=== PATIENT | female | born 1945 | race Caucasian/White ===

== ENCOUNTER → 2017-09-15 09:41 | Outpatient (CLI) | payer OTHER, MEDICARE, SELFPAY ==
[2017-09-15 11:08] LABS: Add Manual Diff / Slide Review NO; Basophils Percent Auto 0.9 % (0-2); Eosinophils Percent Auto 3.3 % (2-4); Hematocrit 41.2 % (36-46); Hemoglobin 14.3 g/dL (12.0-16.0); Lymphocytes Percent Auto 27.6 % (25-40); Mean Corpuscular HGB Conc 34.6 % (30-36); Mean Corpuscular Hemoglobin 30.8 PG (26-34); Monocytes Percent Auto 8.9 % (3-14); Neutrophils Absolute Auto 2800 /uL (3000-5900); Neutrophils Percent Auto 59.3 % (50-75); Platelet Count 177 X10^3/uL (150-400); Red Blood Cell Count 4.64 X10^6/uL (4.0-5.2); Red Cell Distribution Width 13.9 % (11.6-14.8); White Blood Cell Count 4.7 X10^3/uL (4.5-11.0)
[2017-09-15 11:17] LABS: Alanine Aminotransferase 31 IU/L (9-52); Albumin 4.3 g/dL (3.5-5.0); Albumin Globulin Ratio 1.2 (1.0-2.8); Alkaline Phosphatase 112 U/L (38-126); Aspartate Aminotransferase 28 IU/L (14-36); BUN Creatinine Ratio 24.3 (6-22); Bilirubin Total 0.8 mg/dL (0.2-1.3); Blood Urea Nitrogen 17 mg/dL (7-17); Calcium 9.7 mg/dL (8.4-10.2); Carbon Dioxide 30 mmol/L (22-32); Chloride 102 mmol/L (98-107); Estimated Glomerular Filt Rate > 60.0 mL/min (>60); Globulin 3.7 g/dL (1.7-4.1); Glucose 100 mg/dL (80-110); HEMOLYSIS < 15 (0-50); Potassium 4.9 mmol/L (3.4-5.1); Sodium 144 mmol/L (137-145)
== END ==
PROVIDERS: Family Provider Family Medicine; PCP Family Medicine; Visit Provider Nurse Practitioner Pediatrics
DX: I48.91 Unspecified atrial fibrillation (principal); Z86.79 Personal history of other diseases of the circulatory system; I05.9 Rheumatic mitral valve disease, unspecified
CPT/HCPCS: 36415; 80053; 85025

== ENCOUNTER → 2017-11-20 12:56 | Outpatient (CLI) | payer OTHER, MEDICARE, SELFPAY ==
--- NOTE | 2017-11-20 12:59 | DI.RAD.S_ITS ---
PROCEDURE: XR LUMBAR SPINE 2-3V INDICATIONS: Low back pain TECHNIQUE: 3 views of the lumbar spine were acquired. COMPARISON: None. FINDINGS: Bones: 5 iso-[id number] vertebrae are present. There is mild S-shaped scoliosis. L1 vertebral body compression fracture is indeterminate for chronicity. No suspicious bony lesions. Advanced disc degeneration L4-5. Facet arthropathy L5-S1 with mild anterolisthesis. Soft tissues: Overlying bowel gas pattern is normal. No suspicious soft tissue calcifications. IMPRESSION: 1. Compression fracture deformity L1, age indeterminate. Correlate clinically. 2. Advanced disc degeneration L4-5. 3. Facet arthropathy L5-S1 with slight anterolisthesis deformity. Dictated by: Joey Holt M.D. on 11/20/2017 at 13:17 Approved by: Joey Holt M.D. on 11/20/2017 at 13:20
== END ==
PROVIDERS: Family Provider Family Medicine; PCP Family Medicine; Visit Provider Physician Assistant
DX: M51.36 Other intervertebral disc degeneration, lumbar region (principal); M48.56XA Collapsed vertebra, not elsewhere classified, lumbar region, initial encounter for fracture; M47.817 Spondylosis without myelopathy or radiculopathy, lumbosacral region; M54.5 Low back pain
CPT/HCPCS: 72100

== ENCOUNTER → 2018-01-04 12:21 | Outpatient (CLI) | payer OTHER, MEDICARE, SELFPAY | PROVIDERS: Family Provider Family Medicine; PCP Family Medicine | DX: Z23 Encounter for immunization (principal) | CPT/HCPCS: 90471; 90662 ==

== ENCOUNTER → 2018-04-12 09:48 | Outpatient (CLI) | payer OTHER, MEDICARE, SELFPAY ==
--- NOTE | 2018-04-12 09:52 | DI.RAD.S_ITS ---
PROCEDURE: XR RIBS RT MIN 3V W CXR 1V INDICATIONS: Fall right posterior rib pain TECHNIQUE: 2 views of the right ribs were acquired, along with a single view chest. COMPARISON: None. FINDINGS: Surgical changes and devices: Sternotomy wires. Bones and chest wall: No fractures or dislocations. No suspicious bony lesions. Overlying soft tissues appear unremarkable. Lungs and pleura: No pleural effusions or pneumothorax. Lungs appear clear. Mediastinum: Mediastinal contours appear normal. Heart size is normal. IMPRESSION: Sternotomy wires, no trauma found. Dictated by: Dakota Branch M.D. on 04/12/2018 at 10:36 Approved by: Dakota Branch M.D. on 04/12/2018 at 10:37
--- NOTE | 2018-04-12 09:52 | DI.RAD.S_ITS ---
PROCEDURE: XR THORACIC SPINE 3V INDICATIONS: Fall back pain TECHNIQUE: 3 views of the thoracic spine were acquired. COMPARISON: [facility], CR, XR LUMBAR SPINE 2-3V, 11/20/2017, 12:35. FINDINGS: Bones: No dislocations. Within the thoracic spine there are 2 adjacent compression fractures, mild in severity at T8 and moderate in severity at T9. The height reduction at T8 involves the upper and lower endplates and is a 20% reduction from reference to the T7 level immediately above. At the T9 level when compared to T7 there is a 35% height reduction, and chronicity is uncertain given the absence of reference images through this area from the past. Note is made also of an L1 moderate wedge compression fracture, with vertebral height reduction of up to 42% in reference to the level immediately below. A compression fracture in this area was previously present in the obvious to this year, perhaps very slightly worsened No suspicious bony lesions. 12 pairs of ribs are noted, and appear intact where visualized. Soft tissues: No paravertebral stripe thickening. IMPRESSION: T8 and T9 compression fractures are present, chronicity uncertain, with a 20% height reduction at T8 and a 35% height reduction at T9. There is a 42% height reduction in the previously present L1 moderate wedge compression fracture. This lowest compression fracture was previously present in November of this year, and likely has only slightly worsened from the prior study. Dictated by: Dakota Branch M.D. on 04/12/2018 at 10:37 Approved by: Dakota Branch M.D. on 04/12/2018 at 10:42
== END ==
PROVIDERS: PCP Student in an Organized Health Care Education/Training Program; Visit Provider Student in an Organized Health Care Education/Training Program
DX: T14.8XXA Other injury of unspecified body region, initial encounter (principal); W19.XXXA Unspecified fall, initial encounter
CPT/HCPCS: 71101; 72072

== ENCOUNTER → 2018-05-02 10:08 | Outpatient (CLI) | payer OTHER, MEDICARE, SELFPAY | PROVIDERS: Family Provider Student in an Organized Health Care Education/Training Program; PCP Student in an Organized Health Care Education/Training Program; Visit Provider Orthopaedic Surgery Foot and Ankle Surgery | DX: M85.88 Other specified disorders of bone density and structure, other site (principal); Z78.0 Asymptomatic menopausal state; M48.50XA Collapsed vertebra, not elsewhere classified, site unspecified, initial encounter for fracture | CPT/HCPCS: 77080 ==

== ENCOUNTER → 2018-08-31 12:58 | Outpatient (CLI) | payer OTHER, MEDICARE, SELFPAY ==
--- NOTE | 2018-08-31 | DI.MG.S_ITS ---
BILATERAL DIGITAL SCREENING MAMMOGRAM 3D/2D WITH CAD: 08/31/2018 CLINICAL: Routine screening. Comparison is made to exams dated: 08/04/2017 mammogram, 07/15/2016 mammogram, and 06/05/2015 mammogram - [facility]. There are scattered fibroglandular elements in both breasts. Current study was also evaluated with a Computer Aided Detection (CAD) system. There are benign vascular calcifications in both breasts. No significant masses, calcifications, or other findings are seen in either breast. There has been no significant interval change. IMPRESSION: There is no mammographic evidence of malignancy. A 1 year screening mammogram is recommended. This exam was interpreted at Station ID: [id number]. NOTE: For mammograms, a report in lay terms will be sent to the patient. Approximately 15% of breast malignancies will not be visualized mammographically. In the management of a palpable breast mass, a negative mammogram must not discourage biopsy of a clinically suspicious lesion. Electronically Signed By: Melvina jose/charlie:08/31/2018 14:19:16 letter sent: Normal Exam ACR BI-RADS Category 2: Benign Finding(s) 3342F
== END ==
PROVIDERS: Family Provider Student in an Organized Health Care Education/Training Program; PCP Student in an Organized Health Care Education/Training Program; Visit Provider Student in an Organized Health Care Education/Training Program
DX: Z12.31 Encounter for screening mammogram for malignant neoplasm of breast (principal)
CPT/HCPCS: 77063; 77067

== ENCOUNTER → 2018-09-07 08:33 | Outpatient (CLI) | payer OTHER, MEDICARE, SELFPAY ==
[2018-09-07 09:25] LABS: Add Manual Diff / Slide Review NO; Basophils Absolute Auto 0 /uL (0-100); Basophils Percent Auto 0.9 % (0-2); Eosinophils Absolute Auto 100 /uL (0-450); Eosinophils Percent Auto 2.7 % (2-4); Hematocrit 41.8 % (36-46); Lymphocytes Absolute Auto 1600 /uL (1100-4500); Lymphocytes Percent Auto 32.9 % (25-40); Mean Corpuscular HGB Conc 33.4 % (30-36); Mean Corpuscular Hemoglobin 29.9 PG (26-34); Mean Corpuscular Volume 89.5 fL (80-100); Monocytes Absolute Auto 400 /uL (0-900); Monocytes Percent Auto 8.8 % (3-14); Neutrophils Absolute Auto 2600 /uL (1500-7000); Neutrophils Percent Auto 54.7 % (50-75); Platelet Count 192 X10^3/uL (150-400); Red Blood Cell Count 4.67 X10^6/uL (4.0-5.2); Red Cell Distribution Width 13.9 % (11.6-14.8); White Blood Cell Count 4.8 X10^3/uL (4.5-11.0)
[2018-09-07 09:54] LABS: Alanine Aminotransferase 22 IU/L (9-52); Albumin 4.3 g/dL (3.5-5.0); Albumin Globulin Ratio 1.4 (1.0-2.8); Alkaline Phosphatase 108 U/L (38-126); Aspartate Aminotransferase 26 IU/L (14-36); BUN Creatinine Ratio 23.8 (6-22); Blood Urea Nitrogen 19 mg/dL (7-17); Calcium 9.7 mg/dL (8.4-10.2); Carbon Dioxide 29 mmol/L (22-32); Chloride 102 mmol/L (98-107); Estimated Glomerular Filt Rate > 60.0 mL/min (>60); Globulin 3.1 g/dL (1.7-4.1); Glucose 100 mg/dL (80-110); HEMOLYSIS < 15 (0-50); Magnesium 1.9 mg/dL (1.6-2.3); Potassium 4.7 mmol/L (3.4-5.1); Sodium 138 mmol/L (137-145); Total Protein 7.4 g/dL (6.3-8.2)
[2018-09-07 11:59] LABS: Cholesterol 161 mg/dL (140-199); HDL Cholesterol 55 mg/dL (40-60); LDL Cholesterol Calculated 86 mg/dL (<100); Triglycerides 98 mg/dL (35-150)
== END ==
PROVIDERS: Family Provider Student in an Organized Health Care Education/Training Program; PCP Student in an Organized Health Care Education/Training Program; Visit Provider Internal Medicine Cardiovascular Disease
DX: Z79.899 Other long term (current) drug therapy (principal); I48.91 Unspecified atrial fibrillation; I05.9 Rheumatic mitral valve disease, unspecified; Z86.79 Personal history of other diseases of the circulatory system
CPT/HCPCS: 36415; 80053; 80061; 83735; 85025

== ENCOUNTER 2018-12-14 06:38 | Day surgery (SDC) | payer OTHER, MEDICARE, SELFPAY ==
[2018-12-14 07:10] VITALS: BMI 33.8
[2018-12-14 07:18] VITALS: BP 127/82; PULSE 73; RESP 16; TEMP 36.4; O2SAT 95
[2018-12-14] MEDS: SODIUM CHLORIDE 0.9% 1,000 ML 200 ML IV (07:29)
[2018-12-14] MEDS: GLUCAGON,HUMAN RECOMBINANT 1 MG/ML VIAL IV (07:55)
[2018-12-14] MEDS: MIDAZOLAM 5 MG/5 ML VIAL IV (08:00)
[2018-12-14] MEDS: fentaNYL 250 MCG/5 ML INJ IV (08:00)
--- NOTE | 2018-12-14 08:25 | PM.HP.1 ---
History of Present Illness History of Present Illness Date Patient Seen: 12/14/18 Time Patient Seen: 07:35 Chief complaint: [id number] Narrative: pt seen and examened unchanged since recent clinic not off warfarin x 5 days Patient History Surgical History (Updated 12/06/17 @ 07:07 by Dallas Marley MD) History of heart valve replacement (Resolved 07/2012) Hx of cataract surgery (Resolved ~01/2016) Hx of foot surgery (Resolved) Family History (Updated 10/23/18 @ 11:56 by Guerline Calderon, RN) Mother Heart disease Stroke Gallstones Father Heart disease Brother Heart disease Social History (Updated 10/23/18 @ 11:57 by Guerline Calderon, OPAL) occupational status: employed Smoking Status: Never smoker alcohol intake: never substance use type: does not use Family & Social History Tobacco & Substance use: Smoking Status Never smoker alcohol intake never Meds Home Medications and Allergies Home Medications Medication Instructions Recorded Confirmed Type FOLIC ACID/VIT A/VIT B1/VIT 1 tab PO Q DAY #0 09/15/10 12/14/18 History (#MULTIVITAMIN) warfarin [Coumadin] 4 mg PO DAILY #0 01/07/13 12/14/18 History simvastatin 20 mg tablet 20 mg PO HS #90 tab 09/03/18 12/14/18 Rx aspirin 81 mg tablet,delayed 81 mg PO DAILY 10/02/18 12/14/18 History release sotalol 80 mg tablet 80 mg PO DAILY 10/23/18 12/14/18 History alendronate 10 mg tablet 10 mg PO DAILY #30 tab 10/30/18 12/14/18 Rx Allergies Allergy/AdvReac Type Severity Reaction Status Date / Time No Known Drug Allergies Allergy Verified 10/23/18 11:44 Exam Vital Signs (past 8 hours): - 12/14/18 07:18 Temperature 97.6 F Pulse Rate 73 Respiratory Rate 16 Blood Pressure 127/82 Pulse Oximetry 95 Oxygen Delivery Method Room Air
--- NOTE | 2018-12-14 08:26 | PM.OP.ENDO ---
Operative Date/Time/Diagnoses Date of procedure: 12/14/18 Time of procedure: 08:26 Pre-op diagnosis: Colorectal cancer screening Post-op diagnosis: same Procedure & Clinicians Study performed: Screening colonoscopy-complete Same procedure as scheduled: Yes Indications: 73-year-old woman without a family history of colon cancer or polyps, no true polyp on prior colonoscopy -last colonoscopy 11 years ago Of note has bioprosthetic mitral valve -on warfarin, warfarin stopped X5 days ahead of procedure Surgeon: Dharmesh De La Cruz Procedure Notes SCOAP/Timeout: Completed Procedure in detail: Patient was taken to the endoscopy suite, a time-out was completed. She was sedated over the entire course of the procedure with 4 mg of midazolam and 75 micro g of fentanyl. In addition due to his spastic colon she received 1 mg of glucagon. A digital rectal exam was performed without lesions. 160 cm colonoscope was introduced through the anus and passed to hold the rectum and colon without difficulty until the cecum was encountered. The cecum was identified via prominent ileocecal valve and a crows foot. The blind pouch of the cecum was inspected thoroughly -I was unable to identify the appendiceal orifice. Be doubly sure we were in the cecum -I went forward and intubated the ileocecal valve revealing healthy villous mucosa -pictures taken of this.. The scope was then withdrawn out of the small bowel back into the cecum. The scope was then slowly withdrawn through the remainder of the colon. There was very rare scattered right and transverse colon diverticulosis and a moderate amount of sigmoid diverticulosis. Within the distal rectum the scope was retroflexed -there is the small anal skin taken identified within the anal canal. No further lesion Prep was adequate Scope withdrawal time: 11 Sedation minutes: 33 Specimen(s): none sent Complications: none Impression: Rare right/transverse colon diverticulosis Moderate amount of sigmoid colon diverticulosis Post-procedure Recommendations: Colonscopy in 10 years Plan for aftercare: PACU then home Follow up: as needed Disposition: PACU
[2018-12-14 08:31] VITALS: BP 100/56; PULSE 65; RESP 15; TEMP 36.3; O2SAT 95
[2018-12-14 08:34] VITALS: BP 97/54; PULSE 78; RESP 13; O2SAT 95
[2018-12-14 09:15] VITALS: BP 109/72; PULSE 65; RESP 16; TEMP 36.3; O2SAT 96
--- NOTE | 2018-12-14 09:36 | SUR.PHASEII ---
Discharge note: Patient AA/O x 3. VSS, O2 sat wnl on room air. No complaints of pain. Tolerating po without any nausea. Discharge instructions reviewed with good understanding.
== END 2018-12-14 09:30 | disposition home or self-care (01) ==
PROVIDERS: Family Provider Student in an Organized Health Care Education/Training Program; PCP Student in an Organized Health Care Education/Training Program; Visit Provider Surgery
PROC: 0DJD8ZZ Inspection of Lower Intestinal Tract, Via Natural or Artificial Opening Endoscopic (ICD-10-PCS; CPT 45378; principal; 2018-12-14 07:45)
DX: Z12.11 Encounter for screening for malignant neoplasm of colon (principal); K57.30 Diverticulosis of large intestine without perforation or abscess without bleeding
CPT/HCPCS: 45378; 99152; 99153; J1610; J2250; J3010

== ENCOUNTER → 2019-01-17 15:55 | Outpatient (CLI) | payer OTHER, SELFPAY | DX: Z23 Encounter for immunization (principal) | CPT/HCPCS: 90471; 90662 ==

== ENCOUNTER → 2019-02-27 09:49 | Outpatient (CLI) | payer OTHER, MEDICARE, SELFPAY ==
[2019-02-27 11:17] LABS: Alanine Aminotransferase 22 IU/L (<35); Albumin 4.4 g/dL (3.5-5.0); Albumin Globulin Ratio 1.5 (1.0-2.8); Alkaline Phosphatase 86 U/L (38-126); Aspartate Aminotransferase 32 IU/L (14-36); BUN Creatinine Ratio 25.7 (6-22); Bilirubin Total 0.8 mg/dL (0.2-1.3); Blood Urea Nitrogen 18 mg/dL (7-17); Calcium 9.8 mg/dL (8.4-10.2); Carbon Dioxide 29 mmol/L (22-32); Chloride 102 mmol/L (98-107); Estimated Glomerular Filt Rate > 60.0 mL/min (>60); Glucose 93 mg/dL (80-110); HEMOLYSIS < 15 (0-50); Potassium 4.8 mmol/L (3.4-5.1); Sodium 138 mmol/L (137-145); Total Protein 7.4 g/dL (6.3-8.2)
== END ==
PROVIDERS: Family Provider Student in an Organized Health Care Education/Training Program; PCP Student in an Organized Health Care Education/Training Program; Visit Provider Internal Medicine Cardiovascular Disease
DX: Z51.81 Encounter for therapeutic drug level monitoring (principal)
CPT/HCPCS: 36415; 80053

== ENCOUNTER → 2019-04-26 15:05 | Outpatient (CLI) | payer OTHER, MEDICARE, SELFPAY | PROVIDERS: PCP Student in an Organized Health Care Education/Training Program; Visit Provider Student in an Organized Health Care Education/Training Program | DX: M85.88 Other specified disorders of bone density and structure, other site (principal); Z78.0 Asymptomatic menopausal state | CPT/HCPCS: 77080 ==

== ENCOUNTER → 2019-11-12 09:45 | Outpatient (CLI) | payer MEDICARE, OTHER, SELFPAY ==
[2019-11-12 10:45] LABS: BUN Creatinine Ratio 29.9 (6-22); Blood Urea Nitrogen 20 mg/dL (7-17); Calcium 9.7 mg/dL (8.4-10.2); Carbon Dioxide 25 mmol/L (22-32); Chloride 105 mmol/L (98-107); Estimated Glomerular Filt Rate > 60.0 mL/min (>60); Glucose 100 mg/dL (80-110); HEMOLYSIS < 15 (0-50); Potassium 4.2 mmol/L (3.4-5.1); Sodium 137 mmol/L (137-145)
== END ==
PROVIDERS: PCP Student in an Organized Health Care Education/Training Program; Referring Provider Internal Medicine Cardiovascular Disease; Visit Provider Internal Medicine Cardiovascular Disease
DX: I48.0 Paroxysmal atrial fibrillation (principal); Z51.81 Encounter for therapeutic drug level monitoring; Z79.01 Long term (current) use of anticoagulants
CPT/HCPCS: 36415; 80048

== ENCOUNTER → 2019-11-14 16:58 | Outpatient (CLI) | payer MEDICARE, OTHER, SELFPAY ==
--- NOTE | 2019-11-14 17:00 | DI.MG.S_ITS ---
BILATERAL DIGITAL SCREENING MAMMOGRAM 3D/2D WITH CAD: 11/14/2019 CLINICAL: Routine screening. Comparison is made to exams dated: 08/31/2018 mammogram, 08/04/2017 mammogram, and 07/15/2016 mammogram - [facility]. There are scattered fibroglandular elements in both breasts. Current study was also evaluated with a Computer Aided Detection (CAD) system. There are benign vascular calcifications in both breasts. No significant masses, calcifications, or other findings are seen in either breast. There has been no significant interval change. IMPRESSION: There is no mammographic evidence of malignancy. A 1 year screening mammogram is recommended. This exam was interpreted at Station ID: [id number]. NOTE: For mammograms, a report in lay terms will be sent to the patient. Approximately 15% of breast malignancies will not be visualized mammographically. In the management of a palpable breast mass, a negative mammogram must not discourage biopsy of a clinically suspicious lesion. Electronically Signed By: Toby valdovinos/charlie:11/15/2019 08:16:44 letter sent: Normal Exam ACR BI-RADS Category 2: Benign Finding(s) 3342F
== END ==
PROVIDERS: PCP Student in an Organized Health Care Education/Training Program; Referring Provider Student in an Organized Health Care Education/Training Program; Visit Provider Student in an Organized Health Care Education/Training Program
DX: Z12.31 Encounter for screening mammogram for malignant neoplasm of breast (principal)
CPT/HCPCS: 77063; 77067

== ENCOUNTER → 2020-01-07 10:48 | Outpatient (CLI) | payer MEDICARE, OTHER, SELFPAY ==
[2020-01-07 11:59] LABS: INR 2.6 (0.9-1.3); Prothrombin Time 30.1 SECONDS (10.1-12.7)
== END ==
PROVIDERS: PCP Student in an Organized Health Care Education/Training Program; Referring Provider Internal Medicine Cardiovascular Disease; Visit Provider Internal Medicine Cardiovascular Disease
DX: I48.0 Paroxysmal atrial fibrillation (principal); Z51.81 Encounter for therapeutic drug level monitoring
CPT/HCPCS: 36415; 85610

== ENCOUNTER → 2020-04-28 10:10 | Outpatient (CLI) | payer MEDICARE, OTHER, SELFPAY | PROVIDERS: PCP Student in an Organized Health Care Education/Training Program; Referring Provider Student in an Organized Health Care Education/Training Program; Visit Provider Student in an Organized Health Care Education/Training Program | DX: M85.88 Other specified disorders of bone density and structure, other site (principal); Z78.0 Asymptomatic menopausal state | CPT/HCPCS: 77080 ==

== ENCOUNTER → 2020-06-29 07:30 | Outpatient (CLI) | payer MEDICARE, OTHER, SELFPAY ==
[2020-06-29] MEDS: COVID-19 VACC, Ad26(JANSSEN)/PF 0.5 ML IM (07:42)
== END ==
PROVIDERS: PCP Student in an Organized Health Care Education/Training Program; Visit Provider Internal Medicine
DX: Z23 Encounter for immunization (principal)
CPT/HCPCS: 0031A; 91303

== ENCOUNTER → 2020-07-10 09:04 | Outpatient (CLI) | payer MEDICARE, OTHER, SELFPAY ==
[2020-07-10 10:38] LABS: BUN Creatinine Ratio 29.9 (6-22); Blood Urea Nitrogen 23 mg/dL (7-17); Calcium 9.3 mg/dL (8.4-10.2); Carbon Dioxide 29 mmol/L (22-32); Chloride 104 mmol/L (98-107); Estimated Glomerular Filt Rate > 60.0 mL/min (>60); Glucose 101 mg/dL (80-110); HEMOLYSIS < 15 (0-50); Potassium 4.3 mmol/L (3.4-5.1); Sodium 140 mmol/L (137-145)
== END ==
PROVIDERS: PCP Student in an Organized Health Care Education/Training Program; Referring Provider Internal Medicine Cardiovascular Disease; Visit Provider Internal Medicine Cardiovascular Disease
DX: I48.0 Paroxysmal atrial fibrillation (principal); I48.3 Typical atrial flutter
CPT/HCPCS: 36415; 80048

== ENCOUNTER → 2020-08-19 10:14 | Outpatient (CLI) | payer MEDICARE, OTHER, SELFPAY ==
--- NOTE | 2020-08-19 10:17 | DI.RAD.S_ITS ---
PROCEDURE: XR KNEE RT 3V INDICATIONS: Right knee pain TECHNIQUE: 3 views of the knee were acquired. COMPARISON: None. FINDINGS: Bones: No fractures or dislocations. No suspicious bony lesions. Diffuse mild tricompartmental joint space narrowing. Scattered degenerative subchondral sclerosis and spurring. Soft tissues: No joint effusion. No suspicious soft tissue calcifications. IMPRESSION: Mild diffuse osteoarthritis as above. If the patient's pain or other symptoms persist, consider further evaluation with MRI Dictated by: Brian Reyes M.D. on 08/19/2020 at 10:51 Approved by: Brian Reyes M.D. on 08/19/2020 at 10:52
== END ==
PROVIDERS: PCP Student in an Organized Health Care Education/Training Program; Referring Provider Student in an Organized Health Care Education/Training Program; Visit Provider Student in an Organized Health Care Education/Training Program
DX: M25.561 Pain in right knee (principal); M17.11 Unilateral primary osteoarthritis, right knee
CPT/HCPCS: 73562

== ENCOUNTER → 2020-11-16 10:42 | Outpatient (CLI) | payer MEDICARE, OTHER, SELFPAY ==
--- NOTE | 2020-11-16 | DI.MG.S_ITS ---
BILATERAL DIGITAL SCREENING MAMMOGRAM 3D/2D WITH CAD: 11/16/2020 CLINICAL: Routine screening. Comparison is made to exams dated: 11/14/2019 mammogram, 08/31/2018 mammogram, and 08/04/2017 mammogram - [facility]. There are scattered fibroglandular elements in both breasts. Current study was also evaluated with a Computer Aided Detection (CAD) system. There are benign vascular calcifications in both breasts. No significant masses, calcifications, or other findings are seen in either breast. There has been no significant interval change. IMPRESSION: BENIGN There is no mammographic evidence of malignancy. A 1 year screening mammogram is recommended. This exam was interpreted at Station ID: [id number]. NOTE: For mammograms, a report in lay terms will be sent to the patient. Approximately 15% of breast malignancies will not be visualized mammographically. In the management of a palpable breast mass, a negative mammogram must not discourage biopsy of a clinically suspicious lesion. Electronically Signed By: Dinesh stahl/charlie:11/16/2020 11:19:39 letter sent: Normal Exam ACR BI-RADS Category 2: Benign Finding(s) [id number]
== END ==
PROVIDERS: PCP Student in an Organized Health Care Education/Training Program; Referring Provider Student in an Organized Health Care Education/Training Program; Visit Provider Student in an Organized Health Care Education/Training Program
DX: Z12.31 Encounter for screening mammogram for malignant neoplasm of breast (principal)
CPT/HCPCS: 77063; 77067

== ENCOUNTER → 2020-11-25 09:35 | Outpatient (CLI) | payer MEDICARE, OTHER, SELFPAY ==
[2020-11-25 12:07] LABS: BUN Creatinine Ratio 26.5 (6-22); Blood Urea Nitrogen 18 mg/dL (7-17); Calcium 10.2 mg/dL (8.4-10.2); Carbon Dioxide 25 mmol/L (22-32); Chloride 105 mmol/L (98-107); Estimated Glomerular Filt Rate > 60.0 mL/min (>60); Glucose 97 mg/dL (80-110); HEMOLYSIS < 15 (0-50); Potassium 4.5 mmol/L (3.4-5.1); Sodium 138 mmol/L (137-145)
[2020-11-25 12:12] LABS: Vitamin D 25 Hydroxy (D3) 29.2 ng/mL (30.0-100.0)
== END ==
PROVIDERS: PCP Student in an Organized Health Care Education/Training Program; Referring Provider Student in an Organized Health Care Education/Training Program; Visit Provider Student in an Organized Health Care Education/Training Program
DX: M85.80 Other specified disorders of bone density and structure, unspecified site (principal); S32.000A Wedge compression fracture of unspecified lumbar vertebra, initial encounter for closed fracture
CPT/HCPCS: 36415; 80048; 82306

== ENCOUNTER 2020-12-23 09:45 | Outpatient (RCR) | payer MEDICARE, OTHER, SELFPAY ==
--- NOTE | 2020-09-30 17:05 | PT.OIE ---
Current Diagnoses Other chronic pain (09/30/20) Pain in right knee (09/30/20) Difficulty in walking, not elsewhere classified (09/30/20) Weakness (09/30/20) Past Medical History (Last Reviewed 04/23/20 @ 13:37 by Julio Clement MD) Cataracts, bilateral Essential hypertension (02/17/15) Hyperlipemia Hypertension Lumbar compression fracture Mitral valve disorder Mixed hyperlipidemia (02/17/15) Paroxysmal atrial fibrillation (02/17/15) Paroxysmal atrial fibrillation Past Surgical History (Last Reviewed 04/23/20 @ 13:37 by Julio Clement MD) History of mitral valve replacement (02/17/15) Hx of cataract surgery (~01/2016) Hx of foot surgery Visit Care Team Role Provider Type Leo Keane MD Attending Provider Physician Primary Care Provider Referring Provider Specialty: Internal Medicine Address: [address] [place] [address], [address], [facility] Email: [email or web address] Physical Therapy Initial Evaluation PT-OP-A Visit Information Start: 09/29/20 15:47 Freq: Status: Active Protocol: Document 09/30/20 13:55 [facility] (Rec: 09/30/20 14:28 [facility] [id number]) Out-Patient Physical Therapy Visit Information Visit Information Visit Type Initial Evaluation Visit Start Time 13:00 Visit Stop Time 13:55 Total Visit Minutes 55 Visit Number 1 Number of WHEEL ROLLER Visits 0 Evaluation Information Evaluation Date 09/30/20 Precautions Precautions cardiac (mitral valve replacement) osteopenia PT-OP-B Current Condition Start: 09/29/20 15:47 Freq: Status: Active Protocol: Document 09/30/20 13:55 [facility] (Rec: 09/30/20 14:28 [facility] [id number]) Current Condition History of Current Condition Onset Date 2 years Current Complaints progressively worsening right knee pain History of Current Condition Patient reports gradual worsening of right knee pain with no precipitating event, though does report after a foot surgery a few years ago, scooting around at work on rolling chair using her right LE. Since retiring has tried to increase her activity level and had increased her walking distance to 1 mile per day, but due to persistent and worsening right knee pain states can barely go half of that. Pain interrupts her sleep, makes it difficult to stand, walk, or do other usual activities such as bend down to excelsior picker her dog's poop. Prior Treatments and Tests mild arthritis right knee Future Testing and Treatments Planned potential MRI if symptoms persist Prior Functional Status Baseline Function- ADL's Independent Baseline Function- Mobility Independent Baseline Function- Gait no limitations Baseline Function- Work/School no limitations Baseline Function- Recreation/Hobbies walked 1 mile per day Baseline Function- Other able to bend down to excelsior picker dog poop without difficulty Current Functional Impairments (Reported) Functional Limitations- ADL's painful Functional Limitations- Mobility/Gait painful, limps Functional Limitations- Work/School retired, difficulty doing house and yardwork Functional Limitations- Recreation/ painful to go for walks Hobbies PT-OP-C Subjective Start: 09/29/20 15:47 Freq: Status: Active Protocol: Document 09/30/20 13:55 [facility] (Rec: 09/30/20 14:28 [facility] [id number]) Patient Questionnaires Lower Extremity Functional Scale LEFS Score 46 OP-PT Pain Assessment Location right knee Pain Location Details entire knee, worst medially and posteriorly Intensity 5 Scale Used Numeric (0 - 10) Description Aching,Burning,Chronic, Pressure,Throbbing Frequency Frequent Pain Aggravating Factors Standing,Walking,Stair Climbing Pain Alleviating Factors Cold,Inactivity Pain Behaviors Pain Behaviors Facial Grimacing,Guarding PT-OP-D Balance Start: 09/29/20 15:47 Freq: Status: Active Protocol: Document 09/30/20 13:55 [facility] (Rec: 09/30/20 14:28 [facility] [id number]) OP-PT Balance Assessment Standing Balance Standing Balance Comments unable to test due to pain Wright Fall Scale Copyright Permission PT-OP-F Manual Assessment Start: 09/29/20 15:47 Freq: Status: Active Protocol: Document 09/30/20 13:55 [facility] (Rec: 09/30/20 14:28 [facility] [id number]) Manual Assessments Soft Tissue Assessment Soft Tissue Mobility Assessment moderate swelling right knee with mild warmth, no redness Joint Mobility Assessment Joint Mobility Assessment decreased medial glide right patella PT-OP-G Mobility & Gait Start: 09/29/20 15:47 Freq: Status: Active Protocol: Document 09/30/20 13:55 [facility] (Rec: 09/30/20 14:28 [facility] [id number]) OP Mobility Evaluation Bed Mobility Supine to and from Sit indep Transfers Sit to Stand indep with decreased weight- bearing righ Floor Transfers unable OP Gait Assessment Gait Gait Assistance Required: Independent Distance (Feet) 100 Assistive Devices Assistive Device None Orthotic/Prosthetic Devices or Brace: Yes Gait Deviations General Gait Pattern Antalgic Comments Gait Comments wearing soft knee brace Stair Climbing Evaluation Evaluation Level of Assist On Stairs Independent Devices Stair Climbing Assistive Devices Left Railing,Right Railing Technique/Endurance Stair Climbing Direction Ascend and Descend Stair Climbing Technique Step to Step Comments Stair Climbing Comments antalgic if tries to alternate LE's PT-OP-H Neuro Start: 09/29/20 15:47 Freq: Status: Active Protocol: Document 09/30/20 13:55 [facility] (Rec: 09/30/20 14:28 [facility] [id number]) Sensation Evaluation Gross Sensation Gross Sensation WNL PT-OP-J Posture/Palpation/Skin Start: 09/29/20 15:47 Freq: Status: Active Protocol: Document 09/30/20 13:55 [facility] (Rec: 09/30/20 14:28 [facility] [id number]) Posture Evaluation Position Standing Hip Posture (L) Externally Rotated,(R) Externally Rotated Knee Posture (R) Genu Varus Patellar Posture (R) Laterally Tilted PT-OP-K Range of Motion Start: 09/29/20 15:47 Freq: Status: Active Protocol: Document 09/30/20 13:55 [facility] (Rec: 09/30/20 14:28 [facility] [id number]) Knee Goniometric Range of Motion Knee Right Flexion Active (degrees) 95 Extension Active (degrees) 7 Left Knee ROM WFL Yes Knee ROM Limitations Knee ROM Limitations Pain,Swelling PT-OP-M Strength Start: 09/29/20 15:47 Freq: Status: Active Protocol: Document 09/30/20 13:55 [facility] (Rec: 09/30/20 14:28 [facility] [id number]) Hip Strength Hip Manual Muscle Testing jose Flexion (L2) 3- Fair- Extension (S1) 2+ Poor+ External Rotation 3+ Fair+ Internal Rotation 4- Good- Knee Strength Knee Manual Muscle Testing Right Flexion (S2) 4- Good- Extension (L3) 4- Good- Left Flexion (S2) 4+ Good+ Extension (L3) 4+ Good+ PT-OP-Q Treatments Start: 09/29/20 15:47 Freq: Status: Active Protocol: Document 09/30/20 13:55 [facility] (Rec: 09/30/20 14:28 [facility] [id number]) Gait Training Gait Activity gait with cane Description level surface Device Used SPC Level of Assistance SBA, cues Surface firm Distance/Duration 100' Treatment Focus safe fit and use of cane in left hand to offload right LE Manual Therapy Treatment Taping right knee Treatment Focus facil med patellar glide, pain relief Type of Tape Kinesio Tape Skin Inspection intact Comments 1 Y strip patella base medially wrapping sup and inf patella 75% tension 2 I strips: med and lateral joint line space correction 50 -75% tension Self-Care/Home Management Treatment Education Patient Education Home Exercise Program Other Education use of ice remove kinesiotape if not tolerating, rash, or increased pain. wear no more than 5 days discontinue any exercise that causes pain PT-OP-R Modalities Start: 09/29/20 15:47 Freq: Status: Active Protocol: Document 09/30/20 13:55 [facility] (Rec: 09/30/20 14:28 [facility] [id number]) Electric Stimulation Electric Stimulation Interferential Current (IFC) Body Location right knee Duration (Minutes) 10 Intensity 14 Target/Sweep Sweep Patient Position Hooklying Combined With Heat/Cold Cold Pack PT-OP-T Assessment and Plan Start: 09/29/20 15:47 Freq: Status: Active Protocol: Document 09/30/20 13:55 [facility] (Rec: 09/30/20 14:28 [facility] [id number]) Physical Therapy Assessment Rehab Potential Rehabilitation Potential Good Evaluation Complexity Number of Personal Factors/Comorbidities 1-2 Number of Body Systems Impaired 3 Clinical Presentation at Evaluation Evolving Impairments Impairments Activity Tolerance,Gait,Pain, Strength Other Concerns Barriers to Rehabilitation cardiac issues weight gain: pt 5'7 225 lbs osteopenia Goals 4 Impairment weakness right LE Short Term Goal (STG) Patient to be independent with progressive HEP for the purposes of LE strengthening STG Duration 10/30/20 Fdc Goal (LTG) Patient right knee strength at least 4+/5 LTG Duration 12/01/20 3 Impairment decreased activity tolerance; lower extremity functional scale 46% Short Term Goal (STG) improve LEFS to at least 60% STG Duration 10/30/20 Fdc Goal (LTG) Improve LEFS to at least 75% as measure of improved activity tolerance LTG Duration 11/29/20 2 Impairment antalgic gait on level surfaces and step-to pattern on stairs Short Term Goal (STG) patient able to ambulate with cane with no limp on level surfaces using cane STG Duration 10/30/20 Portfolio Consultant Goal (LTG) Patient able to ambulate without assistive device with no limp and ascend and descend stairs with alternating pattern without limp LTG Duration 11/29/20 1 Impairment pain right knee as high as 5/ 10 on pain scale Fdc Goal (LTG) decrease pain to no greater than 5/10 with all usual activities LTG Duration 11/29/20 Assessment Summary Assessment Patient presents with function -limiting pain right knee with x-rays showing mild arthritis . Signs and symptoms include weakness, excess lateral positioning and glide of right patella, antalgic gait, swelling and mild warmth right knee. Patient was instructed in the use of a cane for offloading her right knee joint, kinesiotape was applied to facilitate medial patellar glide and decrease pain, IFES with ice pack applied to right knee for pain and edema reduction. Feel she would benefit from physical therapy to decrease her pain and swelling, improve her strength and gait, and help her return to more active lifestyle. Discussed plan of care with patient and she agreed. Physical Therapy Plan Frequency and Duration Frequency of Treatment 2x/Week Duration of Treatment 8 weeks Plan of Care Start Date 09/30/20 Plan of Care End Date 11/29/20 Therapeutic Interventions Therapeutic Interventions Gait Training,Home Exercise Program,Joint Mobilizations, Manual Therapy,Neuromuscular Re-education,Patient/Caregiver Education,Self-Care/Home Management,Soft Tissue Mobilization,Taping, Therapeutic Activities, Therapeutic Exercises Modalities Cold Pack/Ice Massage,Electric Stimulation,Hot Packs, Iontophoresis,Ultrasound Next Visit Focus/Plan Next Note Type Treatment Note Next Visit Plan review HEP, gentle ther ex for knee strengthening and ROM. Review use of cane, assess compliance. Assess response to kinesiotape and continue if helpful or consider alternative method if not. Gentle patellar mobilization, modalities as needed for pain.
--- NOTE | 2020-09-30 17:05 | PT.OPPOC ---
Physical, Occupational & Speech Therapy At [facility] Current Diagnoses Other chronic pain (09/30/20) Pain in right knee (09/30/20) Difficulty in walking, not elsewhere classified (09/30/20) Weakness (09/30/20) Visit Care Team Role Provider Type Leo Keane MD Attending Provider Physician Primary Care Provider Referring Provider Specialty: Internal Medicine Address: [address] [place] [address], [address], [address] Email: [email or web address] Plan Of Care PT-OP-T Assessment and Plan Start: 09/29/20 15:47 Freq: Status: Active Protocol: Document 09/30/20 13:55 SAK (Rec: 09/30/20 14:28 SAK [id number]) Physical Therapy Assessment Rehab Potential Rehabilitation Potential Good Evaluation Complexity Number of Personal Factors/Comorbidities 1-2 Number of Body Systems Impaired 3 Clinical Presentation at Evaluation Evolving Impairments Impairments Activity Tolerance,Gait,Pain, Strength Other Concerns Barriers to Rehabilitation cardiac issues weight gain: pt 5'7 225 lbs osteopenia Goals 4 Impairment weakness right LE Short Term Goal (STG) Patient to be independent with progressive HEP for the purposes of LE strengthening STG Duration 10/30/20 Retirement Goal (LTG) Patient right knee strength at least 4+/5 LTG Duration 12/01/20 3 Impairment decreased activity tolerance; lower extremity functional scale 46% Short Term Goal (STG) improve LEFS to at least 60% STG Duration 10/30/20 Retirement Goal (LTG) Improve LEFS to at least 75% as measure of improved activity tolerance LTG Duration 11/29/20 2 Impairment antalgic gait on level surfaces and step-to pattern on stairs Short Term Goal (STG) patient able to ambulate with cane with no limp on level surfaces using cane STG Duration 10/30/20 Retirement Goal (LTG) Patient able to ambulate without assistive device with no limp and ascend and descend stairs with alternating pattern without limp LTG Duration 11/29/20 1 Impairment pain right knee as high as 5/ 10 on pain scale Retirement Goal (LTG) decrease pain to no greater than 5/10 with all usual activities LTG Duration 8/15/21 Assessment Summary Assessment Patient presents with function -limiting pain right knee with x-rays showing mild arthritis . Signs and symptoms include weakness, excess lateral positioning and glide of right patella, antalgic gait, swelling and mild warmth right knee. Patient was instructed in the use of a cane for offloading her right knee joint, kinesiotape was applied to facilitate medial patellar glide and decrease pain, IFES with ice pack applied to right knee for pain and edema reduction. Feel she would benefit from physical therapy to decrease her pain and swelling, improve her strength and gait, and help her return to more active lifestyle. Discussed plan of care with patient and she agreed. Physical Therapy Plan Frequency and Duration Frequency of Treatment 2x/Week Duration of Treatment 8 weeks Plan of Care Start Date 09/30/20 Plan of Care End Date 11/29/20 Therapeutic Interventions Therapeutic Interventions Gait Training,Home Exercise Program,Joint Mobilizations, Manual Therapy,Neuromuscular Re-education,Patient/Caregiver Education,Self-Care/Home Management,Soft Tissue Mobilization,Taping, Therapeutic Activities, Therapeutic Exercises Modalities Cold Pack/Ice Massage,Electric Stimulation,Hot Packs, Iontophoresis,Ultrasound Next Visit Focus/Plan Next Note Type Treatment Note Next Visit Plan review HEP, gentle ther ex for knee strengthening and ROM. Review use of cane, assess compliance. Assess response to kinesiotape and continue if helpful or consider alternative method if not. Gentle patellar mobilization, modalities as needed for pain. Plan of Care Dates Plan of Care Start Date 09/30/20 Plan of Care End Date 11/29/20 Electronically Signed by: Rosalie Weiss, PT 09/30/20 [id number] Please Sign and Return: I have reviewed this Plan of Care and certify that the skilled therapy services above are required to meet the patient?s needs. Physician Signature Date Printed Name and Credentials Clinical Instructor Signature Printed Name and Credentials
--- NOTE | 2020-10-05 16:39 | PT.OTN ---
Current Diagnoses Other chronic pain (10/05/20) Pain in right knee (10/05/20) Difficulty in walking, not elsewhere classified (10/05/20) Weakness (10/05/20) Physical Therapy Treatment Note PT-OP-A Visit Information Start: 09/29/20 15:47 Freq: Status: Active Protocol: Document 10/05/20 13:46 SAK (Rec: 10/05/20 14:30 SAK [id number]) Out-Patient Physical Therapy Visit Information Visit Information Visit Type Treatment Note Visit Start Time 13:45 Visit Stop Time 14:40 Total Visit Minutes 55 Visit Number 2 Evaluation Information Evaluation Date 09/30/20 PT-OP-B Current Condition Start: 09/29/20 15:47 Freq: Status: Active Protocol: Document 09/30/20 13:55 SAK (Rec: 09/30/20 14:28 SAK [id number]) Current Condition History of Current Condition Onset Date 2 years Current Complaints progressively worsening right knee pain History of Current Condition Patient reports gradual worsening of right knee pain with no precipitating event, though does report after a foot surgery a few years ago, scooting around at work on rolling chair using her right LE. Since retiring has tried to increase her activity level and had increased her walking distance to 1 mile per day, but due to persistent and worsening right knee pain states can barely go half of that. 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 Using cane when not walking her little dog. Ices after walking. States kinesiotape seems helpful, knee feels more stable, less slipping in knee. [facility] and wants to be shown how to do it. PT-OP-D Balance Start: 09/29/20 15:47 Freq: Status: Active Protocol: Document 09/30/20 13:55 [facility] (Rec: 09/30/20 14:28 [facility] [id number]) OP-PT Balance Assessment Standing Balance Standing Balance Comments unable to test due to pain Wright Fall Scale Copyright Permission PT-OP-F Manual Assessment Start: 09/29/20 15:47 Freq: Status: Active Protocol: Document 09/30/20 13:55 [facility] (Rec: 09/30/20 14:28 [facility] [id number]) Manual Assessments Soft Tissue Assessment Soft Tissue Mobility Assessment moderate swelling right knee with mild warmth, no redness Joint Mobility Assessment Joint Mobility Assessment decreased medial glide right patella PT-OP-G Mobility & Gait Start: 09/29/20 15:47 Freq: Status: Active Protocol: Document 09/30/20 13:55 [facility] (Rec: 09/30/20 14:28 [facility] [id number]) OP Mobility Evaluation Bed Mobility Supine to and from Sit indep Transfers Sit to Stand indep with decreased weight- bearing righ Floor Transfers unable OP Gait Assessment Gait Gait Assistance Required: Independent Distance (Feet) 100 Assistive Devices Assistive Device None Orthotic/Prosthetic Devices or Brace: Yes Gait Deviations General Gait Pattern Antalgic Comments Gait Comments wearing soft knee brace Stair Climbing Evaluation Evaluation Level of Assist On Stairs Independent Devices Stair Climbing Assistive Devices Left Railing,Right Railing Technique/Endurance Stair Climbing Direction Ascend and Descend Stair Climbing Technique Step to Step Comments Stair Climbing Comments antalgic if tries to alternate LE's PT-OP-H Neuro Start: 09/29/20 15:47 Freq: Status: Active Protocol: Document 09/30/20 13:55 [facility] (Rec: 09/30/20 14:28 [facility] [id number]) Sensation Evaluation Gross Sensation Gross Sensation WNL PT-OP-J Posture/Palpation/Skin Start: 09/29/20 15:47 Freq: Status: Active Protocol: Document 09/30/20 13:55 [facility] (Rec: 09/30/20 14:28 [facility] [id number]) Posture Evaluation Position Standing Hip Posture (L) Externally Rotated,(R) Externally Rotated Knee Posture (R) Genu Varus Patellar Posture (R) Laterally Tilted PT-OP-K Range of Motion Start: 09/29/20 15:47 Freq: Status: Active Protocol: Document 09/30/20 13:55 [facility] (Rec: 09/30/20 14:28 [facility] [id number]) Knee Goniometric Range of Motion Knee Right Flexion Active (degrees) 95 Extension Active (degrees) 7 Left Knee ROM WFL Yes Knee ROM Limitations Knee ROM Limitations Pain,Swelling PT-OP-M Strength Start: 09/29/20 15:47 Freq: Status: Active Protocol: Document 09/30/20 13:55 [facility] (Rec: 09/30/20 14:28 [facility] [id number]) Hip Strength Hip Manual Muscle Testing jose Flexion (L2) 3- Fair- Extension (S1) 2+ Poor+ External Rotation 3+ Fair+ Internal Rotation 4- Good- Knee Strength Knee Manual Muscle Testing Right Flexion (S2) 4- Good- Extension (L3) 4- Good- Left Flexion (S2) 4+ Good+ Extension (L3) 4+ Good+ PT-OP-Q Treatments Start: 09/29/20 15:47 Freq: Status: Active Protocol: Document 10/05/20 13:46 [facility] (Rec: 10/05/20 14:30 [facility] [id number]) Cardio Equipment Recumbent Stepper (Sci-Fit) Duration (Minutes) 7 Resistance 1 Seat Position 12 Therapeutic Exercises Supine Exercises SLR Reps/Minutes 3x Comments patient too fatigued, right painful heel dig Reps/Minutes 10x SAQ Reps/Minutes 10x quad set Reps/Minutes 10x glut set Reps/Minutes 10x Sitting Exercises HC stretch Reps/Minutes 1x Comments strap Standing Exercises HC stretch Reps/Minutes 30 Gait Training Gait Activity gait with cane Description level surface Device Used SPC Level of Assistance SBA, cues Surface firm Distance/Duration 100' Manual Therapy Treatment Taping right knee Treatment Focus facil med patellar glide, pain relief Type of Tape Kinesio Tape Skin Inspection intact Comments 1 Y strip patella base medially wrapping sup and inf patella 75% tension 2 I strips: med and lateral joint line space correction 50 -75% tension [ End ] Self-Care/Home Management Treatment Education Patient Education Home Exercise Program PT-OP-R Modalities Start: 09/29/20 15:47 Freq: Status: Active Protocol: Document 10/05/20 13:46 SAK (Rec: 10/05/20 14:30 SAK [id number]) Electric Stimulation Electric Stimulation Interferential Current (IFC) Body Location right knee Duration (Minutes) 10 Intensity 14 Target/Sweep Sweep Patient Position Hooklying Combined With Heat/Cold Cold Pack PT-OP-T Assessment and Plan Start: 09/29/20 15:47 Freq: Status: Active Protocol: Document 10/05/20 13:46 SAK (Rec: 10/05/20 14:30 SAK [id number]) Physical Therapy Assessment Rehab Potential Rehabilitation Potential Good Goals 4 Impairment weakness right LE Short Term Goal (STG) Patient to be independent with progressive HEP for the purposes of LE strengthening STG Duration 10/30/20 Chainsaw Mechanic Goal (LTG) Patient right knee strength at least 4+/5 LTG Duration 12/01/20 3 Impairment decreased activity tolerance; lower extremity functional scale 46% Short Term Goal (STG) improve LEFS to at least 60% STG Duration 10/30/20 Chainsaw Mechanic Goal (LTG) Improve LEFS to at least 75% as measure of improved activity tolerance LTG Duration 11/29/20 2 Impairment antalgic gait on level surfaces and step-to pattern on stairs Short Term Goal (STG) patient able to ambulate with cane with no limp on level surfaces using cane STG Duration 10/30/20 Snf Goal (LTG) Patient able to ambulate without assistive device with no limp and ascend and descend stairs with alternating pattern without limp LTG Duration 11/29/20 1 Impairment pain right knee as high as 5/ 10 on pain scale Chainsaw Mechanic Goal (LTG) decrease pain to no greater than 5/10 with all usual activities LTG Duration 11/29/20 Assessment Summary Assessment Patient benefited from the use of kinesiotape, has obtained her own roll for home use. Was instructed today in technique , will need further instruction and review. Tolerated Sci-Fit well with use of UE's and LE's, not able to tolerate with LE's only. Physical Therapy Plan Frequency and Duration Frequency of Treatment 2x/wk Duration of Treatment 8 weeks Plan of Care Start Date 09/30/20 Plan of Care End Date 11/29/20 Next Visit Focus/Plan Next Note Type Treatment Note Next Visit Plan Assess response to last session, further kinesiotape instruction, gentle patellar mobilization, progress ther ex as tolerated. Continue modalites as indicated for pain.
--- NOTE | 2020-10-07 17:10 | PT.OTN ---
Current Diagnoses Other chronic pain (10/07/20) Pain in right knee (10/07/20) Difficulty in walking, not elsewhere classified (10/07/20) Weakness (10/07/20) Physical Therapy Treatment Note PT-OP-A Visit Information Start: 09/29/20 15:47 Freq: Status: Active Protocol: Document 10/07/20 11:18 SAK (Rec: 10/07/20 12:03 SAK [id number]) Out-Patient Physical Therapy Visit Information Visit Information Visit Type Treatment Note Visit Start Time 13:45 Visit Stop Time 14:40 Total Visit Minutes 55 Visit Number 3 Evaluation Information Evaluation Date 09/30/20 PT-OP-B Current Condition Start: 09/29/20 15:47 Freq: Status: Active Protocol: Document 09/30/20 13:55 SAK (Rec: 09/30/20 14:28 SAK [id number]) Current Condition History of Current Condition Onset Date 2 years Current Complaints progressively worsening right knee pain History of Current Condition Patient reports gradual worsening of right knee pain with no precipitating event, though does report after a foot surgery a few years ago, scooting around at work on rolling chair using her right LE. Since retiring has tried to increase her activity level and had increased her walking distance to 1 mile per day, but due to persistent and worsening right knee pain states can barely go half of that. 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 Tired. PT-OP-D Balance Start: 09/29/20 15:47 Freq: Status: Active Protocol: Document 09/30/20 13:55 [facility] (Rec: 09/30/20 14:28 [facility] [id number]) OP-PT Balance Assessment Standing Balance Standing Balance Comments unable to test due to pain Wright Fall Scale Copyright Permission PT-OP-F Manual Assessment Start: 09/29/20 15:47 Freq: Status: Active Protocol: Document 09/30/20 13:55 [facility] (Rec: 09/30/20 14:28 [facility] [id number]) Manual Assessments Soft Tissue Assessment Soft Tissue Mobility Assessment moderate swelling right knee with mild warmth, no redness Joint Mobility Assessment Joint Mobility Assessment decreased medial glide right patella PT-OP-G Mobility & Gait Start: 09/29/20 15:47 Freq: Status: Active Protocol: Document 09/30/20 13:55 [facility] (Rec: 09/30/20 14:28 [facility] [id number]) OP Mobility Evaluation Bed Mobility Supine to and from Sit indep Transfers Sit to Stand indep with decreased weight- bearing righ Floor Transfers unable OP Gait Assessment Gait Gait Assistance Required: Independent Distance (Feet) 100 Assistive Devices Assistive Device None Orthotic/Prosthetic Devices or Brace: Yes Gait Deviations General Gait Pattern Antalgic Comments Gait Comments wearing soft knee brace Stair Climbing Evaluation Evaluation Level of Assist On Stairs Independent Devices Stair Climbing Assistive Devices Left Railing,Right Railing Technique/Endurance Stair Climbing Direction Ascend and Descend Stair Climbing Technique Step to Step Comments Stair Climbing Comments antalgic if tries to alternate LE's PT-OP-H Neuro Start: 09/29/20 15:47 Freq: Status: Active Protocol: Document 09/30/20 13:55 [facility] (Rec: 09/30/20 14:28 [facility] [id number]) Sensation Evaluation Gross Sensation Gross Sensation WNL PT-OP-J Posture/Palpation/Skin Start: 09/29/20 15:47 Freq: Status: Active Protocol: Document 09/30/20 13:55 [facility] (Rec: 09/30/20 14:28 [facility] [id number]) Posture Evaluation Position Standing Hip Posture (L) Externally Rotated,(R) Externally Rotated Knee Posture (R) Genu Varus Patellar Posture (R) Laterally Tilted PT-OP-K Range of Motion Start: 09/29/20 15:47 Freq: Status: Active Protocol: Document 09/30/20 13:55 [facility] (Rec: 09/30/20 14:28 [facility] [id number]) Knee Goniometric Range of Motion Knee Right Flexion Active (degrees) 95 Extension Active (degrees) 7 Left Knee ROM WFL Yes Knee ROM Limitations Knee ROM Limitations Pain,Swelling PT-OP-M Strength Start: 09/29/20 15:47 Freq: Status: Active Protocol: Document 09/30/20 13:55 [facility] (Rec: 09/30/20 14:28 [facility] [id number]) Hip Strength Hip Manual Muscle Testing jose Flexion (L2) 3- Fair- Extension (S1) 2+ Poor+ External Rotation 3+ Fair+ Internal Rotation 4- Good- Knee Strength Knee Manual Muscle Testing Right Flexion (S2) 4- Good- Extension (L3) 4- Good- Left Flexion (S2) 4+ Good+ Extension (L3) 4+ Good+ PT-OP-Q Treatments Start: 09/29/20 15:47 Freq: Status: Active Protocol: Document 10/07/20 11:18 [facility] (Rec: 10/07/20 12:03 [facility] [id number]) Cardio Equipment Recumbent Elliptical (Biodex) Duration (Minutes) 3 Resistance 1 Seat Position 8 Other painful, switched to Sci-Fit Recumbent Stepper (Sci-Fit) Duration (Minutes) 7 Resistance 1 Seat Position 13 Other UE's and LE's Gym Equipment Shuttle Recovery Bilateral Squats Resistance 50 Shuttle Recovery Platform Stable Reps/Time 10x Therapeutic Exercises Supine Exercises SLR Comments not done due to fatigue and pain heel dig Reps/Minutes 10x Comments cues for correct muscle activation SAQ Reps/Minutes 10x quad set Reps/Minutes 10x glut set Reps/Minutes 10x Sitting Exercises hamstrsing curl Equipment Used L2 TB Reps/Minutes 10x HC stretch Reps/Minutes 1x Comments strap Manual Therapy Treatment Soft Tissue Mobilization quad Body Location right lateral quad Mobilization Type Myofascial Release Intensity/Depth Moderate Taping right knee Comments still intact, not retaped Self-Care/Home Management Treatment Education Patient Education Home Exercise Program Other Education updated written HEP PT-OP-R Modalities Start: 09/29/20 15:47 Freq: Status: Active Protocol: Document 10/07/20 11:18 [facility] (Rec: 10/07/20 12:03 SAK [id number]) Electric Stimulation Electric Stimulation Interferential Current (IFC) Body Location right knee Duration (Minutes) 10 Intensity 14 Target/Sweep Sweep Patient Position Hooklying Combined With Heat/Cold Cold Pack PT-OP-T Assessment and Plan Start: 09/29/20 15:47 Freq: Status: Active Protocol: Document 10/07/20 11:18 [facility] (Rec: 10/07/20 12:03 SAK [id number]) Physical Therapy Assessment Goals 4 Impairment weakness right LE Short Term Goal (STG) Patient to be independent with progressive HEP for the purposes of LE strengthening STG Duration 10/30/20 Sanitizer Goal (LTG) Patient right knee strength at least 4+/5 LTG Duration 12/01/20 3 Impairment decreased activity tolerance; lower extremity functional scale 46% Short Term Goal (STG) improve LEFS to at least 60% STG Duration 10/30/20 [facility]fp Goal (LTG) Improve LEFS to at least 75% as measure of improved activity tolerance LTG Duration 11/29/20 2 Impairment antalgic gait on level surfaces and step-to pattern on stairs Short Term Goal (STG) patient able to ambulate with cane with no limp on level surfaces using cane STG Duration 10/30/20 Sanitizer Goal (LTG) Patient able to ambulate without assistive device with no limp and ascend and descend stairs with alternating pattern without limp LTG Duration 11/29/20 1 Impairment pain right knee as high as 5/ 10 on pain scale Mcfp Goal (LTG) decrease pain to no greater than 5/10 with all usual activities LTG Duration 11/29/20 Assessment Summary Assessment More pain today due to difficult night with sick dog. Biodex painful, decreased pain with use of Sci-Fit, but then reported inc pain with shuttle leg press. Lateral quad with trigger points, some reducted with MFR. Compliant to HEP Physical Therapy Plan Frequency and Duration Frequency of Treatment 2x/wk Duration of Treatment 8 weeks Plan of Care Start Date 09/30/20 Plan of Care End Date 11/29/20 Next Visit Focus/Plan Next Note Type Treatment Note Next Visit Plan Continue to progress HEP as tolerated including addition of sidelying hip abduction, SLR, and bridging as tolerated .
--- NOTE | 2020-10-12 16:46 | PT.OTN ---
Current Diagnoses Other chronic pain (10/12/20) Pain in right knee (10/12/20) Difficulty in walking, not elsewhere classified (10/12/20) Weakness (10/12/20) Physical Therapy Treatment Note PT-OP-A Visit Information Start: 09/29/20 15:47 Freq: Status: Active Protocol: Document 10/12/20 12:52 SAK (Rec: 10/12/20 13:56 SAK [id number]) Out-Patient Physical Therapy Visit Information Visit Information Visit Type Treatment Note Visit Start Time 13:00 Visit Stop Time 13:55 Total Visit Minutes 55 Visit Number 4 Evaluation Information Evaluation Date 09/30/20 PT-OP-B Current Condition Start: 09/29/20 15:47 Freq: Status: Active Protocol: Document 09/30/20 13:55 SAK (Rec: 09/30/20 14:28 SAK [id number]) Current Condition History of Current Condition Onset Date 2 years Current Complaints progressively worsening right knee pain History of Current Condition Patient reports gradual worsening of right knee pain with no precipitating event, though does report after a foot surgery a few years ago, scooting around at work on rolling chair using her right LE. Since retiring has tried to increase her activity level and had increased her walking distance to 1 mile per day, but due to persistent and worsening right knee pain states can barely go half of that. 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 Prior Treatments and Tests mild arthritis right knee Future Testing and Treatments Planned potential MRI if symptoms persist Prior Functional Status Baseline Function- ADL's Independent Baseline Function- Mobility Independent Baseline Function- Gait no limitations Baseline Function- Work/School no limitations Baseline Function- Recreation/Hobbies walked 1 mile per day Baseline Function- Other able to bend down to lease picker dog poop without difficulty Current Functional Impairments (Reported) Functional Limitations- ADL's painful Functional Limitations- Mobility/Gait painful, limps Functional Limitations- Work/School retired, difficulty doing house and yardwork Functional Limitations- Recreation/ painful to go for walks Hobbies PT-OP-C Subjective Start: 09/29/20 15:47 Freq: Status: Active Protocol: Document 10/12/20 12:52 SAK (Rec: 10/12/20 13:56 SAK [id number]) OP-PT Subjective Patient Comments Patient Comments Not sure if taping correctly. Still hurting on inside of knee, difficult to do pillow squeeze due to pain. Pain better but persists. Not wearing brace in house, but does wear when walking outside . PT-OP-D Balance Start: 09/29/20 15:47 Freq: Status: Active Protocol: Document 09/30/20 13:55 SAK (Rec: 09/30/20 14:28 [facility] [id number]) OP-PT Balance Assessment Standing Balance Standing Balance Comments unable to test due to pain Wright Fall Scale Copyright Permission PT-OP-F Manual Assessment Start: 09/29/20 15:47 Freq: Status: Active Protocol: Document 09/30/20 13:55 [facility] (Rec: 09/30/20 14:28 [facility] [id number]) Manual Assessments Soft Tissue Assessment Soft Tissue Mobility Assessment moderate swelling right knee with mild warmth, no redness Joint Mobility Assessment Joint Mobility Assessment decreased medial glide right patella PT-OP-G Mobility & Gait Start: 09/29/20 15:47 Freq: Status: Active Protocol: Document 09/30/20 13:55 [facility] (Rec: 09/30/20 14:28 [facility] [id number]) OP Mobility Evaluation Bed Mobility Supine to and from Sit indep Transfers Sit to Stand indep with decreased weight- bearing righ Floor Transfers unable OP Gait Assessment Gait Gait Assistance Required: Independent Distance (Feet) 100 Assistive Devices Assistive Device None Orthotic/Prosthetic Devices or Brace: Yes Gait Deviations General Gait Pattern Antalgic Comments Gait Comments wearing soft knee brace Stair Climbing Evaluation Evaluation Level of Assist On Stairs Independent Devices Stair Climbing Assistive Devices Left Railing,Right Railing Technique/Endurance Stair Climbing Direction Ascend and Descend Stair Climbing Technique Step to Step Comments Stair Climbing Comments antalgic if tries to alternate LE's PT-OP-H Neuro Start: 09/29/20 15:47 Freq: Status: Active Protocol: Document 09/30/20 13:55 SAK (Rec: 09/30/20 14:28 [facility] [id number]) Sensation Evaluation Gross Sensation Gross Sensation WNL PT-OP-J Posture/Palpation/Skin Start: 09/29/20 15:47 Freq: Status: Active Protocol: Document 09/30/20 13:55 SAK (Rec: 09/30/20 14:28 [facility] [id number]) Posture Evaluation Position Standing Hip Posture (L) Externally Rotated,(R) Externally Rotated Knee Posture (R) Genu Varus Patellar Posture (R) Laterally Tilted PT-OP-K Range of Motion Start: 09/29/20 15:47 Freq: Status: Active Protocol: Document 09/30/20 13:55 [facility] (Rec: 09/30/20 14:28 [facility] [id number]) Knee Goniometric Range of Motion Knee Right Flexion Active (degrees) 95 Extension Active (degrees) 7 Left Knee ROM WFL Yes Knee ROM Limitations Knee ROM Limitations Pain,Swelling PT-OP-M Strength Start: 09/29/20 15:47 Freq: Status: Active Protocol: Document 09/30/20 13:55 [facility] (Rec: 09/30/20 14:28 [facility] [id number]) Hip Strength Hip Manual Muscle Testing jose Flexion (L2) 3- Fair- Extension (S1) 2+ Poor+ External Rotation 3+ Fair+ Internal Rotation 4- Good- Knee Strength Knee Manual Muscle Testing Right Flexion (S2) 4- Good- Extension (L3) 4- Good- Left Flexion (S2) 4+ Good+ Extension (L3) 4+ Good+ PT-OP-Q Treatments Start: 09/29/20 15:47 Freq: Status: Active Protocol: Document 10/12/20 12:52 [facility] (Rec: 10/12/20 13:56 [facility] [id number]) Cardio Equipment Recumbent Stepper (Sci-Fit) Duration (Minutes) 9 Resistance 1 Seat Position 12 Other UE's and LE's Gym Equipment Shuttle Recovery Bilateral Squats Resistance 50 Shuttle Recovery Platform Stable Reps/Time 10x Therapeutic Exercises Supine Exercises bridge Comments 4x, then painful right knee SLR Reps/Minutes 3x Comments painful quad set Reps/Minutes 10x Comments small pillow under knees to prevent hyperextension of knees or pain. Sitting Exercises hamstrsing curl Equipment Used L2 TB Reps/Minutes 10x2 Standing Exercises sidestepping Resistance L1 TB Reps/Minutes 2 laps parallel bars heel/toe raise Reps/Minutes 10x HC stretch Reps/Minutes 30 x 1 Comments SUMANTH Manual Therapy Treatment Soft Tissue Mobilization quad Body Location right lateral quad Mobilization Type Myofascial Release Intensity/Depth Moderate Taping right knee Treatment Focus facil med patellar glide, pain relief Type of Tape Kinesio Tape Skin Inspection intact Comments 1 Y strip patella base medially wrapping sup and inf patella 75% tension 2 I strips: med and lateral joint line space correction 50 -75% tension Self-Care/Home Management Treatment Education Patient Education Home Exercise Program Other Education updated written HEP PT-OP-R Modalities Start: 09/29/20 15:47 Freq: Status: Active Protocol: Document 10/12/20 12:52 [facility] (Rec: 10/12/20 13:56 [facility] [id number]) Electric Stimulation Electric Stimulation Interferential Current (IFC) Body Location right knee Duration (Minutes) 10 Intensity 14 Target/Sweep Sweep Patient Position Hooklying Combined With Heat/Cold Cold Pack Ultrasound Therapy Treatment right medial knee Patient Position Supine Coupling Medium Ultrasound Gel Frequency Setting (mHz) 1 Mode Setting Continuous Duty Cycle 100% Intensity Setting (w/cm2) 1.4 PT-OP-T Assessment and Plan Start: 09/29/20 15:47 Freq: Status: Active Protocol: Document 10/12/20 12:52 [facility] (Rec: 10/12/20 13:56 [facility] [id number]) Physical Therapy Assessment Goals 4 Impairment weakness right LE Short Term Goal (STG) Patient to be independent with progressive HEP for the purposes of LE strengthening STG Duration 10/30/20 Cake Puncher Goal (LTG) Patient right knee strength at least 4+/5 LTG Duration 12/01/20 3 Impairment decreased activity tolerance; lower extremity functional scale 46% Short Term Goal (STG) improve LEFS to at least 60% STG Duration 10/30/20 Cake Puncher Goal (LTG) Improve LEFS to at least 75% as measure of improved activity tolerance LTG Duration 11/29/20 2 Impairment antalgic gait on level surfaces and step-to pattern on stairs Short Term Goal (STG) patient able to ambulate with cane with no limp on level surfaces using cane STG Duration 10/30/20 Prison Goal (LTG) Patient able to ambulate without assistive device with no limp and ascend and descend stairs with alternating pattern without limp LTG Duration 11/29/20 1 Impairment pain right knee as high as 5/ 10 on pain scale Prison Goal (LTG) decrease pain to no greater than 5/10 with all usual activities LTG Duration 11/29/20 Assessment Summary Assessment Patient exercise tolerance improving some, though reported pain with SLR. Modfied quad set to add small pilllow under knees to prevent hyperextension and cued for pain-free intensity with all ex. Good tolerance for recumbant elliptical and shuttle leg press today. Able to add sidestepping with L1 TB. Physical Therapy Plan Frequency and Duration Frequency of Treatment 2x/wk Duration of Treatment 8 weeks Plan of Care Start Date 09/30/20 Plan of Care End Date 11/29/20 Next Visit Focus/Plan Next Note Type Treatment Note Next Visit Plan Continue progressive ther ex for right LE strengthening and knee stabilization. Assess response to ultrasound. Continue kinesiotape and IFES/ ice as indicated for pain and edema management..
--- NOTE | 2020-10-20 08:17 | PT.OTN ---
Current Diagnoses Other chronic pain (10/20/20) Pain in right knee (10/20/20) Difficulty in walking, not elsewhere classified (10/20/20) Weakness (10/20/20) Physical Therapy Treatment Note PT-OP-A Visit Information Start: 09/29/20 15:47 Freq: Status: Active Protocol: Document 10/20/20 07:33 SP (Rec: 10/20/20 11:49 SP [id number]) Out-Patient Physical Therapy Visit Information Visit Information Visit Type Treatment Note Visit Start Time 07:33 Visit Stop Time 08:17 Total Visit Minutes 44 Visit Number 5 Number of CARD FILER Visits 1 Evaluation Information Evaluation Date 09/30/20 Precautions Precautions cardiac (mitral valve replacement) osteopenia PT-OP-B Current Condition Start: 09/29/20 15:47 Freq: Status: Active Protocol: Document 09/30/20 13:55 SAK (Rec: 09/30/20 14:28 SAK [id number]) Current Condition History of Current Condition Onset Date 2 years Current Complaints progressively worsening right knee pain History of Current Condition Patient reports gradual worsening of right knee pain with no precipitating event, though does report after a foot surgery a few years ago, scooting around at work on rolling chair using her right LE. Since retiring has tried to increase her activity level and had increased her walking distance to 1 mile per day, but due to persistent and worsening right knee pain states can barely go half of that. 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 Prior Treatments and Tests mild arthritis right knee Future Testing and Treatments Planned potential MRI if symptoms persist Prior Functional Status Baseline Function- ADL's Independent Baseline Function- Mobility Independent Baseline Function- Gait no limitations Baseline Function- Work/School no limitations Baseline Function- Recreation/Hobbies walked 1 mile per day Baseline Function- Other able to bend down to picking tech dog poop without difficulty Current Functional Impairments (Reported) Functional Limitations- ADL's painful Functional Limitations- Mobility/Gait painful, limps Functional Limitations- Work/School retired, difficulty doing house and yardwork Functional Limitations- Recreation/ painful to go for walks Hobbies PT-OP-C Subjective Start: 09/29/20 15:47 Freq: Status: Active Protocol: Document 10/20/20 07:33 SP (Rec: 10/20/20 11:49 SP [id number]) OP-PT Subjective Patient Comments Patient Comments Pt reported My R knee feeling better over all but still the major spot (medial patella) still bothersome. The Taping helps but not sure my tape is holding as well as therapy. Pt had to do some walking on uneven grass to her brothers and didn't have her knee brace on and not using SPC for gait anymore, feels her knee is still recovering form Pt compliant daily with HEP. Patient Reported Progress Improving PT-OP-D Balance Start: 09/29/20 15:47 Freq: Status: Active Protocol: Document 09/30/20 13:55 SAK (Rec: 09/30/20 14:28 [facility] [id number]) OP-PT Balance Assessment Standing Balance Standing Balance Comments unable to test due to pain Wright Fall Scale Copyright Permission PT-OP-F Manual Assessment Start: 09/29/20 15:47 Freq: Status: Active Protocol: Document 09/30/20 13:55 SAK (Rec: 09/30/20 14:28 [facility] [id number]) Manual Assessments Soft Tissue Assessment Soft Tissue Mobility Assessment moderate swelling right knee with mild warmth, no redness Joint Mobility Assessment Joint Mobility Assessment decreased medial glide right patella PT-OP-G Mobility & Gait Start: 09/29/20 15:47 Freq: Status: Active Protocol: Document 09/30/20 13:55 SAK (Rec: 09/30/20 14:28 [facility] [id number]) OP Mobility Evaluation Bed Mobility Supine to and from Sit indep Transfers Sit to Stand indep with decreased weight- bearing righ Floor Transfers unable OP Gait Assessment Gait Gait Assistance Required: Independent Distance (Feet) 100 Assistive Devices Assistive Device None Orthotic/Prosthetic Devices or Brace: Yes Gait Deviations General Gait Pattern Antalgic Comments Gait Comments wearing soft knee brace Stair Climbing Evaluation Evaluation Level of Assist On Stairs Independent Devices Stair Climbing Assistive Devices Left Railing,Right Railing Technique/Endurance Stair Climbing Direction Ascend and Descend Stair Climbing Technique Step to Step Comments Stair Climbing Comments antalgic if tries to alternate LE's PT-OP-H Neuro Start: 09/29/20 15:47 Freq: Status: Active Protocol: Document 09/30/20 13:55 SAK (Rec: 09/30/20 14:28 [facility] [id number]) Sensation Evaluation Gross Sensation Gross Sensation WNL PT-OP-J Posture/Palpation/Skin Start: 09/29/20 15:47 Freq: Status: Active Protocol: Document 09/30/20 13:55 [facility] (Rec: 09/30/20 14:28 [facility] [id number]) Posture Evaluation Position Standing Hip Posture (L) Externally Rotated,(R) Externally Rotated Knee Posture (R) Genu Varus Patellar Posture (R) Laterally Tilted PT-OP-K Range of Motion Start: 09/29/20 15:47 Freq: Status: Active Protocol: Document 09/30/20 13:55 [facility] (Rec: 09/30/20 14:28 [facility] [id number]) Knee Goniometric Range of Motion Knee Right Flexion Active (degrees) 95 Extension Active (degrees) 7 Left Knee ROM WFL Yes Knee ROM Limitations Knee ROM Limitations Pain,Swelling PT-OP-M Strength Start: 09/29/20 15:47 Freq: Status: Active Protocol: Document 09/30/20 13:55 [facility] (Rec: 09/30/20 14:28 [facility] [id number]) Hip Strength Hip Manual Muscle Testing jsoe Flexion (L2) 3- Fair- Extension (S1) 2+ Poor+ External Rotation 3+ Fair+ Internal Rotation 4- Good- Knee Strength Knee Manual Muscle Testing Right Flexion (S2) 4- Good- Extension (L3) 4- Good- Left Flexion (S2) 4+ Good+ Extension (L3) 4+ Good+ PT-OP-Q Treatments Start: 09/29/20 15:47 Freq: Status: Active Protocol: Document 10/20/20 07:33 SP (Rec: 10/20/20 11:49 SP [id number]) Cardio Equipment Recumbent Stepper (Sci-Fit) Duration (Minutes) 9 Resistance 1.5 Seat Position 12 Other UE's and LE's- 51 SPM, 0.96 miles Therapeutic Exercises Supine Exercises bridge Comments x2 painful so DC SLR Reps/Minutes x1 painful Comments DC heel dig Reps/Minutes hold 5 repsx 10 reps Comments cues for correct muscle activation SAQ Reps/Minutes hold 5 reps x10 Comments good tolerance quad set Reps/Minutes 10x Comments small pillow under knees to prevent hyperextension of knees or pain. Standing Exercises sidestepping Standing Exercise Name added to HEP Resistance L1 TB Reps/Minutes at side table, contact PRN Comments 10 ft x2 laps heel/toe raise Reps/Minutes 10x Manual Therapy Treatment Taping right knee Treatment Focus facil med patellar glide, pain relief Type of Tape Kinesio Tape Skin Inspection intact Comments 1 Y strip patella base medially wrapping sup and inf patella 75% tension 2 I strips: med and lateral joint line space correction 50 -75% tension PT-OP-R Modalities Start: 09/29/20 15:47 Freq: Status: Active Protocol: Document 10/12/20 12:52 SAK (Rec: 10/12/20 13:56 SAK [id number]) Electric Stimulation Electric Stimulation Interferential Current (IFC) Body Location right knee Duration (Minutes) 10 Intensity 14 Target/Sweep Sweep Patient Position Hooklying Combined With Heat/Cold Cold Pack Ultrasound Therapy Treatment right medial knee Patient Position Supine Coupling Medium Ultrasound Gel Frequency Setting (mHz) 1 Mode Setting Continuous Duty Cycle 100% Intensity Setting (w/cm2) 1.4 PT-OP-T Assessment and Plan Start: 09/29/20 15:47 Freq: Status: Active Protocol: Document 10/20/20 07:33 SP (Rec: 10/20/20 11:49 SP [id number]) Physical Therapy Assessment Goals 4 Impairment weakness right LE Short Term Goal (STG) Patient to be independent with progressive HEP for the purposes of LE strengthening STG Duration 10/30/20 Identification Printing Machine Setter Goal (LTG) Patient right knee strength at least 4+/5 LTG Duration 12/01/20 3 Impairment decreased activity tolerance; lower extremity functional scale 46% Short Term Goal (STG) improve LEFS to at least 60% STG Duration 10/30/20 Halfway Goal (LTG) Improve LEFS to at least 75% as measure of improved activity tolerance LTG Duration 11/29/20 2 Impairment antalgic gait on level surfaces and step-to pattern on stairs Short Term Goal (STG) patient able to ambulate with cane with no limp on level surfaces using cane 10/20/20: progressing: not using a SPC anymore but still noticable slight limp on level surfaces. STG Duration 10/30/20 Progressing (10/20/20) Identification Printing Machine Setter Goal (LTG) Patient able to ambulate without assistive device with no limp and ascend and descend stairs with alternating pattern without limp LTG Duration 11/29/20 1 Impairment pain right knee as high as 5/ 10 on pain scale Identification Printing Machine Setter Goal (LTG) decrease pain to no greater than 5/10 with all usual activities 10/20/20: Goal MET: pain level more achy pain and 0-2/10 during activities. LTG Duration 11/29/20 (GOAL MET 10/20/20) Progress Towards Goals Progress Towards Goals Progressing Toward Goals Progress Comments Met goal #1: 0-2/10 during activities. Progressing : able to ambulate without SPC but still slight limp. Assessment Summary Assessment Pt tolerated HEP review (DC SLR and bridge due to R knee pain). Cues provided for RLE alignment and quad facilitation during SAQ and HS isometric cued for painfree ROM and tolerated increased able to hold x5 sec. Added band walk to HEP with no pain reported. Pt commented K taping, US and IFC were helpful last tx, didnt have enought time for IFC and US this tx. Reassess if needed next tx. Physical Therapy Plan Frequency and Duration Frequency of Treatment 2x/wk Duration of Treatment 8 weeks Plan of Care Start Date 09/30/20 Plan of Care End Date 11/29/20 Therapeutic Interventions Therapeutic Interventions Gait Training,Home Exercise Program,Joint Mobilizations, Manual Therapy,Neuromuscular Re-education,Patient/Caregiver Education,Self-Care/Home Management,Soft Tissue Mobilization,Taping, Therapeutic Activities, Therapeutic Exercises Modalities Cold Pack/Ice Massage,Electric Stimulation,Hot Packs, Iontophoresis,Ultrasound Next Visit Focus/Plan Next Note Type Treatment Note Next Visit Plan Next tx: limit time on bike and if US/ IFC/ Ktaping needed . POC: Continue progressive ther ex for right LE strengthening and knee stabilization. Kinesiotape and IFES/ice as indicated for pain and edema management..
--- NOTE | 2020-10-30 08:18 | PT.OTN ---
Current Diagnoses Other chronic pain (10/30/20) Pain in right knee (10/30/20) Difficulty in walking, not elsewhere classified (10/30/20) Weakness (10/30/20) Physical Therapy Treatment Note PT-OP-A Visit Information Start: 09/29/20 15:47 Freq: Status: Active Protocol: Document 10/30/20 07:32 SP (Rec: 10/30/20 09:02 SP [id number]) Out-Patient Physical Therapy Visit Information Visit Information Visit Type Treatment Note Visit Start Time 07:32 Visit Stop Time 08:18 Total Visit Minutes 46 Visit Number 6 Number of SCANNER OPERATOR Visits 2 Evaluation Information Evaluation Date 09/30/20 Precautions Precautions cardiac (mitral valve replacement) osteopenia PT-OP-B Current Condition Start: 09/29/20 15:47 Freq: Status: Active Protocol: Document 09/30/20 13:55 SAK (Rec: 09/30/20 14:28 SAK [id number]) Current Condition History of Current Condition Onset Date 2 years Current Complaints progressively worsening right knee pain History of Current Condition Patient reports gradual worsening of right knee pain with no precipitating event, though does report after a foot surgery a few years ago, scooting around at work on rolling chair using her right LE. Since retiring has tried to increase her activity level and had increased her walking distance to 1 mile per day, but due to persistent and worsening right knee pain states can barely go half of that. 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 Prior Treatments and Tests mild arthritis right knee Future Testing and Treatments Planned potential MRI if symptoms persist Prior Functional Status Baseline Function- ADL's Independent Baseline Function- Mobility Independent Baseline Function- Gait no limitations Baseline Function- Work/School no limitations Baseline Function- Recreation/Hobbies walked 1 mile per day Baseline Function- Other able to bend down to picking machine operator helper dog poop without difficulty Current Functional Impairments (Reported) Functional Limitations- ADL's painful Functional Limitations- Mobility/Gait painful, limps Functional Limitations- Work/School retired, difficulty doing house and yardwork Functional Limitations- Recreation/ painful to go for walks Hobbies PT-OP-C Subjective Start: 09/29/20 15:47 Freq: Status: Active Protocol: Document 10/30/20 07:32 SP (Rec: 10/30/20 09:02 SP [id number]) OP-PT Subjective Patient Comments Patient Comments Pt demonstrate antalgic stated still having medial R knee 3/ 10 pain / stiffness and taping herself but alot time doesn't hurt but early in morning takes some time loosening up the stiffness. Pt able to 6, 000 steps yesterday outside walking w/a friend. Patient Reported Progress Improving PT-OP-D Balance Start: 09/29/20 15:47 Freq: Status: Active Protocol: Document 09/30/20 13:55 SAK (Rec: 09/30/20 14:28 SAK [id number]) OP-PT Balance Assessment Standing Balance Standing Balance Comments unable to test due to pain Wright Fall Scale Copyright Permission PT-OP-F Manual Assessment Start: 09/29/20 15:47 Freq: Status: Active Protocol: Document 09/30/20 13:55 SAK (Rec: 09/30/20 14:28 SAK [id number]) Manual Assessments Soft Tissue Assessment Soft Tissue Mobility Assessment moderate swelling right knee with mild warmth, no redness Joint Mobility Assessment Joint Mobility Assessment decreased medial glide right patella PT-OP-G Mobility & Gait Start: 09/29/20 15:47 Freq: Status: Active Protocol: Document 09/30/20 13:55 SAK (Rec: 09/30/20 14:28 SAK [id number]) OP Mobility Evaluation Bed Mobility Supine to and from Sit indep Transfers Sit to Stand indep with decreased weight- bearing righ Floor Transfers unable OP Gait Assessment Gait Gait Assistance Required: Independent Distance (Feet) 100 Assistive Devices Assistive Device None Orthotic/Prosthetic Devices or Brace: Yes Gait Deviations General Gait Pattern Antalgic Comments Gait Comments wearing soft knee brace Stair Climbing Evaluation Evaluation Level of Assist On Stairs Independent Devices Stair Climbing Assistive Devices Left Railing,Right Railing Technique/Endurance Stair Climbing Direction Ascend and Descend Stair Climbing Technique Step to Step Comments Stair Climbing Comments antalgic if tries to alternate LE's PT-OP-H Neuro Start: 09/29/20 15:47 Freq: Status: Active Protocol: Document 09/30/20 13:55 SAK (Rec: 09/30/20 14:28 SAK [id number]) Sensation Evaluation Gross Sensation Gross Sensation WNL PT-OP-J Posture/Palpation/Skin Start: 09/29/20 15:47 Freq: Status: Active Protocol: Document 09/30/20 13:55 SAK (Rec: 09/30/20 14:28 SAK [id number]) Posture Evaluation Position Standing Hip Posture (L) Externally Rotated,(R) Externally Rotated Knee Posture (R) Genu Varus Patellar Posture (R) Laterally Tilted PT-OP-K Range of Motion Start: 09/29/20 15:47 Freq: Status: Active Protocol: Document 09/30/20 13:55 SAK (Rec: 09/30/20 14:28 SAK [id number]) Knee Goniometric Range of Motion Knee Right Flexion Active (degrees) 95 Extension Active (degrees) 7 Left Knee ROM WFL Yes Knee ROM Limitations Knee ROM Limitations Pain,Swelling PT-OP-M Strength Start: 09/29/20 15:47 Freq: Status: Active Protocol: Document 09/30/20 13:55 [facility] (Rec: 09/30/20 14:28 [facility] [id number]) Hip Strength Hip Manual Muscle Testing jose Flexion (L2) 3- Fair- Extension (S1) 2+ Poor+ External Rotation 3+ Fair+ Internal Rotation 4- Good- Knee Strength Knee Manual Muscle Testing Right Flexion (S2) 4- Good- Extension (L3) 4- Good- Left Flexion (S2) 4+ Good+ Extension (L3) 4+ Good+ PT-OP-Q Treatments Start: 09/29/20 15:47 Freq: Status: Active Protocol: Document 10/30/20 07:32 SP (Rec: 10/30/20 09:02 SP [id number]) Cardio Equipment Recumbent Stepper (Sci-Fit) Duration (Minutes) 9 Resistance 2.0 Seat Position 13 Other UE & LEs- 50-53 SPM, miles 1. 11 Therapeutic Exercises Sitting Exercises rolling stick Sitting Exercise Name self STMs to Quad Side right Reps/Minutes 1 min Comments good tolerance- loosens up muscle sit <> stands Sitting Exercise Name UE on knees at this time- added toHEP Equipment Used 18 chair Reps/Minutes x5 Comments extra time mechanics hip hinge , knees apart Standing Exercises TKE Standing Exercise Name added to HEP Side right Resistance TB #1 Reps/Minutes x10 Comments good form pain free, cued have chair for support Manual Therapy Treatment Soft Tissue Mobilization quad Body Location right superior and medial quad Mobilization Type Cross-Friction,Instrument Assisted,Myofascial Release, Rolling Intensity/Depth Moderate Body Position Sitting Comments manual and instruction on self STMs manual and rolling stick . Taping right knee Treatment Focus facil med patellar glide, pain relief Type of Tape Kinesio Tape Skin Inspection intact Comments 1 Y strip patella base medially wrapping sup and inf patella 75% tension 2 I strips: med and lateral joint line space correction 50 -75% tension PT-OP-R Modalities Start: 09/29/20 15:47 Freq: Status: Active Protocol: Document 10/12/20 12:52 SAK (Rec: 10/12/20 13:56 SAK [id number]) Electric Stimulation Electric Stimulation Interferential Current (IFC) Body Location right knee Duration (Minutes) 10 Intensity 14 Target/Sweep Sweep Patient Position Hooklying Combined With Heat/Cold Cold Pack Ultrasound Therapy Treatment right medial knee Patient Position Supine Coupling Medium Ultrasound Gel Frequency Setting (mHz) 1 Mode Setting Continuous Duty Cycle 100% Intensity Setting (w/cm2) 1.4 PT-OP-T Assessment and Plan Start: 09/29/20 15:47 Freq: Status: Active Protocol: Document 10/30/20 07:32 SP (Rec: 10/30/20 09:02 SP [id number]) Physical Therapy Assessment Goals 4 Impairment weakness right LE Short Term Goal (STG) Patient to be independent with progressive HEP for the purposes of LE strengthening STG Duration 10/30/20 [facility] Goal (LTG) Patient right knee strength at least 4+/5 LTG Duration 12/01/20 3 Impairment decreased activity tolerance; lower extremity functional scale 46% Short Term Goal (STG) improve LEFS to at least 60% STG Duration 10/30/20 Assembly Leader Goal (LTG) Improve LEFS to at least 75% as measure of improved activity tolerance LTG Duration 11/29/20 2 Impairment antalgic gait on level surfaces and step-to pattern on stairs Short Term Goal (STG) patient able to ambulate with cane with no limp on level surfaces using cane 10/30/20: progressing: not using a SPC anymore but still noticable slight limp on level surfaces this am tx, says doesn;t think does when out walking later in day. STG Duration 10/30/20 Progressing (10/20/20) [facility] Goal (LTG) Patient able to ambulate without assistive device with no limp and ascend and descend stairs with alternating pattern without limp LTG Duration 11/29/20 1 Impairment pain right knee as high as 5/ 10 on pain scale Assembly Leader Goal (LTG) decrease pain to no greater than 5/10 with all usual activities 10/20/20: Goal MET: pain level more achy pain and 0-2/10 during activities. LTG Duration 11/29/20 (GOAL MET 10/20/20) Assessment Summary Assessment Pt responded well to initiated progresssed TKE and sit<> stands today to improve getting out of chair and stabilization during gait. Pt states knee pain getting better overall. Physical Therapy Plan Frequency and Duration Frequency of Treatment 2x/wk Duration of Treatment 8 weeks Plan of Care Start Date 09/30/20 Plan of Care End Date 11/29/20 Therapeutic Interventions Therapeutic Interventions Gait Training,Home Exercise Program,Joint Mobilizations, Manual Therapy,Neuromuscular Re-education,Patient/Caregiver Education,Self-Care/Home Management,Soft Tissue Mobilization,Taping, Therapeutic Activities, Therapeutic Exercises Modalities Cold Pack/Ice Massage,Electric Stimulation,Hot Packs, Iontophoresis,Ultrasound Next Visit Focus/Plan Next Note Type Treatment Note Next Visit Plan Next tx: assess added TKE and sit<>stands. IFC/ US if needed for knee pain. POC: Continue progressive ther ex for right LE strengthening and knee stabilization. Kinesiotape and IFES/ice as indicated for pain and edema management.
--- NOTE | 2020-11-02 17:34 | PT.OTN ---
Current Diagnoses Other chronic pain (11/02/20) Pain in right knee (11/02/20) Difficulty in walking, not elsewhere classified (11/02/20) Weakness (11/02/20) Physical Therapy Treatment Note PT-OP-A Visit Information Start: 09/29/20 15:47 Freq: Status: Active Protocol: Document 11/02/20 16:52 MA (Rec: 11/02/20 17:34 MA [id number]) Out-Patient Physical Therapy Visit Information Visit Information Visit Type Treatment Note Visit Start Time 16:45 Visit Stop Time 17:28 Total Visit Minutes 43 Visit Number 7 Number of RELATIONSHIP EXECUTIVE Visits 3 Precautions Precautions cardiac (mitral valve replacement) osteopenia PT-OP-B Current Condition Start: 09/29/20 15:47 Freq: Status: Active Protocol: Document 09/30/20 13:55 SAK (Rec: 09/30/20 14:28 SAK [id number]) Current Condition History of Current Condition Onset Date 2 years Current Complaints progressively worsening right knee pain History of Current Condition Patient reports gradual worsening of right knee pain with no precipitating event, though does report after a foot surgery a few years ago, scooting around at work on rolling chair using her right LE. Since retiring has tried to increase her activity level and had increased her walking distance to 1 mile per day, but due to persistent and worsening right knee pain states can barely go half of that. 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 Prior Treatments and Tests mild arthritis right knee Future Testing and Treatments Planned potential MRI if symptoms persist Prior Functional Status Baseline Function- ADL's Independent Baseline Function- Mobility Independent Baseline Function- Gait no limitations Baseline Function- Work/School no limitations Baseline Function- Recreation/Hobbies walked 1 mile per day Baseline Function- Other able to bend down to cotton picking machine operator dog poop without difficulty Current Functional Impairments (Reported) Functional Limitations- ADL's painful Functional Limitations- Mobility/Gait painful, limps Functional Limitations- Work/School retired, difficulty doing house and yardwork Functional Limitations- Recreation/ painful to go for walks Hobbies PT-OP-C Subjective Start: 09/29/20 15:47 Freq: Status: Active Protocol: Document 11/02/20 16:52 MA (Rec: 11/02/20 17:34 CHASITY [id number]) OP-PT Subjective Patient Comments Patient Comments Pt forgot knee brace when at her son's house this weekend and has increased knee pain today. PT-OP-D Balance Start: 09/29/20 15:47 Freq: Status: Active Protocol: Document 09/30/20 13:55 SAK (Rec: 09/30/20 14:28 SAK [id number]) OP-PT Balance Assessment Standing Balance Standing Balance Comments unable to test due to pain Wright Fall Scale Copyright Permission PT-OP-F Manual Assessment Start: 09/29/20 15:47 Freq: Status: Active Protocol: Document 09/30/20 13:55 SAK (Rec: 09/30/20 14:28 SAK [id number]) Manual Assessments Soft Tissue Assessment Soft Tissue Mobility Assessment moderate swelling right knee with mild warmth, no redness Joint Mobility Assessment Joint Mobility Assessment decreased medial glide right patella PT-OP-G Mobility & Gait Start: 09/29/20 15:47 Freq: Status: Active Protocol: Document 09/30/20 13:55 SAK (Rec: 09/30/20 14:28 [facility] [id number]) OP Mobility Evaluation Bed Mobility Supine to and from Sit indep Transfers Sit to Stand indep with decreased weight- bearing righ Floor Transfers unable OP Gait Assessment Gait Gait Assistance Required: Independent Distance (Feet) 100 Assistive Devices Assistive Device None Orthotic/Prosthetic Devices or Brace: Yes Gait Deviations General Gait Pattern Antalgic Comments Gait Comments wearing soft knee brace Stair Climbing Evaluation Evaluation Level of Assist On Stairs Independent Devices Stair Climbing Assistive Devices Left Railing,Right Railing Technique/Endurance Stair Climbing Direction Ascend and Descend Stair Climbing Technique Step to Step Comments Stair Climbing Comments antalgic if tries to alternate LE's PT-OP-H Neuro Start: 09/29/20 15:47 Freq: Status: Active Protocol: Document 09/30/20 13:55 SAK (Rec: 09/30/20 14:28 SAK [id number]) Sensation Evaluation Gross Sensation Gross Sensation WNL PT-OP-J Posture/Palpation/Skin Start: 09/29/20 15:47 Freq: Status: Active Protocol: Document 09/30/20 13:55 SAK (Rec: 09/30/20 14:28 SAK [id number]) Posture Evaluation Position Standing Hip Posture (L) Externally Rotated,(R) Externally Rotated Knee Posture (R) Genu Varus Patellar Posture (R) Laterally Tilted PT-OP-K Range of Motion Start: 09/29/20 15:47 Freq: Status: Active Protocol: Document 09/30/20 13:55 SAK (Rec: 09/30/20 14:28 [facility] [id number]) Knee Goniometric Range of Motion Knee Right Flexion Active (degrees) 95 Extension Active (degrees) 7 Left Knee ROM WFL Yes Knee ROM Limitations Knee ROM Limitations Pain,Swelling PT-OP-M Strength Start: 09/29/20 15:47 Freq: Status: Active Protocol: Document 09/30/20 13:55 [facility] (Rec: 09/30/20 14:28 [facility] [id number]) Hip Strength Hip Manual Muscle Testing jose Flexion (L2) 3- Fair- Extension (S1) 2+ Poor+ External Rotation 3+ Fair+ Internal Rotation 4- Good- Knee Strength Knee Manual Muscle Testing Right Flexion (S2) 4- Good- Extension (L3) 4- Good- Left Flexion (S2) 4+ Good+ Extension (L3) 4+ Good+ PT-OP-Q Treatments Start: 09/29/20 15:47 Freq: Status: Active Protocol: Document 11/02/20 16:52 MA (Rec: 11/02/20 17:34 MA [id number]) Therapeutic Exercises Sitting Exercises rolling stick Sitting Exercise Name self STMs to Quad Side right Reps/Minutes 1 min Comments good tolerance- loosens up muscle sit <> stands Sitting Exercise Name UE on knees at this time- added toHEP Equipment Used 18 chair Reps/Minutes 2x5 Comments extra time mechanics hip hinge , knees apart Standing Exercises TKE Standing Exercise Name added to HEP Side right Resistance TB #1 Reps/Minutes x10 Comments good form pain free, cued have chair for support Manual Therapy Treatment Taping right knee Treatment Focus facil med patellar glide, pain relief Type of Tape Kinesio Tape Skin Inspection intact Comments 1 Y strip patella base medially wrapping sup and inf patella 75% tension 2 I strips: med and lateral joint line space correction 50 -75% tension PT-OP-R Modalities Start: 09/29/20 15:47 Freq: Status: Active Protocol: Document 10/12/20 12:52 SAK (Rec: 10/12/20 13:56 SAK [id number]) Electric Stimulation Electric Stimulation Interferential Current (IFC) Body Location right knee Duration (Minutes) 10 Intensity 14 Target/Sweep Sweep Patient Position Hooklying Combined With Heat/Cold Cold Pack Ultrasound Therapy Treatment right medial knee Patient Position Supine Coupling Medium Ultrasound Gel Frequency Setting (mHz) 1 Mode Setting Continuous Duty Cycle 100% Intensity Setting (w/cm2) 1.4 PT-OP-T Assessment and Plan Start: 09/29/20 15:47 Freq: Status: Active Protocol: Document 11/02/20 16:52 MA (Rec: 11/02/20 17:34 MA [id number]) Physical Therapy Assessment Goals 4 Impairment weakness right LE Short Term Goal (STG) Patient to be independent with progressive HEP for the purposes of LE strengthening STG Duration 10/30/20 Compressed Air Pile Driver Operator Goal (LTG) Patient right knee strength at least 4+/5 LTG Duration 12/01/20 3 Impairment decreased activity tolerance; lower extremity functional scale 46% Short Term Goal (STG) improve LEFS to at least 60% STG Duration 10/30/20 Compressed Air Pile Driver Operator Goal (LTG) Improve LEFS to at least 75% as measure of improved activity tolerance LTG Duration 11/29/20 2 Impairment antalgic gait on level surfaces and step-to pattern on stairs Short Term Goal (STG) patient able to ambulate with cane with no limp on level surfaces using cane 10/30/20: progressing: not using a SPC anymore but still noticable slight limp on level surfaces this am tx, says doesn;t think does when out walking later in day. STG Duration 10/30/20 Progressing (10/20/20) Fpc Goal (LTG) Patient able to ambulate without assistive device with no limp and ascend and descend stairs with alternating pattern without limp LTG Duration 11/29/20 1 Impairment pain right knee as high as 5/ 10 on pain scale Compressed Air Pile Driver Operator Goal (LTG) decrease pain to no greater than 5/10 with all usual activities 10/20/20: Goal MET: pain level more achy pain and 0-2/10 during activities. LTG Duration 11/29/20 (GOAL MET 10/20/20) Assessment Summary Assessment Pt was able to demonstrate proper form during TKE HEP exercise added last session. She has some difficulty with sit<>stands and states I feel like it's my confidence. Discussed pulling chair infront of sink at home to get pt's confidence back up and progressing to not holding sink as pt increases strength in therapy. Pt requested therapist tape R knee again due to pt feeling like she did not tape it well yesterday herself. Physical Therapy Plan Frequency and Duration Frequency of Treatment 2x/wk Duration of Treatment 8 weeks Plan of Care Start Date 09/30/20 Plan of Care End Date 11/29/20 Therapeutic Interventions Therapeutic Interventions Gait Training,Home Exercise Program,Joint Mobilizations, Manual Therapy,Neuromuscular Re-education,Patient/Caregiver Education,Self-Care/Home Management,Soft Tissue Mobilization,Taping, Therapeutic Activities, Therapeutic Exercises Modalities Cold Pack/Ice Massage,Electric Stimulation,Hot Packs, Iontophoresis,Ultrasound Next Visit Focus/Plan Next Note Type Treatment Note Next Visit Plan Continue working on sit<> stands moving from using counter/ballet bar to no use of UEs as pt progresses. POC: Continue progressive ther ex for right LE strengthening and knee stabilization. Kinesiotape and IFES/ice as indicated for pain and edema management.
--- NOTE | 2020-11-04 11:02 | PT.OTN ---
Current Diagnoses Other chronic pain (11/04/20) Pain in right knee (11/04/20) Difficulty in walking, not elsewhere classified (11/04/20) Weakness (11/04/20) Physical Therapy Treatment Note PT-OP-A Visit Information Start: 09/29/20 15:47 Freq: Status: Active Protocol: Document 11/04/20 10:04 MA (Rec: 11/04/20 10:54 MA [id number]) Out-Patient Physical Therapy Visit Information Visit Information Visit Type Treatment Note Visit Start Time 10:05 Visit Stop Time 10:58 Total Visit Minutes 53 Visit Number 8 Number of FABRICATION DEPARTMENT SUPERVISOR Visits 4 Precautions Precautions cardiac (mitral valve replacement) osteopenia PT-OP-B Current Condition Start: 09/29/20 15:47 Freq: Status: Active Protocol: Document 09/30/20 13:55 SAK (Rec: 09/30/20 14:28 SAK [id number]) Current Condition History of Current Condition Onset Date 2 years Current Complaints progressively worsening right knee pain History of Current Condition Patient reports gradual worsening of right knee pain with no precipitating event, though does report after a foot surgery a few years ago, scooting around at work on rolling chair using her right LE. Since retiring has tried to increase her activity level and had increased her walking distance to 1 mile per day, but due to persistent and worsening right knee pain states can barely go half of that. Pain interrupts her sleep, makes it difficult to stand, walk, or do other usual activities such as bend down to scrap picker her dog's poop. Prior Treatments and Tests mild arthritis right knee Future Testing and Treatments Planned potential MRI if symptoms persist Prior Functional Status Baseline Function- ADL's Independent Baseline Function- Mobility Independent Baseline Function- Gait no limitations Baseline Function- Work/School no limitations Baseline Function- Recreation/Hobbies walked 1 mile per day Baseline Function- Other able to bend down to scrap picker dog poop without difficulty Current Functional Impairments (Reported) Functional Limitations- ADL's painful Functional Limitations- Mobility/Gait painful, limps Functional Limitations- Work/School retired, difficulty doing house and yardwork Functional Limitations- Recreation/ painful to go for walks Hobbies PT-OP-C Subjective Start: 09/29/20 15:47 Freq: Status: Active Protocol: Document 11/04/20 10:04 MA (Rec: 11/04/20 10:54 CHASITY [id number]) OP-PT Subjective Patient Comments Patient Comments Pt's knee is more sore today. She helped her neighbor a lot with things around the house yesterday PT-OP-D Balance Start: 09/29/20 15:47 Freq: Status: Active Protocol: Document 09/30/20 13:55 SAK (Rec: 09/30/20 14:28 SAK [id number]) OP-PT Balance Assessment Standing Balance Standing Balance Comments unable to test due to pain Wright Fall Scale Copyright Permission PT-OP-F Manual Assessment Start: 09/29/20 15:47 Freq: Status: Active Protocol: Document 09/30/20 13:55 SAK (Rec: 09/30/20 14:28 SAK [id number]) Manual Assessments Soft Tissue Assessment Soft Tissue Mobility Assessment moderate swelling right knee with mild warmth, no redness Joint Mobility Assessment Joint Mobility Assessment decreased medial glide right patella PT-OP-G Mobility & Gait Start: 09/29/20 15:47 Freq: Status: Active Protocol: Document 09/30/20 13:55 SAK (Rec: 09/30/20 14:28 [facility] [id number]) OP Mobility Evaluation Bed Mobility Supine to and from Sit indep Transfers Sit to Stand indep with decreased weight- bearing righ Floor Transfers unable OP Gait Assessment Gait Gait Assistance Required: Independent Distance (Feet) 100 Assistive Devices Assistive Device None Orthotic/Prosthetic Devices or Brace: Yes Gait Deviations General Gait Pattern Antalgic Comments Gait Comments wearing soft knee brace Stair Climbing Evaluation Evaluation Level of Assist On Stairs Independent Devices Stair Climbing Assistive Devices Left Railing,Right Railing Technique/Endurance Stair Climbing Direction Ascend and Descend Stair Climbing Technique Step to Step Comments Stair Climbing Comments antalgic if tries to alternate LE's PT-OP-H Neuro Start: 09/29/20 15:47 Freq: Status: Active Protocol: Document 09/30/20 13:55 SAK (Rec: 09/30/20 14:28 [facility] [id number]) Sensation Evaluation Gross Sensation Gross Sensation WNL PT-OP-J Posture/Palpation/Skin Start: 09/29/20 15:47 Freq: Status: Active Protocol: Document 09/30/20 13:55 SAK (Rec: 09/30/20 14:28 [facility] [id number]) Posture Evaluation Position Standing Hip Posture (L) Externally Rotated,(R) Externally Rotated Knee Posture (R) Genu Varus Patellar Posture (R) Laterally Tilted PT-OP-K Range of Motion Start: 09/29/20 15:47 Freq: Status: Active Protocol: Document 09/30/20 13:55 [facility] (Rec: 09/30/20 14:28 [facility] [id number]) Knee Goniometric Range of Motion Knee Right Flexion Active (degrees) 95 Extension Active (degrees) 7 Left Knee ROM WFL Yes Knee ROM Limitations Knee ROM Limitations Pain,Swelling PT-OP-M Strength Start: 09/29/20 15:47 Freq: Status: Active Protocol: Document 09/30/20 13:55 [facility] (Rec: 09/30/20 14:28 [facility] [id number]) Hip Strength Hip Manual Muscle Testing jose Flexion (L2) 3- Fair- Extension (S1) 2+ Poor+ External Rotation 3+ Fair+ Internal Rotation 4- Good- Knee Strength Knee Manual Muscle Testing Right Flexion (S2) 4- Good- Extension (L3) 4- Good- Left Flexion (S2) 4+ Good+ Extension (L3) 4+ Good+ PT-OP-Q Treatments Start: 09/29/20 15:47 Freq: Status: Active Protocol: Document 11/04/20 10:04 MA (Rec: 11/04/20 10:54 MA [id number]) Cardio Equipment Recumbent Stepper (Sci-Fit) Duration (Minutes) 9 Resistance 2.0 Seat Position 13 Other UE & LEs- 50-53 SPM, miles 1. 11 Therapeutic Exercises Sitting Exercises sit <> stands Sitting Exercise Name pulling up on ballet bar first set, pushing off UEs on knees second set Equipment Used 18 chair Reps/Minutes 2x5 Comments extra time mechanics hip hinge , knees apart Standing Exercises TKE Standing Exercise Name added to HEP Side right Resistance TB #1 Reps/Minutes x10 Comments good form pain free, cued have chair for support heel/toe raise Reps/Minutes 10x HC stretch Reps/Minutes 30 x 1 Comments SUMANTH Manual Therapy Treatment Taping right knee Treatment Focus facil med patellar glide, pain relief Type of Tape Kinesio Tape Skin Inspection intact Comments 1 Y strip patella base medially wrapping sup and inf patella 75% tension 2 I strips: med and lateral joint line space correction 50 -75% tension PT-OP-R Modalities Start: 09/29/20 15:47 Freq: Status: Active Protocol: Document 11/04/20 10:04 MA (Rec: 11/04/20 10:54 MA [id number]) Electric Stimulation Electric Stimulation Interferential Current (IFC) Body Location right knee Duration (Minutes) 10 Intensity 14 Target/Sweep Sweep Patient Position Hooklying Combined With Heat/Cold Cold Pack PT-OP-T Assessment and Plan Start: 09/29/20 15:47 Freq: Status: Active Protocol: Document 11/04/20 10:04 MA (Rec: 11/04/20 10:54 MA [id number]) Physical Therapy Assessment Goals 4 Impairment weakness right LE Short Term Goal (STG) Patient to be independent with progressive HEP for the purposes of LE strengthening STG Duration 10/30/20 Computer Software Engineer Goal (LTG) Patient right knee strength at least 4+/5 LTG Duration 12/01/20 3 Impairment decreased activity tolerance; lower extremity functional scale 46% Short Term Goal (STG) improve LEFS to at least 60% STG Duration 10/30/20 Computer Software Engineer Goal (LTG) Improve LEFS to at least 75% as measure of improved activity tolerance LTG Duration 11/29/20 2 Impairment antalgic gait on level surfaces and step-to pattern on stairs Short Term Goal (STG) patient able to ambulate with cane with no limp on level surfaces using cane 10/30/20: progressing: not using a SPC anymore but still noticable slight limp on level surfaces this am tx, says doesn;t think does when out walking later in day. STG Duration 10/30/20 Progressing (10/20/20) Senior Care Goal (LTG) Patient able to ambulate without assistive device with no limp and ascend and descend stairs with alternating pattern without limp LTG Duration 11/29/20 1 Impairment pain right knee as high as 5/ 10 on pain scale Computer Software Engineer Goal (LTG) decrease pain to no greater than 5/10 with all usual activities 10/20/20: Goal MET: pain level more achy pain and 0-2/10 during activities. LTG Duration 11/29/20 (GOAL MET 10/20/20) Assessment Summary Assessment Pt has increased knee pain today, likely due to pt helping neighbor yesterday around house and taking over 6000 steps vs her usual 4000 steps daily. Used IFC and ice for pain management and retaped pt only with Y strip today due to mild redness along medial knee. Gave pt instructions to take tape off to let skin breathe over the weekend and go back to using her brace for a few days as needed before next appt. Pt is able to complete better sit<> stands if she is facing ballet bar due to feeling more secure if she has something around she could grab onto if needed. Will continue performing sit<>stands infront of counter/bar as pt builds jose LE strength and confidence with pt pushing up off LEs with her UEs vs allowing pt to pull on bar. Physical Therapy Plan Frequency and Duration Frequency of Treatment 2x/wk Duration of Treatment 8 weeks Plan of Care Start Date 09/30/20 Plan of Care End Date 11/29/20 Therapeutic Interventions Therapeutic Interventions Gait Training,Home Exercise Program,Joint Mobilizations, Manual Therapy,Neuromuscular Re-education,Patient/Caregiver Education,Self-Care/Home Management,Soft Tissue Mobilization,Taping, Therapeutic Activities, Therapeutic Exercises Modalities Cold Pack/Ice Massage,Electric Stimulation,Hot Packs, Iontophoresis,Ultrasound Next Visit Focus/Plan Next Note Type Treatment Note Next Visit Plan Continue working on sit<> stands in front of bar/counter for confidence. Check redness along medial knee. Begin manual on HS as well as quads if pt has posterior leg pain. POC: Continue progressive ther ex for right LE strengthening and knee stabilization. Kinesiotape and IFES/ice as indicated for pain and edema management.
--- NOTE | 2020-11-10 13:44 | PT.OTN ---
Current Diagnoses Other chronic pain (11/10/20) Pain in right knee (11/10/20) Difficulty in walking, not elsewhere classified (11/10/20) Weakness (11/10/20) Physical Therapy Treatment Note PT-OP-A Visit Information Start: 09/29/20 15:47 Freq: Status: Active Protocol: Document 11/10/20 13:03 SAK (Rec: 11/10/20 13:44 [facility] [id number]) Out-Patient Physical Therapy Visit Information Visit Information Visit Type Treatment Note Visit Start Time 13:00 Visit Stop Time 13:55 Total Visit Minutes 55 Visit Number 9 Number of TOWER HELPER Visits 0 Precautions Precautions cardiac (mitral valve replacement) osteopenia PT-OP-B Current Condition Start: 09/29/20 15:47 Freq: Status: Active Protocol: Document 09/30/20 13:55 SAK (Rec: 09/30/20 14:28 [facility] [id number]) Current Condition History of Current Condition Onset Date 2 years Current Complaints progressively worsening right knee pain History of Current Condition Patient reports gradual worsening of right knee pain with no precipitating event, though does report after a foot surgery a few years ago, scooting around at work on rolling chair using her right LE. Since retiring has tried to increase her activity level and had increased her walking distance to 1 mile per day, but due to persistent and worsening right knee pain states can barely go half of that. Pain interrupts her sleep, makes it difficult to stand, walk, or do other usual activities such as bend down to burr picker her dog's poop. Prior Treatments and Tests mild arthritis right knee Future Testing and Treatments Planned potential MRI if symptoms persist Prior Functional Status Baseline Function- ADL's Independent Baseline Function- Mobility Independent Baseline Function- Gait no limitations Baseline Function- Work/School no limitations Baseline Function- Recreation/Hobbies walked 1 mile per day Baseline Function- Other able to bend down to burr picker dog poop without difficulty Current Functional Impairments (Reported) Functional Limitations- ADL's painful Functional Limitations- Mobility/Gait painful, limps Functional Limitations- Work/School retired, difficulty doing house and yardwork Functional Limitations- Recreation/ painful to go for walks Hobbies PT-OP-C Subjective Start: 09/29/20 15:47 Freq: Status: Active Protocol: Document 11/10/20 13:03 AMANDEEP (Rec: 11/10/20 13:44 [facility] [id number]) OP-PT Subjective Patient Comments Patient Comments Reports without kinesiotape feeling more popping in knee. Compliant to HEP and feeling stronger. PT-OP-D Balance Start: 09/29/20 15:47 Freq: Status: Active Protocol: Document 09/30/20 13:55 SAK (Rec: 09/30/20 14:28 [facility] [id number]) OP-PT Balance Assessment Standing Balance Standing Balance Comments unable to test due to pain Wright Fall Scale Copyright Permission PT-OP-F Manual Assessment Start: 09/29/20 15:47 Freq: Status: Active Protocol: Document 09/30/20 13:55 [facility] (Rec: 09/30/20 14:28 [facility] [id number]) Manual Assessments Soft Tissue Assessment Soft Tissue Mobility Assessment moderate swelling right knee with mild warmth, no redness Joint Mobility Assessment Joint Mobility Assessment decreased medial glide right patella PT-OP-G Mobility & Gait Start: 09/29/20 15:47 Freq: Status: Active Protocol: Document 09/30/20 13:55 [facility] (Rec: 09/30/20 14:28 [facility] [id number]) OP Mobility Evaluation Bed Mobility Supine to and from Sit indep Transfers Sit to Stand indep with decreased weight- bearing righ Floor Transfers unable OP Gait Assessment Gait Gait Assistance Required: Independent Distance (Feet) 100 Assistive Devices Assistive Device None Orthotic/Prosthetic Devices or Brace: Yes Gait Deviations General Gait Pattern Antalgic Comments Gait Comments wearing soft knee brace Stair Climbing Evaluation Evaluation Level of Assist On Stairs Independent Devices Stair Climbing Assistive Devices Left Railing,Right Railing Technique/Endurance Stair Climbing Direction Ascend and Descend Stair Climbing Technique Step to Step Comments Stair Climbing Comments antalgic if tries to alternate LE's PT-OP-H Neuro Start: 09/29/20 15:47 Freq: Status: Active Protocol: Document 09/30/20 13:55 [facility] (Rec: 09/30/20 14:28 [facility] [id number]) Sensation Evaluation Gross Sensation Gross Sensation WNL PT-OP-J Posture/Palpation/Skin Start: 09/29/20 15:47 Freq: Status: Active Protocol: Document 09/30/20 13:55 [facility] (Rec: 09/30/20 14:28 [facility] [id number]) Posture Evaluation Position Standing Hip Posture (L) Externally Rotated,(R) Externally Rotated Knee Posture (R) Genu Varus Patellar Posture (R) Laterally Tilted PT-OP-K Range of Motion Start: 09/29/20 15:47 Freq: Status: Active Protocol: Document 09/30/20 13:55 [facility] (Rec: 09/30/20 14:28 [facility] [id number]) Knee Goniometric Range of Motion Knee Right Flexion Active (degrees) 95 Extension Active (degrees) 7 Left Knee ROM WFL Yes Knee ROM Limitations Knee ROM Limitations Pain,Swelling PT-OP-M Strength Start: 09/29/20 15:47 Freq: Status: Active Protocol: Document 09/30/20 13:55 [facility] (Rec: 09/30/20 14:28 [facility] [id number]) Hip Strength Hip Manual Muscle Testing jose Flexion (L2) 3- Fair- Extension (S1) 2+ Poor+ External Rotation 3+ Fair+ Internal Rotation 4- Good- Knee Strength Knee Manual Muscle Testing Right Flexion (S2) 4- Good- Extension (L3) 4- Good- Left Flexion (S2) 4+ Good+ Extension (L3) 4+ Good+ PT-OP-Q Treatments Start: 09/29/20 15:47 Freq: Status: Active Protocol: Document 11/10/20 13:03 [facility] (Rec: 11/10/20 13:44 [facility] [id number]) Cardio Equipment Recumbent Stepper (Sci-Fit) Duration (Minutes) 9 Resistance 2.0 Seat Position 13 Other UE & LEs- 50-53 SPM, miles 1. 11 Therapeutic Exercises Sitting Exercises sit <> stands Sitting Exercise Name pulling up on ballet bar first set, pushing off UEs on knees second set Equipment Used 18 chair Reps/Minutes 2x5 Comments extra time mechanics hip hinge , knees apart Standing Exercises TKE Standing Exercise Name added to HEP Side right Resistance TB #1 Reps/Minutes x10 Comments good form pain free, cued have chair for support sidestepping Resistance L1 TB Comments 10 ft x2 laps heel/toe raise Reps/Minutes 10x HC stretch Reps/Minutes 30 x 1 Comments SUMANTH Manual Therapy Treatment Taping right knee Treatment Focus facil med patellar glide, pain relief Type of Tape Kinesio Tape Skin Inspection intact Comments 1 Y strip patella base medially wrapping sup and inf patella 75% tension 2 I strips: med and lateral joint line space correction 50 -75% tension PT-OP-R Modalities Start: 09/29/20 15:47 Freq: Status: Active Protocol: Document 11/10/20 13:03 [facility] (Rec: 11/10/20 13:44 [facility] [id number]) Electric Stimulation Electric Stimulation Interferential Current (IFC) Body Location right knee Duration (Minutes) 10 Intensity 14 Target/Sweep Sweep Patient Position Hooklying Combined With Heat/Cold Cold Pack PT-OP-T Assessment and Plan Start: 09/29/20 15:47 Freq: Status: Active Protocol: Document 11/10/20 13:03 [facility] (Rec: 11/10/20 13:44 [facility] [id number]) Physical Therapy Assessment Goals 4 Impairment weakness right LE Short Term Goal (STG) Patient to be independent with progressive HEP for the purposes of LE strengthening STG Duration 10/30/20 Admissions Counselor Goal (LTG) Patient right knee strength at least 4+/5 LTG Duration 12/01/20 3 Impairment decreased activity tolerance; lower extremity functional scale 46% Short Term Goal (STG) improve LEFS to at least 60% STG Duration 10/30/20 Fpc Goal (LTG) Improve LEFS to at least 75% as measure of improved activity tolerance LTG Duration 11/29/20 2 Impairment antalgic gait on level surfaces and step-to pattern on stairs Short Term Goal (STG) patient able to ambulate with cane with no limp on level surfaces using cane 10/30/20: progressing: not using a SPC anymore but still noticable slight limp on level surfaces this am tx, says doesn;t think does when out walking later in day. STG Duration 10/30/20 Progressing (10/20/20) Admissions Counselor Goal (LTG) Patient able to ambulate without assistive device with no limp and ascend and descend stairs with alternating pattern without limp LTG Duration 11/29/20 1 Impairment pain right knee as high as 5/ 10 on pain scale Fpc Goal (LTG) decrease pain to no greater than 5/10 with all usual activities 10/20/20: Goal MET: pain level more achy pain and 0-2/10 during activities. LTG Duration 11/29/20 (GOAL MET 10/20/20) Physical Therapy Plan Frequency and Duration Frequency of Treatment 2x/wk Duration of Treatment 8 weeks Plan of Care Start Date 09/30/20 Plan of Care End Date 11/29/20 Therapeutic Interventions Therapeutic Interventions Gait Training,Home Exercise Program,Joint Mobilizations, Manual Therapy,Neuromuscular Re-education,Patient/Caregiver Education,Self-Care/Home Management,Soft Tissue Mobilization,Taping, Therapeutic Activities, Therapeutic Exercises Modalities Cold Pack/Ice Massage,Electric Stimulation,Hot Packs, Iontophoresis,Ultrasound Next Visit Focus/Plan Next Note Type Treatment Note Next Visit Plan Continue PT with ther ex, manual techniques including to HS next session.
--- NOTE | 2020-11-12 16:36 | PT.OTN ---
Current Diagnoses Other chronic pain (11/12/20) Pain in right knee (11/12/20) Difficulty in walking, not elsewhere classified (11/12/20) Weakness (11/12/20) Physical Therapy Treatment Note PT-OP-A Visit Information Start: 09/29/20 15:47 Freq: Status: Active Protocol: Document 11/12/20 14:38 SAK (Rec: 11/12/20 15:23 SAK [id number]) Out-Patient Physical Therapy Visit Information Visit Information Visit Type Treatment Note Visit Start Time 14:40 Visit Stop Time 13:24 Total Visit Minutes 54 Visit Number 10 Number of INTERMODAL DISPATCHER Visits 0 Precautions Precautions cardiac (mitral valve replacement) osteopenia PT-OP-B Current Condition Start: 09/29/20 15:47 Freq: Status: Active Protocol: Document 09/30/20 13:55 SAK (Rec: 09/30/20 14:28 [facility] [id number]) Current Condition History of Current Condition Onset Date 2 years Current Complaints progressively worsening right knee pain History of Current Condition Patient reports gradual worsening of right knee pain with no precipitating event, though does report after a foot surgery a few years ago, scooting around at work on rolling chair using her right LE. Since retiring has tried to increase her activity level and had increased her walking distance to 1 mile per day, but due to persistent and worsening right knee pain states can barely go half of that. Pain interrupts her sleep, makes it difficult to stand, walk, or do other usual activities such as bend down to potato picker her dog's poop. Prior Treatments and Tests mild arthritis right knee Future Testing and Treatments Planned potential MRI if symptoms persist Prior Functional Status Baseline Function- ADL's Independent Baseline Function- Mobility Independent Baseline Function- Gait no limitations Baseline Function- Work/School no limitations Baseline Function- Recreation/Hobbies walked 1 mile per day Baseline Function- Other able to bend down to potato picker dog poop without difficulty Current Functional Impairments (Reported) Functional Limitations- ADL's painful Functional Limitations- Mobility/Gait painful, limps Functional Limitations- Work/School retired, difficulty doing house and yardwork Functional Limitations- Recreation/ painful to go for walks Hobbies PT-OP-C Subjective Start: 09/29/20 15:47 Freq: Status: Active Protocol: Document 11/12/20 14:38 SAK (Rec: 11/12/20 15:23 [facility] [id number]) OP-PT Subjective Patient Comments Patient Comments More achey than painful, right knee more flexible and stronger. Less use of ice due to not as sore. PT-OP-D Balance Start: 09/29/20 15:47 Freq: Status: Active Protocol: Document 09/30/20 13:55 SAK (Rec: 09/30/20 14:28 [facility] [id number]) OP-PT Balance Assessment Standing Balance Standing Balance Comments unable to test due to pain Wright Fall Scale Copyright Permission PT-OP-F Manual Assessment Start: 09/29/20 15:47 Freq: Status: Active Protocol: Document 09/30/20 13:55 SAK (Rec: 09/30/20 14:28 [facility] [id number]) Manual Assessments Soft Tissue Assessment Soft Tissue Mobility Assessment moderate swelling right knee with mild warmth, no redness Joint Mobility Assessment Joint Mobility Assessment decreased medial glide right patella PT-OP-G Mobility & Gait Start: 09/29/20 15:47 Freq: Status: Active Protocol: Document 09/30/20 13:55 [facility] (Rec: 09/30/20 14:28 [facility] [id number]) OP Mobility Evaluation Bed Mobility Supine to and from Sit indep Transfers Sit to Stand indep with decreased weight- bearing righ Floor Transfers unable OP Gait Assessment Gait Gait Assistance Required: Independent Distance (Feet) 100 Assistive Devices Assistive Device None Orthotic/Prosthetic Devices or Brace: Yes Gait Deviations General Gait Pattern Antalgic Comments Gait Comments wearing soft knee brace Stair Climbing Evaluation Evaluation Level of Assist On Stairs Independent Devices Stair Climbing Assistive Devices Left Railing,Right Railing Technique/Endurance Stair Climbing Direction Ascend and Descend Stair Climbing Technique Step to Step Comments Stair Climbing Comments antalgic if tries to alternate LE's PT-OP-H Neuro Start: 09/29/20 15:47 Freq: Status: Active Protocol: Document 09/30/20 13:55 [facility] (Rec: 09/30/20 14:28 [facility] [id number]) Sensation Evaluation Gross Sensation Gross Sensation WNL PT-OP-J Posture/Palpation/Skin Start: 09/29/20 15:47 Freq: Status: Active Protocol: Document 09/30/20 13:55 [facility] (Rec: 09/30/20 14:28 [facility] [id number]) Posture Evaluation Position Standing Hip Posture (L) Externally Rotated,(R) Externally Rotated Knee Posture (R) Genu Varus Patellar Posture (R) Laterally Tilted PT-OP-K Range of Motion Start: 09/29/20 15:47 Freq: Status: Active Protocol: Document 09/30/20 13:55 SAK (Rec: 09/30/20 14:28 [facility] [id number]) Knee Goniometric Range of Motion Knee Right Flexion Active (degrees) 95 Extension Active (degrees) 7 Left Knee ROM WFL Yes Knee ROM Limitations Knee ROM Limitations Pain,Swelling PT-OP-M Strength Start: 09/29/20 15:47 Freq: Status: Active Protocol: Document 09/30/20 13:55 [facility] (Rec: 09/30/20 14:28 [facility] [id number]) Hip Strength Hip Manual Muscle Testing jose Flexion (L2) 3- Fair- Extension (S1) 2+ Poor+ External Rotation 3+ Fair+ Internal Rotation 4- Good- Knee Strength Knee Manual Muscle Testing Right Flexion (S2) 4- Good- Extension (L3) 4- Good- Left Flexion (S2) 4+ Good+ Extension (L3) 4+ Good+ PT-OP-Q Treatments Start: 09/29/20 15:47 Freq: Status: Active Protocol: Document 11/12/20 14:38 [facility] (Rec: 11/12/20 15:23 [facility] [id number]) Cardio Equipment Recumbent Stepper (Sci-Fit) Duration (Minutes) 10 Resistance 2.0 Seat Position 12 Other UE & LEs- 50-53 SPM, miles 1. 11 Gym Equipment Shuttle Recovery Unilateral Squats Resistance 25 Shuttle Recovery Platform Stable Reps/Time 10x2 Bilateral Squats Resistance 50 Shuttle Recovery Platform Stable Reps/Time 10x2 Therapeutic Exercises Sitting Exercises rolling stick Side right Reps/Minutes 5 min Comments good tolerance- loosens up muscle sit <> stands Sitting Exercise Name pulling up on ballet bar first set, pushing off UEs on knees second set Equipment Used 18 chair Reps/Minutes 2x5 Comments extra time mechanics hip hinge , knees apart Standing Exercises resisted walking Reps/Minutes 2 lengths of parallel bars each Comments forward and back sidestepping Resistance L1 TB Comments 10 ft x2 laps Manual Therapy Treatment Taping right knee Treatment Focus facil med patellar glide, pain relief Type of Tape Kinesio Tape Skin Inspection intact Comments 1 Y strip patella base medially wrapping sup and inf patella 75% tension 2 I strips: med and lateral joint line space correction 50 -75% tension Neuro Re-Education Treatment Balance Activities tiltboard Reps/Duration 2 min Comments bal and wt shift fwd/bck PT-OP-R Modalities Start: 09/29/20 15:47 Freq: Status: Active Protocol: Document 11/12/20 14:38 SAK (Rec: 11/12/20 15:23 SAK [id number]) Electric Stimulation Electric Stimulation Interferential Current (IFC) Body Location right knee Duration (Minutes) 10 Intensity 14 Target/Sweep Sweep Patient Position Hooklying Combined With Heat/Cold Cold Pack PT-OP-T Assessment and Plan Start: 09/29/20 15:47 Freq: Status: Active Protocol: Document 11/12/20 14:38 SAK (Rec: 11/12/20 15:23 [facility] [id number]) Physical Therapy Assessment Goals 4 Impairment weakness right LE Short Term Goal (STG) Patient to be independent with progressive HEP for the purposes of LE strengthening 11/10/20: indep currently, ongoing progression STG Duration 10/30/20 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 Molding 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 Operator Goal (LTG) Patient right knee strength at least 4+/5 11/10/20: goal progress LTG Duration 12/01/20 3 Impairment decreased activity tolerance; lower extremity functional scale 46% Short Term Goal (STG) improve LEFS to at least 60% 11/10/20: goal progress STG Duration 10/30/20 Residential Goal (LTG) Improve LEFS to at least 75% as measure of improved activity tolerance LTG Duration 11/29/20 2 Impairment antalgic gait on level surfaces and step-to pattern on stairs Short Term Goal (STG) patient able to ambulate with cane with no limp on level surfaces using cane 10/30/20: progressing: not using a SPC anymore but still noticable slight limp on level surfaces this am tx, says doesn;t think does when out walking later in day. STG Duration 10/30/20 Progressing (10/20/20) Residential Goal (LTG) Patient able to ambulate without assistive device with no limp and ascend and descend stairs with alternating pattern without limp LTG Duration 11/29/20 1 Impairment pain right knee as high as 5/ 10 on pain scale Residential Goal (LTG) decrease pain to no greater than 5/10 with all usual activities 10/20/20: Goal MET: pain level more achy pain and 0-2/10 during activities. LTG Duration 11/29/20 (GOAL MET 10/20/20) Progress Towards Goals Progress Towards Goals Progressing Toward Goals Assessment Summary Assessment Patient no longer feels need for cane with gait due to decrease in pain. Continues to benefit from kinesiotape right knee. Added second set of shuttle leg press jose and added single leg on shuttle leg press with good tolerance. Physical Therapy Plan Frequency and Duration Frequency of Treatment 2x/wk Duration of Treatment 8 weeks Plan of Care Start Date 09/30/20 Plan of Care End Date 11/29/20 Therapeutic Interventions Therapeutic Interventions Gait Training,Home Exercise Program,Joint Mobilizations, Manual Therapy,Neuromuscular Re-education,Patient/Caregiver Education,Self-Care/Home Management,Soft Tissue Mobilization,Taping, Therapeutic Activities, Therapeutic Exercises Modalities Cold Pack/Ice Massage,Electric Stimulation,Hot Packs, Iontophoresis,Ultrasound Next Visit Focus/Plan Next Note Type Treatment Note Next Visit Plan DTM to hamstrings, progress closed chain strengthening, gait training and strengthening on stairs as tolerated starting with 4. Shuttle balance.
--- NOTE | 2020-11-16 13:50 | PT.OTN ---
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 Visit Start Time 13:08 Visit Stop Time 13:50 Total Visit Minutes 42 Visit Number 11 Number of REAMING MACHINE OPERATOR FOR PLASTIC Visits 1 Evaluation Information Evaluation Date 09/30/20 Precautions Precautions cardiac (mitral valve replacement) osteopenia PT-OP-B Current Condition Start: 09/29/20 15:47 Freq: Status: Active Protocol: Document 09/30/20 13:55 SAK (Rec: 09/30/20 14:28 SAK [id number]) Current Condition History of Current Condition Onset Date 2 years Current Complaints progressively worsening right knee pain History of Current Condition Patient reports gradual worsening of right knee pain with no precipitating event, though does report after a foot surgery a few years ago, scooting around at work on rolling chair using her right LE. Since retiring has tried to increase her activity level and had increased her walking distance to 1 mile per day, but due to persistent and worsening right knee pain states can barely go half of that. 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 without difficulty Current Functional Impairments (Reported) Functional Limitations- ADL's painful Functional Limitations- Mobility/Gait painful, limps Functional Limitations- Work/School retired, difficulty doing house and yardwork Functional Limitations- Recreation/ painful to go for walks Hobbies PT-OP-C Subjective Start: 09/29/20 15:47 Freq: Status: Active Protocol: Document 11/16/20 13:08 SP (Rec: 11/16/20 13:50 SP [id number]) OP-PT Subjective Patient Comments Patient Comments Pt stated took the tape off R knee on Sat or Sun from being applied on Wed and it caused an abrason over medial R k nee . Is able to walk about 1.5 miles but takes longer due to dog getting older and R knee discomfort even with knee brace on and heat lately. Has to take stop rest for dog breath recovery. Doing well with her HEP 2x/dd, even with business days. PT-OP-D Balance Start: 09/29/20 15:47 Freq: Status: Active Protocol: Document 09/30/20 13:55 SAK (Rec: 09/30/20 14:28 SAK [id number]) OP-PT Balance Assessment Standing Balance Standing Balance Comments unable to test due to pain Wright Fall Scale Copyright Permission PT-OP-F Manual Assessment Start: 09/29/20 15:47 Freq: Status: Active Protocol: Document 09/30/20 13:55 SAK (Rec: 09/30/20 14:28 SAK [id number]) Manual Assessments Soft Tissue Assessment Soft Tissue Mobility Assessment moderate swelling right knee with mild warmth, no redness Joint Mobility Assessment Joint Mobility Assessment decreased medial glide right patella PT-OP-G Mobility & Gait Start: 09/29/20 15:47 Freq: Status: Active Protocol: Document 09/30/20 13:55 SAK (Rec: 09/30/20 14:28 SAK [id number]) OP Mobility Evaluation Bed Mobility Supine to and from Sit indep Transfers Sit to Stand indep with decreased weight- bearing righ Floor Transfers unable OP Gait Assessment Gait Gait Assistance Required: Independent Distance (Feet) 100 Assistive Devices Assistive Device None Orthotic/Prosthetic Devices or Brace: Yes Gait Deviations General Gait Pattern Antalgic Comments Gait Comments wearing soft knee brace Stair Climbing Evaluation Evaluation Level of Assist On Stairs Independent Devices Stair Climbing Assistive Devices Left Railing,Right Railing Technique/Endurance Stair Climbing Direction Ascend and Descend Stair Climbing Technique Step to Step Comments Stair Climbing Comments antalgic if tries to alternate LE's PT-OP-H Neuro Start: 09/29/20 15:47 Freq: Status: Active Protocol: Document 09/30/20 13:55 SAK (Rec: 09/30/20 14:28 [facility] [id number]) Sensation Evaluation Gross Sensation Gross Sensation WNL PT-OP-J Posture/Palpation/Skin Start: 09/29/20 15:47 Freq: Status: Active Protocol: Document 09/30/20 13:55 [facility] (Rec: 09/30/20 14:28 [facility] [id number]) Posture Evaluation Position Standing Hip Posture (L) Externally Rotated,(R) Externally Rotated Knee Posture (R) Genu Varus Patellar Posture (R) Laterally Tilted PT-OP-K Range of Motion Start: 09/29/20 15:47 Freq: Status: Active Protocol: Document 09/30/20 13:55 [facility] (Rec: 09/30/20 14:28 [facility] [id number]) Knee Goniometric Range of Motion Knee Right Flexion Active (degrees) 95 Extension Active (degrees) 7 Left Knee ROM WFL Yes Knee ROM Limitations Knee ROM Limitations Pain,Swelling PT-OP-M Strength Start: 09/29/20 15:47 Freq: Status: Active Protocol: Document 09/30/20 13:55 [facility] (Rec: 09/30/20 14:28 [facility] [id number]) Hip Strength Hip Manual Muscle Testing jose Flexion (L2) 3- Fair- Extension (S1) 2+ Poor+ External Rotation 3+ Fair+ Internal Rotation 4- Good- Knee Strength Knee Manual Muscle Testing Right Flexion (S2) 4- Good- Extension (L3) 4- Good- Left Flexion (S2) 4+ Good+ Extension (L3) 4+ Good+ PT-OP-Q Treatments Start: 09/29/20 15:47 Freq: Status: Active Protocol: Document 11/16/20 13:08 SP (Rec: 11/16/20 13:50 SP [id number]) Cardio Equipment Recumbent Bicycle Duration (Minutes) 8 Resistance 5 Seat Position 6 Other LEs only Therapeutic Exercises Sitting Exercises sit <> stands Sitting Exercise Name hands on knees I can do without use bar - hands on knees Resistance audible knees but no pain, little irritation last 2 reps Equipment Used 18 chair Reps/Minutes x10 Comments occasional cues, scoot forward , hip hinge, knees apart, eccentric control Standing Exercises TKE Standing Exercise Name reviewed HEP Side right Resistance TB #1 Reps/Minutes x10 Comments good form pain free, cued have chair for support sidestepping Standing Exercise Name reviewed HEP Resistance R TB loop (#2 at home, stated smaller tied) Reps/Minutes 10 ft x2 laps heel/toe raise Standing Exercise Name heel raise off 4 step (has 2 threshold and doorway to hold onto) Resistance HEP review Equipment Used contact rail Reps/Minutes 2x 10 Comments good feedback response HC stretch Reps/Minutes 30 x 1 Comments SUMANTH PT-OP-R Modalities Start: 09/29/20 15:47 Freq: Status: Active Protocol: Document 11/12/20 14:38 SAK (Rec: 11/12/20 15:23 SAK [id number]) Electric Stimulation Electric Stimulation Interferential Current (IFC) Body Location right knee Duration (Minutes) 10 Intensity 14 Target/Sweep Sweep Patient Position Hooklying Combined With Heat/Cold Cold Pack PT-OP-T Assessment and Plan Start: 09/29/20 15:47 Freq: Status: Active Protocol: Document 11/16/20 13:08 SP (Rec: 11/16/20 13:50 SP [id number]) Physical Therapy Assessment Goals 4 Impairment weakness right LE Short Term Goal (STG) Patient to be independent with progressive HEP for the purposes of LE strengthening 11/10/20: indep currently, ongoing progression STG Duration 10/30/20 Contracts Law Professor Goal (LTG) Patient right knee strength at least 4+/5 11/10/20: goal progress LTG Duration 12/01/20 3 Impairment decreased activity tolerance; lower extremity functional scale 46% Short Term Goal (STG) improve LEFS to at least 60% 11/10/20: goal progress STG Duration 10/30/20 Contracts Law Professor Goal (LTG) Improve LEFS to at least 75% as measure of improved activity tolerance LTG Duration 11/29/20 2 Impairment antalgic gait on level surfaces and step-to pattern on stairs Short Term Goal (STG) patient able to ambulate with cane with no limp on level surfaces using cane 10/30/20: progressing: not using a SPC anymore but still noticable slight limp on level surfaces this am tx, says doesn;t think does when out walking later in day. STG Duration 10/30/20 Progressing (10/20/20) Contracts Law Professor Goal (LTG) Patient able to ambulate without assistive device with no limp and ascend and descend stairs with alternating pattern without limp LTG Duration 11/29/20 1 Impairment pain right knee as high as 5/ 10 on pain scale Fdc Goal (LTG) decrease pain to no greater than 5/10 with all usual activities 10/20/20: Goal MET: pain level more achy pain and 0-2/10 during activities. LTG Duration 11/29/20 (GOAL MET 10/20/20) Assessment Summary Assessment Pt tolerated increase resistance during HEP review. Able to perform heel raises off step today and felt performed increased muscle work. Physical Therapy Plan Frequency and Duration Frequency of Treatment 2x/wk Duration of Treatment 8 weeks Plan of Care Start Date 09/30/20 Plan of Care End Date 11/29/20 Therapeutic Interventions Therapeutic Interventions Gait Training,Home Exercise Program,Joint Mobilizations, Manual Therapy,Neuromuscular Re-education,Patient/Caregiver Education,Self-Care/Home Management,Soft Tissue Mobilization,Taping, Therapeutic Activities, Therapeutic Exercises Modalities Cold Pack/Ice Massage,Electric Stimulation,Hot Packs, Iontophoresis,Ultrasound Next Visit Focus/Plan Next Note Type Treatment Note Next Visit Plan PN due on 11/26 appt. Assess response to increase resistance POC: DTM to hamstrings, progress closed chain strengthening, gait training and strengthening on stairs as tolerated starting with 4. Shuttle balance.
--- NOTE | 2020-11-19 13:01 | PT.OTN ---
Addendum entered and electronically signed by Shawnee Freire, MEGHNA 11/19/20 15:52: Instructed patella mobs due to reported sometimes feels clicking in R knee to improve tracking if needed. Good response. Original Note: Current Diagnoses Other chronic pain (11/19/20) Pain in right knee (11/19/20) Difficulty in walking, not elsewhere classified (11/19/20) Weakness (11/19/20) Physical Therapy Treatment Note PT-OP-A Visit Information Start: 09/29/20 15:47 Freq: Status: Active Protocol: Document 11/19/20 12:17 SP (Rec: 11/19/20 15:51 SP [id number]) Out-Patient Physical Therapy Visit Information Visit Information Visit Type Treatment Note Visit Start Time 12:18 Visit Stop Time 13:01 Total Visit Minutes 43 Visit Number 12 Number of HEALTHCARE CONSULTING MANAGER Visits 2 Evaluation Information Evaluation Date 09/30/20 Precautions Precautions cardiac (mitral valve replacement) osteopenia PT-OP-B Current Condition Start: 09/29/20 15:47 Freq: Status: Active Protocol: Document 09/30/20 13:55 SAK (Rec: 09/30/20 14:28 SAK [id number]) Current Condition History of Current Condition Onset Date 2 years Current Complaints progressively worsening right knee pain History of Current Condition Patient reports gradual worsening of right knee pain with no precipitating event, though does report after a foot surgery a few years ago, scooting around at work on rolling chair using her right LE. Since retiring has tried to increase her activity level and had increased her walking distance to 1 mile per day, but due to persistent and worsening right knee pain states can barely go half of that. Pain interrupts her sleep, makes it difficult to stand, walk, or do other usual activities such as bend down to diamond picker her dog's poop. Prior Treatments and Tests mild arthritis right knee Future Testing and Treatments Planned potential MRI if symptoms persist Prior Functional Status Baseline Function- ADL's Independent Baseline Function- Mobility Independent Baseline Function- Gait no limitations Baseline Function- Work/School no limitations Baseline Function- Recreation/Hobbies walked 1 mile per day Baseline Function- Other able to bend down to diamond picker dog poop without difficulty Current Functional Impairments (Reported) Functional Limitations- ADL's painful Functional Limitations- Mobility/Gait painful, limps Functional Limitations- Work/School retired, difficulty doing house and yardwork Functional Limitations- Recreation/ painful to go for walks Hobbies PT-OP-C Subjective Start: 09/29/20 15:47 Freq: Status: Active Protocol: Document 11/19/20 12:17 SP (Rec: 11/19/20 15:51 SP [id number]) OP-PT Subjective Patient Comments Patient Comments Pt stated was little sore from the working in the yard trimming branches and had to stop due to heat and tiring picking up branches on ground in squat motions. Pt demonstrated antalgic gait with decreased stance time over RLE. Abrasion over medial knee from last week Ktaping on to long improving and states uses knee brace on R knee for walks with dog and out yard mobility for support, feels does same as Ktaping. PT-OP-D Balance Start: 09/29/20 15:47 Freq: Status: Active Protocol: Document 09/30/20 13:55 SAK (Rec: 09/30/20 14:28 [facility] [id number]) OP-PT Balance Assessment Standing Balance Standing Balance Comments unable to test due to pain Wright Fall Scale Copyright Permission PT-OP-F Manual Assessment Start: 09/29/20 15:47 Freq: Status: Active Protocol: Document 09/30/20 13:55 SAK (Rec: 09/30/20 14:28 [facility] [id number]) Manual Assessments Soft Tissue Assessment Soft Tissue Mobility Assessment moderate swelling right knee with mild warmth, no redness Joint Mobility Assessment Joint Mobility Assessment decreased medial glide right patella PT-OP-G Mobility & Gait Start: 09/29/20 15:47 Freq: Status: Active Protocol: Document 09/30/20 13:55 SAK (Rec: 09/30/20 14:28 [facility] [id number]) OP Mobility Evaluation Bed Mobility Supine to and from Sit indep Transfers Sit to Stand indep with decreased weight- bearing righ Floor Transfers unable OP Gait Assessment Gait Gait Assistance Required: Independent Distance (Feet) 100 Assistive Devices Assistive Device None Orthotic/Prosthetic Devices or Brace: Yes Gait Deviations General Gait Pattern Antalgic Comments Gait Comments wearing soft knee brace Stair Climbing Evaluation Evaluation Level of Assist On Stairs Independent Devices Stair Climbing Assistive Devices Left Railing,Right Railing Technique/Endurance Stair Climbing Direction Ascend and Descend Stair Climbing Technique Step to Step Comments Stair Climbing Comments antalgic if tries to alternate LE's PT-OP-H Neuro Start: 09/29/20 15:47 Freq: Status: Active Protocol: Document 09/30/20 13:55 [facility] (Rec: 09/30/20 14:28 [facility] [id number]) Sensation Evaluation Gross Sensation Gross Sensation WNL PT-OP-J Posture/Palpation/Skin Start: 09/29/20 15:47 Freq: Status: Active Protocol: Document 09/30/20 13:55 [facility] (Rec: 09/30/20 14:28 [facility] [id number]) Posture Evaluation Position Standing Hip Posture (L) Externally Rotated,(R) Externally Rotated Knee Posture (R) Genu Varus Patellar Posture (R) Laterally Tilted PT-OP-K Range of Motion Start: 09/29/20 15:47 Freq: Status: Active Protocol: Document 09/30/20 13:55 [facility] (Rec: 09/30/20 14:28 [facility] [id number]) Knee Goniometric Range of Motion Knee Right Flexion Active (degrees) 95 Extension Active (degrees) 7 Left Knee ROM WFL Yes Knee ROM Limitations Knee ROM Limitations Pain,Swelling PT-OP-M Strength Start: 09/29/20 15:47 Freq: Status: Active Protocol: Document 09/30/20 13:55 [facility] (Rec: 09/30/20 14:28 [facility] [id number]) Hip Strength Hip Manual Muscle Testing jose Flexion (L2) 3- Fair- Extension (S1) 2+ Poor+ External Rotation 3+ Fair+ Internal Rotation 4- Good- Knee Strength Knee Manual Muscle Testing Right Flexion (S2) 4- Good- Extension (L3) 4- Good- Left Flexion (S2) 4+ Good+ Extension (L3) 4+ Good+ PT-OP-Q Treatments Start: 09/29/20 15:47 Freq: Status: Active Protocol: Document 11/19/20 12:17 SP (Rec: 11/19/20 15:51 SP [id number]) Cardio Equipment Bicycle (Upright) Duration (Minutes) 5 Resistance 4 Seat Position 6 Other little irritation of R knee, prefers scifit future txs Gym Equipment Sport Cord green Exercise Details f/b/side stepping Cord/Resistance green>red Reps/Duration 5 reps each direction Comments 1. 5 steps each direction 2. over/ back 1 henry f/b 3 reps each direction Therapeutic Exercises Sitting Exercises pirformis stretch Side right Reps/Minutes 30 x2 Comments good little hip stretch sit <> stands Sitting Exercise Name hands on knees I can do without use bar - hands on knees Resistance no audible knees but no pain, little irritation last 2 reps Equipment Used 18 chair Reps/Minutes x10 Comments occasional cues, scoot forward , hip hinge, knees apart, eccentric control HC stretch Side right Reps/Minutes 1x Comments hip hinge- not much stretch so stopped Standing Exercises TKE Standing Exercise Name reviewed HEP Side right Resistance TB #1 Reps/Minutes x10 Comments good form pain free, cued have chair for support heel/toe raise Standing Exercise Name heel raise off 4 step (has 2 threshold and doorway to hold onto) Resistance HEP reviewed Equipment Used contact rail Reps/Minutes 2x 10 Comments good feedback response PT-OP-R Modalities Start: 09/29/20 15:47 Freq: Status: Active Protocol: Document 11/12/20 14:38 SAK (Rec: 11/12/20 15:23 SAK [id number]) Electric Stimulation Electric Stimulation Interferential Current (IFC) Body Location right knee Duration (Minutes) 10 Intensity 14 Target/Sweep Sweep Patient Position Hooklying Combined With Heat/Cold Cold Pack PT-OP-T Assessment and Plan Start: 09/29/20 15:47 Freq: Status: Active Protocol: Document 11/19/20 12:17 SP (Rec: 11/19/20 15:51 SP [id number]) Physical Therapy Assessment Goals 4 Impairment weakness right LE Short Term Goal (STG) Patient to be independent with progressive HEP for the purposes of LE strengthening 11/10/20: indep currently, ongoing progression STG Duration 10/30/20 Mcc Goal (LTG) Patient right knee strength at least 4+/5 11/10/20: goal progress LTG Duration 12/01/20 3 Impairment decreased activity tolerance; lower extremity functional scale 46% Short Term Goal (STG) improve LEFS to at least 60% 11/10/20: goal progress STG Duration 10/30/20 Mcc Goal (LTG) Improve LEFS to at least 75% as measure of improved activity tolerance LTG Duration 11/29/20 2 Impairment antalgic gait on level surfaces and step-to pattern on stairs Short Term Goal (STG) patient able to ambulate with cane with no limp on level surfaces using cane 10/30/20: progressing: not using a SPC anymore but still noticable slight limp on level surfaces this am tx, says doesn;t think does when out walking later in day. STG Duration 10/30/20 Progressing (10/20/20) Activities Officer Goal (LTG) Patient able to ambulate without assistive device with no limp and ascend and descend stairs with alternating pattern without limp LTG Duration 11/29/20 1 Impairment pain right knee as high as 5/ 10 on pain scale Mcc Goal (LTG) decrease pain to no greater than 5/10 with all usual activities 10/20/20: Goal MET: pain level more achy pain and 0-2/10 during activities. LTG Duration 11/29/20 (GOAL MET 10/20/20) Assessment Summary Assessment Pt responded well to HEP review in standing. Initiated sport cord with ability to progress green> red resistance and add stepping f/b over henry with self recoveries hip abd and core facilitation CG- 5% A as needed. Pt reported no knee pain but little R SI irritation during R side stepping so discontinued that direction. Pt demonstrated improvement in level pelvis when leaving, no antalgic gait leaving. Physical Therapy Plan Frequency and Duration Frequency of Treatment 2x/wk Duration of Treatment 8 weeks Plan of Care Start Date 09/30/20 Plan of Care End Date 11/29/20 Therapeutic Interventions Therapeutic Interventions Gait Training,Home Exercise Program,Joint Mobilizations, Manual Therapy,Neuromuscular Re-education,Patient/Caregiver Education,Self-Care/Home Management,Soft Tissue Mobilization,Taping, Therapeutic Activities, Therapeutic Exercises Modalities Cold Pack/Ice Massage,Electric Stimulation,Hot Packs, Iontophoresis,Ultrasound Next Visit Focus/Plan Next Note Type Treatment Note Next Visit Plan PN due on 11/26 appt. Assess response to sport cord and HEP review. Next tx: stairs start 4 step and shuttle recovery for Le strengthening. POC: DTM to hamstrings, progress closed chain strengthening, gait training and strengthening on stairs.
--- NOTE | 2020-11-24 09:45 | PT.OTN ---
Current Diagnoses Other chronic pain (11/24/20) Pain in right knee (11/24/20) Difficulty in walking, not elsewhere classified (11/24/20) Weakness (11/24/20) Physical Therapy Treatment Note PT-OP-A Visit Information Start: 09/29/20 15:47 Freq: Status: Active Protocol: Document 11/24/20 09:05 SP (Rec: 11/24/20 09:51 SP [id number]) Out-Patient Physical Therapy Visit Information Visit Information Visit Type Treatment Note Visit Note update POC and PN next tx with PT. Visit Start Time 09:05 Visit Stop Time 09:45 Total Visit Minutes 40 Visit Number 13 Number of PROPERTY FIELD INSPECTOR Visits 3 Evaluation Information Evaluation Date 09/30/20 Precautions Precautions cardiac (mitral valve replacement) osteopenia PT-OP-B Current Condition Start: 09/29/20 15:47 Freq: Status: Active Protocol: Document 09/30/20 13:55 SAK (Rec: 09/30/20 14:28 SAK [id number]) Current Condition History of Current Condition Onset Date 2 years Current Complaints progressively worsening right knee pain History of Current Condition Patient reports gradual worsening of right knee pain with no precipitating event, though does report after a foot surgery a few years ago, scooting around at work on rolling chair using her right LE. Since retiring has tried to increase her activity level and had increased her walking distance to 1 mile per day, but due to persistent and worsening right knee pain states can barely go half of that. Pain interrupts her sleep, makes it difficult to stand, walk, or do other usual activities such as bend down to picking crew supervisor her dog's poop. Prior Treatments and Tests mild arthritis right knee Future Testing and Treatments Planned potential MRI if symptoms persist Prior Functional Status Baseline Function- ADL's Independent Baseline Function- Mobility Independent Baseline Function- Gait no limitations Baseline Function- Work/School no limitations Baseline Function- Recreation/Hobbies walked 1 mile per day Baseline Function- Other able to bend down to picking crew supervisor dog poop without difficulty Current Functional Impairments (Reported) Functional Limitations- ADL's painful Functional Limitations- Mobility/Gait painful, limps Functional Limitations- Work/School retired, difficulty doing house and yardwork Functional Limitations- Recreation/ painful to go for walks Hobbies PT-OP-C Subjective Start: 09/29/20 15:47 Freq: Status: Active Protocol: Document 11/24/20 09:05 SP (Rec: 11/24/20 09:51 SP [id number]) OP-PT Subjective Patient Comments Patient Comments Pt stated tired woke up early at 7 to let dog out. Still can 't put tape on her knee so uses her knee brace for walks but can't always wear under jeans, mostly needed for longer distance walks. Pt states can bend knee better and lay on R side better. PT-OP-D Balance Start: 09/29/20 15:47 Freq: Status: Active Protocol: Document 09/30/20 13:55 SAK (Rec: 09/30/20 14:28 SAK [id number]) OP-PT Balance Assessment Standing Balance Standing Balance Comments unable to test due to pain Wright Fall Scale Copyright Permission PT-OP-F Manual Assessment Start: 09/29/20 15:47 Freq: Status: Active Protocol: Document 09/30/20 13:55 SAK (Rec: 09/30/20 14:28 SAK [id number]) Manual Assessments Soft Tissue Assessment Soft Tissue Mobility Assessment moderate swelling right knee with mild warmth, no redness Joint Mobility Assessment Joint Mobility Assessment decreased medial glide right patella PT-OP-G Mobility & Gait Start: 09/29/20 15:47 Freq: Status: Active Protocol: Document 09/30/20 13:55 SAK (Rec: 09/30/20 14:28 SAK [id number]) OP Mobility Evaluation Bed Mobility Supine to and from Sit indep Transfers Sit to Stand indep with decreased weight- bearing righ Floor Transfers unable OP Gait Assessment Gait Gait Assistance Required: Independent Distance (Feet) 100 Assistive Devices Assistive Device None Orthotic/Prosthetic Devices or Brace: Yes Gait Deviations General Gait Pattern Antalgic Comments Gait Comments wearing soft knee brace Stair Climbing Evaluation Evaluation Level of Assist On Stairs Independent Devices Stair Climbing Assistive Devices Left Railing,Right Railing Technique/Endurance Stair Climbing Direction Ascend and Descend Stair Climbing Technique Step to Step Comments Stair Climbing Comments antalgic if tries to alternate LE's PT-OP-H Neuro Start: 09/29/20 15:47 Freq: Status: Active Protocol: Document 09/30/20 13:55 SAK (Rec: 09/30/20 14:28 SAK [id number]) Sensation Evaluation Gross Sensation Gross Sensation WNL PT-OP-J Posture/Palpation/Skin Start: 09/29/20 15:47 Freq: Status: Active Protocol: Document 09/30/20 13:55 [facility] (Rec: 09/30/20 14:28 [facility] [id number]) Posture Evaluation Position Standing Hip Posture (L) Externally Rotated,(R) Externally Rotated Knee Posture (R) Genu Varus Patellar Posture (R) Laterally Tilted PT-OP-K Range of Motion Start: 09/29/20 15:47 Freq: Status: Active Protocol: Document 09/30/20 13:55 [facility] (Rec: 09/30/20 14:28 [facility] [id number]) Knee Goniometric Range of Motion Knee Right Flexion Active (degrees) 95 Extension Active (degrees) 7 Left Knee ROM WFL Yes Knee ROM Limitations Knee ROM Limitations Pain,Swelling PT-OP-M Strength Start: 09/29/20 15:47 Freq: Status: Active Protocol: Document 09/30/20 13:55 [facility] (Rec: 09/30/20 14:28 [facility] [id number]) Hip Strength Hip Manual Muscle Testing jose Flexion (L2) 3- Fair- Extension (S1) 2+ Poor+ External Rotation 3+ Fair+ Internal Rotation 4- Good- Knee Strength Knee Manual Muscle Testing Right Flexion (S2) 4- Good- Extension (L3) 4- Good- Left Flexion (S2) 4+ Good+ Extension (L3) 4+ Good+ PT-OP-Q Treatments Start: 09/29/20 15:47 Freq: Status: Active Protocol: Document 11/24/20 09:05 SP (Rec: 11/24/20 09:51 SP [id number]) Cardio Equipment Recumbent Elliptical ([employer]) Duration (Minutes) 3 Resistance 3>2 Seat Position 8 Other LEs and UEs, HS little irritation dec 3>2 muscle work Gym Equipment Shuttle Recovery Unilateral Squats Details alternate LE, cued knee alignment Resistance 37# Shuttle Recovery Platform Stable Reps/Time x12 Bilateral Squats Details cued knee alignment Resistance 75# Shuttle Recovery Platform Stable Reps/Time 2x20 Therapeutic Exercises Supine Exercises AROM measurement R knee Supine Exercise Name 3*-123 * AROM, 2- 133* post manual Side right Standing Exercises step ups Standing Exercise Name added to HEP Side right Equipment Used 4 step, cued contact chair backing in front while perform over 3 threshld Reps/Minutes x10 Comments good glut, hip abd fac heel/toe raise Standing Exercise Name heel raise off 4 step Resistance HEP reviewed Equipment Used contact B rails (doorway at home/ between rooms 3 height step) Reps/Minutes 2x 10 Comments good feedback response Manual Therapy Treatment Soft Tissue Mobilization HS Body Location hooklying Comments good feedback decrease HS tightness and allowed increased R knee extension ROM . PT-OP-R Modalities Start: 09/29/20 15:47 Freq: Status: Active Protocol: Document 11/12/20 14:38 SAK (Rec: 11/12/20 15:23 SAK [id number]) Electric Stimulation Electric Stimulation Interferential Current (IFC) Body Location right knee Duration (Minutes) 10 Intensity 14 Target/Sweep Sweep Patient Position Hooklying Combined With Heat/Cold Cold Pack PT-OP-T Assessment and Plan Start: 09/29/20 15:47 Freq: Status: Active Protocol: Document 11/24/20 09:05 SP (Rec: 11/24/20 09:51 SP [id number]) Physical Therapy Assessment Goals 4 Impairment weakness right LE Short Term Goal (STG) Patient to be independent with progressive HEP for the purposes of LE strengthening 11/10/20: indep currently, ongoing progression STG Duration 10/30/20 Instructional Coach Goal (LTG) Patient right knee strength at least 4+/5 11/10/20: goal progress LTG Duration 12/01/20 3 Impairment decreased activity tolerance; lower extremity functional scale 46% Short Term Goal (STG) improve LEFS to at least 60% 11/10/20: goal progress STG Duration 10/30/20 Skilled Nursing Goal (LTG) Improve LEFS to at least 75% as measure of improved activity tolerance LTG Duration 11/29/20 2 Impairment antalgic gait on level surfaces and step-to pattern on stairs Short Term Goal (STG) patient able to ambulate with cane with no limp on level surfaces using cane 10/30/20: progressing: not using a SPC anymore but still noticable slight limp on level surfaces this am tx, says doesn;t think does when out walking later in day. STG Duration 10/30/20 Progressing (10/20/20) Instructional Coach Goal (LTG) Patient able to ambulate without assistive device with no limp and ascend and descend stairs with alternating pattern without limp LTG Duration 11/29/20 1 Impairment pain right knee as high as 5/ 10 on pain scale Skilled Nursing Goal (LTG) decrease pain to no greater than 5/10 with all usual activities 10/20/20: Goal MET: pain level more achy pain and 0-2/10 during activities. LTG Duration 11/29/20 (GOAL MET 10/20/20) Assessment Summary Assessment Pt responded well to LE strengthening review standing and added step ups with cued for knee alignment and increased resistance of shuttle recovery. Physical Therapy Plan Frequency and Duration Frequency of Treatment 2x/wk Duration of Treatment 8 weeks Plan of Care Start Date 09/30/20 Plan of Care End Date 11/29/20 Therapeutic Interventions Therapeutic Interventions Gait Training,Home Exercise Program,Joint Mobilizations, Manual Therapy,Neuromuscular Re-education,Patient/Caregiver Education,Self-Care/Home Management,Soft Tissue Mobilization,Taping, Therapeutic Activities, Therapeutic Exercises Modalities Cold Pack/Ice Massage,Electric Stimulation,Hot Packs, Iontophoresis,Ultrasound Next Visit Focus/Plan Next Note Type Treatment Note Next Visit Plan PN due on 11/26 appt. Recheck step up added last tx. POC: DTM to hamstrings, progress closed chain strengthening, gait training and strengthening on stairs.
--- NOTE | 2020-11-26 15:50 | PT.OTRE ---
Current Diagnoses Other chronic pain (11/26/20) Pain in right knee (11/26/20) Difficulty in walking, not elsewhere classified (11/26/20) Weakness (11/26/20) Past Medical History (This Medical Record has been edited. Action required.) Cataracts, bilateral Essential hypertension (02/17/15) Hx of cataract surgery (~01/2016) Hx of foot surgery Hyperlipemia Hypertension Lumbar compression fracture Mitral valve disorder Mixed hyperlipidemia (02/17/15) Paroxysmal atrial fibrillation (02/17/15) Paroxysmal atrial fibrillation Surgical History (This Medical Record has been edited. Action required.) History of mitral valve replacement (02/17/15) Hx of cataract surgery (~01/2016) Hx of foot surgery Visit Care Team Role Provider Type Leo Keane MD Attending Provider Physician Primary Care Provider Referring Provider Specialty: Internal Medicine Address: [address] [place] [address], [address], [facility] Email: [email or web address] Physical Therapy Re-Evaluation PT-OP-A Visit Information Start: 09/29/20 15:47 Freq: Status: Active Protocol: Document 11/26/20 14:36 [facility] (Rec: 11/26/20 15:18 [facility] [id number]) Out-Patient Physical Therapy Visit Information Visit Information Visit Type Treatment Note Visit Start Time 14:35 Visit Stop Time 09:45 Total Visit Minutes 55 Visit Number 14 Number of VAULT TELLER Visits 0 Precautions Precautions cardiac (mitral valve replacement) osteopenia PT-OP-B Current Condition Start: 09/29/20 15:47 Freq: Status: Active Protocol: Document 09/30/20 13:55 [facility] (Rec: 09/30/20 14:28 [facility] [id number]) Current Condition History of Current Condition Onset Date 2 years Current Complaints progressively worsening right knee pain History of Current Condition Patient reports gradual worsening of right knee pain with no precipitating event, though does report after a foot surgery a few years ago, scooting around at work on rolling chair using her right LE. Since retiring has tried to increase her activity level and had increased her walking distance to 1 mile per day, but due to persistent and worsening right knee pain states can barely go half of that. Pain interrupts her sleep, makes it difficult to stand, walk, or do other usual activities such as bend down to picker packer her dog's poop. Prior Treatments and Tests mild arthritis right knee Future Testing and Treatments Planned potential MRI if symptoms persist Prior Functional Status Baseline Function- ADL's Independent Baseline Function- Mobility Independent Baseline Function- Gait no limitations Baseline Function- Work/School no limitations Baseline Function- Recreation/Hobbies walked 1 mile per day Baseline Function- Other able to bend down to picker packer dog poop without difficulty Current Functional Impairments (Reported) Functional Limitations- ADL's painful Functional Limitations- Mobility/Gait painful, limps Functional Limitations- Work/School retired, difficulty doing house and yardwork Functional Limitations- Recreation/ painful to go for walks Hobbies PT-OP-C Subjective Start: 09/29/20 15:47 Freq: Status: Active Protocol: Document 11/26/20 14:36 [facility] (Rec: 11/26/20 15:18 [facility] [id number]) OP-PT Subjective Patient Comments Patient Comments Hasn't been taping her knee due to tearing skin, but feels healed up. Has been using knee brace when goes shopping or takes dog out. Feeling stronger, less pain overall. PT-OP-D Balance Start: 09/29/20 15:47 Freq: Status: Active Protocol: Document 09/30/20 13:55 [facility] (Rec: 09/30/20 14:28 [facility] [id number]) OP-PT Balance Assessment Standing Balance Standing Balance Comments unable to test due to pain Wright Fall Scale Copyright Permission Adriana CARRASQUILLO, Adriana RM, [place] S[place]. Development of a scale to identify the fall- prone patient. Can J Aging 1989;8;366-7. Ta Wright (2009). Preventing patient falls. (2nd ed). [place]: [place]. PT-OP-F Manual Assessment Start: 09/29/20 15:47 Freq: Status: Active Protocol: Document 09/30/20 13:55 [facility] (Rec: 09/30/20 14:28 [facility] [id number]) Manual Assessments Soft Tissue Assessment Soft Tissue Mobility Assessment moderate swelling right knee with mild warmth, no redness Joint Mobility Assessment Joint Mobility Assessment decreased medial glide right patella PT-OP-G Mobility & Gait Start: 09/29/20 15:47 Freq: Status: Active Protocol: Document 09/30/20 13:55 [facility] (Rec: 09/30/20 14:28 [facility] [id number]) OP Mobility Evaluation Bed Mobility Supine to and from Sit indep Transfers Sit to Stand indep with decreased weight- bearing righ Floor Transfers unable OP Gait Assessment Gait Gait Assistance Required: Independent Distance (Feet) 100 Assistive Devices Assistive Device None Orthotic/Prosthetic Devices or Brace: Yes Gait Deviations General Gait Pattern Antalgic Comments Gait Comments wearing soft knee brace Stair Climbing Evaluation Evaluation Level of Assist On Stairs Independent Devices Stair Climbing Assistive Devices Left Railing,Right Railing Technique/Endurance Stair Climbing Direction Ascend and Descend Stair Climbing Technique Step to Step Comments Stair Climbing Comments antalgic if tries to alternate LE's PT-OP-H Neuro Start: 09/29/20 15:47 Freq: Status: Active Protocol: Document 09/30/20 13:55 [facility] (Rec: 09/30/20 14:28 [facility] [id number]) Sensation Evaluation Gross Sensation Gross Sensation WNL PT-OP-J Posture/Palpation/Skin Start: 09/29/20 15:47 Freq: Status: Active Protocol: Document 09/30/20 13:55 [facility] (Rec: 09/30/20 14:28 [facility] [id number]) Posture Evaluation Position Standing Hip Posture (L) Externally Rotated,(R) Externally Rotated Knee Posture (R) Genu Varus Patellar Posture (R) Laterally Tilted PT-OP-K Range of Motion Start: 09/29/20 15:47 Freq: Status: Active Protocol: Document 11/26/20 14:36 [facility] (Rec: 11/26/20 15:18 [facility] [id number]) Knee Goniometric Range of Motion Knee Measured in Degrees Right Flexion Active (degrees) 123 Flexion Passive (degrees) 133 Extension Active (degrees) 3 Left Knee ROM WFL Yes PT-OP-M Strength Start: 09/29/20 15:47 Freq: Status: Active Protocol: Document 09/30/20 13:55 [facility] (Rec: 09/30/20 14:28 [facility] [id number]) Hip Strength Hip Manual Muscle Testing jose Flexion (L2) 3- Fair- Extension (S1) 2+ Poor+ External Rotation 3+ Fair+ Internal Rotation 4- Good- Knee Strength Knee Manual Muscle Testing Right Flexion (S2) 4- Good- Extension (L3) 4- Good- Left Flexion (S2) 4+ Good+ Extension (L3) 4+ Good+ PT-OP-Q Treatments Start: 09/29/20 15:47 Freq: Status: Active Protocol: Document 11/26/20 14:36 [facility] (Rec: 11/26/20 15:18 [facility] [id number]) Cardio Equipment Recumbent Stepper (Sci-Fit) Duration (Minutes) 10 Resistance 2.0 Seat Position 12 Other LE's only Gym Equipment Shuttle Recovery Unilateral Squats Details alternate LE, cued knee alignment Resistance 37# Shuttle Recovery Platform Stable Reps/Time x12 Bilateral Squats Details cued knee alignment Resistance 75# Shuttle Recovery Platform Stable Reps/Time 2x20 Shuttle Balance chains red Details bal and weight shift Therapeutic Exercises Sitting Exercises hamstrsing curl Equipment Used L2 TB Reps/Minutes 10x2 Standing Exercises step ups Standing Exercise Name added to HEP Side left Equipment Used 4 step, cued contact chair backing in front while perform over 3 threshld Reps/Minutes x10 Comments good glut, hip abd fac heel/toe raise Standing Exercise Name heel raise off 4 step Resistance HEP reviewed Equipment Used contact B rails (doorway at home/ between rooms 3 height step) Reps/Minutes 2x 10 Comments good feedback response Manual Therapy Treatment Soft Tissue Mobilization HS Body Location hooklying Comments good feedback decrease HS tightness and allowed increased R knee extension ROM . Taping right knee Treatment Focus facil med patellar glide, pain relief Type of Tape Kinesio Tape Skin Inspection intact Comments 1 Y strip patella base medially wrapping sup and inf patella 75% tension 2 I strips: med and lateral joint line space correction 50 -75% tension PT-OP-R Modalities Start: 09/29/20 15:47 Freq: Status: Active Protocol: Document 11/12/20 14:38 [facility] (Rec: 11/12/20 15:23 [facility] [id number]) Electric Stimulation Electric Stimulation Interferential Current (IFC) Body Location right knee Duration (Minutes) 10 Intensity 14 Target/Sweep Sweep Patient Position Hooklying Combined With Heat/Cold Cold Pack PT-OP-T Assessment and Plan Start: 09/29/20 15:47 Freq: Status: Active Protocol: Document 11/26/20 14:36 [facility] (Rec: 11/26/20 15:18 [facility] [id number]) Physical Therapy Assessment Goals 5 Impairment lateral tracking patella Directory Carrier Goal (LTG) Patient to be independent with self-taping using kinesiotape to facilitate normal patellar tracking for decreased pain with all mobility LTG Duration 01/10/21 4 Impairment weakness right LE Short Term Goal (STG) Patient to be independent with progressive HEP for the purposes of LE strengthening 11/10/20: indep currently, ongoing progression STG Duration goal met Directory Carrier Goal (LTG) Patient right knee strength at least 4+/5 11/10/20: goal progress 11/26/20: goal met, strength 4+ /5 LTG Duration goal met 3 Impairment decreased activity tolerance; lower extremity functional scale 46% Short Term Goal (STG) improve LEFS to at least 60% 11/10/20: goal progress, inc to 51% 11/26/20: goal progress, increased to 58% STG Duration 12/05/20 [facility] Goal (LTG) Improve LEFS to at least 75% as measure of improved activity tolerance LTG Duration 01/10/21 2 Impairment antalgic gait on level surfaces and step-to pattern on stairs Short Term Goal (STG) patient able to ambulate with cane with no limp on level surfaces using cane 10/30/20: progressing: not using a SPC anymore but still noticable slight limp on level surfaces this am tx, says doesn;t think does when out walking later in day. 11/26/20: goal met, no longer using cane STG Duration goal met Directory Carrier Goal (LTG) Patient able to ambulate without assistive device with no limp and ascend and descend stairs with alternating pattern without limp 11/26/20: able to ambulate without device with minimal to no limp. Inconsistent ability to ascend and descend stairs; at times still has to do step-to pattern, has pain with both ascending and descending. LTG Duration 01/10/21 1 Impairment pain right knee as high as 5/ 10 on pain scale Directory Carrier Goal (LTG) decrease pain to no greater than 5/10 with all usual activities 10/20/20: Goal MET: pain level more achy pain and 0-2/10 during activities. LTG Duration (GOAL MET 10/20/20) Assessment Summary Assessment Good progress toward goals. Patient compliant to HEP. Has difficulty self-taping for patellar tracking, ongoing education. Doing well with gait on level surfaces, but gait on stairs painful and not consistent ability to alternate LE's on standard height stairs with ascending and descending. Knee strength has increased to 4+/5 but needs further work on functional, closed chain activities with which she still has some pain. Would benefit from further skilled PT to help her fully achieve her goals and return to more active and pain-free activity. Physical Therapy Plan Frequency and Duration Frequency of Treatment 2x/wk Duration of Treatment 6 weeks Plan of Care Start Date 11/26/20 Plan of Care End Date 01/10/21 Therapeutic Interventions Therapeutic Interventions Gait Training,Home Exercise Program,Joint Mobilizations, Manual Therapy,Neuromuscular Re-education,Patient/Caregiver Education,Self-Care/Home Management,Soft Tissue Mobilization,Taping, Therapeutic Activities, Therapeutic Exercises Modalities Cold Pack/Ice Massage,Electric Stimulation,Hot Packs, Iontophoresis,Ultrasound Next Visit Focus/Plan Next Note Type Treatment Note Next Visit Plan Continue PT per POC to improve functional knee strength, LE flexibility, gait ability on uneven surfaces especially stairs. DTM to hamstrings
--- NOTE | 2020-12-01 11:16 | PT.OTN ---
Current Diagnoses Other chronic pain (12/01/20) Pain in right knee (12/01/20) Difficulty in walking, not elsewhere classified (12/01/20) Weakness (12/01/20) Physical Therapy Treatment Note PT-OP-A Visit Information Start: 09/29/20 15:47 Freq: Status: Active Protocol: Document 12/01/20 10:31 [facility] (Rec: 12/01/20 11:32 [facility] [id number]) Out-Patient Physical Therapy Visit Information Visit Information Visit Type Treatment Note Visit Start Time 10:31 Visit Stop Time 11:16 Total Visit Minutes 45 Visit Number 15 Number of PHYTOCHEMISTRY PROFESSOR Visits 1 Evaluation Information Evaluation Date 09/30/20 Precautions Precautions cardiac (mitral valve replacement) osteopenia PT-OP-B Current Condition Start: 09/29/20 15:47 Freq: Status: Active Protocol: Document 09/30/20 13:55 [facility] (Rec: 09/30/20 14:28 [facility] [id number]) Current Condition History of Current Condition Onset Date 2 years Current Complaints progressively worsening right knee pain History of Current Condition Patient reports gradual worsening of right knee pain with no precipitating event, though does report after a foot surgery a few years ago, scooting around at work on rolling chair using her right LE. Since retiring has tried to increase her activity level and had increased her walking distance to 1 mile per day, but due to persistent and worsening right knee pain states can barely go half of that. Pain interrupts her sleep, makes it difficult to stand, walk, or do other usual activities such as bend down to slate picker her dog's poop. Prior Treatments and Tests mild arthritis right knee Future Testing and Treatments Planned potential MRI if symptoms persist Prior Functional Status Baseline Function- ADL's Independent Baseline Function- Mobility Independent Baseline Function- Gait no limitations Baseline Function- Work/School no limitations Baseline Function- Recreation/Hobbies walked 1 mile per day Baseline Function- Other able to bend down to slate picker dog poop without difficulty Current Functional Impairments (Reported) Functional Limitations- ADL's painful Functional Limitations- Mobility/Gait painful, limps Functional Limitations- Work/School retired, difficulty doing house and yardwork Functional Limitations- Recreation/ painful to go for walks Hobbies PT-OP-C Subjective Start: 09/29/20 15:47 Freq: Status: Active Protocol: Document 12/01/20 10:31 [facility] (Rec: 12/01/20 11:32 SP [id number]) OP-PT Subjective Patient Comments Patient Comments Pt arrived, noted little bit of a limp. She hasn't need to use her aspercream in the past 2 weeks. stated has busy with transportation for son's back surgery yesterday at [facility] and help grand daughter get to events. Pt stated R knee doing well and taping lasted til Sat, not stapping to bad. PT-OP-D Balance Start: 09/29/20 15:47 Freq: Status: Active Protocol: Document 09/30/20 13:55 [facility] (Rec: 09/30/20 14:28 [facility] [id number]) OP-PT Balance Assessment Standing Balance Standing Balance Comments unable to test due to pain Wright Fall Scale Copyright Permission PT-OP-F Manual Assessment Start: 09/29/20 15:47 Freq: Status: Active Protocol: Document 09/30/20 13:55 [facility] (Rec: 09/30/20 14:28 [facility] [id number]) Manual Assessments Soft Tissue Assessment Soft Tissue Mobility Assessment moderate swelling right knee with mild warmth, no redness Joint Mobility Assessment Joint Mobility Assessment decreased medial glide right patella PT-OP-G Mobility & Gait Start: 09/29/20 15:47 Freq: Status: Active Protocol: Document 09/30/20 13:55 [facility] (Rec: 09/30/20 14:28 [facility] [id number]) OP Mobility Evaluation Bed Mobility Supine to and from Sit indep Transfers Sit to Stand indep with decreased weight- bearing righ Floor Transfers unable OP Gait Assessment Gait Gait Assistance Required: Independent Distance (Feet) 100 Assistive Devices Assistive Device None Orthotic/Prosthetic Devices or Brace: Yes Gait Deviations General Gait Pattern Antalgic Comments Gait Comments wearing soft knee brace Stair Climbing Evaluation Evaluation Level of Assist On Stairs Independent Devices Stair Climbing Assistive Devices Left Railing,Right Railing Technique/Endurance Stair Climbing Direction Ascend and Descend Stair Climbing Technique Step to Step Comments Stair Climbing Comments antalgic if tries to alternate LE's PT-OP-H Neuro Start: 09/29/20 15:47 Freq: Status: Active Protocol: Document 09/30/20 13:55 [facility] (Rec: 09/30/20 14:28 [facility] [id number]) Sensation Evaluation Gross Sensation Gross Sensation WNL PT-OP-J Posture/Palpation/Skin Start: 09/29/20 15:47 Freq: Status: Active Protocol: Document 09/30/20 13:55 [facility] (Rec: 09/30/20 14:28 [facility] [id number]) Posture Evaluation Position Standing Hip Posture (L) Externally Rotated,(R) Externally Rotated Knee Posture (R) Genu Varus Patellar Posture (R) Laterally Tilted PT-OP-K Range of Motion Start: 09/29/20 15:47 Freq: Status: Active Protocol: Document 12/01/20 10:31 SP (Rec: 12/01/20 11:32 SP [id number]) Knee Goniometric Range of Motion Knee Right Flexion Active (degrees) 124 Flexion Passive (degrees) 135 Extension Active (degrees) 1 Extension Passive (degrees) 2 Comments Pt states only achiness with end feel ranges, not pain. PT-OP-M Strength Start: 09/29/20 15:47 Freq: Status: Active Protocol: Document 09/30/20 13:55 [facility] (Rec: 09/30/20 14:28 [facility] [id number]) Hip Strength Hip Manual Muscle Testing jose Flexion (L2) 3- Fair- Extension (S1) 2+ Poor+ External Rotation 3+ Fair+ Internal Rotation 4- Good- Knee Strength Knee Manual Muscle Testing Right Flexion (S2) 4- Good- Extension (L3) 4- Good- Left Flexion (S2) 4+ Good+ Extension (L3) 4+ Good+ PT-OP-Q Treatments Start: 09/29/20 15:47 Freq: Status: Active Protocol: Document 12/01/20 10:31 SP (Rec: 12/01/20 11:32 SP [id number]) Cardio Equipment Recumbent Stepper (Sci-Fit) Duration (Minutes) 10 Resistance 2.0 Seat Position 12 Other LE's only Gym Equipment Shuttle Recovery Unilateral Squats Details alternate LE, cued knee alignment Resistance 37# Shuttle Recovery Platform Stable Reps/Time x12 Bilateral Squats Details cued knee alignment Resistance 75# Shuttle Recovery Platform Stable Reps/Time 2x20 Therapeutic Exercises Sitting Exercises hamstrsing curl Equipment Used L2 TB Reps/Minutes 10x2 Comments painfree- good HS muscle work HC stretch Sitting Exercise Name w/ DF Side right Reps/Minutes 1x Comments hip hinge good stretch to HS Standing Exercises step ups Standing Exercise Name reviewed HEP Side left Equipment Used 4 step, cued contact chair backing in front while perform over 3 threshld Reps/Minutes x10 Comments good glut, hip abd fac- pain free Manual Therapy Treatment Soft Tissue Mobilization HS Body Location hooklying on shuttle recovery Mobilization Type Instrument Assisted,Rolling, Strumming Intensity/Depth Moderate Body Position Hooklying Comments good feedback decrease distal quad and semi mem/tend HS tightness and allowed increased R knee extension ROM . quad Body Location medial/distal quad Mobilization Type Cross-Friction,Instrument Assisted,Myofascial Release, Rolling Intensity/Depth Moderate Body Position Sitting Comments manual w/ rolling stick. Taping right knee Treatment Focus facil med patellar glide, pain relief Type of Tape Kinesio Tape Skin Inspection intact Comments 1 Y strip patella base medially wrapping sup and inf patella 75% tension 2 I strips: med and lateral joint line space correction 50 -75% tension PT-OP-R Modalities Start: 09/29/20 15:47 Freq: Status: Active Protocol: Document 11/12/20 14:38 [facility] (Rec: 11/12/20 15:23 [facility] [id number]) Electric Stimulation Electric Stimulation Interferential Current (IFC) Body Location right knee Duration (Minutes) 10 Intensity 14 Target/Sweep Sweep Patient Position Hooklying Combined With Heat/Cold Cold Pack PT-OP-T Assessment and Plan Start: 09/29/20 15:47 Freq: Status: Active Protocol: Document 12/01/20 10:31 SP (Rec: 12/01/20 11:32 SP [id number]) Physical Therapy Assessment Goals 5 Impairment lateral tracking patella Reel Cutter Goal (LTG) Patient to be independent with self-taping using kinesiotape to facilitate normal patellar tracking for decreased pain with all mobility LTG Duration 01/10/21 4 Impairment weakness right LE Short Term Goal (STG) Patient to be independent with progressive HEP for the purposes of LE strengthening 11/10/20: indep currently, ongoing progression STG Duration goal met Halfway Goal (LTG) Patient right knee strength at least 4+/5 11/10/20: goal progress 11/26/20: goal met, strength 4+ /5 LTG Duration goal met 3 Impairment decreased activity tolerance; lower extremity functional scale 46% Short Term Goal (STG) improve LEFS to at least 60% 11/10/20: goal progress, inc to 51% 11/26/20: goal progress, increased to 58% STG Duration 12/05/20 Reel Cutter Goal (LTG) Improve LEFS to at least 75% as measure of improved activity tolerance LTG Duration 01/10/21 2 Impairment antalgic gait on level surfaces and step-to pattern on stairs Short Term Goal (STG) patient able to ambulate with cane with no limp on level surfaces using cane 10/30/20: progressing: not using a SPC anymore but still noticable slight limp on level surfaces this am tx, says doesn;t think does when out walking later in day. 11/26/20: goal met, no longer using cane STG Duration goal met Halfway Goal (LTG) Patient able to ambulate without assistive device with no limp and ascend and descend stairs with alternating pattern without limp 11/26/20: able to ambulate without device with minimal to no limp. Inconsistent ability to ascend and descend stairs; at times still has to do step-to pattern, has pain with both ascending and descending. LTG Duration 01/10/21 1 Impairment pain right knee as high as 5/ 10 on pain scale Reel Cutter Goal (LTG) decrease pain to no greater than 5/10 with all usual activities 10/20/20: Goal MET: pain level more achy pain and 0-2/10 during activities. LTG Duration (GOAL MET 10/20/20) Assessment Summary Assessment Pt gained 1 degree flexion and 2 deg extension since last tx . Pt responded well to review of HEP. Noted distal medial quad and HS discomfort on shuttle press improved manual and instrument STMs, ed for self application has been helpful tool at home for relief. Cues for knee alignment during step ups and shuttle recovery for decreased medial musculature recruiment . Physical Therapy Plan Frequency and Duration Frequency of Treatment 2x/wk Duration of Treatment 6 weeks Plan of Care Start Date 11/26/20 Plan of Care End Date 01/10/21 Therapeutic Interventions Therapeutic Interventions Gait Training,Home Exercise Program,Joint Mobilizations, Manual Therapy,Neuromuscular Re-education,Patient/Caregiver Education,Self-Care/Home Management,Soft Tissue Mobilization,Taping, Therapeutic Activities, Therapeutic Exercises Modalities Cold Pack/Ice Massage,Electric Stimulation,Hot Packs, Iontophoresis,Ultrasound Next Visit Focus/Plan Next Note Type Treatment Note Next Visit Plan Recheck K taping, knee alignment during ex, progress functional knee strengthening. POC: Continue improve functional knee strength, LE flexibility, gait ability on uneven surfaces especially stairs. DTM to hamstrings and quad if needed.
--- NOTE | 2020-12-07 09:48 | PT.OTN ---
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 Since retiring has tried to increase her activity level and had increased her walking distance to 1 mile per day, but due to persistent and worsening right knee pain states can barely go half of that. 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 Prior Treatments and Tests mild arthritis right knee Future Testing and Treatments Planned potential MRI if symptoms persist Prior Functional Status Baseline Function- ADL's Independent Baseline Function- Mobility Independent Baseline Function- Gait no limitations Baseline Function- Work/School no limitations Baseline Function- Recreation/Hobbies walked 1 mile per day Baseline Function- Other able to bend down to parts picker dog poop without difficulty Current Functional Impairments (Reported) Functional Limitations- ADL's painful Functional Limitations- Mobility/Gait painful, limps Functional Limitations- Work/School retired, difficulty doing house and yardwork Functional Limitations- Recreation/ painful to go for walks Hobbies PT-OP-C Subjective Start: 09/29/20 15:47 Freq: Status: Active Protocol: Document 12/07/20 09:05 SP (Rec: 12/07/20 10:01 SP [id number]) OP-PT Subjective Patient Comments Patient Comments Pt reported busy with helping son angelita self mobility when return home post back surgery and helping grand daughter with activity transportation. Pt stated took K tape off, used knee brace if walking or long standing errands in town for stability, doesn't wear in house. PT-OP-D Balance Start: 09/29/20 15:47 Freq: Status: Active Protocol: Document 09/30/20 13:55 SAK (Rec: 09/30/20 14:28 [facility] [id number]) OP-PT Balance Assessment Standing Balance Standing Balance Comments unable to test due to pain Wright Fall Scale Copyright Permission PT-OP-F Manual Assessment Start: 09/29/20 15:47 Freq: Status: Active Protocol: Document 09/30/20 13:55 SAK (Rec: 09/30/20 14:28 [facility] [id number]) Manual Assessments Soft Tissue Assessment Soft Tissue Mobility Assessment moderate swelling right knee with mild warmth, no redness Joint Mobility Assessment Joint Mobility Assessment decreased medial glide right patella PT-OP-G Mobility & Gait Start: 09/29/20 15:47 Freq: Status: Active Protocol: Document 09/30/20 13:55 SAK (Rec: 09/30/20 14:28 [facility] [id number]) OP Mobility Evaluation Bed Mobility Supine to and from Sit indep Transfers Sit to Stand indep with decreased weight- bearing righ Floor Transfers unable OP Gait Assessment Gait Gait Assistance Required: Independent Distance (Feet) 100 Assistive Devices Assistive Device None Orthotic/Prosthetic Devices or Brace: Yes Gait Deviations General Gait Pattern Antalgic Comments Gait Comments wearing soft knee brace Stair Climbing Evaluation Evaluation Level of Assist On Stairs Independent Devices Stair Climbing Assistive Devices Left Railing,Right Railing Technique/Endurance Stair Climbing Direction Ascend and Descend Stair Climbing Technique Step to Step Comments Stair Climbing Comments antalgic if tries to alternate LE's PT-OP-H Neuro Start: 09/29/20 15:47 Freq: Status: Active Protocol: Document 09/30/20 13:55 SAK (Rec: 09/30/20 14:28 [facility] [id number]) Sensation Evaluation Gross Sensation Gross Sensation WNL PT-OP-J Posture/Palpation/Skin Start: 09/29/20 15:47 Freq: Status: Active Protocol: Document 09/30/20 13:55 [facility] (Rec: 09/30/20 14:28 SAK [id number]) Posture Evaluation Position Standing Hip Posture (L) Externally Rotated,(R) Externally Rotated Knee Posture (R) Genu Varus Patellar Posture (R) Laterally Tilted PT-OP-K Range of Motion Start: 09/29/20 15:47 Freq: Status: Active Protocol: Document 12/01/20 10:31 SP (Rec: 12/01/20 11:32 SP [id number]) Knee Goniometric Range of Motion Knee Right Flexion Active (degrees) 124 Flexion Passive (degrees) 135 Extension Active (degrees) 1 Extension Passive (degrees) 2 Comments Pt states only achiness with end feel ranges, not pain. PT-OP-M Strength Start: 09/29/20 15:47 Freq: Status: Active Protocol: Document 09/30/20 13:55 [facility] (Rec: 09/30/20 14:28 SAK [id number]) Hip Strength Hip Manual Muscle Testing jose Flexion (L2) 3- Fair- Extension (S1) 2+ Poor+ External Rotation 3+ Fair+ Internal Rotation 4- Good- Knee Strength Knee Manual Muscle Testing Right Flexion (S2) 4- Good- Extension (L3) 4- Good- Left Flexion (S2) 4+ Good+ Extension (L3) 4+ Good+ PT-OP-Q Treatments Start: 09/29/20 15:47 Freq: Status: Active Protocol: Document 12/07/20 09:05 SP (Rec: 12/07/20 10:01 SP [id number]) Cardio Equipment Recumbent Stepper (Sci-Fit) Duration (Minutes) 10 Resistance 2.0 Seat Position 11 Other LEs only (50-55 RPM, 3.2 METs, 1.24miles) Gym Equipment Shuttle Balance chains red Details WBOS, NBOS, stagger Reps/Duration 5 min Comments 1. wt shift 2. head turns 3. EC Manual Therapy Treatment Taping right knee Body Location R knee Treatment Focus facil med patellar glide, pain relief Type of Tape Kinesio Tape Skin Inspection intact Comments 1 Y strip patella base medially wrapping sup and inf patella 75% tension 2 I strips: med and lateral joint line space correction 50 -75% tension Neuro Re-Education Treatment Balance Activities corner balance Details NBOS, stagger, tandem Surface firm Equipment corner wall behind, chair front Reps/Duration 5min Comments good challenge: stagger head turns and EC, tandem EO- added to HEP PT-OP-R Modalities Start: 09/29/20 15:47 Freq: Status: Active Protocol: Document 11/12/20 14:38 SAK (Rec: 11/12/20 15:23 SAK [id number]) Electric Stimulation Electric Stimulation Interferential Current (IFC) Body Location right knee Duration (Minutes) 10 Intensity 14 Target/Sweep Sweep Patient Position Hooklying Combined With Heat/Cold Cold Pack PT-OP-T Assessment and Plan Start: 09/29/20 15:47 Freq: Status: Active Protocol: Document 12/07/20 09:05 SP (Rec: 12/07/20 10:01 SP [id number]) Physical Therapy Assessment Goals 5 Impairment lateral tracking patella Group Home Goal (LTG) Patient to be independent with self-taping using kinesiotape to facilitate normal patellar tracking for decreased pain with all mobility LTG Duration 01/10/21 4 Impairment weakness right LE Short Term Goal (STG) Patient to be independent with progressive HEP for the purposes of LE strengthening 11/10/20: indep currently, ongoing progression STG Duration goal met Group Home Goal (LTG) Patient right knee strength at least 4+/5 11/10/20: goal progress 11/26/20: goal met, strength 4+ /5 LTG Duration goal met 3 Impairment decreased activity tolerance; lower extremity functional scale 46% Short Term Goal (STG) improve LEFS to at least 60% 11/10/20: goal progress, inc to 51% 11/26/20: goal progress, increased to 58% STG Duration 12/05/20 Live Games Dealer Goal (LTG) Improve LEFS to at least 75% as measure of improved activity tolerance LTG Duration 01/10/21 2 Impairment antalgic gait on level surfaces and step-to pattern on stairs Short Term Goal (STG) patient able to ambulate with cane with no limp on level surfaces using cane 10/30/20: progressing: not using a SPC anymore but still noticable slight limp on level surfaces this am tx, says doesn;t think does when out walking later in day. 11/26/20: goal met, no longer using cane STG Duration goal met Live Games Dealer Goal (LTG) Patient able to ambulate without assistive device with no limp and ascend and descend stairs with alternating pattern without limp 11/26/20: able to ambulate without device with minimal to no limp. Inconsistent ability to ascend and descend stairs; at times still has to do step-to pattern, has pain with both ascending and descending. LTG Duration 01/10/21 1 Impairment pain right knee as high as 5/ 10 on pain scale Group Home Goal (LTG) decrease pain to no greater than 5/10 with all usual activities 10/20/20: Goal MET: pain level more achy pain and 0-2/10 during activities. LTG Duration (GOAL MET 10/20/20) Assessment Summary Assessment Pt continues to request K taping for knee stabilization support, wears for approx 2 days then removes so not compermise skin integrity and applies Knee brace for support during outdoor uneven surfaces and gait community. Tx focused on knee stabilization during neuro reeducation with good response , challenging but not pain. Good self awareness of positional recovery for safety to added for HEP. Physical Therapy Plan Frequency and Duration Frequency of Treatment 2x/wk Duration of Treatment 6 weeks Plan of Care Start Date 11/26/20 Plan of Care End Date 01/10/21 Therapeutic Interventions Therapeutic Interventions Gait Training,Home Exercise Program,Joint Mobilizations, Manual Therapy,Neuromuscular Re-education,Patient/Caregiver Education,Self-Care/Home Management,Soft Tissue Mobilization,Taping, Therapeutic Activities, Therapeutic Exercises Modalities Cold Pack/Ice Massage,Electric Stimulation,Hot Packs, Iontophoresis,Ultrasound Next Visit Focus/Plan Next Note Type Treatment Note Next Visit Plan Recheck K taping, neuro balance act, added dynamic balance w/ gait, uneven surfaces. POC: Continue improve functional knee strength, LE flexibility, gait ability on uneven surfaces especially stairs. DTM to hamstrings and quad if needed.
--- NOTE | 2020-12-10 09:45 | PT.OTN ---
Current Diagnoses Other chronic pain (12/10/20) Pain in right knee (12/10/20) Difficulty in walking, not elsewhere classified (12/10/20) Weakness (12/10/20) Physical Therapy Treatment Note PT-OP-A Visit Information Start: 09/29/20 15:47 Freq: Status: Active Protocol: Document 12/10/20 09:04 SP (Rec: 12/10/20 09:48 SP [id number]) Out-Patient Physical Therapy Visit Information Visit Information Visit Type Treatment Note Visit Start Time 09:04 Visit Stop Time 09:45 Total Visit Minutes 41 Visit Number 17 Number of JOB SPECIFICATION WRITER Visits 3 Evaluation Information Evaluation Date 09/30/20 Precautions Precautions cardiac (mitral valve replacement) osteopenia PT-OP-B Current Condition Start: 09/29/20 15:47 Freq: Status: Active Protocol: Document 09/30/20 13:55 SAK (Rec: 09/30/20 14:28 SAK [id number]) Current Condition History of Current Condition Onset Date 2 years Current Complaints progressively worsening right knee pain History of Current Condition Patient reports gradual worsening of right knee pain with no precipitating event, though does report after a foot surgery a few years ago, scooting around at work on rolling chair using her right LE. Since retiring has tried to increase her activity level and had increased her walking distance to 1 mile per day, but due to persistent and worsening right knee pain states can barely go half of that. 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 Prior Treatments and Tests mild arthritis right knee Future Testing and Treatments Planned potential MRI if symptoms persist Prior Functional Status Baseline Function- ADL's Independent Baseline Function- Mobility Independent Baseline Function- Gait no limitations Baseline Function- Work/School no limitations Baseline Function- Recreation/Hobbies walked 1 mile per day Baseline Function- Other able to bend down to pick pack worker dog poop without difficulty Current Functional Impairments (Reported) Functional Limitations- ADL's painful Functional Limitations- Mobility/Gait painful, limps Functional Limitations- Work/School retired, difficulty doing house and yardwork Functional Limitations- Recreation/ painful to go for walks Hobbies PT-OP-C Subjective Start: 09/29/20 15:47 Freq: Status: Active Protocol: Document 12/10/20 09:04 SP (Rec: 12/10/20 09:48 SP [id number]) OP-PT Subjective Patient Comments Patient Comments Pt stated her R knee is mostly achy when goes for walks doing about 8 blocks now, sometimes forget to put on knee brace but states no worse achiness post walk than when has it on. Pt states definitely put the brace on when walking and doing yard work due to uneven grass with increased discomfort that brace helps with. Patient Reported Progress Improving PT-OP-D Balance Start: 09/29/20 15:47 Freq: Status: Active Protocol: Document 09/30/20 13:55 SAK (Rec: 09/30/20 14:28 SAK [id number]) OP-PT Balance Assessment Standing Balance Standing Balance Comments unable to test due to pain Wright Fall Scale Copyright Permission PT-OP-F Manual Assessment Start: 09/29/20 15:47 Freq: Status: Active Protocol: Document 09/30/20 13:55 SAK (Rec: 09/30/20 14:28 SAK [id number]) Manual Assessments Soft Tissue Assessment Soft Tissue Mobility Assessment moderate swelling right knee with mild warmth, no redness Joint Mobility Assessment Joint Mobility Assessment decreased medial glide right patella PT-OP-G Mobility & Gait Start: 09/29/20 15:47 Freq: Status: Active Protocol: Document 09/30/20 13:55 SAK (Rec: 09/30/20 14:28 SAK [id number]) OP Mobility Evaluation Bed Mobility Supine to and from Sit indep Transfers Sit to Stand indep with decreased weight- bearing righ Floor Transfers unable OP Gait Assessment Gait Gait Assistance Required: Independent Distance (Feet) 100 Assistive Devices Assistive Device None Orthotic/Prosthetic Devices or Brace: Yes Gait Deviations General Gait Pattern Antalgic Comments Gait Comments wearing soft knee brace Stair Climbing Evaluation Evaluation Level of Assist On Stairs Independent Devices Stair Climbing Assistive Devices Left Railing,Right Railing Technique/Endurance Stair Climbing Direction Ascend and Descend Stair Climbing Technique Step to Step Comments Stair Climbing Comments antalgic if tries to alternate LE's PT-OP-H Neuro Start: 09/29/20 15:47 Freq: Status: Active Protocol: Document 09/30/20 13:55 SAK (Rec: 09/30/20 14:28 SAK [id number]) Sensation Evaluation Gross Sensation Gross Sensation WNL PT-OP-J Posture/Palpation/Skin Start: 09/29/20 15:47 Freq: Status: Active Protocol: Document 09/30/20 13:55 [facility] (Rec: 09/30/20 14:28 [facility] [id number]) Posture Evaluation Position Standing Hip Posture (L) Externally Rotated,(R) Externally Rotated Knee Posture (R) Genu Varus Patellar Posture (R) Laterally Tilted PT-OP-K Range of Motion Start: 09/29/20 15:47 Freq: Status: Active Protocol: Document 12/01/20 10:31 SP (Rec: 12/01/20 11:32 SP [id number]) Knee Goniometric Range of Motion Knee Right Flexion Active (degrees) 124 Flexion Passive (degrees) 135 Extension Active (degrees) 1 Extension Passive (degrees) 2 Comments Pt states only achiness with end feel ranges, not pain. PT-OP-M Strength Start: 09/29/20 15:47 Freq: Status: Active Protocol: Document 09/30/20 13:55 [facility] (Rec: 09/30/20 14:28 [facility] [id number]) Hip Strength Hip Manual Muscle Testing jose Flexion (L2) 3- Fair- Extension (S1) 2+ Poor+ External Rotation 3+ Fair+ Internal Rotation 4- Good- Knee Strength Knee Manual Muscle Testing Right Flexion (S2) 4- Good- Extension (L3) 4- Good- Left Flexion (S2) 4+ Good+ Extension (L3) 4+ Good+ PT-OP-Q Treatments Start: 09/29/20 15:47 Freq: Status: Active Protocol: Document 12/10/20 09:04 SP (Rec: 12/10/20 09:48 SP [id number]) Cardio Equipment Recumbent Stepper (Sci-Fit) Duration (Minutes) 10 Resistance 2.5 Seat Position 11 Other LEs> UE hellp only (56 RPM, 3. 6 METs,1.29 miles) Therapeutic Exercises Sitting Exercises pirformis stretch Sitting Exercise Name review HEP Side right Reps/Minutes 30 x2 Comments good little hip stretch HC stretch Sitting Exercise Name hip hinge review HEP Side right Reps/Minutes 2x 30 Comments hip hinge good stretch to HS Standing Exercises step ups Standing Exercise Name HEP (step up/back downs) Side bilateral Resistance no UE contact, hover back chair Equipment Used 4 step, //bars Reps/Minutes x10 Comments good glut, hip abd fac- pain free heel/toe raise Standing Exercise Name heel raise off 4 step Resistance HEP reviewed Equipment Used contact B rails (doorway at home/ between rooms 3 height step) Reps/Minutes 2x 10 Comments good feedback response Neuro Re-Education Treatment Balance Activities step up/down Equipment 4 step, hands hover //bar ( chair at home) step taps Equipment 4 step Reps/Duration S Comments UE hover //bar, cued knee flexion RLE, COG over TREMAYNE blue foam stance Details add next tx quick walk, stop, pivot turns Surface firm Equipment GB for safety donned Reps/Duration 40 ft x4 laps Comments good self recovery balance, S balance obstacle course Details over hurdles, on/ off blue cushion, up/down 4 step Equipment Gb donned for safety Reps/Duration 30 ft x2 laps Comments CGA PT-OP-R Modalities Start: 09/29/20 15:47 Freq: Status: Active Protocol: Document 11/12/20 14:38 SAK (Rec: 11/12/20 15:23 SAK [id number]) Electric Stimulation Electric Stimulation Interferential Current (IFC) Body Location right knee Duration (Minutes) 10 Intensity 14 Target/Sweep Sweep Patient Position Hooklying Combined With Heat/Cold Cold Pack PT-OP-T Assessment and Plan Start: 09/29/20 15:47 Freq: Status: Active Protocol: Document 12/10/20 09:04 SP (Rec: 12/10/20 09:48 SP [id number]) Physical Therapy Assessment Goals 5 Impairment lateral tracking patella Group Home Goal (LTG) Patient to be independent with self-taping using kinesiotape to facilitate normal patellar tracking for decreased pain with all mobility LTG Duration 01/10/21 4 Impairment weakness right LE Short Term Goal (STG) Patient to be independent with progressive HEP for the purposes of LE strengthening 11/10/20: indep currently, ongoing progression STG Duration goal met Multimedia Programmer Goal (LTG) Patient right knee strength at least 4+/5 11/10/20: goal progress 11/26/20: goal met, strength 4+ /5 LTG Duration goal met 3 Impairment decreased activity tolerance; lower extremity functional scale 46% Short Term Goal (STG) improve LEFS to at least 60% 11/10/20: goal progress, inc to 51% 11/26/20: goal progress, increased to 58% STG Duration 12/05/20 Group Home Goal (LTG) Improve LEFS to at least 75% as measure of improved activity tolerance LTG Duration 01/10/21 2 Impairment antalgic gait on level surfaces and step-to pattern on stairs Short Term Goal (STG) patient able to ambulate with cane with no limp on level surfaces using cane 10/30/20: progressing: not using a SPC anymore but still noticable slight limp on level surfaces this am tx, says doesn;t think does when out walking later in day. 11/26/20: goal met, no longer using cane STG Duration goal met Multimedia Programmer Goal (LTG) Patient able to ambulate without assistive device with no limp and ascend and descend stairs with alternating pattern without limp 11/26/20: able to ambulate without device with minimal to no limp. Inconsistent ability to ascend and descend stairs; at times still has to do step-to pattern, has pain with both ascending and descending. LTG Duration 01/10/21 1 Impairment pain right knee as high as 5/ 10 on pain scale Multimedia Programmer Goal (LTG) decrease pain to no greater than 5/10 with all usual activities 10/20/20: Goal MET: pain level more achy pain and 0-2/10 during activities. LTG Duration (GOAL MET 10/20/20) Assessment Summary Assessment Pt tolerated corporated dynamic functional balance during tx this tx. No LOB or deviations. She requires slow down during pivot turn. No report of pain. Physical Therapy Plan Frequency and Duration Frequency of Treatment 2x/wk Duration of Treatment 6 weeks Plan of Care Start Date 11/26/20 Plan of Care End Date 01/10/21 Therapeutic Interventions Therapeutic Interventions Gait Training,Home Exercise Program,Joint Mobilizations, Manual Therapy,Neuromuscular Re-education,Patient/Caregiver Education,Self-Care/Home Management,Soft Tissue Mobilization,Taping, Therapeutic Activities, Therapeutic Exercises Modalities Cold Pack/Ice Massage,Electric Stimulation,Hot Packs, Iontophoresis,Ultrasound Next Visit Focus/Plan Next Note Type Treatment Note Next Visit Plan Recheck K taping, neuro balance act, added dynamic balance w/ gait, uneven surfaces. POC: Continue improve functional knee strength, LE flexibility, gait ability on uneven surfaces especially stairs. DTM to hamstrings and quad if needed.
--- NOTE | 2020-12-14 17:38 | PT.OTN ---
Current Diagnoses Other chronic pain (12/14/20) Pain in right knee (12/14/20) Difficulty in walking, not elsewhere classified (12/14/20) Weakness (12/14/20) Physical Therapy Treatment Note PT-OP-A Visit Information Start: 09/29/20 15:47 Freq: Status: Active Protocol: Document 12/14/20 10:30 SAK (Rec: 12/14/20 17:38 SAK [id number]) Out-Patient Physical Therapy Visit Information Visit Information Visit Type Treatment Note Visit Start Time 10:30 Visit Stop Time 11:15 Total Visit Minutes 45 Visit Number 18 Number of CHIP DRIER Visits 0 Evaluation Information Evaluation Date 09/30/20 Precautions Precautions cardiac (mitral valve replacement) osteopenia PT-OP-B Current Condition Start: 09/29/20 15:47 Freq: Status: Active Protocol: Document 09/30/20 13:55 SAK (Rec: 09/30/20 14:28 SAK [id number]) Current Condition History of Current Condition Onset Date 2 years Current Complaints progressively worsening right knee pain History of Current Condition Patient reports gradual worsening of right knee pain with no precipitating event, though does report after a foot surgery a few years ago, scooting around at work on rolling chair using her right LE. Since retiring has tried to increase her activity level and had increased her walking distance to 1 mile per day, but due to persistent and worsening right knee pain states can barely go half of that. Pain interrupts her sleep, makes it difficult to stand, walk, or do other usual activities such as bend down to crab picker her dog's poop. Prior Treatments and Tests mild arthritis right knee Future Testing and Treatments Planned potential MRI if symptoms persist Prior Functional Status Baseline Function- ADL's Independent Baseline Function- Mobility Independent Baseline Function- Gait no limitations Baseline Function- Work/School no limitations Baseline Function- Recreation/Hobbies walked 1 mile per day Baseline Function- Other able to bend down to crab picker dog poop without difficulty Current Functional Impairments (Reported) Functional Limitations- ADL's painful Functional Limitations- Mobility/Gait painful, limps Functional Limitations- Work/School retired, difficulty doing house and yardwork Functional Limitations- Recreation/ painful to go for walks Hobbies PT-OP-C Subjective Start: 09/29/20 15:47 Freq: Status: Active Protocol: Document 12/14/20 10:30 SAK (Rec: 12/14/20 17:38 [facility] [id number]) OP-PT Subjective Patient Comments Patient Comments Patient states she feels she continues to get stronger and have more ache than pain. Has not done well with self- taping and needs further review. Patient Reported Progress Improving PT-OP-D Balance Start: 09/29/20 15:47 Freq: Status: Active Protocol: Document 09/30/20 13:55 SAK (Rec: 09/30/20 14:28 [facility] [id number]) OP-PT Balance Assessment Standing Balance Standing Balance Comments unable to test due to pain Wright Fall Scale Copyright Permission PT-OP-F Manual Assessment Start: 09/29/20 15:47 Freq: Status: Active Protocol: Document 09/30/20 13:55 SAK (Rec: 09/30/20 14:28 [facility] [id number]) Manual Assessments Soft Tissue Assessment Soft Tissue Mobility Assessment moderate swelling right knee with mild warmth, no redness Joint Mobility Assessment Joint Mobility Assessment decreased medial glide right patella PT-OP-G Mobility & Gait Start: 09/29/20 15:47 Freq: Status: Active Protocol: Document 09/30/20 13:55 SAK (Rec: 09/30/20 14:28 [facility] [id number]) OP Mobility Evaluation Bed Mobility Supine to and from Sit indep Transfers Sit to Stand indep with decreased weight- bearing righ Floor Transfers unable OP Gait Assessment Gait Gait Assistance Required: Independent Distance (Feet) 100 Assistive Devices Assistive Device None Orthotic/Prosthetic Devices or Brace: Yes Gait Deviations General Gait Pattern Antalgic Comments Gait Comments wearing soft knee brace Stair Climbing Evaluation Evaluation Level of Assist On Stairs Independent Devices Stair Climbing Assistive Devices Left Railing,Right Railing Technique/Endurance Stair Climbing Direction Ascend and Descend Stair Climbing Technique Step to Step Comments Stair Climbing Comments antalgic if tries to alternate LE's PT-OP-H Neuro Start: 09/29/20 15:47 Freq: Status: Active Protocol: Document 09/30/20 13:55 SAK (Rec: 09/30/20 14:28 [facility] [id number]) Sensation Evaluation Gross Sensation Gross Sensation WNL PT-OP-J Posture/Palpation/Skin Start: 09/29/20 15:47 Freq: Status: Active Protocol: Document 09/30/20 13:55 [facility] (Rec: 09/30/20 14:28 [facility] [id number]) Posture Evaluation Position Standing Hip Posture (L) Externally Rotated,(R) Externally Rotated Knee Posture (R) Genu Varus Patellar Posture (R) Laterally Tilted PT-OP-K Range of Motion Start: 09/29/20 15:47 Freq: Status: Active Protocol: Document 12/01/20 10:31 SP (Rec: 12/01/20 11:32 SP [id number]) Knee Goniometric Range of Motion Knee Right Flexion Active (degrees) 124 Flexion Passive (degrees) 135 Extension Active (degrees) 1 Extension Passive (degrees) 2 Comments Pt states only achiness with end feel ranges, not pain. PT-OP-M Strength Start: 09/29/20 15:47 Freq: Status: Active Protocol: Document 09/30/20 13:55 [facility] (Rec: 09/30/20 14:28 [facility] [id number]) Hip Strength Hip Manual Muscle Testing jose Flexion (L2) 3- Fair- Extension (S1) 2+ Poor+ External Rotation 3+ Fair+ Internal Rotation 4- Good- Knee Strength Knee Manual Muscle Testing Right Flexion (S2) 4- Good- Extension (L3) 4- Good- Left Flexion (S2) 4+ Good+ Extension (L3) 4+ Good+ PT-OP-Q Treatments Start: 09/29/20 15:47 Freq: Status: Active Protocol: Document 12/14/20 10:30 [facility] (Rec: 12/14/20 17:38 [facility] [id number]) Cardio Equipment Recumbent Stepper (Sci-Fit) Duration (Minutes) 10 Resistance 2.5 Seat Position 11 Other LE's only (56 RPM, 3.6 METs,1. 20 miles) Gym Equipment Shuttle Balance chains red Details WBOS, NBOS, stagger Reps/Duration 5 min Comments 1. wt shift 2. head turns 3. EC Therapeutic Exercises Sitting Exercises pirformis stretch Sitting Exercise Name review HEP Side right Reps/Minutes 30 x2 Standing Exercises step ups Standing Exercise Name HEP (step up/back downs) Side bilateral Resistance no UE contact, hover back chair Equipment Used 4 step, //bars Reps/Minutes x10 Comments good glut, hip abd fac- pain free heel/toe raise Standing Exercise Name heel raise off 4 step Equipment Used contact B rails Reps/Minutes 2x 10 Comments good feedback response Manual Therapy Treatment Taping right knee Body Location R knee Treatment Focus facil med patellar glide, pain relief Type of Tape Kinesio Tape Skin Inspection intact Comments 1 Y strip patella base medially wrapping sup and inf patella 75% tension 2 I strips: med and lateral joint line space correction 50 -75% tension Neuro Re-Education Treatment Balance Activities step up/down Equipment 4 step, hands hover //bar ( chair at home) step taps Equipment 4 step Reps/Duration S Comments UE hover //bar, cued knee flexion RLE, COG over TREMAYNE quick walk, stop, pivot turns Surface firm Equipment GB for safety donned Reps/Duration 40 ft x4 laps Comments good self recovery balance, S balance obstacle course Details over hurdles, on/ off blue cushion, up/down 4 step Equipment Gb donned for safety Reps/Duration 30 ft x2 laps Comments CGA PT-OP-R Modalities Start: 09/29/20 15:47 Freq: Status: Active Protocol: Document 11/12/20 14:38 [facility] (Rec: 11/12/20 15:23 [facility] [id number]) Electric Stimulation Electric Stimulation Interferential Current (IFC) Body Location right knee Duration (Minutes) 10 Intensity 14 Target/Sweep Sweep Patient Position Hooklying Combined With Heat/Cold Cold Pack PT-OP-T Assessment and Plan Start: 09/29/20 15:47 Freq: Status: Active Protocol: Document 12/14/20 10:30 [facility] (Rec: 12/14/20 17:38 [facility] [id number]) Physical Therapy Assessment Goals 5 Impairment lateral tracking patella Antique Refinisher Goal (LTG) Patient to be independent with self-taping using kinesiotape to facilitate normal patellar tracking for decreased pain with all mobility LTG Duration 01/10/21 4 Impairment weakness right LE Short Term Goal (STG) Patient to be independent with progressive HEP for the purposes of LE strengthening 11/10/20: indep currently, ongoing progression STG Duration goal met Fdc Goal (LTG) Patient right knee strength at least 4+/5 11/10/20: goal progress 11/26/20: goal met, strength 4+ /5 LTG Duration goal met 3 Impairment decreased activity tolerance; lower extremity functional scale 46% Short Term Goal (STG) improve LEFS to at least 60% 11/10/20: goal progress, inc to 51% 11/26/20: goal progress, increased to 58% STG Duration 12/05/20 Antique Refinisher Goal (LTG) Improve LEFS to at least 75% as measure of improved activity tolerance LTG Duration 01/10/21 2 Impairment antalgic gait on level surfaces and step-to pattern on stairs Short Term Goal (STG) patient able to ambulate with cane with no limp on level surfaces using cane 10/30/20: progressing: not using a SPC anymore but still noticable slight limp on level surfaces this am tx, says doesn;t think does when out walking later in day. 11/26/20: goal met, no longer using cane STG Duration goal met Antique Refinisher Goal (LTG) Patient able to ambulate without assistive device with no limp and ascend and descend stairs with alternating pattern without limp 11/26/20: able to ambulate without device with minimal to no limp. Inconsistent ability to ascend and descend stairs; at times still has to do step-to pattern, has pain with both ascending and descending. LTG Duration 01/10/21 1 Impairment pain right knee as high as 5/ 10 on pain scale Antique Refinisher Goal (LTG) decrease pain to no greater than 5/10 with all usual activities 10/20/20: Goal MET: pain level more achy pain and 0-2/10 during activities. LTG Duration (GOAL MET 10/20/20) Assessment Summary Assessment No LOB with increasing balance challenge on firm surface. Progressed to balance side to side on shuttle balance, no weight shifting laterally due to pins in ankle. Continues to benefit from PT. Physical Therapy Plan Frequency and Duration Frequency of Treatment 2x/wk Duration of Treatment 6 weeks Plan of Care Start Date 11/26/20 Plan of Care End Date 01/10/21 Therapeutic Interventions Therapeutic Interventions Gait Training,Home Exercise Program,Joint Mobilizations, Manual Therapy,Neuromuscular Re-education,Patient/Caregiver Education,Self-Care/Home Management,Soft Tissue Mobilization,Taping, Therapeutic Activities, Therapeutic Exercises Modalities Cold Pack/Ice Massage,Electric Stimulation,Hot Packs, Iontophoresis,Ultrasound Next Visit Focus/Plan Next Note Type Treatment Note Next Visit Plan Recheck K taping, neuro balance act, added dynamic balance w/ gait, uneven surfaces. POC: Continue improve functional knee strength, LE flexibility, gait ability on uneven surfaces especially stairs. DTM to hamstrings and quad if needed.
--- NOTE | 2020-12-17 09:45 | PT.OTN ---
Current Diagnoses Other chronic pain (12/17/20) Pain in right knee (12/17/20) Difficulty in walking, not elsewhere classified (12/17/20) Weakness (12/17/20) Physical Therapy Treatment Note PT-OP-A Visit Information Start: 09/29/20 15:47 Freq: Status: Active Protocol: Document 12/17/20 09:03 SP (Rec: 12/17/20 10:42 SP [id number]) Out-Patient Physical Therapy Visit Information Visit Information Visit Type Treatment Note Visit Start Time 09:03 Visit Stop Time 09:45 Total Visit Minutes 42 Visit Number 19 Number of SWEEPER DRIVER Visits 1 Evaluation Information Evaluation Date 09/30/20 Precautions Precautions cardiac (mitral valve replacement) osteopenia PT-OP-B Current Condition Start: 09/29/20 15:47 Freq: Status: Active Protocol: Document 09/30/20 13:55 SAK (Rec: 09/30/20 14:28 SAK [id number]) Current Condition History of Current Condition Onset Date 2 years Current Complaints progressively worsening right knee pain History of Current Condition Patient reports gradual worsening of right knee pain with no precipitating event, though does report after a foot surgery a few years ago, scooting around at work on rolling chair using her right LE. Since retiring has tried to increase her activity level and had increased her walking distance to 1 mile per day, but due to persistent and worsening right knee pain states can barely go half of that. 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 without difficulty Current Functional Impairments (Reported) Functional Limitations- ADL's painful Functional Limitations- Mobility/Gait painful, limps Functional Limitations- Work/School retired, difficulty doing house and yardwork Functional Limitations- Recreation/ painful to go for walks Hobbies PT-OP-C Subjective Start: 09/29/20 15:47 Freq: Status: Active Protocol: Document 12/17/20 09:03 SP (Rec: 12/17/20 10:42 SP [id number]) OP-PT Subjective Patient Comments Patient Comments Pt states only wears brace when thinks will be doing more challenging activities like yard work or long distance shopping but feels doing well. Patient Reported Progress Improving PT-OP-D Balance Start: 09/29/20 15:47 Freq: Status: Active Protocol: Document 09/30/20 13:55 SAK (Rec: 09/30/20 14:28 SAK [id number]) OP-PT Balance Assessment Standing Balance Standing Balance Comments unable to test due to pain Wright Fall Scale Copyright Permission PT-OP-F Manual Assessment Start: 09/29/20 15:47 Freq: Status: Active Protocol: Document 09/30/20 13:55 SAK (Rec: 09/30/20 14:28 SAK [id number]) Manual Assessments Soft Tissue Assessment Soft Tissue Mobility Assessment moderate swelling right knee with mild warmth, no redness Joint Mobility Assessment Joint Mobility Assessment decreased medial glide right patella PT-OP-G Mobility & Gait Start: 09/29/20 15:47 Freq: Status: Active Protocol: Document 09/30/20 13:55 SAK (Rec: 09/30/20 14:28 SAK [id number]) OP Mobility Evaluation Bed Mobility Supine to and from Sit indep Transfers Sit to Stand indep with decreased weight- bearing righ Floor Transfers unable OP Gait Assessment Gait Gait Assistance Required: Independent Distance (Feet) 100 Assistive Devices Assistive Device None Orthotic/Prosthetic Devices or Brace: Yes Gait Deviations General Gait Pattern Antalgic Comments Gait Comments wearing soft knee brace Stair Climbing Evaluation Evaluation Level of Assist On Stairs Independent Devices Stair Climbing Assistive Devices Left Railing,Right Railing Technique/Endurance Stair Climbing Direction Ascend and Descend Stair Climbing Technique Step to Step Comments Stair Climbing Comments antalgic if tries to alternate LE's PT-OP-H Neuro Start: 09/29/20 15:47 Freq: Status: Active Protocol: Document 09/30/20 13:55 SAK (Rec: 09/30/20 14:28 SAK [id number]) Sensation Evaluation Gross Sensation Gross Sensation WNL PT-OP-J Posture/Palpation/Skin Start: 09/29/20 15:47 Freq: Status: Active Protocol: Document 09/30/20 13:55 [facility] (Rec: 09/30/20 14:28 [facility] [id number]) Posture Evaluation Position Standing Hip Posture (L) Externally Rotated,(R) Externally Rotated Knee Posture (R) Genu Varus Patellar Posture (R) Laterally Tilted PT-OP-K Range of Motion Start: 09/29/20 15:47 Freq: Status: Active Protocol: Document 12/01/20 10:31 SP (Rec: 12/01/20 11:32 SP [id number]) Knee Goniometric Range of Motion Knee Right Flexion Active (degrees) 124 Flexion Passive (degrees) 135 Extension Active (degrees) 1 Extension Passive (degrees) 2 Comments Pt states only achiness with end feel ranges, not pain. PT-OP-M Strength Start: 09/29/20 15:47 Freq: Status: Active Protocol: Document 09/30/20 13:55 [facility] (Rec: 09/30/20 14:28 [facility] [id number]) Hip Strength Hip Manual Muscle Testing jose Flexion (L2) 3- Fair- Extension (S1) 2+ Poor+ External Rotation 3+ Fair+ Internal Rotation 4- Good- Knee Strength Knee Manual Muscle Testing Right Flexion (S2) 4- Good- Extension (L3) 4- Good- Left Flexion (S2) 4+ Good+ Extension (L3) 4+ Good+ PT-OP-Q Treatments Start: 09/29/20 15:47 Freq: Status: Active Protocol: Document 12/17/20 09:03 SP (Rec: 12/17/20 10:42 SP [id number]) Therapeutic Exercises Sitting Exercises HC stretch Sitting Exercise Name hip hinge review HEP Side right Reps/Minutes 2x 30 Comments hip hinge good stretch to HS Gait Training Gait Activity uneven ground outside Device Used none Level of Assistance S Surface uneven grass, flower bed Treatment Focus balance recovery BLE Neuro Re-Education Treatment Balance Activities step up/down Equipment 6-8 step, hands hover //bar and bottoms step rail step taps Equipment 6 step Reps/Duration S Comments UE hover //bar blue foam stance Details NBOS, stagger Surface blue foam Reps/Duration 30 each Comments 1. stance 2. head turns/ vertical 3. EC -30 sec each- stable (will kitchen corner at home w / chair front firm surface) quick walk, stop, pivot turns Surface outdoor uneven blacktop Equipment GB for safety donned Reps/Duration 40 ft x4 laps Comments good self recovery balance, S balance obstacle course Details over hurdles, on/ off blue cushion, up/down 4 step Equipment Gb donned for safety Reps/Duration 30 ft x3 laps Comments CGA PT-OP-R Modalities Start: 09/29/20 15:47 Freq: Status: Active Protocol: Document 11/12/20 14:38 SAK (Rec: 11/12/20 15:23 SAK [id number]) Electric Stimulation Electric Stimulation Interferential Current (IFC) Body Location right knee Duration (Minutes) 10 Intensity 14 Target/Sweep Sweep Patient Position Hooklying Combined With Heat/Cold Cold Pack PT-OP-T Assessment and Plan Start: 09/29/20 15:47 Freq: Status: Active Protocol: Document 12/17/20 09:03 SP (Rec: 12/17/20 10:42 SP [id number]) Physical Therapy Assessment Goals 5 Impairment lateral tracking patella [employer] Lawn Specialist Goal (LTG) Patient to be independent with self-taping using kinesiotape to facilitate normal patellar tracking for decreased pain with all mobility 12/17/20: goal met: applies if needed LTG Duration GOAL MET 4 Impairment weakness right LE Short Term Goal (STG) Patient to be independent with progressive HEP for the purposes of LE strengthening 11/10/20: GOAL MET: incorporates with HEP in her every day activities. STG Duration goal met [employer] La[employer]ist Goal (LTG) Patient right knee strength at least 4+/5 11/10/20: goal progress 11/26/20: goal met, strength 4+ /5 LTG Duration goal met 3 Impairment decreased activity tolerance; lower extremity functional scale 46% Short Term Goal (STG) improve LEFS to at least 60% 11/10/20: goal progress, inc to 51% 11/26/20: goal progress, increased to 58% STG Duration 12/05/20 Half-Way Goal (LTG) Improve LEFS to at least 75% as measure of improved activity tolerance LTG Duration 01/10/21 2 Impairment antalgic gait on level surfaces and step-to pattern on stairs Short Term Goal (STG) patient able to ambulate with cane with no limp on level surfaces using cane 10/30/20: progressing: not using a SPC anymore but still noticable slight limp on level surfaces this am tx, says doesn;t think does when out walking later in day. 11/26/20: goal met, no longer using cane STG Duration goal met Half-Way Goal (LTG) Patient able to ambulate without assistive device with no limp and ascend and descend stairs with alternating pattern without limp 11/26/20: able to ambulate without device with minimal to no limp. Inconsistent ability to ascend and descend stairs; at times still has to do step-to pattern, has pain with both ascending and descending. 12/17/20: progressing, still slight limp with lead RLE with LLE eccentric flexion. Cued slow pacing (contact rail as needed demonstrated). LTG Duration 01/10/21 progressing 1 Impairment pain right knee as high as 5/ 10 on pain scale [employer] Lawn Specialist Goal (LTG) decrease pain to no greater than 5/10 with all usual activities 10/20/20: Goal MET: pain level more achy pain and 0-2/10 during activities. LTG Duration (GOAL MET 10/20/20) Assessment Summary Assessment Pt had no LOB or pain during all activities, does have a slight ache at times in R knee and R hip but does have back. Pt has improved in balance recovery and LE strengthening, is confident in HEP and performing throughout her daily activities. Physical Therapy Plan Frequency and Duration Frequency of Treatment 2x/wk Duration of Treatment 6 weeks Plan of Care Start Date 11/26/20 Plan of Care End Date 01/10/21 Therapeutic Interventions Therapeutic Interventions Gait Training,Home Exercise Program,Joint Mobilizations, Manual Therapy,Neuromuscular Re-education,Patient/Caregiver Education,Self-Care/Home Management,Soft Tissue Mobilization,Taping, Therapeutic Activities, Therapeutic Exercises Modalities Cold Pack/Ice Massage,Electric Stimulation,Hot Packs, Iontophoresis,Ultrasound Next Visit Focus/Plan Next Note Type Treatment Note Next Visit Plan Recheck balance, dynamic gait uneven surfaces, stair mgt, I in Ktaping application if needed prepared for DC next tx . POC: Continue improve functional knee strength, LE flexibility, gait ability on uneven surfaces especially stairs.
--- NOTE | 2020-12-23 12:56 | PT.OTN ---
Current Diagnoses Other chronic pain (12/23/20) Pain in right knee (12/23/20) Difficulty in walking, not elsewhere classified (12/23/20) Weakness (12/23/20) Physical Therapy Treatment Note PT-OP-A Visit Information Start: 09/29/20 15:47 Freq: Status: Active Protocol: Document 12/23/20 09:47 SAK (Rec: 12/23/20 10:26 SAK [id number]) Out-Patient Physical Therapy Visit Information Visit Information Visit Type Treatment Note Visit Start Time 09:45 Visit Stop Time 10:30 Total Visit Minutes 46 Visit Number 19 Number of [employer]USTRI[employer] CLE[employer]ER Visits 0 Evaluation Information Evaluation Date 09/30/20 Precautions Precautions cardiac (mitral valve replacement) osteopenia PT-OP-B Current Condition Start: 09/29/20 15:47 Freq: Status: Active Protocol: Document 09/30/20 13:55 SAK (Rec: 09/30/20 14:28 [facility] [id number]) Current Condition History of Current Condition Onset Date 2 years Current Complaints progressively worsening right knee pain History of Current Condition Patient reports gradual worsening of right knee pain with no precipitating event, though does report after a foot surgery a few years ago, scooting around at work on rolling chair using her right LE. Since retiring has tried to increase her activity level and had increased her walking distance to 1 mile per day, but due to persistent and worsening right knee pain states can barely go half of that. 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 without difficulty Current Functional Impairments (Reported) Functional Limitations- ADL's painful Functional Limitations- Mobility/Gait painful, limps Functional Limitations- Work/School retired, difficulty doing house and yardwork Functional Limitations- Recreation/ painful to go for walks Hobbies PT-OP-C Subjective Start: 09/29/20 15:47 Freq: Status: Active Protocol: Document 12/23/20 09:47 SAK (Rec: 12/23/20 10:26 [facility] [id number]) OP-PT Subjective Patient Comments Patient Comments I need to dust the cobwebs off my treadmill I don't have that horrible pain like I did before. Getting better at doing the kinesiotape. PT-OP-D Balance Start: 09/29/20 15:47 Freq: Status: Active Protocol: Document 09/30/20 13:55 SAK (Rec: 09/30/20 14:28 [facility] [id number]) OP-PT Balance Assessment Standing Balance Standing Balance Comments unable to test due to pain Wright Fall Scale Copyright Permission PT-OP-F Manual Assessment Start: 09/29/20 15:47 Freq: Status: Active Protocol: Document 09/30/20 13:55 [facility] (Rec: 09/30/20 14:28 [facility] [id number]) Manual Assessments Soft Tissue Assessment Soft Tissue Mobility Assessment moderate swelling right knee with mild warmth, no redness Joint Mobility Assessment Joint Mobility Assessment decreased medial glide right patella PT-OP-G Mobility & Gait Start: 09/29/20 15:47 Freq: Status: Active Protocol: Document 09/30/20 13:55 [facility] (Rec: 09/30/20 14:28 [facility] [id number]) OP Mobility Evaluation Bed Mobility Supine to and from Sit indep Transfers Sit to Stand indep with decreased weight- bearing righ Floor Transfers unable OP Gait Assessment Gait Gait Assistance Required: Independent Distance (Feet) 100 Assistive Devices Assistive Device None Orthotic/Prosthetic Devices or Brace: Yes Gait Deviations General Gait Pattern Antalgic Comments Gait Comments wearing soft knee brace Stair Climbing Evaluation Evaluation Level of Assist On Stairs Independent Devices Stair Climbing Assistive Devices Left Railing,Right Railing Technique/Endurance Stair Climbing Direction Ascend and Descend Stair Climbing Technique Step to Step Comments Stair Climbing Comments antalgic if tries to alternate LE's PT-OP-H Neuro Start: 09/29/20 15:47 Freq: Status: Active Protocol: Document 09/30/20 13:55 [facility] (Rec: 09/30/20 14:28 [facility] [id number]) Sensation Evaluation Gross Sensation Gross Sensation WNL PT-OP-J Posture/Palpation/Skin Start: 09/29/20 15:47 Freq: Status: Active Protocol: Document 09/30/20 13:55 [facility] (Rec: 09/30/20 14:28 [facility] [id number]) Posture Evaluation Position Standing Hip Posture (L) Externally Rotated,(R) Externally Rotated Knee Posture (R) Genu Varus Patellar Posture (R) Laterally Tilted PT-OP-K Range of Motion Start: 09/29/20 15:47 Freq: Status: Active Protocol: Document 12/01/20 10:31 SP (Rec: 12/01/20 11:32 SP [id number]) Knee Goniometric Range of Motion Knee Right Flexion Active (degrees) 124 Flexion Passive (degrees) 135 Extension Active (degrees) 1 Extension Passive (degrees) 2 Comments Pt states only achiness with end feel ranges, not pain. PT-OP-M Strength Start: 09/29/20 15:47 Freq: Status: Active Protocol: Document 09/30/20 13:55 [facility] (Rec: 09/30/20 14:28 [facility] [id number]) Hip Strength Hip Manual Muscle Testing jose Flexion (L2) 3- Fair- Extension (S1) 2+ Poor+ External Rotation 3+ Fair+ Internal Rotation 4- Good- Knee Strength Knee Manual Muscle Testing Right Flexion (S2) 4- Good- Extension (L3) 4- Good- Left Flexion (S2) 4+ Good+ Extension (L3) 4+ Good+ PT-OP-Q Treatments Start: 09/29/20 15:47 Freq: Status: Active Protocol: Document 12/23/20 09:47 [facility] (Rec: 12/23/20 10:26 [facility] [id number]) Cardio Equipment Recumbent Stepper (Sci-Fit) Duration (Minutes) 5 Resistance 2 Seat Position 12 Recumbent Bicycle Duration (Minutes) 5 Resistance 3 Seat Position 8 Treadmill Duration (Minutes) 5 Speed 1.7 Therapeutic Exercises Sitting Exercises HC stretch Sitting Exercise Name hip hinge review HEP Side right Reps/Minutes 2x 30 Comments hip hinge good stretch to HS Manual Therapy Treatment Taping right knee Body Location R knee Treatment Focus facil med patellar glide, pain relief Type of Tape Kinesio Tape Skin Inspection intact Comments 1 Y strip patella base medially wrapping sup and inf patella 75% tension 2 I strips: med and lateral joint line space correction 50 -75% tension Neuro Re-Education Treatment Balance Activities balance obstacle course Details over hurdles, on/ off blue cushion, up/down 4 step Equipment Gb donned for safety Reps/Duration 30 ft x3 laps Comments CGA PT-OP-R Modalities Start: 09/29/20 15:47 Freq: Status: Active Protocol: Document 11/12/20 14:38 SAK (Rec: 11/12/20 15:23 SAK [id number]) Electric Stimulation Electric Stimulation Interferential Current (IFC) Body Location right knee Duration (Minutes) 10 Intensity 14 Target/Sweep Sweep Patient Position Hooklying Combined With Heat/Cold Cold Pack PT-OP-T Assessment and Plan Start: 09/29/20 15:47 Freq: Status: Active Protocol: Document 12/23/20 09:47 SAK (Rec: 12/23/20 10:26 SAK [id number]) Physical Therapy Assessment Goals 5 Impairment lateral tracking patella Cattle Tester Goal (LTG) Patient to be independent with self-taping using kinesiotape to facilitate normal patellar tracking for decreased pain with all mobility 12/17/20: goal met: applies if needed LTG Duration GOAL MET 4 Impairment weakness right LE Short Term Goal (STG) Patient to be independent with progressive HEP for the purposes of LE strengthening 11/10/20: GOAL MET: incorporates with HEP in her every day activities. STG Duration goal met Senior Care Goal (LTG) Patient right knee strength at least 4+/5 11/10/20: goal progress 11/26/20: goal met, strength 4+ /5 LTG Duration goal met 3 Impairment decreased activity tolerance; lower extremity functional scale 46% Short Term Goal (STG) improve LEFS to at least 60% 11/10/20: goal progress, inc to 51% 11/26/20: goal progress, increased to 58% STG Duration 12/05/20 Cattle Tester Goal (LTG) Improve LEFS to at least 75% as measure of improved activity tolerance LTG Duration 01/10/21 2 Impairment antalgic gait on level surfaces and step-to pattern on stairs Short Term Goal (STG) patient able to ambulate with cane with no limp on level surfaces using cane 10/30/20: progressing: not using a SPC anymore but still noticable slight limp on level surfaces this am tx, says doesn;t think does when out walking later in day. 11/26/20: goal met, no longer using cane STG Duration goal met Cattle Tester Goal (LTG) Patient able to ambulate without assistive device with no limp and ascend and descend stairs with alternating pattern without limp 11/26/20: able to ambulate without device with minimal to no limp. Inconsistent ability to ascend and descend stairs; at times still has to do step-to pattern, has pain with both ascending and descending. 12/17/20: progressing, still slight limp with lead RLE with LLE eccentric flexion. Cued slow pacing (contact rail as needed demonstrated). LTG Duration 01/10/21 progressing 1 Impairment pain right knee as high as 5/ 10 on pain scale Cattle Tester Goal (LTG) decrease pain to no greater than 5/10 with all usual activities 10/20/20: Goal MET: pain level more achy pain and 0-2/10 during activities. LTG Duration (GOAL MET 10/20/20) Assessment Summary Assessment PT goal achieved. Independent with HEP and compliant. Able to self-taping. Goals achieved. Ready for discharge. Physical Therapy Plan Discharge Physical Therapy Discharge Reasons Goals Met
== END 2020-12-23 13:11 | disposition home or self-care (01) ==
LOC: PHYS 09:45
PROVIDERS: PCP Student in an Organized Health Care Education/Training Program; Referring Provider Student in an Organized Health Care Education/Training Program; Visit Provider Student in an Organized Health Care Education/Training Program
DX: M25.561 Pain in right knee (principal); G89.29 Other chronic pain; R53.1 Weakness; R26.2 Difficulty in walking, not elsewhere classified
CPT/HCPCS: 97014; 97035; 97110; 97112; 97116; 97140; 97162; 97535; G0283

== ENCOUNTER → 2020-12-30 09:06 | Outpatient (CLI) | payer MEDICARE, OTHER, SELFPAY ==
[2020-12-30 11:32] LABS: BUN Creatinine Ratio 26.6 (6-22); Blood Urea Nitrogen 17 mg/dL (7-17); Calcium 9.6 mg/dL (8.4-10.2); Carbon Dioxide 29 mmol/L (22-32); Chloride 104 mmol/L (98-107); Estimated Glomerular Filt Rate > 60.0 mL/min (>60); Glucose 97 mg/dL (80-110); HEMOLYSIS < 15 (0-50); Potassium 4.1 mmol/L (3.4-5.1); Sodium 137 mmol/L (137-145)
== END ==
PROVIDERS: PCP Student in an Organized Health Care Education/Training Program; Referring Provider Internal Medicine Cardiovascular Disease; Visit Provider Internal Medicine Cardiovascular Disease
DX: I48.0 Paroxysmal atrial fibrillation (principal); I48.3 Typical atrial flutter
CPT/HCPCS: 36415; 80048

== ENCOUNTER → 2021-03-05 16:05 | Outpatient (CLI) | payer MEDICARE, OTHER, SELFPAY ==
[2021-03-05] MEDS: COVID-19 VACC #3, MRNA(MOD) 50 MCG/0.25 ML VIAL IM (16:33)
== END ==
PROVIDERS: PCP Student in an Organized Health Care Education/Training Program; Visit Provider Internal Medicine
DX: Z23 Encounter for immunization (principal)
CPT/HCPCS: 0013A; 91301

== ENCOUNTER → 2021-05-24 14:04 | Outpatient (CLI) | payer MEDICARE, OTHER, SELFPAY ==
--- NOTE | 2021-05-24 14:06 | DI.RAD.S_ITS ---
PROCEDURE: XR DEXA AXIAL SKELETON INDICATIONS: Osteopenia monitoring; on medication COMPARISON: [facility], CR, XR DEXA AXIAL SKELETON, 04/28/2020, 10:30. FINDINGS: This blank DEXA report has been sent in error by the PACS system. The correct and complete report will be forthcoming in 1-2 days. Thank you for your patience and understanding. Dictated by: Chanda Maynard MD, PhD on 05/24/2021 at 16:43 Approved by: Chanda Maynard MD, PhD on 05/24/2021 at 16:43
== END ==
PROVIDERS: PCP Student in an Organized Health Care Education/Training Program; Referring Provider Student in an Organized Health Care Education/Training Program; Visit Provider Student in an Organized Health Care Education/Training Program
DX: Z78.0 Asymptomatic menopausal state (principal); M85.88 Other specified disorders of bone density and structure, other site
CPT/HCPCS: 77080

== ENCOUNTER → 2021-07-08 13:05 | Outpatient (CLI) | payer MEDICARE, OTHER, SELFPAY ==
[2021-07-08 13:58] LABS: Blood Urea Nitrogen 17 mg/dL (7-17); Calcium 9.8 mg/dL (8.4-10.2); Carbon Dioxide 26 mmol/L (22-32); Chloride 107 mmol/L (98-107); Estimated Glomerular Filt Rate > 60.0 mL/min (>60); Glucose 95 mg/dL (80-110); HEMOLYSIS < 15 (0-50); Potassium 4.2 mmol/L (3.4-5.1); Sodium 140 mmol/L (137-145)
== END ==
PROVIDERS: PCP Student in an Organized Health Care Education/Training Program; Referring Provider Internal Medicine Cardiovascular Disease; Visit Provider Internal Medicine Cardiovascular Disease
DX: I48.0 Paroxysmal atrial fibrillation (principal); I48.3 Typical atrial flutter
CPT/HCPCS: 36415; 80048

== ENCOUNTER → 2021-11-17 07:38 | Outpatient (CLI) | payer MEDICARE, OTHER, SELFPAY ==
--- NOTE | 2021-11-17 | DI.MG.S_ITS ---
BILATERAL DIGITAL SCREENING MAMMOGRAM 3D/2D WITH CAD: 11/17/2021 CLINICAL: Routine screening. Comparison is made to exams dated: 11/16/2020 mammogram, 11/14/2019 mammogram, and 08/31/2018 mammogram - [facility]. There are scattered fibroglandular elements in both breasts. Current study was also evaluated with a Computer Aided Detection (CAD) system. There are benign vascular calcifications in both breasts. No significant masses, calcifications, or other findings are seen in either breast. There has been no significant interval change. IMPRESSION: BENIGN There is no mammographic evidence of malignancy. A 1 year screening mammogram is recommended. Based on the Tyrer Cuzick model (a risk assessment model) the patient's lifetime risk is 2.4% and her 10 year risk is 0.0%. According to the ACR, ACS, and NCCN guidelines, an annual breast MRI exam along with mammogram is recommended if the patient's lifetime risk is 20% or greater. This exam was interpreted at Station ID: [id number]. NOTE: For mammograms, a report in lay terms will be sent to the patient. Approximately 15% of breast malignancies will not be visualized mammographically. In the management of a palpable breast mass, a negative mammogram must not discourage biopsy of a clinically suspicious lesion. Electronically Signed By: Kiel coe/charlie:11/17/2021 08:24:20 letter sent: Normal Exam ACR BI-RADS Category 2: Benign Finding(s) 3342F
== END ==
PROVIDERS: PCP Student in an Organized Health Care Education/Training Program; Referring Provider Student in an Organized Health Care Education/Training Program; Visit Provider Student in an Organized Health Care Education/Training Program
DX: Z12.31 Encounter for screening mammogram for malignant neoplasm of breast (principal)
CPT/HCPCS: 77063; 77067

== ENCOUNTER → 2022-02-01 09:16 | Outpatient (CLI) | payer MEDICARE, OTHER, SELFPAY ==
[2022-02-01 10:47] LABS: BUN Creatinine Ratio 16.4 (6-22); Blood Urea Nitrogen 12 mg/dL (7-17); Calcium 9.5 mg/dL (8.4-10.2); Carbon Dioxide 29 mmol/L (22-32); Chloride 103 mmol/L (98-107); Estimated Glomerular Filt Rate > 60 mL/min (>60); Glucose 99 mg/dL (80-110); HEMOLYSIS < 15 (0-50); Magnesium 1.7 mg/dL (1.6-2.3); Sodium 139 mmol/L (137-145)
== END ==
PROVIDERS: PCP Student in an Organized Health Care Education/Training Program; Referring Provider Nurse Practitioner; Visit Provider Nurse Practitioner
DX: I48.0 Paroxysmal atrial fibrillation (principal); Z51.81 Encounter for therapeutic drug level monitoring; Z79.899 Other long term (current) drug therapy
CPT/HCPCS: 36415; 80048; 83735

== ENCOUNTER → 2022-08-23 09:14 | Outpatient (CLI) | payer MEDICARE, OTHER, SELFPAY ==
[2022-08-23 12:16] LABS: BUN Creatinine Ratio 26.5 (6-22); Blood Urea Nitrogen 18 mg/dL (7-17); Calcium 9.5 mg/dL (8.4-10.2); Carbon Dioxide 27 mmol/L (22-32); Chloride 100 mmol/L (98-107); Estimated Glomerular Filt Rate > 60 mL/min (>60); Glucose 95 mg/dL (80-110); HEMOLYSIS < 15 (0-50); Potassium 4.4 mmol/L (3.4-5.1); Sodium 136 mmol/L (137-145)
== END ==
PROVIDERS: PCP Student in an Organized Health Care Education/Training Program; Referring Provider Internal Medicine Cardiovascular Disease; Visit Provider Internal Medicine Cardiovascular Disease
DX: I48.0 Paroxysmal atrial fibrillation (principal); Z51.81 Encounter for therapeutic drug level monitoring; Z79.899 Other long term (current) drug therapy
CPT/HCPCS: 36415; 80048

== ENCOUNTER → 2022-11-24 08:10 | Outpatient (CLI) | payer MEDICARE, OTHER, SELFPAY ==
--- NOTE | 2022-11-24 | DI.MG.S_ITS ---
BILATERAL DIGITAL SCREENING MAMMOGRAM 3D/2D WITH CAD: 11/24/2022 CLINICAL: Routine screening. Comparison is made to exams dated: 11/17/2021 mammogram, 11/16/2020 mammogram, and 11/14/2019 mammogram - [facility]. Both breasts are almost entirely fatty (category a/<25% glandular tissue). Current study was also evaluated with a Computer Aided Detection (CAD) system. There are benign vascular calcifications in both breasts. No significant masses, calcifications, or other findings are seen in either breast. There has been no significant interval change. IMPRESSION: BENIGN There is no mammographic evidence of malignancy. A 1 year screening mammogram is recommended. Based on the Tyrer Cuzick model (a risk assessment model) the patient's lifetime risk is 1.4% and her 10 year risk is 0.0%. According to the ACR, ACS, and NCCN guidelines, an annual breast MRI exam along with mammogram is recommended if the patient's lifetime risk is 20% or greater. This exam was interpreted at Station ID: [id number]. NOTE: For mammograms, a report in lay terms will be sent to the patient. Approximately 15% of breast malignancies will not be visualized mammographically. In the management of a palpable breast mass, a negative mammogram must not discourage biopsy of a clinically suspicious lesion. Electronically Signed By: Melvina jose/charlie:11/24/2022 10:55:57 letter sent: Normal Exam ACR BI-RADS Category 2: Benign Finding(s) 3342F
== END ==
PROVIDERS: PCP Pediatrics; Referring Provider Pediatrics; Visit Provider Pediatrics
DX: Z12.31 Encounter for screening mammogram for malignant neoplasm of breast (principal)
CPT/HCPCS: 77063; 77067

== ENCOUNTER → 2023-02-15 10:34 | Outpatient (CLI) | payer MEDICARE, OTHER, SELFPAY ==
--- NOTE | 2023-02-15 10:36 | DI.RAD.S_ITS ---
Bone Density Report Name: JACKI CHRISTINE Age: 77 Sex: Female Ethnicity: White Date of : 1945 Indication: osteopenia; monitoring treatment; Referring Provider: MADELINE FARRELL Study: Bone densitometry was performed. Exam Date: February 15, 2023 Accession number: [id number] Bone Density: Region BMD T-score Z-score Classification AP Spine(L1-L4) 0.875 -1.6 1.0 Osteopenia Femoral Neck (Left) 0.642 -1.9 0.3 Osteopenia Total Hip (Left) 0.793 -1.2 0.7 Osteopenia Femoral Neck (Right) 0.697 -1.4 0.8 Osteopenia Total Hip (Right) 0.789 -1.3 0.7 Osteopenia Total Hip Mean 0.791 -1.3 0.7 Osteopenia World Health Organization criteria for BMD impression classify patients as: Normal (T-score at or above -1.0), Osteopenia (T-score between -1.0 and -2.5), or Osteoporosis (T-score at or below -2.5). 10-year Fracture Risk: FRAX not reported because: Treated for osteoporosis Previous Exams: -- Region Exam Age BMD T-score BMD Change BMD Change Date g/cm2 vs Baseline vs Previous -- AP Spine (L1-L4) 02/15/2023 77 0.875 -1.6 0.013 (1.5%)# -0.012 (-1.4%)# 05/24/2021 75 0.887 -1.5 0.025 (2.9%)* 0.017 (2.0%) 04/28/2020 74 0.870 -1.6 0.008 (0.9%) 0.021 (2.5%) 04/26/2019 73 0.849 -1.8 -0.013 (-1.5%) -0.013 (-1.5%) 05/02/2018 72 0.862 -1.7 Total Hip(Left) 02/15/2023 77 0.793 -1.2 0.015 (1.9%)# 0.010 (1.3%)# 05/24/2021 75 0.783 -1.3 0.004 (0.5%) -0.017 (-2.1%) 04/28/2020 74 0.799 -1.2 0.021 (2.7%) 0.011 (1.4%) 04/26/2019 73 0.788 -1.3 0.009 (1.2%) 0.009 (1.2%) 05/02/2018 72 0.779 -1.3 Total Hip(Right) 02/15/2023 77 0.789 -1.3 0.057 (7.8%)# 0.043 (5.8%)# 05/24/2021 75 0.745 -1.6 0.014 (1.9%) -0.014 (-1.8%) 04/28/2020 74 0.759 -1.5 0.027 (3.7%)* -0.003 (-0.4%) 04/26/2019 73 0.762 -1.5 0.031 (4.2%)* 0.031 (4.2%)* 05/02/2018 72 0.732 -1.7 -- *Denotes significance at 95% confidence level, LSC for AP Spine = 0.022 g/cm2, LSC for Total Hip = 0.027 g/cm2 # Denotes dissimilar scan types or analysis methods Impression: The patient has low bone mass, based on the Left Femoral Neck T-score. No significant bone loss was observed. Discussion: PATIENT UNDER TREATMENT WITH NO SIGNIFICANT BMD LOSS SINCE LAST EXAM. In an untreated patient, BMD typically declines with age. A lack of decline or gain is usually a sign that treatment is efficacious and fracture risk is reduced. It is important to ask patients whether they are taking their medications and to encourage continued and appropriate compliance with their osteoporosis therapies to reduce fracture risk. It is also important to review their risk factors and encourage appropriate calcium and vitamin D intakes, exercise, fall prevention and other lifestyle measures. Follow-Up: Consider a repeat BMD and Vertebral Fracture Assessment (VFA) exam in 2 years or sooner if medically necessary, to reassess this patient's status. Reported by: FRANK ARREGUIN M.D. on 02/15/2023 11:19:00 AM.
== END ==
PROVIDERS: PCP Pediatrics; Referring Provider Student in an Organized Health Care Education/Training Program; Visit Provider Student in an Organized Health Care Education/Training Program
DX: Z78.0 Asymptomatic menopausal state (principal); M81.0 Age-related osteoporosis without current pathological fracture; Z79.83 Long term (current) use of bisphosphonates
CPT/HCPCS: 77080

== ENCOUNTER → 2023-11-07 15:02 | Outpatient (CLI) | payer MEDICARE, OTHER, SELFPAY ==
--- NOTE | 2023-11-07 15:04 | DI.RAD.S_ITS ---
PROCEDURE: XR KNEE LT 3V INDICATIONS: Knee arthritis, knee pain TECHNIQUE: 3 views of the knee were acquired. COMPARISON: [facility], CR, XR KNEE RT 3V, 08/19/2020, 10:16. FINDINGS: Bones: No fractures or dislocations. No suspicious bony lesions. Soft tissues: No joint effusion. Arterial calcifications are present. IMPRESSION: No acute bony abnormality or significant effusion. Dictated by: Phani Jenkins M.D. on 11/08/2023 at 10:37 Approved by: Phani Jenkins M.D. on 11/08/2023 at 10:39
== END ==
PROVIDERS: PCP Family Medicine; Referring Provider Family Medicine; Visit Provider Family Medicine
DX: M25.562 Pain in left knee (principal); Z87.39 Personal history of other diseases of the musculoskeletal system and connective tissue
CPT/HCPCS: 73562

== ENCOUNTER → 2023-11-27 14:02 | Outpatient (CLI) | payer MEDICARE, OTHER, SELFPAY ==
--- NOTE | 2023-11-27 14:05 | DI.US.S_ITS ---
PROCEDURE: US ARTERIAL DUPLEX LE LT INDICATIONS: Calcification noted on leg x-rays TECHNIQUE: Color and pulse Doppler interrogation was performed of the left lower extremity arterial system, with image documentation. COMPARISON: None. FINDINGS: Common femoral artery: 83 cm/sec Proximal superficial femoral artery: 117 cm/sec, Mid superficial femoral artery: 89 cm/sec, Distal superficial femoral artery: 63 cm/sec Popliteal artery: 54 cm/sec, Posterior tibial artery: 79 cm/sec, Anterior tibial artery/dorsalis pedis: 53 cm/sec,. Wray-scale imaging description: [id number] atherosclerotic plaque Triphasic waveforms are seen throughout IMPRESSION: No hemodynamically significant arterial obstruction or stenosis of the left lower extremity Dictated by: Tom Crowder M.D. on 11/28/2023 at 14:58 Approved by: Tom Crowder M.D. on 11/28/2023 at 15:03
--- NOTE | 2023-11-27 14:06 | DI.MG.S_ITS ---
BILATERAL DIGITAL SCREENING MAMMOGRAM 3D/2D WITH CAD: 11/27/2023 CLINICAL: Routine screening. Comparison is made to exams dated: 11/24/2022 mammogram, 11/17/2021 mammogram, and 11/16/2020 mammogram - [facility]. There are scattered areas of fibroglandular density in both breasts (category b / 25%-50% glandular tissue). Current study was also evaluated with a Computer Aided Detection (CAD) system. No significant masses, calcifications, or other findings are seen in either breast. There has been no significant interval change. IMPRESSION: NEGATIVE There is no mammographic evidence of malignancy. A 1 year screening mammogram is recommended. Based on the Tyrer Cuzick model (a risk assessment model) the patient's lifetime risk is 1.9% and her 10 year risk is 0.0%. According to the ACR, ACS, and NCCN guidelines, an annual breast MRI exam along with mammogram is recommended if the patient's lifetime risk is 20% or greater. This exam was interpreted at Station ID: [id number]. NOTE: For mammograms, a report in lay terms will be sent to the patient. Approximately 15% of breast malignancies will not be visualized mammographically. In the management of a palpable breast mass, a negative mammogram must not discourage biopsy of a clinically suspicious lesion. Electronically Signed By: Jessie Germain M.D., Ph.D. carolyn/charlie:11/28/2023 09:18:14 letter sent: Normal Exam ACR BI-RADS Category 1: Negative [id number]
== END ==
PROVIDERS: Family Provider Family Medicine; PCP Family Medicine; Referring Provider Family Medicine; Visit Provider Family Medicine
DX: Z12.31 Encounter for screening mammogram for malignant neoplasm of breast (principal); R92.323 Mammographic fibroglandular density, bilateral breasts; I70.90 Unspecified atherosclerosis
CPT/HCPCS: 77063; 77067; 93926

== ENCOUNTER 2024-01-22 01:35 | Emergency (ER) | payer MEDICARE, OTHER, SELFPAY ==
[2024-01-22] VITALS (9 sets, daily range): BP systolic 133–153; BP diastolic 76–82; PULSE 54–69; RESP 18; TEMP 36.5; O2SAT 94–97; BMI 34.0
--- NOTE | 2024-01-22 01:37 | DI.RAD.S_ITS ---
PROCEDURE: XR KNEE RT 3V INDICATIONS: Worsening right knee pain TECHNIQUE: 3 views of the knee were acquired. COMPARISON: [facility], CR, XR KNEE LT 3V, 11/07/2023, 14:15. FINDINGS: Bones: No fractures or dislocations. No suspicious bony lesions. Arthritic changes. Soft tissues: No joint effusion. No suspicious soft tissue calcifications. IMPRESSION: No visualized acute fracture or dislocation. However, if clinical concern and/or pain persist, short interval imaging followup in 7-10 days is recommended, as occult injury cannot be definitively excluded. Dictated by: Jessica Wilson M.D. on 01/22/2024 at 9:42 Approved by: Jessica Wilson M.D. on 01/22/2024 at 9:42
[2024-01-22] MEDS: HYDROCODONE/ACET 5/325 TABLET 1 TAB PO (01:55)
--- NOTE | 2024-01-22 02:29 | ED_ITS ---
HPI - Extremity Problem General Chief complaint: Extremity Problem,Nontraumatic Stated complaint: R knee pain Time Seen by Provider: 01/22/24 01:36 Source: patient and EMS Mode of arrival: EMS Limitations: no limitations History of Present Illness HPI Narrative: Patient is a 78-year-old female. Known history of arthritis in her knees. Is on warfarin. States that on a daily basis she normally walks about 1.25 miles what she did yesterday. She was in her normal state of health. Was sitting in her chair at home. She got up out of the chair in order to go to bed this evening when she had a sudden increase in pain on the outside of her right knee. She did not fall. No fevers. No skin changes over the area. She does see physical therapy because of arthritis in her left knee but they also treat her right knee as well. Related Data Home Medications Medication Instructions Recorded Confirmed FOLIC ACID/VIT A/VIT B1/VIT 1 tab PO Q DAY ##0 09/15/10 11/07/23 (#MULTIVITAMIN) warfarin 4 mg tablet (Coumadin) 4 mg PO DAILY ##0 01/07/13 11/07/23 aspirin 81 mg tablet,delayed 81 mg PO DAILY 10/02/18 11/07/23 release calcium carbonate 600 mg-vitamin 1 cap PO BID 03/31/20 11/07/23 D3 12.5 mcg (500 unit) capsule (Calcium 600 with Vitamin D3) magnesium oxide 400 mg PO DAILY 03/31/20 11/07/23 warfarin 2 mg tablet 2 mg PO 04/27/22 11/07/23 diltiazem HCl 120 mg 120 mg PO DAILY 05/11/23 11/07/23 capsule,extended release 24 hr (Cartia XT) Previous Rx's Medication Instructions Recorded oral appliance #1 ea 05/11/20 simvastatin 20 mg tablet 20 mg PO BEDTIME #90 tabs 05/19/23 Allergies Allergy/AdvReac Type Severity Reaction Status Date / Time No Known Drug Allergies Allergy Verified 11/07/23 10:43 Review of Systems Constitutional Constitutional: Reports system reviewed and no additional complaints, except as documented Musculoskeletal Musculoskeletal: Reports system reviewed and no additional complaints, except as documented Integumentary/Breasts Skin/Breast: Reports system reviewed and no additional complaints, except as documented Neurologic Neurologic: Reports system reviewed and no additional complaints, except as documented Hematologic/Lymphatic On Anticoagulants: Yes Patient History Medical History Lumbar compression fracture Mitral valve disorder Cataracts, bilateral Hyperlipemia Paroxysmal atrial fibrillation (02/17/15) Mixed hyperlipidemia (02/17/15) Essential hypertension (02/17/15) Surgical History (System 10/01/20 @ 07:59 by Fatemeh Farley) Hx of foot surgery Hx of cataract surgery (~01/2016) History of mitral valve replacement (02/17/15) Family History (System 10/01/20 @ 07:59 by Fatemeh Farley) Mother Heart disease Stroke Gallstones Father Heart disease Brother Heart disease Social History occupational status: employed Smoking Status: Never smoker alcohol intake: never substance use type: does not use Smoking Status: Never smoker Substance Use Type: does not use Exam Initial Vital Signs Initial Vital Signs: Vital Signs Temperature 97.7 F 01/22/24 01:44 Pulse Rate 69 01/22/24 01:44 Respiratory Rate 18 01/22/24 01:44 Blood Pressure 153/82 H 01/22/24 01:44 Pulse Oximetry 97 01/22/24 01:44 Oxygen Delivery Method Room Air 01/22/24 01:44 Const General: cooperative and No ill appearing Skin General: no rashes or lesions noted Neuro Sensory Exam: no sensory deficits noted Extrem Other: Discomfort with palpation to the lateral aspect of the right knee. Mild swelling to the right knee. Course Orders Ordered: ED Orders 01/22/24 01:37 XR knee RT 3V Stat Discontinued Medications Hydrocodone Bitart/Acetaminophen (Hydrocodone/Acet 5/325 Tablet) 1 tab PO NOW ONE Stop: 01/22/24 01:44 Last Admin: 01/22/24 01:55 Dose: 1 tab Documented By: MISTY Vital Signs Vital signs: Vital Signs - 8 hr 01/22/24 01:44 01/22/24 01:49 Temperature 97.7 F Pulse Rate 69 Pulse Rate [Right Dorsalis Pedis] 68 Respiratory Rate 18 Blood Pressure 153/82 H Pulse Oximetry 97 Oxygen Delivery Method Room Air MDM - Extremity (Nontraumatic) Imaging Data Extremity x-ray #1: Radiologist's Impression: Tricompartmental degenerative changes of the right knee without acute traumatic injury MDM Narrative Medical decision making narrative: Patient's history and physical and x-ray are consistent with an arthritis flare. I have low suspicion for septic joint, hemarthrosis, gout, fracture, dislocation. Patient does have a walker at home that she can use. Pain medication administered here in the ER. Was sent her home with a short course of pain medication that she can use at night to help her sleep or for breakthrough pain. She has Tylenol that she can take at home. She was given return precautions. She expressed understanding and agreement. Discharge Plan Departure Patient Disposition: Home Clinical Impression: Osteoarthritis of knee Instructions: Osteoarthritis (Alternative Therapy) Activity Restrictions/Additional Instructions: Recommend that you continue to take all of your medications as directed. You can use a cane or walker at home to help get around while your arthritis flare improve. I recommend keeping your leg elevated and using ice. The pain medication is for breakthrough pain. Return to the emergency department for new symptoms. Prescriptions: No Action FOLIC ACID/VIT A/VIT B1/VIT (#MULTIVITAMIN) 1 tab PO Q DAY Qty: 0 warfarin [Coumadin] 4 MG tablet 4 mg PO DAILY Qty: 0 aspirin 81 mg tablet,delayed release (DR/EC) 81 mg PO DAILY (DME) oral appliance See Rx Instructions .Route .MEDSUPPLY Qty: 1 0RF Rx Instructions: As directed simvastatin 20 mg tablet 20 mg PO BEDTIME Qty: 90 3RF warfarin 2 mg tablet 2 mg PO diltiazem HCl [Cartia XT] 120 mg capsule,extended release 24hr 120 mg PO DAILY magnesium oxide 400 mg magnesium capsule 400 mg PO DAILY calcium carbonate-vitamin D3 [Calcium 600 with Vitamin D3] 600 mg(1,500mg) - 500 unit capsule 1 cap PO BID Referrals: Marisol Pena DO [Primary Care Provider] - Stand Alone Forms: Patient Portal/API
[2024-01-22] MEDS: HYDROCODONE/ACET 5/325 PREPACK 1 BOTTLE MISC (02:57)
== END 2024-01-22 03:22 | disposition home or self-care (01) ==
PROVIDERS: Emergency Provider Emergency Medicine; Family Provider Family Medicine; PCP Family Medicine
DX: M17.11 Unilateral primary osteoarthritis, right knee (principal); Z79.01 Long term (current) use of anticoagulants
CPT/HCPCS: 73562; 99283

== ENCOUNTER 2024-04-23 09:45 | Outpatient (RCR) | payer MEDICARE, OTHER, SELFPAY ==
--- NOTE | 2023-12-25 16:07 | PT.OIE ---
Current Diagnoses Unilateral primary osteoarthritis, left knee (12/25/23) Difficulty in walking, not elsewhere classified (12/25/23) Weakness (12/25/23) Edema, unspecified (12/25/23) Past Medical History (This Medical Record has been edited. Action required.) Cataracts, bilateral Essential hypertension (02/17/15) Hyperlipemia Lumbar compression fracture Mitral valve disorder Mixed hyperlipidemia (02/17/15) Paroxysmal atrial fibrillation (02/17/15) Past Surgical History (This Medical Record has been edited. Action required.) History of mitral valve replacement (02/17/15) Hx of cataract surgery (~01/2016) Hx of foot surgery Visit Care Team Role Provider Type Marisol Pena DO Attending Provider Physician Family Provider Primary Care Provider Referring Provider Specialty: Family Practice Address: [address] [place] [address], [address], [facility] Email: [email or web address] Physical Therapy Initial Evaluation PT-OP-A Visit Information Start: 12/25/23 08:14 Freq: Status: Active Protocol: Document 12/25/23 08:14 SAK (Rec: 12/25/23 08:41 SAK [id number]) Out-Patient Physical Therapy Visit Information Visit Information Visit Type Initial Evaluation Visit Start Time 08:15 Visit Stop Time 09:10 Visit Number 1 Evaluation Information Evaluation Date 12/25/23 PT-OP-B Current Condition Start: 12/25/23 08:14 Freq: Status: Active Protocol: Document 12/25/23 08:14 SAK (Rec: 12/25/23 08:41 SAK [id number]) Current Condition History of Current Condition Onset Date 1-1 1/2 months ago. Current Complaints jose knee pain, left leg swelling History of Current Condition pain bilateral knees, prior PT right side. History swelling jose LE's left greater than right, left got bad 1 1/2 months ago. Swelling is variable, not sure if gets better when legs elevated. Doesn't wear compression stockings except occasional knee high when travels. No use of assistive device. Trying to walk between 4 -5000 steps per day, slowed some by a-fib. Has trouble getting up and trusting legs when she moves from sit to stand. Hard time getting going, gets a little better when warmed up. Has previously worn brace on right knee. No exercises except walking. Prior Treatments and Tests ultrasound left LE negative x-rays: negative Current Functional Impairments (Reported) Functional Limitations- ADL's painful Functional Limitations- Mobility/Gait painful Functional Limitations- Recreation/ painful Hobbies Personal Factors Other Personal Factors That May Effect PMH: a-fib Therapy/Recovery PT-OP-C Subjective Start: 12/25/23 08:14 Freq: Status: Active Protocol: Document 12/25/23 08:14 AMANDEEP (Rec: 12/25/23 16:06 [facility] [id number]) Patient Questionnaires Incontinence Questionnaire Incontinence Impairment 40 to 59% Impaired (Score 9-12 ) Lower Extremity Functional Scale LEFS Score 36 OP-PT Pain Assessment Pain Assessment Grid Paper Pain Assessment Grid Completed Yes Location jose knees Pain Location Details anterior, posterior joint line Intensity 5 Description Aching,Pressure,Tender, Tightness Pain Aggravating Factors ADL's,Activity,Exercise, Standing,Walking Pain Behaviors Pain Behaviors Guarding,Wincing PT-OP-G Mobility & Gait Start: 12/25/23 08:14 Freq: Status: Active Protocol: Document 12/25/23 08:14 [facility] (Rec: 12/25/23 16:06 [facility] [id number]) OP Mobility Evaluation Transfers Sit to Stand requires UE use Bed to Chair Transfers painful Car Transfers painful Floor Transfers unable Functional Movements Squats painful Running Assessment unable OP Gait Assessment Gait Gait Assistance Required: Independent Assistive Devices Assistive Device None Gait Deviations General Gait Pattern Antalgic,Decreased Stride Length,Decreased Feet Clearance,Wide Based Gait Factors Limiting Gait Function Factors Limiting Gait Function Decreased Strength,Pain Comments Gait Comments excess lateral sway Stair Climbing Evaluation Evaluation Level of Assist On Stairs Independent Devices Stair Climbing Assistive Devices Left Railing,Right Railing Technique/Endurance Stair Climbing Direction Ascend and Descend Stair Climbing Technique Step to Step PT-OP-H Neuro Start: 12/25/23 08:14 Freq: Status: Active Protocol: Document 12/25/23 08:14 [facility] (Rec: 12/25/23 16:06 [facility] [id number]) Sensation Evaluation Gross Sensation Gross Sensation WNL PT-OP-J Posture/Palpation/Skin Start: 12/25/23 08:14 Freq: Status: Active Protocol: Document 12/25/23 08:14 SAK (Rec: 12/25/23 16:06 [facility] [id number]) Posture Evaluation Position Standing Head/C-Spine Posture Forward Head T-Spine Posture Increased Kyphosis L-Spine Posture Increased Lordosis Hip Posture (L) Externally Rotated,(R) Externally Rotated Patellar Posture (L) Laterally Tilted,(R) Laterally Tilted Palpation Assessment Location knees Palpation Location bilateral knee joint lines Palpation Findings Edema,Tenderness Skin Assessment Edema Assessment jose knees left greater than right Edema Type Non-Pitting Edema Degree 2+ Edema Appearance Puffy Comments circumferential measurements: MTP R 21.7 L 22.2 mid foot R 21.5 L 22.8 ankle R 26.7 L 25.7 mid calf R 43.5 L 43.9 PT-OP-K Range of Motion Start: 12/25/23 08:14 Freq: Status: Active Protocol: Document 12/25/23 08:14 [facility] (Rec: 12/25/23 16:06 [facility] [id number]) Hip Goniometric Range of Motion Hip jose Straight Leg Raise 60 Extension 0 Abduction 20 Internal Rotation 15 External Rotation 55 Knee Goniometric Range of Motion Knee jose Knee ROM WFL Yes Ankle and Foot Goniometric Range of Motion Ankle and Foot jose Ankle/Foot ROM WFL Yes PT-OP-L Special Tests Start: 12/25/23 08:14 Freq: Status: Active Protocol: Document 12/25/23 08:14 [facility] (Rec: 12/25/23 09:04 [facility] [id number]) Special Tests Knee Special Tests 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 Test Results - Varus- 0 Degrees Test Results - Valgus- 0 Degrees Test Results - Other Special Tests Special Tests circumferential measurements: MTP R 21.7 L 22.2 mid foot R 21.5 L 22.8 ankle R 26.7 L 25.7 mid calf R 43.5 L 43.9 knees R 48.7 L 50.9 10 cm prox patella R 58.2 L 58.8 PT-OP-M Strength Start: 12/25/23 08:14 Freq: Status: Active Protocol: Document 12/25/23 08:14 [facility] (Rec: 12/25/23 16:06 [facility] [id number]) Hip Strength Hip Manual Muscle Testing jose Flexion (L2) 3+ Fair+ Extension (S1) 3- Fair- Abduction 3+ Fair+ Adduction 4- Good- External Rotation 3+ Fair+ Internal Rotation 4- Good- Knee Strength Knee Manual Muscle Testing jose Flexion (S2) 4 Good Extension (L3) 4 Good Ankle/Foot Strength Ankle and Foot Manual Muscle Testing jose Dorsiflexion (L4) 4 Good Plantarflexion (S1) 4 Good PT-OP-Q Treatments Start: 12/25/23 08:14 Freq: Status: Active Protocol: Document 12/25/23 08:14 SAK (Rec: 12/25/23 16:06 [facility] [id number]) Self-Care/Home Management Treatment Education Patient Education Home Exercise Program Other Education issued written HEP Activities Self-Care/Home Management Activities recommended thigh high compression stockings for edema reduction PT-OP-R Modalities Start: 12/25/23 08:14 Freq: Status: Active Protocol: Document 12/25/23 08:14 SAK (Rec: 12/25/23 16:07 [facility] [id number]) Hot Pack/Cold Pack Treatment Cold Pack Location left knee Patient Position Hooklying Patient Tolerance Good PT-OP-T Assessment and Plan Start: 12/25/23 08:14 Freq: Status: Active Protocol: Document 12/25/23 08:14 SAK (Rec: 12/25/23 16:06 [facility] [id number]) Physical Therapy Assessment Rehab Potential Rehabilitation Potential Good Evaluation Complexity Number of Personal Factors/Comorbidities 1-2 Number of Body Systems Impaired 3 Clinical Presentation at Evaluation Evolving Impairments Impairments Activity Tolerance,Edema, Strength Other Concerns Barriers to Rehabilitation patient in chronic a-fib, low activity tolerance Goals Four Impairment left LE edema Snf Goal (LTG) Decrease edema to no greater than 1 cm difference between right and left LE LTG Duration 03/25/24 Three Impairment impairments in left knee and hip strength and ROM Short Term Goal (STG) Patient to be instructed in HEP for purposes of ROM and strength left LE STG Duration 02/14/24 Slip Cover Seamstress Goal (LTG) Patient to be independent and compliant with HEP and demonstrate ROM WNL and strength to at least 4+/5 left LE LTG Duration 03/25/24 Two Impairment lower extremity functional scale (LEFS) 36% Short Term Goal (STG) Improve LEFS score to at least 55% as measure of improved activity tolerance and left knee function STG Duration 02/14/24 Snf Goal (LTG) Improve LEFS score to at least 70% as measure of improved activity tolerance and left knee function LTG Duration 03/25/24 One Impairment pain left knee 5/10 pain scale Short Term Goal (STG) Decrease pain with household activities to no greater than 2/10 STG Duration 02/14/24 Slip Cover Seamstress Goal (LTG) Decrease pain with community and outdoor ambulation on level and uneven surfaces to no greater than 2/10 LTG Duration 03/25/24 Assessment Summary Assessment Patient presents to PT with function limiting pain left knee and edema left LE no known cause. x-rays were negative. Patient has impairments in left LE ROM and strength and is tender to palpation along posterior joint line and anterior knee supra and infrapatellar. She reports she is unable to take walks, squat, move from sit to stand, or ambulate on stairs without an increase in pain. Feel she would benefit from PT to address the above impairments and help her to return to prior level of function. I recommended she try thigh high compression stocking on left and initial HEP was issued. POC was discussed and she was in agreement. Physical Therapy Plan Frequency and Duration Frequency of Treatment 2x/Week Duration of treatment (weeks) 12 Plan of Care Start Date 12/25/23 Plan of Care End Date 03/25/24 Therapeutic Interventions Therapeutic Interventions Gait Training,Home Exercise Program,Manual Therapy,Patient /Caregiver Education,Self-Care /Home Management,Soft Tissue Mobilization,Taping, Therapeutic Activities, Therapeutic Exercises Modalities Cold Pack/Ice Massage,Electric Stimulation,Hot Packs, Infrared Therapy,Ultrasound Next Visit Focus/Plan Next Note Type Treatment Note Next Visit Plan REview HEP, gentle progression of LE strengthening and flexibility exercises as tolerated. Consider KT tape. Assess any compression stocking patient obtains. Ice and IFES to end treatment.
--- NOTE | 2023-12-25 16:07 | PT.OPPOC ---
Physical, Occupational & Speech Therapy At [facility] Current Diagnoses Unilateral primary osteoarthritis, left knee (12/25/23) Difficulty in walking, not elsewhere classified (12/25/23) Weakness (12/25/23) Edema, unspecified (12/25/23) Visit Care Team Role Provider Type Marisol Pena DO Attending Provider Physician Family Provider Primary Care Provider Referring Provider Specialty: Family Practice Address: [address] [place] [address], [facility] [address], [place], [facility] Email: [email or web address] Plan Of Care PT-OP-B Current Condition Start: 12/25/23 08:14 Freq: Status: Active Protocol: Document 12/25/23 08:14 SAK (Rec: 12/25/23 08:41 SAK [id number]) Current Condition History of Current Condition Onset Date 1-1 1/2 months ago. Current Complaints jose knee pain, left leg swelling History of Current Condition pain bilateral knees, prior PT right side. History swelling jose LE's left greater than right, left got bad 1 1/2 months ago. Swelling is variable, not sure if gets better when legs elevated. Doesn't wear compression stockings except occasional knee high when travels. No use of assistive device. Trying to walk between 4 -5000 steps per day, slowed some by a-fib. Has trouble getting up and trusting legs when she moves from sit to stand. Hard time getting going, gets a little better when warmed up. Has previously worn brace on right knee. No exercises except walking. Prior Treatments and Tests ultrasound left LE negative x-rays: negative Current Functional Impairments (Reported) Functional Limitations- ADL's painful Functional Limitations- Mobility/Gait painful Functional Limitations- Recreation/ painful Hobbies Personal Factors Other Personal Factors That May Effect PMH: a-fib Therapy/Recovery PT-OP-T Assessment and Plan Start: 12/25/23 08:14 Freq: Status: Active Protocol: Document 12/25/23 08:14 SAK (Rec: 12/25/23 16:06 SAK [id number]) Physical Therapy Assessment Rehab Potential Rehabilitation Potential Good Evaluation Complexity Number of Personal Factors/Comorbidities 1-2 Number of Body Systems Impaired 3 Clinical Presentation at Evaluation Evolving Impairments Impairments Activity Tolerance,Edema, Strength Other Concerns Barriers to Rehabilitation patient in chronic a-fib, low activity tolerance Goals Four Impairment left LE edema Data Virtualization Consultant Goal (LTG) Decrease edema to no greater than 1 cm difference between right and left LE LTG Duration 03/25/24 Three Impairment impairments in left knee and hip strength and ROM Short Term Goal (STG) Patient to be instructed in HEP for purposes of ROM and strength left LE STG Duration 02/14/24 Data Virtualization Consultant Goal (LTG) Patient to be independent and compliant with HEP and demonstrate ROM WNL and strength to at least 4+/5 left LE LTG Duration 03/25/24 Two Impairment lower extremity functional scale (LEFS) 36% Short Term Goal (STG) Improve LEFS score to at least 55% as measure of improved activity tolerance and left knee function STG Duration 02/14/24 Long-Term Goal (LTG) Improve LEFS score to at least 70% as measure of improved activity tolerance and left knee function LTG Duration 03/25/24 One Impairment pain left knee 5/10 pain scale Short Term Goal (STG) Decrease pain with household activities to no greater than 2/10 STG Duration 02/14/24 Long-Term Goal (LTG) Decrease pain with community and outdoor ambulation on level and uneven surfaces to no greater than 2/10 LTG Duration 03/25/24 Assessment Summary Assessment Patient presents to PT with function limiting pain left knee and edema left LE no known cause. x-rays were negative. Patient has impairments in left LE ROM and strength and is tender to palpation along posterior joint line and anterior knee supra and infrapatellar. She reports she is unable to take walks, squat, move from sit to stand, or ambulate on stairs without an increase in pain. Feel she would benefit from PT to address the above impairments and help her to return to prior level of function. I recommended she try thigh high compression stocking on left and initial HEP was issued. POC was discussed and she was in agreement. Physical Therapy Plan Frequency and Duration Frequency of Treatment 2x/Week Duration of treatment (weeks) 12 Plan of Care Start Date 12/25/23 Plan of Care End Date 03/25/24 Therapeutic Interventions Therapeutic Interventions Gait Training,Home Exercise Program,Manual Therapy,Patient /Caregiver Education,Self-Care /Home Management,Soft Tissue Mobilization,Taping, Therapeutic Activities, Therapeutic Exercises Modalities Cold Pack/Ice Massage,Electric Stimulation,Hot Packs, Infrared Therapy,Ultrasound Next Visit Focus/Plan Next Note Type Treatment Note Next Visit Plan REview HEP, gentle progression of LE strengthening and flexibility exercises as tolerated. Consider KT tape. Assess any compression stocking patient obtains. Ice and IFES to end treatment. Plan of Care Dates Plan of Care Start Date 12/25/23 Plan of Care End Date 03/25/24 Electronically Signed by: Rosalie Weiss, PT 12/25/23 2923 If you are in agreement with this Plan of Care, please return a signed and dated copy. I have reviewed this Plan of Care and certify that the skilled therapy services above are required to meet the patient?s needs. Physician Signature Date Printed Name and Credentials Clinical Instructor Signature Printed Name and Credentials
--- NOTE | 2023-12-28 09:47 | PT.OTN ---
Current Diagnoses Unilateral primary osteoarthritis, left knee (12/28/23) Difficulty in walking, not elsewhere classified (12/28/23) Weakness (12/28/23) Edema, unspecified (12/28/23) Physical Therapy Treatment Note PT-OP-A Visit Information Start: 12/25/23 08:14 Freq: Status: Active Protocol: Document 12/28/23 09:04 SP (Rec: 12/28/23 09:50 SP [id number]) Out-Patient Physical Therapy Visit Information Visit Information Visit Type Treatment Note Visit Start Time 09:04 Visit Stop Time 09:47 Visit Number 2 Number of MANGANESE WHEELER Visits 1 Evaluation Information Evaluation Date 12/25/23 PT-OP-B Current Condition Start: 12/25/23 08:14 Freq: Status: Active Protocol: Document 12/25/23 08:14 SAK (Rec: 12/25/23 08:41 SAK [id number]) Current Condition History of Current Condition Onset Date 1-1 1/2 months ago. Current Complaints jose knee pain, left leg swelling History of Current Condition pain bilateral knees, prior PT right side. History swelling jose LE's left greater than right, left got bad 1 1/2 months ago. Swelling is variable, not sure if gets better when legs elevated. Doesn't wear compression stockings except occasional knee high when travels. No use of assistive device. Trying to walk between 4 -5000 steps per day, slowed some by a-fib. Has trouble getting up and trusting legs when she moves from sit to stand. Hard time getting going, gets a little better when warmed up. Has previously worn brace on right knee. No exercises except walking. Prior Treatments and Tests ultrasound left LE negative x-rays: negative Current Functional Impairments (Reported) Functional Limitations- ADL's painful Functional Limitations- Mobility/Gait painful Functional Limitations- Recreation/ painful Hobbies Personal Factors Other Personal Factors That May Effect PMH: a-fib Therapy/Recovery PT-OP-C Subjective Start: 12/25/23 08:14 Freq: Status: Active Protocol: Document 12/28/23 09:04 SP (Rec: 12/28/23 09:50 SP [id number]) OP-PT Subjective Patient Comments Patient Comments Pt reports has been having Afib now, being followed by physician. She didn't get compression socks yet, didn't know what size. Pt reports forgot to bring her paper exercises and unsure what they were without using HO. MANGANESE WHEELER can't find identification of HEP. She walks nearby streets about 10-12 blocks (close to mile) on a good day, flat portion and slight decline/ incline other direction. She stated going to try and start the suggested eating non inflammatory food. PT-OP-G Mobility & Gait Start: 12/25/23 08:14 Freq: Status: Active Protocol: Document 12/25/23 08:14 SAK (Rec: 12/25/23 16:06 SAK [id number]) OP Mobility Evaluation Transfers Sit to Stand requires UE use Bed to Chair Transfers painful Car Transfers painful Floor Transfers unable Functional Movements Squats painful Running Assessment unable OP Gait Assessment Gait Gait Assistance Required: Independent Assistive Devices Assistive Device None Gait Deviations General Gait Pattern Antalgic,Decreased Stride Length,Decreased Feet Clearance,Wide Based Gait Factors Limiting Gait Function Factors Limiting Gait Function Decreased Strength,Pain Comments Gait Comments excess lateral sway Stair Climbing Evaluation Evaluation Level of Assist On Stairs Independent Devices Stair Climbing Assistive Devices Left Railing,Right Railing Technique/Endurance Stair Climbing Direction Ascend and Descend Stair Climbing Technique Step to Step PT-OP-H Neuro Start: 12/25/23 08:14 Freq: Status: Active Protocol: Document 12/25/23 08:14 SAK (Rec: 12/25/23 16:06 SAK [id number]) Sensation Evaluation Gross Sensation Gross Sensation WNL PT-OP-J Posture/Palpation/Skin Start: 12/25/23 08:14 Freq: Status: Active Protocol: Document 12/28/23 09:04 SP (Rec: 12/31/23 12:35 SP [id number]) Skin Assessment Edema Assessment jose knees left greater than right Edema Type Non-Pitting Edema Degree 1+ Comments Circumferential measurements B Thigh 10 cm superior patella: 62 cm R, 64 cm L PT-OP-K Range of Motion Start: 12/25/23 08:14 Freq: Status: Active Protocol: Document 12/25/23 08:14 SAK (Rec: 12/25/23 16:06 SAK [id number]) Hip Goniometric Range of Motion Hip jose Straight Leg Raise 60 Extension 0 Abduction 20 Internal Rotation 15 External Rotation 55 Knee Goniometric Range of Motion Knee jose Knee ROM WFL Yes Ankle and Foot Goniometric Range of Motion Ankle and Foot jose Ankle/Foot ROM WFL Yes PT-OP-L Special Tests Start: 12/25/23 08:14 Freq: Status: Active Protocol: Document 12/25/23 08:14 SAK (Rec: 12/25/23 09:04 SAK [id number]) Special Tests Knee Special Tests 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 Test Results - Varus- 0 Degrees Test Results - Valgus- 0 Degrees Test Results - Other Special Tests Special Tests circumferential measurements: MTP R 21.7 L 22.2 mid foot R 21.5 L 22.8 ankle R 26.7 L 25.7 mid calf R 43.5 L 43.9 knees R 48.7 L 50.9 10 cm prox patella R 58.2 L 58.8 PT-OP-M Strength Start: 12/25/23 08:14 Freq: Status: Active Protocol: Document 12/25/23 08:14 SAK (Rec: 12/25/23 16:06 SAK [id number]) Hip Strength Hip Manual Muscle Testing jose Flexion (L2) 3+ Fair+ Extension (S1) 3- Fair- Abduction 3+ Fair+ Adduction 4- Good- External Rotation 3+ Fair+ Internal Rotation 4- Good- Knee Strength Knee Manual Muscle Testing jose Flexion (S2) 4 Good Extension (L3) 4 Good Ankle/Foot Strength Ankle and Foot Manual Muscle Testing jose Dorsiflexion (L4) 4 Good Plantarflexion (S1) 4 Good PT-OP-Q Treatments Start: 12/25/23 08:14 Freq: Status: Active Protocol: Document 12/28/23 09:04 SP (Rec: 12/28/23 09:50 SP [id number]) Therapeutic Exercises Supine Exercises APs. Supine Exercise Name reviewed HEP Side bilateral Reps/Minutes x20 Comments assist swelling reduction TA draw in Supine Exercise Name HEP reviewed Reps/Minutes 10SH x5 Comments cued breath Heel slide Supine Exercise Name HEP reviewed Side left Reps/Minutes x10 QS Supine Exercise Name HEP reviewed Side left Equipment Used R knee bent Reps/Minutes 5 SH x10 Comments cued TA/ Neutral pelvis, isometric quad on L Sitting Exercises LAQ Sitting Exercise Name reviewed HEP Side bilateral Reps/Minutes 5 Sh x5 reps Comments no pain Manual Therapy Treatment Taping Ktaping Body Location B knee Treatment Focus patallar stability Type of Tape Kinesio Tape Comments R>L discomfort at times. MANGANESE WHEELER provided med/lat patella glide midline support due to helping in past and if needed will wear her R knee compression brace/sleeve. Self-Care/Home Management Treatment Education Patient Education Safety Other Education Discussion recline & elevate BLEs /c APs and HS to allow circulation return edema mgt. Pt performed in recliner. PT-OP-R Modalities Start: 12/25/23 08:14 Freq: Status: Active Protocol: Document 12/25/23 08:14 SAK (Rec: 12/25/23 16:07 SAK [id number]) Hot Pack/Cold Pack Treatment Cold Pack Location left knee Patient Position Hooklying Patient Tolerance Good PT-OP-T Assessment and Plan Start: 12/25/23 08:14 Freq: Status: Active Protocol: Document 12/28/23 09:04 SP (Rec: 12/28/23 09:50 SP [id number]) Physical Therapy Assessment Goals Four Impairment left LE edema Endodontist Goal (LTG) Decrease edema to no greater than 1 cm difference between right and left LE LTG Duration 03/25/24 Three Impairment impairments in left knee and hip strength and ROM Short Term Goal (STG) Patient to be instructed in HEP for purposes of ROM and strength left LE STG Duration 02/14/24 Endodontist Goal (LTG) Patient to be independent and compliant with HEP and demonstrate ROM WNL and strength to at least 4+/5 left LE LTG Duration 03/25/24 Two Impairment lower extremity functional scale (LEFS) 36% Short Term Goal (STG) Improve LEFS score to at least 55% as measure of improved activity tolerance and left knee function STG Duration 02/14/24 Endodontist Goal (LTG) Improve LEFS score to at least 70% as measure of improved activity tolerance and left knee function LTG Duration 03/25/24 One Impairment pain left knee 5/10 pain scale Short Term Goal (STG) Decrease pain with household activities to no greater than 2/10 STG Duration 02/14/24 Retirement Goal (LTG) Decrease pain with community and outdoor ambulation on level and uneven surfaces to no greater than 2/10 LTG Duration 03/25/24 Assessment Summary Assessment MANGANESE WHEELER reviewed pt's recall of HEP instruction last tx, forgot HOs with no extra copies in clinic to view. Cues for TA draw in fac with neutral pelvic alignment during quad isometrics and AROM heel slides slower pacing with emphasis on swelling reduction. Pt reported no pain throughout ther ex. Discussed to bring all HEP have been given and can review what can start doing again. Physical Therapy Plan Frequency and Duration Frequency of Treatment 2x/Week Duration of treatment (weeks) 12 Plan of Care Start Date 12/25/23 Plan of Care End Date 03/25/24 Therapeutic Interventions Therapeutic Interventions Gait Training,Home Exercise Program,Manual Therapy,Patient /Caregiver Education,Self-Care /Home Management,Soft Tissue Mobilization,Taping, Therapeutic Activities, Therapeutic Exercises Modalities Cold Pack/Ice Massage,Electric Stimulation,Hot Packs, Infrared Therapy,Ultrasound Next Visit Focus/Plan Next Note Type Treatment Note Next Visit Plan Next tx assist pt with what size and strength thigh high compression socks. Pt will bring current HEP and past HOs of what can start reincorporating at this time. POC: REview HEP, gentle progression of LE strengthening and flexibility exercises as tolerated. Consider KT tape. Assess any compression stocking patient obtains. Ice and IFES to end treatment.
--- NOTE | 2024-01-02 11:30 | PT.OTN ---
Current Diagnoses Unilateral primary osteoarthritis, left knee (01/02/24) Difficulty in walking, not elsewhere classified (01/02/24) Weakness (01/02/24) Edema, unspecified (01/02/24) Physical Therapy Treatment Note PT-OP-A Visit Information Start: 12/25/23 08:14 Freq: Status: Active Protocol: Document 01/02/24 09:43 SAK (Rec: 01/02/24 10:32 [facility] [id number]) Out-Patient Physical Therapy Visit Information Visit Information Visit Type Treatment Note Visit Start Time 09:45 Visit Stop Time 10:40 Visit Number 3 Number of PRICE ANALYST Visits 0 Evaluation Information Evaluation Date 12/25/23 Precautions Precautions a-fib PT-OP-B Current Condition Start: 12/25/23 08:14 Freq: Status: Active Protocol: Document 01/02/24 09:43 SAK (Rec: 01/02/24 10:32 SAK [id number]) Current Condition History of Current Condition Onset Date 1-1 1/2 months ago. Current Complaints jose knee pain, left leg swelling History of Current Condition pain bilateral knees, prior PT right side. History swelling jose LE's left greater than right, left got bad 1 1/2 months ago. Swelling is variable, not sure if gets better when legs elevated. Doesn't wear compression stockings except occasional knee high when travels. No use of assistive device. Trying to walk between 4 -5000 steps per day, slowed some by a-fib. Has trouble getting up and trusting legs when she moves from sit to stand. Hard time getting going, gets a little better when warmed up. Has previously worn brace on right knee. No exercises except walking. Prior Treatments and Tests ultrasound left LE negative x-rays: negative PT-OP-C Subjective Start: 12/25/23 08:14 Freq: Status: Active Protocol: Document 01/02/24 09:43 SAK (Rec: 01/02/24 10:32 [facility] [id number]) OP-PT Subjective Patient Comments Patient Comments Thinks swelling going down some, trying to eat differently (exploring anti- inflammatory diet.) . No pain with HEP. KT tape helpful. Brought written HEP PT-OP-G Mobility & Gait Start: 12/25/23 08:14 Freq: Status: Active Protocol: Document 12/25/23 08:14 SAK (Rec: 12/25/23 16:06 SAK [id number]) OP Mobility Evaluation Transfers Sit to Stand requires UE use Bed to Chair Transfers painful Car Transfers painful Floor Transfers unable Functional Movements Squats painful Running Assessment unable OP Gait Assessment Gait Gait Assistance Required: Independent Assistive Devices Assistive Device None Gait Deviations General Gait Pattern Antalgic,Decreased Stride Length,Decreased Feet Clearance,Wide Based Gait Factors Limiting Gait Function Factors Limiting Gait Function Decreased Strength,Pain Comments Gait Comments excess lateral sway Stair Climbing Evaluation Evaluation Level of Assist On Stairs Independent Devices Stair Climbing Assistive Devices Left Railing,Right Railing Technique/Endurance Stair Climbing Direction Ascend and Descend Stair Climbing Technique Step to Step PT-OP-H Neuro Start: 12/25/23 08:14 Freq: Status: Active Protocol: Document 12/25/23 08:14 SAK (Rec: 12/25/23 16:06 SAK [id number]) Sensation Evaluation Gross Sensation Gross Sensation WNL PT-OP-J Posture/Palpation/Skin Start: 12/25/23 08:14 Freq: Status: Active Protocol: Document 12/28/23 09:04 SP (Rec: 12/31/23 12:35 SP [id number]) Skin Assessment Edema Assessment jose knees left greater than right Edema Type Non-Pitting Edema Degree 1+ Comments Circumferential measurements B Thigh 10 cm superior patella: 62 cm R, 64 cm L PT-OP-K Range of Motion Start: 12/25/23 08:14 Freq: Status: Active Protocol: Document 12/25/23 08:14 SAK (Rec: 12/25/23 16:06 SAK [id number]) Hip Goniometric Range of Motion Hip jose Straight Leg Raise 60 Extension 0 Abduction 20 Internal Rotation 15 External Rotation 55 Knee Goniometric Range of Motion Knee jose Knee ROM WFL Yes Ankle and Foot Goniometric Range of Motion Ankle and Foot jose Ankle/Foot ROM WFL Yes PT-OP-L Special Tests Start: 12/25/23 08:14 Freq: Status: Active Protocol: Document 12/25/23 08:14 SAK (Rec: 12/25/23 09:04 SAK [id number]) Special Tests Knee Special Tests 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 Test Results - Varus- 0 Degrees Test Results - Valgus- 0 Degrees Test Results - Other Special Tests Special Tests circumferential measurements: MTP R 21.7 L 22.2 mid foot R 21.5 L 22.8 ankle R 26.7 L 25.7 mid calf R 43.5 L 43.9 knees R 48.7 L 50.9 10 cm prox patella R 58.2 L 58.8 PT-OP-M Strength Start: 12/25/23 08:14 Freq: Status: Active Protocol: Document 12/25/23 08:14 [facility] (Rec: 12/25/23 16:06 [facility] [id number]) Hip Strength Hip Manual Muscle Testing jose Flexion (L2) 3+ Fair+ Extension (S1) 3- Fair- Abduction 3+ Fair+ Adduction 4- Good- External Rotation 3+ Fair+ Internal Rotation 4- Good- Knee Strength Knee Manual Muscle Testing jose Flexion (S2) 4 Good Extension (L3) 4 Good Ankle/Foot Strength Ankle and Foot Manual Muscle Testing jose Dorsiflexion (L4) 4 Good Plantarflexion (S1) 4 Good PT-OP-Q Treatments Start: 12/25/23 08:14 Freq: Status: Active Protocol: Document 01/02/24 09:43 [facility] (Rec: 01/02/24 10:32 [facility] [id number]) Cardio Equipment Recumbent Stepper (Sci-Fit) Duration (Minutes) 7 Resistance 1 Seat Position 13 Therapeutic Exercises Supine Exercises SAQ Reps/Minutes 10x5 APs. Supine Exercise Name HEP TA draw in Supine Exercise Name HEP reviewed Reps/Minutes 10SH x5 Comments cued breath QS Supine Exercise Name HEP reviewed Side left Equipment Used R knee bent Reps/Minutes 5 SH x10 Comments cued TA/ Neutral pelvis, isometric quad on L Sitting Exercises ball squeeze Resistance green ball Reps/Minutes 10x5 seated clam Resistance L1 TB Reps/Minutes 10x5 Standing Exercises resisted sidestepping Reps/Minutes 10 ft x 2 heel raises Equipment Used step Reps/Minutes 10x Manual Therapy Treatment Taping Ktaping Body Location B knee Treatment Focus patallar stability Type of Tape Kinesio Tape Comments R>L discomfort at times. PT provided med/lat patella glide midline support due to helping in past and if needed will wear her R knee compression brace/sleeve. Self-Care/Home Management Treatment Education Patient Education Home Exercise Program Other Education updated written HEP consolidating new and prior HEP PT-OP-R Modalities Start: 12/25/23 08:14 Freq: Status: Active Protocol: Document 12/25/23 08:14 AMANDEEP (Rec: 12/25/23 16:07 SAK [id number]) Hot Pack/Cold Pack Treatment Cold Pack Location left knee Patient Position Hooklying Patient Tolerance Good PT-OP-T Assessment and Plan Start: 12/25/23 08:14 Freq: Status: Active Protocol: Document 01/02/24 09:43 SAK (Rec: 01/02/24 10:32 SAK [id number]) Physical Therapy Assessment Goals Four Impairment left LE edema Boat Rental Clerk Goal (LTG) Decrease edema to no greater than 1 cm difference between right and left LE LTG Duration 03/25/24 Three Impairment impairments in left knee and hip strength and ROM Short Term Goal (STG) Patient to be instructed in HEP for purposes of ROM and strength left LE STG Duration 02/14/24 Intermediate Goal (LTG) Patient to be independent and compliant with HEP and demonstrate ROM WNL and strength to at least 4+/5 left LE LTG Duration 03/25/24 Two Impairment lower extremity functional scale (LEFS) 36% Short Term Goal (STG) Improve LEFS score to at least 55% as measure of improved activity tolerance and left knee function STG Duration 02/14/24 Intermediate Goal (LTG) Improve LEFS score to at least 70% as measure of improved activity tolerance and left knee function LTG Duration 03/25/24 One Impairment pain left knee 5/10 pain scale Short Term Goal (STG) Decrease pain with household activities to no greater than 2/10 STG Duration 02/14/24 Boat Rental Clerk Goal (LTG) Decrease pain with community and outdoor ambulation on level and uneven surfaces to no greater than 2/10 LTG Duration 03/25/24 Progress Towards Goals Progress Towards Goals Progressing Toward Goals Assessment Summary Assessment At end of session pt asking questions about compression stockings, will need to take measurements and discuss type of compression garment; thigh his vs pantyhose style and compression level (recommend 20-30 mm Hg). Good tolerance for ther ex, improved gait noted when walking between areas of gym. Physical Therapy Plan Frequency and Duration Frequency of Treatment 2x/Week Duration of treatment (weeks) 12 Plan of Care Start Date 12/25/23 Plan of Care End Date 03/25/24 Therapeutic Interventions Therapeutic Interventions Gait Training,Home Exercise Program,Manual Therapy,Patient /Caregiver Education,Self-Care /Home Management,Soft Tissue Mobilization,Taping, Therapeutic Activities, Therapeutic Exercises Modalities Cold Pack/Ice Massage,Electric Stimulation,Hot Packs, Infrared Therapy,Ultrasound Next Visit Focus/Plan Next Note Type Treatment Note Next Visit Plan Take measurements for compression stockings. Continue therapeutic exercise progression for strengthening and ROM jose LE's; try SLR, sidelying hip ab, chair squats
--- NOTE | 2024-01-04 09:43 | PT.OTN ---
Current Diagnoses Unilateral primary osteoarthritis, left knee (01/04/24) Difficulty in walking, not elsewhere classified (01/04/24) Weakness (01/04/24) Edema, unspecified (01/04/24) Physical Therapy Treatment Note PT-OP-A Visit Information Start: 12/25/23 08:14 Freq: Status: Active Protocol: Document 01/04/24 09:03 SP (Rec: 01/04/24 09:48 SP [id number]) Out-Patient Physical Therapy Visit Information Visit Information Visit Type Treatment Note Visit Start Time 09:03 Visit Stop Time 09:43 Visit Number 4 Number of BUSINESS SERVICES DIRECTOR Visits 1 Evaluation Information Evaluation Date 12/25/23 Precautions Precautions a-fib PT-OP-B Current Condition Start: 12/25/23 08:14 Freq: Status: Active Protocol: Document 01/02/24 09:43 SAK (Rec: 01/02/24 10:32 SAK [id number]) Current Condition History of Current Condition Onset Date 1-1 1/2 months ago. Current Complaints jose knee pain, left leg swelling History of Current Condition pain bilateral knees, prior PT right side. History swelling jose LE's left greater than right, left got bad 1 1/2 months ago. Swelling is variable, not sure if gets better when legs elevated. Doesn't wear compression stockings except occasional knee high when travels. No use of assistive device. Trying to walk between 4 -5000 steps per day, slowed some by a-fib. Has trouble getting up and trusting legs when she moves from sit to stand. Hard time getting going, gets a little better when warmed up. Has previously worn brace on right knee. No exercises except walking. Prior Treatments and Tests ultrasound left LE negative x-rays: negative PT-OP-C Subjective Start: 12/25/23 08:14 Freq: Status: Active Protocol: Document 01/04/24 09:03 SP (Rec: 01/04/24 09:48 SP [id number]) OP-PT Subjective Patient Comments Patient Comments Pt reports felt good after tx. She arrives with mask donned, family not feeling well but she is doing ok, feeling fine. PT-OP-G Mobility & Gait Start: 12/25/23 08:14 Freq: Status: Active Protocol: Document 12/25/23 08:14 SAK (Rec: 12/25/23 16:06 SAK [id number]) OP Mobility Evaluation Transfers Sit to Stand requires UE use Bed to Chair Transfers painful Car Transfers painful Floor Transfers unable Functional Movements Squats painful Running Assessment unable OP Gait Assessment Gait Gait Assistance Required: Independent Assistive Devices Assistive Device None Gait Deviations General Gait Pattern Antalgic,Decreased Stride Length,Decreased Feet Clearance,Wide Based Gait Factors Limiting Gait Function Factors Limiting Gait Function Decreased Strength,Pain Comments Gait Comments excess lateral sway Stair Climbing Evaluation Evaluation Level of Assist On Stairs Independent Devices Stair Climbing Assistive Devices Left Railing,Right Railing Technique/Endurance Stair Climbing Direction Ascend and Descend Stair Climbing Technique Step to Step PT-OP-H Neuro Start: 12/25/23 08:14 Freq: Status: Active Protocol: Document 12/25/23 08:14 SAK (Rec: 12/25/23 16:06 SAK [id number]) Sensation Evaluation Gross Sensation Gross Sensation WNL PT-OP-J Posture/Palpation/Skin Start: 12/25/23 08:14 Freq: Status: Active Protocol: Document 12/28/23 09:04 SP (Rec: 12/31/23 12:35 SP [id number]) Skin Assessment Edema Assessment jose knees left greater than right Edema Type Non-Pitting Edema Degree 1+ Comments Circumferential measurements B Thigh 10 cm superior patella: 62 cm R, 64 cm L PT-OP-K Range of Motion Start: 12/25/23 08:14 Freq: Status: Active Protocol: Document 12/25/23 08:14 SAK (Rec: 12/25/23 16:06 SAK [id number]) Hip Goniometric Range of Motion Hip jose Straight Leg Raise 60 Extension 0 Abduction 20 Internal Rotation 15 External Rotation 55 Knee Goniometric Range of Motion Knee jose Knee ROM WFL Yes Ankle and Foot Goniometric Range of Motion Ankle and Foot jose Ankle/Foot ROM WFL Yes PT-OP-L Special Tests Start: 12/25/23 08:14 Freq: Status: Active Protocol: Document 12/25/23 08:14 SAK (Rec: 12/25/23 09:04 SAK [id number]) Special Tests Knee Special Tests 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 Test Results - Varus- 0 Degrees Test Results - Valgus- 0 Degrees Test Results - Other Special Tests Special Tests circumferential measurements: MTP R 21.7 L 22.2 mid foot R 21.5 L 22.8 ankle R 26.7 L 25.7 mid calf R 43.5 L 43.9 knees R 48.7 L 50.9 10 cm prox patella R 58.2 L 58.8 PT-OP-M Strength Start: 12/25/23 08:14 Freq: Status: Active Protocol: Document 12/25/23 08:14 SAK (Rec: 12/25/23 16:06 SAK [id number]) Hip Strength Hip Manual Muscle Testing jose Flexion (L2) 3+ Fair+ Extension (S1) 3- Fair- Abduction 3+ Fair+ Adduction 4- Good- External Rotation 3+ Fair+ Internal Rotation 4- Good- Knee Strength Knee Manual Muscle Testing jose Flexion (S2) 4 Good Extension (L3) 4 Good Ankle/Foot Strength Ankle and Foot Manual Muscle Testing jose Dorsiflexion (L4) 4 Good Plantarflexion (S1) 4 Good PT-OP-Q Treatments Start: 12/25/23 08:14 Freq: Status: Active Protocol: Document 01/04/24 09:03 SP (Rec: 01/04/24 09:48 SP [id number]) Cardio Equipment Recumbent Stepper (Sci-Fit) Duration (Minutes) 8 Resistance 1.5 Seat Position 13 Other LEs only- 0.89 m joão Therapeutic Exercises Supine Exercises SAQ Supine Exercise Name HEP reviewed Side left Equipment Used LEs over foam roller Reps/Minutes 10x5 Comments good quad tirng reported TA draw in Supine Exercise Name HEP reviewed Reps/Minutes 10SH x5 Comments cued breath Heel slide Supine Exercise Name HEP reviewed- heel dig pull back Side left Resistance isometric Reps/Minutes 5 SH x10 Comments pnfree Sitting Exercises seated clam Sitting Exercise Name HEP reviewed Side bilateral Resistance L>2 TB at thighs Reps/Minutes 10x5 Comments cued set up/provided tied band for self application home carryover easier LAQ Sitting Exercise Name reviewed HEP Side bilateral Resistance AROM x10> TB #2 loop at ankles Reps/Minutes 5 Sh x5 reps (HO states 5-10 reps can progress to) Comments no pain reported, quad tiring Standing Exercises resisted sidestepping Standing Exercise Name HEP reviewed Resistance AROM Equipment Used near rail- not need contact Reps/Minutes 10 ft x 2 Comments pnfree heel raises Standing Exercise Name HR & TR Side bilateral Resistance AROM Equipment Used bottom step, light contact rail (doorframe home) Reps/Minutes 15 reps Comments pnfree reports Manual Therapy Treatment Taping Ktaping Body Location B knee Treatment Focus patallar stability Type of Tape Kinesio Tape Comments L>R discomfort at times. PT provided med/lat patella glide midline support due to helping in past and if needed will wear her R knee compression brace/sleeve. PT-OP-R Modalities Start: 12/25/23 08:14 Freq: Status: Active Protocol: Document 12/25/23 08:14 SAK (Rec: 12/25/23 16:07 SAK [id number]) Hot Pack/Cold Pack Treatment Cold Pack Location left knee Patient Position Hooklying Patient Tolerance Good PT-OP-T Assessment and Plan Start: 12/25/23 08:14 Freq: Status: Active Protocol: Document 01/04/24 09:03 SP (Rec: 01/04/24 09:48 SP [id number]) Physical Therapy Assessment Goals Four Impairment left LE edema Planer Hand Goal (LTG) Decrease edema to no greater than 1 cm difference between right and left LE LTG Duration 03/25/24 Three Impairment impairments in left knee and hip strength and ROM Short Term Goal (STG) Patient to be instructed in HEP for purposes of ROM and strength left LE STG Duration 02/14/24 Mcc Goal (LTG) Patient to be independent and compliant with HEP and demonstrate ROM WNL and strength to at least 4+/5 left LE LTG Duration 03/25/24 Two Impairment lower extremity functional scale (LEFS) 36% Short Term Goal (STG) Improve LEFS score to at least 55% as measure of improved activity tolerance and left knee function STG Duration 02/14/24 Mcc Goal (LTG) Improve LEFS score to at least 70% as measure of improved activity tolerance and left knee function LTG Duration 03/25/24 One Impairment pain left knee 5/10 pain scale Short Term Goal (STG) Decrease pain with household activities to no greater than 2/10 STG Duration 02/14/24 Mcc Goal (LTG) Decrease pain with community and outdoor ambulation on level and uneven surfaces to no greater than 2/10 LTG Duration 03/25/24 Assessment Summary Assessment Pt responded well to ther ex. Tolerated added resistance to LAQ with only quad tiring no pain. Occasional cues for set up HEP as needed. BUSINESS SERVICES DIRECTOR retaped B knees for patella stabiltiy, for comfort support response provides pt. Physical Therapy Plan Frequency and Duration Frequency of Treatment 2x/Week Duration of treatment (weeks) 12 Plan of Care Start Date 12/25/23 Plan of Care End Date 03/25/24 Therapeutic Interventions Therapeutic Interventions Gait Training,Home Exercise Program,Manual Therapy,Patient /Caregiver Education,Self-Care /Home Management,Soft Tissue Mobilization,Taping, Therapeutic Activities, Therapeutic Exercises Modalities Cold Pack/Ice Massage,Electric Stimulation,Hot Packs, Infrared Therapy,Ultrasound Next Visit Focus/Plan Next Note Type Treatment Note Next Visit Plan Take measurements for compression stockings. Continue therapeutic exercise progression for strengthening and ROM jose LE's; try SLR, sidelying hip ab, chair squats
--- NOTE | 2024-01-08 09:46 | PT.OTN ---
Current Diagnoses Unilateral primary osteoarthritis, left knee (01/08/24) Difficulty in walking, not elsewhere classified (01/08/24) Weakness (01/08/24) Edema, unspecified (01/08/24) Physical Therapy Treatment Note PT-OP-A Visit Information Start: 12/25/23 08:14 Freq: Status: Active Protocol: Document 01/08/24 09:05 SP (Rec: 01/08/24 09:51 SP [id number]) Out-Patient Physical Therapy Visit Information Visit Information Visit Type Treatment Note Visit Start Time 09:01 Visit Stop Time 09:46 Visit Number 5 Number of TREE EXPERT Visits 2 Evaluation Information Evaluation Date 12/25/23 Precautions Precautions a-fib PT-OP-B Current Condition Start: 12/25/23 08:14 Freq: Status: Active Protocol: Document 01/02/24 09:43 SAK (Rec: 01/02/24 10:32 SAK [id number]) Current Condition History of Current Condition Onset Date 1-1 1/2 months ago. Current Complaints jose knee pain, left leg swelling History of Current Condition pain bilateral knees, prior PT right side. History swelling jose LE's left greater than right, left got bad 1 1/2 months ago. Swelling is variable, not sure if gets better when legs elevated. Doesn't wear compression stockings except occasional knee high when travels. No use of assistive device. Trying to walk between 4 -5000 steps per day, slowed some by a-fib. Has trouble getting up and trusting legs when she moves from sit to stand. Hard time getting going, gets a little better when warmed up. Has previously worn brace on right knee. No exercises except walking. Prior Treatments and Tests ultrasound left LE negative x-rays: negative PT-OP-C Subjective Start: 12/25/23 08:14 Freq: Status: Active Protocol: Document 01/08/24 09:05 SP (Rec: 01/08/24 09:51 SP [id number]) OP-PT Subjective Patient Comments Patient Comments Pt reports she was little sore after last tx. She did a short walk A- [place] (2 blocks) helped. PT-OP-G Mobility & Gait Start: 12/25/23 08:14 Freq: Status: Active Protocol: Document 12/25/23 08:14 SAK (Rec: 12/25/23 16:06 SAK [id number]) OP Mobility Evaluation Transfers Sit to Stand requires UE use Bed to Chair Transfers painful Car Transfers painful Floor Transfers unable Functional Movements Squats painful Running Assessment unable OP Gait Assessment Gait Gait Assistance Required: Independent Assistive Devices Assistive Device None Gait Deviations General Gait Pattern Antalgic,Decreased Stride Length,Decreased Feet Clearance,Wide Based Gait Factors Limiting Gait Function Factors Limiting Gait Function Decreased Strength,Pain Comments Gait Comments excess lateral sway Stair Climbing Evaluation Evaluation Level of Assist On Stairs Independent Devices Stair Climbing Assistive Devices Left Railing,Right Railing Technique/Endurance Stair Climbing Direction Ascend and Descend Stair Climbing Technique Step to Step PT-OP-H Neuro Start: 12/25/23 08:14 Freq: Status: Active Protocol: Document 12/25/23 08:14 SAK (Rec: 12/25/23 16:06 [facility] [id number]) Sensation Evaluation Gross Sensation Gross Sensation WNL PT-OP-J Posture/Palpation/Skin Start: 12/25/23 08:14 Freq: Status: Active Protocol: Document 01/08/24 09:05 SP (Rec: 01/08/24 09:51 SP [id number]) Skin Assessment Edema Assessment jose knees left greater than right Edema Type Non-Pitting Comments Circumferential measurements BLEs: (13cm inferior patella calf) 44.5cm L, 43.5 cm R (Mid Patella): 51 cm L, 49.5 cm R (15cm above patella): 65.5cm L, 64 cm R (Base MTP): 21.6cm L, 21.5cm (mid foot): 23cm L, 22.5cm R PT-OP-K Range of Motion Start: 12/25/23 08:14 Freq: Status: Active Protocol: Document 12/25/23 08:14 SAK (Rec: 12/25/23 16:06 SAK [id number]) Hip Goniometric Range of Motion Hip jose Straight Leg Raise 60 Extension 0 Abduction 20 Internal Rotation 15 External Rotation 55 Knee Goniometric Range of Motion Knee jose Knee ROM WFL Yes Ankle and Foot Goniometric Range of Motion Ankle and Foot jose Ankle/Foot ROM WFL Yes PT-OP-L Special Tests Start: 12/25/23 08:14 Freq: Status: Active Protocol: Document 12/25/23 08:14 SAK (Rec: 12/25/23 09:04 SAK [id number]) Special Tests Knee Special Tests 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 Test Results - Varus- 0 Degrees Test Results - Valgus- 0 Degrees Test Results - Other Special Tests Special Tests circumferential measurements: MTP R 21.7 L 22.2 mid foot R 21.5 L 22.8 ankle R 26.7 L 25.7 mid calf R 43.5 L 43.9 knees R 48.7 L 50.9 10 cm prox patella R 58.2 L 58.8 PT-OP-M Strength Start: 12/25/23 08:14 Freq: Status: Active Protocol: Document 12/25/23 08:14 SAK (Rec: 12/25/23 16:06 SAK [id number]) Hip Strength Hip Manual Muscle Testing jose Flexion (L2) 3+ Fair+ Extension (S1) 3- Fair- Abduction 3+ Fair+ Adduction 4- Good- External Rotation 3+ Fair+ Internal Rotation 4- Good- Knee Strength Knee Manual Muscle Testing jose Flexion (S2) 4 Good Extension (L3) 4 Good Ankle/Foot Strength Ankle and Foot Manual Muscle Testing jose Dorsiflexion (L4) 4 Good Plantarflexion (S1) 4 Good PT-OP-Q Treatments Start: 12/25/23 08:14 Freq: Status: Active Protocol: Document 01/08/24 09:05 SP (Rec: 01/08/24 09:51 SP [id number]) Cardio Equipment Recumbent Bicycle Duration (Minutes) 6 Resistance 4>3 Seat Position 8 Therapeutic Exercises Supine Exercises SLR Supine Exercise Name trialed in PT, added to HEP, written on HO Side bilateral Resistance AROM Reps/Minutes x10 Comments improved TKE, pnfree through range Heel slide Supine Exercise Name HEP reviewed- heel dig pull back Side left Resistance isometric Reps/Minutes 5 SH x10 Comments pnfree, cued neutral ankle range not over recruit calf cramp- improved HS Sidelying Exercises abduction Sidelying Exercise Name trialed in PT for HEP add future appt Side bilateral Resistance focus is L Reps/Minutes x10 Comments cued stacked on side PT-OP-R Modalities Start: 12/25/23 08:14 Freq: Status: Active Protocol: Document 12/25/23 08:14 SAK (Rec: 12/25/23 16:07 SAK [id number]) Hot Pack/Cold Pack Treatment Cold Pack Location left knee Patient Position Hooklying Patient Tolerance Good PT-OP-T Assessment and Plan Start: 12/25/23 08:14 Freq: Status: Active Protocol: Document 01/08/24 09:05 SP (Rec: 01/08/24 09:51 SP [id number]) Physical Therapy Assessment Goals Four Impairment left LE edema Quality Facilitator Goal (LTG) Decrease edema to no greater than 1 cm difference between right and left LE LTG Duration 03/25/24 Three Impairment impairments in left knee and hip strength and ROM Short Term Goal (STG) Patient to be instructed in HEP for purposes of ROM and strength left LE STG Duration 02/14/24 Quality Facilitator Goal (LTG) Patient to be independent and compliant with HEP and demonstrate ROM WNL and strength to at least 4+/5 left LE LTG Duration 03/25/24 Two Impairment lower extremity functional scale (LEFS) 36% Short Term Goal (STG) Improve LEFS score to at least 55% as measure of improved activity tolerance and left knee function STG Duration 02/14/24 Quality Facilitator Goal (LTG) Improve LEFS score to at least 70% as measure of improved activity tolerance and left knee function LTG Duration 03/25/24 One Impairment pain left knee 5/10 pain scale Short Term Goal (STG) Decrease pain with household activities to no greater than 2/10 STG Duration 02/14/24 Quality Facilitator Goal (LTG) Decrease pain with community and outdoor ambulation on level and uneven surfaces to no greater than 2/10 LTG Duration 03/25/24 Assessment Summary Assessment Pt no pain during ther ex review. PRogressed added SLR supine and side during tx with no adverse affects, reports quad/thigh tiring. REmeasured BLE circumferance for allowance order thigh compression socks, forgot last tx. Provided pt word doc with measurements for ordering. Physical Therapy Plan Frequency and Duration Frequency of Treatment 2x/Week Duration of treatment (weeks) 12 Plan of Care Start Date 12/25/23 Plan of Care End Date 03/25/24 Therapeutic Interventions Therapeutic Interventions Gait Training,Home Exercise Program,Manual Therapy,Patient /Caregiver Education,Self-Care /Home Management,Soft Tissue Mobilization,Taping, Therapeutic Activities, Therapeutic Exercises Modalities Cold Pack/Ice Massage,Electric Stimulation,Hot Packs, Infrared Therapy,Ultrasound Next Visit Focus/Plan Next Note Type Treatment Note Next Visit Plan Look at appts and add follow up with PT end scheduled appts . Continue therapeutic exercise progression for strengthening and ROM jose LE's; try SLR, sidelying hip ab, chair squats
--- NOTE | 2024-01-10 11:52 | PT.OTN ---
Current Diagnoses Unilateral primary osteoarthritis, left knee (01/10/24) Difficulty in walking, not elsewhere classified (01/10/24) Weakness (01/10/24) Edema, unspecified (01/10/24) Physical Therapy Treatment Note PT-OP-A Visit Information Start: 12/25/23 08:14 Freq: Status: Active Protocol: Document 01/10/24 09:51 SAK (Rec: 01/10/24 10:39 [facility] [id number]) Out-Patient Physical Therapy Visit Information Visit Information Visit Type Treatment Note Visit Start Time 09:50 Visit Stop Time 09:46 Visit Number 6 Number of CONING MACHINE OPERATOR Visits 0 PT-OP-B Current Condition Start: 12/25/23 08:14 Freq: Status: Active Protocol: Document 01/02/24 09:43 SAK (Rec: 01/02/24 10:32 SAK [id number]) Current Condition History of Current Condition Onset Date 1-1 1/2 months ago. Current Complaints jose knee pain, left leg swelling History of Current Condition pain bilateral knees, prior PT right side. History swelling jose LE's left greater than right, left got bad 1 1/2 months ago. Swelling is variable, not sure if gets better when legs elevated. Doesn't wear compression stockings except occasional knee high when travels. No use of assistive device. Trying to walk between 4 -5000 steps per day, slowed some by a-fib. Has trouble getting up and trusting legs when she moves from sit to stand. Hard time getting going, gets a little better when warmed up. Has previously worn brace on right knee. No exercises except walking. Prior Treatments and Tests ultrasound left LE negative x-rays: negative PT-OP-C Subjective Start: 12/25/23 08:14 Freq: Status: Active Protocol: Document 01/10/24 09:51 SAK (Rec: 01/10/24 10:39 [facility] [id number]) OP-PT Subjective Patient Comments Patient Comments A little stiff and sore PT-OP-G Mobility & Gait Start: 12/25/23 08:14 Freq: Status: Active Protocol: Document 12/25/23 08:14 SAK (Rec: 12/25/23 16:06 SAK [id number]) OP Mobility Evaluation Transfers Sit to Stand requires UE use Bed to Chair Transfers painful Car Transfers painful Floor Transfers unable Functional Movements Squats painful Running Assessment unable OP Gait Assessment Gait Gait Assistance Required: Independent Assistive Devices Assistive Device None Gait Deviations General Gait Pattern Antalgic,Decreased Stride Length,Decreased Feet Clearance,Wide Based Gait Factors Limiting Gait Function Factors Limiting Gait Function Decreased Strength,Pain Comments Gait Comments excess lateral sway Stair Climbing Evaluation Evaluation Level of Assist On Stairs Independent Devices Stair Climbing Assistive Devices Left Railing,Right Railing Technique/Endurance Stair Climbing Direction Ascend and Descend Stair Climbing Technique Step to Step PT-OP-H Neuro Start: 12/25/23 08:14 Freq: Status: Active Protocol: Document 12/25/23 08:14 SAK (Rec: 12/25/23 16:06 SAK [id number]) Sensation Evaluation Gross Sensation Gross Sensation WNL PT-OP-J Posture/Palpation/Skin Start: 12/25/23 08:14 Freq: Status: Active Protocol: Document 01/08/24 09:05 SP (Rec: 01/08/24 09:51 SP [id number]) Skin Assessment Edema Assessment jose knees left greater than right Edema Type Non-Pitting Comments Circumferential measurements BLEs: (13cm inferior patella calf) 44.5cm L, 43.5 cm R (Mid Patella): 51 cm L, 49.5 cm R (15cm above patella): 65.5cm L, 64 cm R (Base MTP): 21.6cm L, 21.5cm (mid foot): 23cm L, 22.5cm R PT-OP-K Range of Motion Start: 12/25/23 08:14 Freq: Status: Active Protocol: Document 12/25/23 08:14 SAK (Rec: 12/25/23 16:06 SAK [id number]) Hip Goniometric Range of Motion Hip jose Straight Leg Raise 60 Extension 0 Abduction 20 Internal Rotation 15 External Rotation 55 Knee Goniometric Range of Motion Knee jose Knee ROM WFL Yes Ankle and Foot Goniometric Range of Motion Ankle and Foot jose Ankle/Foot ROM WFL Yes PT-OP-L Special Tests Start: 12/25/23 08:14 Freq: Status: Active Protocol: Document 12/25/23 08:14 SAK (Rec: 12/25/23 09:04 SAK [id number]) Special Tests Knee Special Tests 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 Test Results - Varus- 0 Degrees Test Results - Valgus- 0 Degrees Test Results - Other Special Tests Special Tests circumferential measurements: MTP R 21.7 L 22.2 mid foot R 21.5 L 22.8 ankle R 26.7 L 25.7 mid calf R 43.5 L 43.9 knees R 48.7 L 50.9 10 cm prox patella R 58.2 L 58.8 PT-OP-M Strength Start: 12/25/23 08:14 Freq: Status: Active Protocol: Document 12/25/23 08:14 [facility] (Rec: 12/25/23 16:06 [facility] [id number]) Hip Strength Hip Manual Muscle Testing jose Flexion (L2) 3+ Fair+ Extension (S1) 3- Fair- Abduction 3+ Fair+ Adduction 4- Good- External Rotation 3+ Fair+ Internal Rotation 4- Good- Knee Strength Knee Manual Muscle Testing jose Flexion (S2) 4 Good Extension (L3) 4 Good Ankle/Foot Strength Ankle and Foot Manual Muscle Testing jose Dorsiflexion (L4) 4 Good Plantarflexion (S1) 4 Good PT-OP-Q Treatments Start: 12/25/23 08:14 Freq: Status: Active Protocol: Document 01/10/24 09:51 [facility] (Rec: 01/10/24 10:39 [facility] [id number]) Cardio Equipment Recumbent Bicycle Duration (Minutes) 7 Resistance 2-3 Seat Position 8 Gym Equipment Shuttle Recovery Unilateral Squats Details alternate LE, cued knee alignment Resistance 37# Shuttle Recovery Platform Stable Reps/Time x12 Bilateral Squats Details cued knee alignment Resistance 75# Shuttle Recovery Platform Stable Reps/Time 2x20 Therapeutic Exercises Supine Exercises SLR Supine Exercise Name revoew Side bilateral Resistance AROM Reps/Minutes x10 Comments improved TKE, pnfree through range Sidelying Exercises abduction Sidelying Exercise Name HEP review Side bilateral Resistance focus is L Equipment Used yoga mat on top of table Reps/Minutes x10 Comments cued stacked on side Standing Exercises hamstring curl Reps/Minutes 10x Comments cues for parallel thighs gastroc stretch Reps/Minutes 2x30 heel raises Standing Exercise Name HR & TR Side bilateral Resistance AROM Equipment Used light contact rail Reps/Minutes 15 reps Comments pnfree reports Manual Therapy Treatment Taping Ktaping Body Location B knee Treatment Focus patallar stability, edema reduction Type of Tape Kinesio Tape Comments Y strip with base medial knee with tails 50-75% stretch sup and inf pattella to lateral patella. 2 fan strips ant, med, lat right knee to decrease edema PT-OP-R Modalities Start: 12/25/23 08:14 Freq: Status: Active Protocol: Document 01/10/24 09:51 [facility] (Rec: 01/10/24 10:39 [facility] [id number]) Electric Stimulation Electric Stimulation Interferential Current (IFC) Body Location right knee Intensity 14 Target/Sweep Sweep Patient Position Hooklying Combined With Heat/Cold Cold Pack PT-OP-T Assessment and Plan Start: 12/25/23 08:14 Freq: Status: Active Protocol: Document 01/10/24 09:51 [facility] (Rec: 01/10/24 10:39 [facility] [id number]) Physical Therapy Assessment Goals Four Impairment left LE edema Exercise Rider Goal (LTG) Decrease edema to no greater than 1 cm difference between right and left LE LTG Duration 03/25/24 Three Impairment impairments in left knee and hip strength and ROM Short Term Goal (STG) Patient to be instructed in HEP for purposes of ROM and strength left LE STG Duration 02/14/24 Halfway Goal (LTG) Patient to be independent and compliant with HEP and demonstrate ROM WNL and strength to at least 4+/5 left LE LTG Duration 03/25/24 Two Impairment lower extremity functional scale (LEFS) 36% Short Term Goal (STG) Improve LEFS score to at least 55% as measure of improved activity tolerance and left knee function STG Duration 02/14/24 Halfway Goal (LTG) Improve LEFS score to at least 70% as measure of improved activity tolerance and left knee function LTG Duration 03/25/24 One Impairment pain left knee 5/10 pain scale Short Term Goal (STG) Decrease pain with household activities to no greater than 2/10 STG Duration 02/14/24 Halfway Goal (LTG) Decrease pain with community and outdoor ambulation on level and uneven surfaces to no greater than 2/10 LTG Duration 03/25/24 Physical Therapy Plan Therapeutic Interventions Therapeutic Interventions Gait Training,Home Exercise Program,Manual Therapy,Patient /Caregiver Education,Self-Care /Home Management,Soft Tissue Mobilization,Taping, Therapeutic Activities, Therapeutic Exercises Modalities Cold Pack/Ice Massage,Electric Stimulation,Hot Packs, Infrared Therapy,Ultrasound Next Visit Focus/Plan Next Note Type Treatment Note Next Visit Plan Trial shallow chair squats, short lunges, sport cord as tolerated.
--- NOTE | 2024-01-15 12:55 | PT.OTN ---
Current Diagnoses Unilateral primary osteoarthritis, left knee (01/15/24) Difficulty in walking, not elsewhere classified (01/15/24) Weakness (01/15/24) Edema, unspecified (01/15/24) Physical Therapy Treatment Note PT-OP-A Visit Information Start: 12/25/23 08:14 Freq: Status: Active Protocol: Document 01/15/24 10:26 AB (Rec: 01/15/24 12:53 AB [id number]) Out-Patient Physical Therapy Visit Information Visit Information Visit Type Treatment Note Visit Note Access Code: [email or web address] Visit Start Time 11:49 Visit Stop Time 12:11 Visit Number 7 Number of NEUROSURGERY RESEARCH DIRECTOR Visits 1 Evaluation Information Evaluation Date 12/25/23 Precautions Precautions a-fib PT-OP-B Current Condition Start: 12/25/23 08:14 Freq: Status: Active Protocol: Document 01/02/24 09:43 SAK (Rec: 01/02/24 10:32 SAK [id number]) Current Condition History of Current Condition Onset Date 1-1 1/2 months ago. Current Complaints jose knee pain, left leg swelling History of Current Condition pain bilateral knees, prior PT right side. History swelling jose LE's left greater than right, left got bad 1 1/2 months ago. Swelling is variable, not sure if gets better when legs elevated. Doesn't wear compression stockings except occasional knee high when travels. No use of assistive device. Trying to walk between 4 -5000 steps per day, slowed some by a-fib. Has trouble getting up and trusting legs when she moves from sit to stand. Hard time getting going, gets a little better when warmed up. Has previously worn brace on right knee. No exercises except walking. Prior Treatments and Tests ultrasound left LE negative x-rays: negative PT-OP-C Subjective Start: 12/25/23 08:14 Freq: Status: Active Protocol: Document 01/15/24 10:26 AB (Rec: 01/15/24 12:53 AB [id number]) OP-PT Subjective Patient Comments Patient Comments Patient reports she over did it and is a little sore. Patient reports the A-fib is up a little bit, comments she has to stop when she has tightness in the chest, comments she has no tightness in the chest start of session. PT-OP-G Mobility & Gait Start: 12/25/23 08:14 Freq: Status: Active Protocol: Document 12/25/23 08:14 SAK (Rec: 12/25/23 16:06 SAK [id number]) OP Mobility Evaluation Transfers Sit to Stand requires UE use Bed to Chair Transfers painful Car Transfers painful Floor Transfers unable Functional Movements Squats painful Running Assessment unable OP Gait Assessment Gait Gait Assistance Required: Independent Assistive Devices Assistive Device None Gait Deviations General Gait Pattern Antalgic,Decreased Stride Length,Decreased Feet Clearance,Wide Based Gait Factors Limiting Gait Function Factors Limiting Gait Function Decreased Strength,Pain Comments Gait Comments excess lateral sway Stair Climbing Evaluation Evaluation Level of Assist On Stairs Independent Devices Stair Climbing Assistive Devices Left Railing,Right Railing Technique/Endurance Stair Climbing Direction Ascend and Descend Stair Climbing Technique Step to Step PT-OP-H Neuro Start: 12/25/23 08:14 Freq: Status: Active Protocol: Document 12/25/23 08:14 SAK (Rec: 12/25/23 16:06 SAK [id number]) Sensation Evaluation Gross Sensation Gross Sensation WNL PT-OP-J Posture/Palpation/Skin Start: 12/25/23 08:14 Freq: Status: Active Protocol: Document 01/08/24 09:05 SP (Rec: 01/08/24 09:51 SP [id number]) Skin Assessment Edema Assessment jose knees left greater than right Edema Type Non-Pitting Comments Circumferential measurements BLEs: (13cm inferior patella calf) 44.5cm L, 43.5 cm R (Mid Patella): 51 cm L, 49.5 cm R (15cm above patella): 65.5cm L, 64 cm R (Base MTP): 21.6cm L, 21.5cm (mid foot): 23cm L, 22.5cm R PT-OP-K Range of Motion Start: 12/25/23 08:14 Freq: Status: Active Protocol: Document 12/25/23 08:14 SAK (Rec: 12/25/23 16:06 SAK [id number]) Hip Goniometric Range of Motion Hip jose Straight Leg Raise 60 Extension 0 Abduction 20 Internal Rotation 15 External Rotation 55 Knee Goniometric Range of Motion Knee jose Knee ROM WFL Yes Ankle and Foot Goniometric Range of Motion Ankle and Foot jose Ankle/Foot ROM WFL Yes PT-OP-L Special Tests Start: 12/25/23 08:14 Freq: Status: Active Protocol: Document 12/25/23 08:14 SAK (Rec: 12/25/23 09:04 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 (Rec: 12/25/23 16:06 [facility] [id number]) Hip Strength Hip Manual Muscle Testing jose Flexion (L2) 3+ Fair+ Extension (S1) 3- Fair- Abduction 3+ Fair+ Adduction 4- Good- External Rotation 3+ Fair+ Internal Rotation 4- Good- Knee Strength Knee Manual Muscle Testing jose Flexion (S2) 4 Good Extension (L3) 4 Good Ankle/Foot Strength Ankle and Foot Manual Muscle Testing jose Dorsiflexion (L4) 4 Good Plantarflexion (S1) 4 Good PT-OP-Q Treatments Start: 12/25/23 08:14 Freq: Status: Active Protocol: Document 01/15/24 10:26 AB (Rec: 01/15/24 12:53 AB [id number]) Therapeutic Exercises Supine Exercises HS stretch Supine Exercise Name from hooklying Side bilateral Reps/Minutes 60 X 2 each LE Comments verbal cues, towel to SLR Side bilateral Resistance AROM Reps/Minutes x10 Comments post manual and HS stretch Heel slide Supine Exercise Name 1. on ball, Side bilateral Resistance AROM Reps/Minutes 2-3 min Comments verbal cues Sitting Exercises seated clam Sitting Exercise Name HEP one minute hold added and up to level 3 band Side bilateral Resistance L>3 TB at thighs (latex free band Reps/Minutes X15 and one one minute hold Manual Therapy Treatment Consent Patient gave verbal consent for manual Yes treatment Soft Tissue Mobilization bilateral knees Body Location for swelling and HS stiffness Mobilization Type Cross-Friction,Rolling,Other Intensity/Depth Superficial Body Position Hooklying Comments to minimall moderate left HS Taping Ktaping Body Location B knee ( avoiding scabs left knee ) Treatment Focus patallar stability, edema reduction Type of Tape Kinesio Tape Skin Inspection red scabs distal to left pat Comments Y strip with base medial knee with tails 50-75% stretch sup and inf pattella to lateral patella. 2 fan strips ant, med, lat right knee to decrease edema PT-OP-R Modalities Start: 12/25/23 08:14 Freq: Status: Active Protocol: Document 01/10/24 09:51 SAK (Rec: 01/10/24 10:39 SAK [id number]) Electric Stimulation Electric Stimulation Interferential Current (IFC) Body Location right knee Intensity 14 Target/Sweep Sweep Patient Position Hooklying Combined With Heat/Cold Cold Pack PT-OP-T Assessment and Plan Start: 12/25/23 08:14 Freq: Status: Active Protocol: Document 01/15/24 10:26 AB (Rec: 01/15/24 12:53 AB [id number]) Physical Therapy Assessment Goals Four Impairment left LE edema Retirement Goal (LTG) Decrease edema to no greater than 1 cm difference between right and left LE LTG Duration 03/25/24 Three Impairment impairments in left knee and hip strength and ROM Short Term Goal (STG) Patient to be instructed in HEP for purposes of ROM and strength left LE STG Duration 02/14/24 Retirement Goal (LTG) Patient to be independent and compliant with HEP and demonstrate ROM WNL and strength to at least 4+/5 left LE LTG Duration 03/25/24 Two Impairment lower extremity functional scale (LEFS) 36% Short Term Goal (STG) Improve LEFS score to at least 55% as measure of improved activity tolerance and left knee function STG Duration 02/14/24 Carton Maker Goal (LTG) Improve LEFS score to at least 70% as measure of improved activity tolerance and left knee function LTG Duration 03/25/24 One Impairment pain left knee 5/10 pain scale Short Term Goal (STG) Decrease pain with household activities to no greater than 2/10 STG Duration 02/14/24 Carton Maker Goal (LTG) Decrease pain with community and outdoor ambulation on level and uneven surfaces to no greater than 2/10 LTG Duration 03/25/24 Assessment Summary Assessment Patient progressed to level 3 band for seated hip abduction and one minute hold for activation added to HEP. Patient reports the knee feels looser end of session. Physical Therapy Plan Frequency and Duration Frequency of Treatment 2x/Week Duration of treatment (weeks) 12 Plan of Care Start Date 12/25/23 Plan of Care End Date 03/25/24 Therapeutic Interventions Therapeutic Interventions Gait Training,Home Exercise Program,Manual Therapy,Patient /Caregiver Education,Self-Care /Home Management,Soft Tissue Mobilization,Taping, Therapeutic Activities, Therapeutic Exercises Modalities Cold Pack/Ice Massage,Electric Stimulation,Hot Packs, Infrared Therapy,Ultrasound Next Visit Focus/Plan Next Note Type Treatment Note Next Visit Plan Trial shallow chair squats, short lunges, sport cord as tolerated.
--- NOTE | 2024-01-19 16:23 | PT.OTN ---
Current Diagnoses Unilateral primary osteoarthritis, left knee (01/19/24) Difficulty in walking, not elsewhere classified (01/19/24) Weakness (01/19/24) Edema, unspecified (01/19/24) Physical Therapy Treatment Note PT-OP-A Visit Information Start: 12/25/23 08:14 Freq: Status: Active Protocol: Document 01/19/24 15:20 AB (Rec: 01/19/24 16:23 AB [id number]) Out-Patient Physical Therapy Visit Information Visit Information Visit Type Treatment Note Visit Note Access Code: [email or web address] Visit Start Time 15:22 Visit Stop Time 16:18 Visit Number 8 Number of SPIKEMAKING SUPERVISOR Visits 2 PT-OP-B Current Condition Start: 12/25/23 08:14 Freq: Status: Active Protocol: Document 01/02/24 09:43 SAK (Rec: 01/02/24 10:32 SAK [id number]) Current Condition History of Current Condition Onset Date 1-1 1/2 months ago. Current Complaints jose knee pain, left leg swelling History of Current Condition pain bilateral knees, prior PT right side. History swelling jose LE's left greater than right, left got bad 1 1/2 months ago. Swelling is variable, not sure if gets better when legs elevated. Doesn't wear compression stockings except occasional knee high when travels. No use of assistive device. Trying to walk between 4 -5000 steps per day, slowed some by a-fib. Has trouble getting up and trusting legs when she moves from sit to stand. Hard time getting going, gets a little better when warmed up. Has previously worn brace on right knee. No exercises except walking. Prior Treatments and Tests ultrasound left LE negative x-rays: negative PT-OP-C Subjective Start: 12/25/23 08:14 Freq: Status: Active Protocol: Document 01/19/24 15:20 AB (Rec: 01/19/24 16:23 AB [id number]) OP-PT Subjective Patient Comments Patient Comments Patient reports she got phone calls from family that upset her. Patient reports the left knee is holding up, but has a little pain behind the right knee. PT-OP-G Mobility & Gait Start: 12/25/23 08:14 Freq: Status: Active Protocol: Document 12/25/23 08:14 SAK (Rec: 12/25/23 16:06 SAK [id number]) OP Mobility Evaluation Transfers Sit to Stand requires UE use Bed to Chair Transfers painful Car Transfers painful Floor Transfers unable Functional Movements Squats painful Running Assessment unable OP Gait Assessment Gait Gait Assistance Required: Independent Assistive Devices Assistive Device None Gait Deviations General Gait Pattern Antalgic,Decreased Stride Length,Decreased Feet Clearance,Wide Based Gait Factors Limiting Gait Function Factors Limiting Gait Function Decreased Strength,Pain Comments Gait Comments excess lateral sway Stair Climbing Evaluation Evaluation Level of Assist On Stairs Independent Devices Stair Climbing Assistive Devices Left Railing,Right Railing Technique/Endurance Stair Climbing Direction Ascend and Descend Stair Climbing Technique Step to Step PT-OP-H Neuro Start: 12/25/23 08:14 Freq: Status: Active Protocol: Document 12/25/23 08:14 SAK (Rec: 12/25/23 16:06 SAK [id number]) Sensation Evaluation Gross Sensation Gross Sensation WNL PT-OP-J Posture/Palpation/Skin Start: 12/25/23 08:14 Freq: Status: Active Protocol: Document 01/08/24 09:05 SP (Rec: 01/08/24 09:51 SP [id number]) Skin Assessment Edema Assessment jose knees left greater than right Edema Type Non-Pitting Comments Circumferential measurements BLEs: (13cm inferior patella calf) 44.5cm L, 43.5 cm R (Mid Patella): 51 cm L, 49.5 cm R (15cm above patella): 65.5cm L, 64 cm R (Base MTP): 21.6cm L, 21.5cm (mid foot): 23cm L, 22.5cm R PT-OP-K Range of Motion Start: 12/25/23 08:14 Freq: Status: Active Protocol: Document 12/25/23 08:14 SAK (Rec: 12/25/23 16:06 SAK [id number]) Hip Goniometric Range of Motion Hip jose Straight Leg Raise 60 Extension 0 Abduction 20 Internal Rotation 15 External Rotation 55 Knee Goniometric Range of Motion Knee jose Knee ROM WFL Yes Ankle and Foot Goniometric Range of Motion Ankle and Foot jose Ankle/Foot ROM WFL Yes PT-OP-L Special Tests Start: 12/25/23 08:14 Freq: Status: Active Protocol: Document 12/25/23 08:14 SAK (Rec: 12/25/23 09:04 SAK [id number]) Special Tests Knee Special Tests 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 Test Results - Varus- 0 Degrees Test Results - Valgus- 0 Degrees Test Results - Other Special Tests Special Tests circumferential measurements: MTP R 21.7 L 22.2 mid foot R 21.5 L 22.8 ankle R 26.7 L 25.7 mid calf R 43.5 L 43.9 knees R 48.7 L 50.9 10 cm prox patella R 58.2 L 58.8 PT-OP-M Strength Start: 12/25/23 08:14 Freq: Status: Active Protocol: Document 12/25/23 08:14 [facility] (Rec: 12/25/23 16:06 [facility] [id number]) Hip Strength Hip Manual Muscle Testing jose Flexion (L2) 3+ Fair+ Extension (S1) 3- Fair- Abduction 3+ Fair+ Adduction 4- Good- External Rotation 3+ Fair+ Internal Rotation 4- Good- Knee Strength Knee Manual Muscle Testing jose Flexion (S2) 4 Good Extension (L3) 4 Good Ankle/Foot Strength Ankle and Foot Manual Muscle Testing jose Dorsiflexion (L4) 4 Good Plantarflexion (S1) 4 Good PT-OP-Q Treatments Start: 12/25/23 08:14 Freq: Status: Active Protocol: Document 01/19/24 15:20 AB (Rec: 01/19/24 16:23 AB [id number]) Gym Equipment Shuttle Recovery Unilateral Squats Details alternate LE, cued knee alignment Resistance 25# Shuttle Recovery Platform Stable Reps/Time X20 Bilateral Squats Details cued knee alignment 75 # not lauren Resistance 75# X1 then 62 # Shuttle Recovery Platform Stable Reps/Time 2x20 Therapeutic Exercises Sitting Exercises seated clam Sitting Exercise Name HEP Side bilateral Resistance L>3 TB at thighs (latex free band Reps/Minutes one minute hold X1 Standing Exercises mini lunge Standing Exercise Name one UE support Side bilateral Reps/Minutes X10 Comments selt tact cue for hip hinge mini squat Side bilateral Reps/Minutes X10 Comments Verbal and visual cues for self tactile cues for hip hinge hamstring curl Reps/Minutes 10x Comments cues for parallel thighs heel raises Standing Exercise Name HR Side bilateral Resistance AROM Equipment Used holding back of chair Reps/Minutes 2X10 Comments * Manual Therapy Treatment Consent Patient gave verbal consent for manual Yes treatment Soft Tissue Mobilization bilateral knees Body Location for swelling and HS stiffness Mobilization Type Cross-Friction,Rolling,Other Intensity/Depth Superficial Body Position Hooklying Comments right knee only this session Taping Ktaping Body Location B knee ( avoiding scabs left knee ) Treatment Focus patallar stability, edema reduction Type of Tape Kinesio Tape Skin Inspection red scabs distal to left pat Comments Y strip with base medial knee with tails 50-75% stretch sup and inf pattella to lateral patella. 2 fan strips ant, med, lat right knee to decrease edema PT-OP-R Modalities Start: 12/25/23 08:14 Freq: Status: Active Protocol: Document 01/10/24 09:51 SAK (Rec: 01/10/24 10:39 SAK [id number]) Electric Stimulation Electric Stimulation Interferential Current (IFC) Body Location right knee Intensity 14 Target/Sweep Sweep Patient Position Hooklying Combined With Heat/Cold Cold Pack PT-OP-T Assessment and Plan Start: 12/25/23 08:14 Freq: Status: Active Protocol: Document 01/19/24 15:20 AB (Rec: 01/19/24 16:23 AB [id number]) Physical Therapy Assessment Goals Four Impairment left LE edema Intermediate Goal (LTG) Decrease edema to no greater than 1 cm difference between right and left LE LTG Duration 03/25/24 Three Impairment impairments in left knee and hip strength and ROM Short Term Goal (STG) Patient to be instructed in HEP for purposes of ROM and strength left LE STG Duration 02/14/24 Intermediate Goal (LTG) Patient to be independent and compliant with HEP and demonstrate ROM WNL and strength to at least 4+/5 left LE LTG Duration 03/25/24 Two Impairment lower extremity functional scale (LEFS) 36% Short Term Goal (STG) Improve LEFS score to at least 55% as measure of improved activity tolerance and left knee function STG Duration 02/14/24 Contract Project Manager Goal (LTG) Improve LEFS score to at least 70% as measure of improved activity tolerance and left knee function LTG Duration 03/25/24 One Impairment pain left knee 5/10 pain scale Short Term Goal (STG) Decrease pain with household activities to no greater than 2/10 STG Duration 02/14/24 Intermediate Goal (LTG) Decrease pain with community and outdoor ambulation on level and uneven surfaces to no greater than 2/10 LTG Duration 03/25/24 Assessment Summary Assessment Noted stepping strategy stepping off step from heel raise even with UE support. Patient ed/advised to discontinue use of step. Good form for mini squat and lunge, but repeated cues on initiation. Patient reports having no pain end of session bilateral knees. Physical Therapy Plan Frequency and Duration Frequency of Treatment 2x/Week Duration of treatment (weeks) 12 Plan of Care Start Date 12/25/23 Plan of Care End Date 03/25/24 Next Visit Focus/Plan Next Note Type Treatment Note Next Visit Plan Review Trial shallow chair review squats, short lunges, sport cord as tolerated.
--- NOTE | 2024-01-26 12:38 | PT.OTN ---
Current Diagnoses Unilateral primary osteoarthritis, left knee (01/26/24) Difficulty in walking, not elsewhere classified (01/26/24) Weakness (01/26/24) Edema, unspecified (01/26/24) Physical Therapy Treatment Note PT-OP-A Visit Information Start: 12/25/23 08:14 Freq: Status: Active Protocol: Document 01/26/24 08:07 AB (Rec: 01/26/24 12:37 AB [id number]) Out-Patient Physical Therapy Visit Information Visit Information Visit Type Treatment Note Visit Note Access Code: [email or web address] Visit Start Time 09:01 Visit Stop Time 09:47 Visit Number 9 Number of CONCERT MANAGER Visits 3 Evaluation Information Evaluation Date 12/25/23 Precautions Precautions a-fib PT-OP-B Current Condition Start: 12/25/23 08:14 Freq: Status: Active Protocol: Document 01/02/24 09:43 SAK (Rec: 01/02/24 10:32 SAK [id number]) Current Condition History of Current Condition Onset Date 1-1 1/2 months ago. Current Complaints joes knee pain, left leg swelling History of Current Condition pain bilateral knees, prior PT right side. History swelling jose LE's left greater than right, left got bad 1 1/2 months ago. Swelling is variable, not sure if gets better when legs elevated. Doesn't wear compression stockings except occasional knee high when travels. No use of assistive device. Trying to walk between 4 -5000 steps per day, slowed some by a-fib. Has trouble getting up and trusting legs when she moves from sit to stand. Hard time getting going, gets a little better when warmed up. Has previously worn brace on right knee. No exercises except walking. Prior Treatments and Tests ultrasound left LE negative x-rays: negative PT-OP-C Subjective Start: 12/25/23 08:14 Freq: Status: Active Protocol: Document 01/26/24 08:07 AB (Rec: 01/26/24 12:37 AB [id number]) OP-PT Subjective Patient Comments Patient Comments Patient reports went to Emergency room for knee pain. (MD note recommends cont PT from follow up MD. ) Patient rates right knee pain 2/10 during ambulation without device, comments left knee is doing OK. Patient is/reports planning to see ortho. PT-OP-G Mobility & Gait Start: 12/25/23 08:14 Freq: Status: Active Protocol: Document 12/25/23 08:14 SAK (Rec: 12/25/23 16:06 SAK [id number]) OP Mobility Evaluation Transfers Sit to Stand requires UE use Bed to Chair Transfers painful Car Transfers painful Floor Transfers unable Functional Movements Squats painful Running Assessment unable OP Gait Assessment Gait Gait Assistance Required: Independent Assistive Devices Assistive Device None Gait Deviations General Gait Pattern Antalgic,Decreased Stride Length,Decreased Feet Clearance,Wide Based Gait Factors Limiting Gait Function Factors Limiting Gait Function Decreased Strength,Pain Comments Gait Comments excess lateral sway Stair Climbing Evaluation Evaluation Level of Assist On Stairs Independent Devices Stair Climbing Assistive Devices Left Railing,Right Railing Technique/Endurance Stair Climbing Direction Ascend and Descend Stair Climbing Technique Step to Step PT-OP-H Neuro Start: 12/25/23 08:14 Freq: Status: Active Protocol: Document 12/25/23 08:14 SAK (Rec: 12/25/23 16:06 SAK [id number]) Sensation Evaluation Gross Sensation Gross Sensation WNL PT-OP-J Posture/Palpation/Skin Start: 12/25/23 08:14 Freq: Status: Active Protocol: Document 01/08/24 09:05 SP (Rec: 01/08/24 09:51 SP [id number]) Skin Assessment Edema Assessment jose knees left greater than right Edema Type Non-Pitting Comments Circumferential measurements BLEs: (13cm inferior patella calf) 44.5cm L, 43.5 cm R (Mid Patella): 51 cm L, 49.5 cm R (15cm above patella): 65.5cm L, 64 cm R (Base MTP): 21.6cm L, 21.5cm (mid foot): 23cm L, 22.5cm R PT-OP-K Range of Motion Start: 12/25/23 08:14 Freq: Status: Active Protocol: Document 12/25/23 08:14 SAK (Rec: 12/25/23 16:06 SAK [id number]) Hip Goniometric Range of Motion Hip jose Straight Leg Raise 60 Extension 0 Abduction 20 Internal Rotation 15 External Rotation 55 Knee Goniometric Range of Motion Knee jose Knee ROM WFL Yes Ankle and Foot Goniometric Range of Motion Ankle and Foot jose Ankle/Foot ROM WFL Yes PT-OP-L Special Tests Start: 12/25/23 08:14 Freq: Status: Active Protocol: Document 12/25/23 08:14 SAK (Rec: 12/25/23 09:04 SAK [id number]) Special Tests Knee Special Tests 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 Test Results - Varus- 0 Degrees Test Results - Valgus- 0 Degrees Test Results - Other Special Tests Special Tests circumferential measurements: MTP R 21.7 L 22.2 mid foot R 21.5 L 22.8 ankle R 26.7 L 25.7 mid calf R 43.5 L 43.9 knees R 48.7 L 50.9 10 cm prox patella R 58.2 L 58.8 PT-OP-M Strength Start: 12/25/23 08:14 Freq: Status: Active Protocol: Document 12/25/23 08:14 [facility] (Rec: 12/25/23 16:06 [facility] [id number]) Hip Strength Hip Manual Muscle Testing jose Flexion (L2) 3+ Fair+ Extension (S1) 3- Fair- Abduction 3+ Fair+ Adduction 4- Good- External Rotation 3+ Fair+ Internal Rotation 4- Good- Knee Strength Knee Manual Muscle Testing jose Flexion (S2) 4 Good Extension (L3) 4 Good Ankle/Foot Strength Ankle and Foot Manual Muscle Testing jose Dorsiflexion (L4) 4 Good Plantarflexion (S1) 4 Good PT-OP-Q Treatments Start: 12/25/23 08:14 Freq: Status: Active Protocol: Document 01/26/24 08:07 AB (Rec: 01/26/24 12:37 AB [id number]) Therapeutic Exercises Supine Exercises HS stretch Supine Exercise Name from hooklying Side bilateral Reps/Minutes 60 X 1 each LE Comments verbal cues, towel to SLR Supine Exercise Name HEP Side bilateral Resistance AROM Reps/Minutes x10 Comments post manual and HS stretch Heel slide Supine Exercise Name 1. on ball, 2 AROM HS HEP Side bilateral Resistance AROM Reps/Minutes 2-3 min on ball X 10 ARoM Comments verbal cues QS Supine Exercise Name HEP reviewed Side left Equipment Used R knee bent Reps/Minutes X10 Sitting Exercises seated knee extension stretch left LE Sitting Exercise Name HEP Side right Reps/Minutes 2 minutes LAQ Sitting Exercise Name reviewed HEP Side bilateral Resistance AROM x10> Reps/Minutes verbal cues Manual Therapy Treatment Consent Patient gave verbal consent for manual Yes treatment Soft Tissue Mobilization bilateral knees Body Location for swelling and HS stiffness Mobilization Type Cross-Friction,Rolling,Other Intensity/Depth Superficial Body Position Hooklying Comments and moderate PT-OP-R Modalities Start: 12/25/23 08:14 Freq: Status: Active Protocol: Document 01/10/24 09:51 SAK (Rec: 01/10/24 10:39 SAK [id number]) Electric Stimulation Electric Stimulation Interferential Current (IFC) Body Location right knee Intensity 14 Target/Sweep Sweep Patient Position Hooklying Combined With Heat/Cold Cold Pack PT-OP-T Assessment and Plan Start: 12/25/23 08:14 Freq: Status: Active Protocol: Document 01/26/24 08:07 AB (Rec: 01/26/24 12:37 AB [id number]) Physical Therapy Assessment Goals Four Impairment left LE edema Senior Living Goal (LTG) Decrease edema to no greater than 1 cm difference between right and left LE LTG Duration 03/25/24 Three Impairment impairments in left knee and hip strength and ROM Short Term Goal (STG) Patient to be instructed in HEP for purposes of ROM and strength left LE STG Duration 02/14/24 Managing Member Goal (LTG) Patient to be independent and compliant with HEP and demonstrate ROM WNL and strength to at least 4+/5 left LE LTG Duration 03/25/24 Two Impairment lower extremity functional scale (LEFS) 36% Short Term Goal (STG) Improve LEFS score to at least 55% as measure of improved activity tolerance and left knee function STG Duration 02/14/24 Senior Living Goal (LTG) Improve LEFS score to at least 70% as measure of improved activity tolerance and left knee function LTG Duration 03/25/24 One Impairment pain left knee 5/10 pain scale Short Term Goal (STG) Decrease pain with household activities to no greater than 2/10 STG Duration 02/14/24 Senior Living Goal (LTG) Decrease pain with community and outdoor ambulation on level and uneven surfaces to no greater than 2/10 LTG Duration 03/25/24 Assessment Summary Assessment Marce rates right knee pain 2 /10 end of session. Good return demonstration for review of HEP exercises and addition of SLR, heel slide AROM and seated knee extension stretch. Physical Therapy Plan Frequency and Duration Frequency of Treatment 2x/Week Duration of treatment (weeks) 12 Plan of Care Start Date 12/25/23 Plan of Care End Date 03/25/24 Next Visit Focus/Plan Next Note Type Progress Note Next Visit Plan Review Trial shallow chair review squats, short lunges, sport cord as tolerated.
--- NOTE | 2024-01-30 10:35 | PT.OTRE ---
Current Diagnoses Unilateral primary osteoarthritis, left knee (01/30/24) Pain in right knee (01/30/24) Difficulty in walking, not elsewhere classified (01/30/24) Weakness (01/30/24) Edema, unspecified (01/30/24) Past Medical History (Last Reviewed 01/22/24 @ 02:48 by Sammy Ceja DO) Cataracts, bilateral Essential hypertension (02/17/15) Hyperlipemia Lumbar compression fracture Mitral valve disorder Mixed hyperlipidemia (02/17/15) Paroxysmal atrial fibrillation (02/17/15) Surgical History (This Medical Record has been edited. Action required.) History of mitral valve replacement (02/17/15) Hx of cataract surgery (~01/2016) Hx of foot surgery Visit Care Team Role Provider Type Marisol Pena DO Attending Provider Physician Family Provider Primary Care Provider Referring Provider Specialty: Family Practice Address: [address] [place] [address], [address], [facility] Email: [email or web address] Physical Therapy Re-Evaluation PT-OP-A Visit Information Start: 12/25/23 08:14 Freq: Status: Active Protocol: Document 01/30/24 08:13 SAK (Rec: 01/30/24 09:04 SAK [id number]) Out-Patient Physical Therapy Visit Information Visit Information Visit Type Treatment Note Visit Start Time 08:14 Visit Stop Time 09:09 Visit Number 10 Number of FIRE WATCHER Visits 0 Evaluation Information Evaluation Date 12/25/23 Precautions Precautions a-fib PT-OP-B Current Condition Start: 12/25/23 08:14 Freq: Status: Active Protocol: Document 01/30/24 08:13 SAK (Rec: 01/30/24 09:04 SAK [id number]) Current Condition History of Current Condition Onset Date 1-1 1/2 months ago. Current Complaints jose knee pain, left leg swelling History of Current Condition pain bilateral knees, prior PT right side. History swelling jose LE's left greater than right, left got bad 1 1/2 months ago. Swelling is variable, not sure if gets better when legs elevated. Doesn't wear compression stockings except occasional knee high when travels. No use of assistive device. Trying to walk between 4 -5000 steps per day, slowed some by a-fib. Has trouble getting up and trusting legs when she moves from sit to stand. Hard time getting going, gets a little better when warmed up. Has previously worn brace on right knee. No exercises except walking. Prior Treatments and Tests ultrasound left LE negative x-rays: negative PT-OP-C Subjective Start: 12/25/23 08:14 Freq: Status: Active Protocol: Document 01/30/24 08:13 SAK (Rec: 01/30/24 09:04 [facility] [id number]) OP-PT Subjective Patient Comments Patient Comments Right knee is now the problem, left knee is doing well but right is limiting. Worst in am.. Wearing knee brace out of the house, hasn't been using a cane. Not as swollen. Has lost about [address] down on carbs. Reports when she went to the ER it was in evening, got up from chair to go to bed and couldn't bear weight on right LE even after trying some gentle movement. Pain is lateral and posterior joint line. Going to see orthopedist, referral has been put in by Dr. Shannon. PT-OP-G Mobility & Gait Start: 12/25/23 08:14 Freq: Status: Active Protocol: Document 12/25/23 08:14 SAK (Rec: 12/25/23 16:06 [facility] [id number]) OP Mobility Evaluation Transfers Sit to Stand requires UE use Bed to Chair Transfers painful Car Transfers painful Floor Transfers unable Functional Movements Squats painful Running Assessment unable OP Gait Assessment Gait Gait Assistance Required: Independent Assistive Devices Assistive Device None Gait Deviations General Gait Pattern Antalgic,Decreased Stride Length,Decreased Feet Clearance,Wide Based Gait Factors Limiting Gait Function Factors Limiting Gait Function Decreased Strength,Pain Comments Gait Comments excess lateral sway Stair Climbing Evaluation Evaluation Level of Assist On Stairs Independent Devices Stair Climbing Assistive Devices Left Railing,Right Railing Technique/Endurance Stair Climbing Direction Ascend and Descend Stair Climbing Technique Step to Step PT-OP-H Neuro Start: 12/25/23 08:14 Freq: Status: Active Protocol: Document 12/25/23 08:14 SAK (Rec: 12/25/23 16:06 [facility] [id number]) Sensation Evaluation Gross Sensation Gross Sensation WNL PT-OP-J Posture/Palpation/Skin Start: 12/25/23 08:14 Freq: Status: Active Protocol: Document 01/08/24 09:05 SP (Rec: 01/08/24 09:51 SP [id number]) Skin Assessment Edema Assessment jose knees left greater than right Edema Type Non-Pitting Comments Circumferential measurements BLEs: (13cm inferior patella calf) 44.5cm L, 43.5 cm R (Mid Patella): 51 cm L, 49.5 cm R (15cm above patella): 65.5cm L, 64 cm R (Base MTP): 21.6cm L, 21.5cm (mid foot): 23cm L, 22.5cm R PT-OP-K Range of Motion Start: 12/25/23 08:14 Freq: Status: Active Protocol: Document 12/25/23 08:14 SAK (Rec: 12/25/23 16:06 SAK [id number]) Hip Goniometric Range of Motion Hip Measured in Degrees jose Straight Leg Raise 60 Extension 0 Abduction 20 Internal Rotation 15 External Rotation 55 Knee Goniometric Range of Motion Knee Measured in Degrees jose Knee ROM WFL Yes Ankle and Foot Goniometric Range of Motion Ankle and Foot Measured in Degrees jose Ankle/Foot ROM WFL Yes PT-OP-L Special Tests Start: 12/25/23 08:14 Freq: Status: Active Protocol: Document 12/25/23 08:14 SAK (Rec: 12/25/23 09:04 SAK [id number]) Special Tests Knee Special Tests 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 Test Results - Varus- 0 Degrees Test Results - Valgus- 0 Degrees Test Results - Other Special Tests Special Tests circumferential measurements: MTP R 21.7 L 22.2 mid foot R 21.5 L 22.8 ankle R 26.7 L 25.7 mid calf R 43.5 L 43.9 knees R 48.7 L 50.9 10 cm prox patella R 58.2 L 58.8 PT-OP-M Strength Start: 12/25/23 08:14 Freq: Status: Active Protocol: Document 12/25/23 08:14 SAK (Rec: 12/25/23 16:06 SAK [id number]) Hip Strength Hip Manual Muscle Testing jose Flexion (L2) 3+ Fair+ Extension (S1) 3- Fair- Abduction 3+ Fair+ Adduction 4- Good- External Rotation 3+ Fair+ Internal Rotation 4- Good- Knee Strength Knee Manual Muscle Testing jose Flexion (S2) 4 Good Extension (L3) 4 Good Ankle/Foot Strength Ankle and Foot Manual Muscle Testing jose Dorsiflexion (L4) 4 Good Plantarflexion (S1) 4 Good PT-OP-Q Treatments Start: 12/25/23 08:14 Freq: Status: Active Protocol: Document 01/30/24 08:13 SAK (Rec: 01/30/24 09:04 SAK [id number]) Therapeutic Exercises Supine Exercises bridge Supine Exercise Name legs on foam roller Reps/Minutes 10x5 SLR Supine Exercise Name HEP Side bilateral Resistance AROM Reps/Minutes x10 SAQ Reps/Minutes 10x5, 1 min hold ea TA draw in Supine Exercise Name HEP reviewed Reps/Minutes 10SH x5 Comments cued breath Sidelying Exercises clamshell Reps/Minutes 5x Comments cues for alignment abduction Side bilateral Equipment Used yoga mat on top of table Reps/Minutes 5x Comments cued stacked on side Self-Care/Home Management Treatment Education Patient Education Home Exercise Program,Pain Management Other Education icing and elevation of knee PT-OP-R Modalities Start: 12/25/23 08:14 Freq: Status: Active Protocol: Document 01/30/24 08:13 [facility] (Rec: 01/30/24 10:34 SAK [id number]) Hot Pack/Cold Pack Treatment Cold Pack Location right knee Patient Position Hooklying Patient Tolerance Good PT-OP-T Assessment and Plan Start: 12/25/23 08:14 Freq: Status: Active Protocol: Document 01/30/24 08:13 SAK (Rec: 01/30/24 09:04 [facility] [id number]) Physical Therapy Assessment Other Concerns Barriers to Rehabilitation patient in chronic a-fib, low activity tolerance Goals Five Impairment right knee pain and swelling ( 4 cm larger than left) Director Surface Transportation Goal (LTG) Decrease pain with community and outdoor ambulation on level and uneven surfaces to no greater than 2/10, and reduce edema to no greater than 1 cm larger than left LTG Duration 03/25/24 Four Impairment left LE edema Custodial Goal (LTG) Decrease edema to no greater than 1 cm difference between right and left LE 01/30/24: today right knee circumference 4 cm larger than left. Left knee no longer swolen LTG Duration 03/25/24 Three Impairment impairments in left knee and hip strength and ROM Short Term Goal (STG) Patient to be instructed in HEP for purposes of ROM and strength left LE 01/30/24: goal met, continued progression as tolerated, updated today for both left and right knee. STG Duration 02/14/24 Director Surface Transportation Goal (LTG) Patient to be independent and compliant with HEP and demonstrate ROM WNL and strength to at least 4+/5 left LE 01/30/24: left knee 4+/5, hip flex 4-/5, abduction 3-/5, extension 3-/5, ER 3-/5. right knee 4-/5, hip flex 4-/5 , abduction 3-/5, extension 3- /5, ER 3-/5 LTG Duration 03/25/24 Two Impairment lower extremity functional scale (LEFS) 36% Short Term Goal (STG) Improve LEFS score to at least 55% as measure of improved activity tolerance and left knee function 01/30/24: met for left knee, but now right knee is limiting her, score 58% STG Duration 02/14/24 Director Surface Transportation Goal (LTG) Improve LEFS score to at least 70% as measure of improved activity tolerance and left knee function LTG Duration 03/25/24 One Impairment pain left knee 5/10 pain scale Short Term Goal (STG) Decrease pain with household activities to no greater than 2/10 01/30/24: goal met left knee, Right knee pain 4/10 STG Duration goal met Custodial Goal (LTG) Decrease pain with community and outdoor ambulation on level and uneven surfaces to no greater than 2/10 LTG Duration goal met Assessment Summary Assessment circumference at knee R 49.7, L 45.9. Left knee doing well, right knee is now the painful and limiting knee. REcommend continued PT focused on bilateral knees right greater than left at this time. Patient is going to see orthopedist soon regarding right knee. Activity/exercise tolerance limited by a-fib but patient has been compliant to HEP. Feel she will benefit from continued skilled PT Physical Therapy Plan Frequency and Duration Frequency of Treatment 2x/Week Duration of treatment (weeks) 12 Plan of Care Start Date 01/30/24 Plan of Care End Date 05/01/23 Next Visit Focus/Plan Next Note Type Treatment Note Next Visit Plan Continue PT to address knee pain, weakness, edema, gait dysfunciton.
--- NOTE | 2024-01-30 10:35 | PT.OPPOC ---
Physical, Occupational & Speech Therapy At [facility] Current Diagnoses Unilateral primary osteoarthritis, left knee (01/30/24) Pain in right knee (01/30/24) Difficulty in walking, not elsewhere classified (01/30/24) Weakness (01/30/24) Edema, unspecified (01/30/24) Visit Care Team Role Provider Type Marisol Pena DO Attending Provider Physician Family Provider Primary Care Provider Referring Provider Specialty: Family Practice Address: [address] [place] [address], [address], [facility] Email: [email or web address] Plan Of Care PT-OP-B Current Condition Start: 12/25/23 08:14 Freq: Status: Active Protocol: Document 01/30/24 08:13 SAK (Rec: 01/30/24 09:04 SAK [id number]) Current Condition History of Current Condition Onset Date 1-1 1/2 months ago. Current Complaints jose knee pain, left leg swelling History of Current Condition pain bilateral knees, prior PT right side. History swelling jose LE's left greater than right, left got bad 1 1/2 months ago. Swelling is variable, not sure if gets better when legs elevated. Doesn't wear compression stockings except occasional knee high when travels. No use of assistive device. Trying to walk between 4 -5000 steps per day, slowed some by a-fib. Has trouble getting up and trusting legs when she moves from sit to stand. Hard time getting going, gets a little better when warmed up. Has previously worn brace on right knee. No exercises except walking. Prior Treatments and Tests ultrasound left LE negative x-rays: negative PT-OP-T Assessment and Plan Start: 12/25/23 08:14 Freq: Status: Active Protocol: Document 01/30/24 08:13 SAK (Rec: 01/30/24 09:04 SAK [id number]) Physical Therapy Assessment Other Concerns Barriers to Rehabilitation patient in chronic a-fib, low activity tolerance Goals Five Impairment right knee pain and swelling ( 4 cm larger than left) Athletic Coach Goal (LTG) Decrease pain with community and outdoor ambulation on level and uneven surfaces to no greater than 2/10, and reduce edema to no greater than 1 cm larger than left LTG Duration 03/25/24 Four Impairment left LE edema Fpc Goal (LTG) Decrease edema to no greater than 1 cm difference between right and left LE 01/30/24: today right knee circumference 4 cm larger than left. Left knee no longer swolen LTG Duration 03/25/24 Three Impairment impairments in left knee and hip strength and ROM Short Term Goal (STG) Patient to be instructed in HEP for purposes of ROM and strength left LE 01/30/24: goal met, continued progression as tolerated, updated today for both left and right knee. STG Duration 02/14/24 Athletic Coach Goal (LTG) Patient to be independent and compliant with HEP and demonstrate ROM WNL and strength to at least 4+/5 left LE 01/30/24: left knee 4+/5, hip flex 4-/5, abduction 3-/5, extension 3-/5, ER 3-/5. right knee 4-/5, hip flex 4-/5 , abduction 3-/5, extension 3- /5, ER 3-/5 LTG Duration 03/25/24 Two Impairment lower extremity functional scale (LEFS) 36% Short Term Goal (STG) Improve LEFS score to at least 55% as measure of improved activity tolerance and left knee function 01/30/24: met for left knee, but now right knee is limiting her, score 58% STG Duration 02/14/24 Athletic Coach Goal (LTG) Improve LEFS score to at least 70% as measure of improved activity tolerance and left knee function LTG Duration 03/25/24 One Impairment pain left knee 5/10 pain scale Short Term Goal (STG) Decrease pain with household activities to no greater than 2/10 01/30/24: goal met left knee, Right knee pain 4/10 STG Duration goal met Fpc Goal (LTG) Decrease pain with community and outdoor ambulation on level and uneven surfaces to no greater than 2/10 LTG Duration goal met Assessment Summary Assessment circumference at knee R 49.7, L 45.9. Left knee doing well, right knee is now the painful and limiting knee. REcommend continued PT focused on bilateral knees right greater than left at this time. Patient is going to see orthopedist soon regarding right knee. Activity/exercise tolerance limited by a-fib but patient has been compliant to HEP. Feel she will benefit from continued skilled PT Physical Therapy Plan Frequency and Duration Frequency of Treatment 2x/Week Duration of treatment (weeks) 12 Plan of Care Start Date 01/30/24 Plan of Care End Date 05/01/23 Next Visit Focus/Plan Next Note Type Treatment Note Next Visit Plan Continue PT to address knee pain, weakness, edema, gait dysfunciton. Plan of Care Dates Plan of Care Start Date 01/30/24 Plan of Care End Date 05/01/23 Electronically Signed by: Rosalie Weiss, PT 01/30/24 [id number] If you are in agreement with this Plan of Care, please return a signed and dated copy. I have reviewed this Plan of Care and certify that the skilled therapy services above are required to meet the patient?s needs. Physician Signature Date Printed Name and Credentials Clinical Instructor Signature Printed Name and Credentials
--- NOTE | 2024-02-01 09:04 | PT.OTN ---
Current Diagnoses Unilateral primary osteoarthritis, left knee (02/01/24) Pain in right knee (02/01/24) Difficulty in walking, not elsewhere classified (02/01/24) Weakness (02/01/24) Edema, unspecified (02/01/24) Physical Therapy Treatment Note PT-OP-A Visit Information Start: 12/25/23 08:14 Freq: Status: Active Protocol: Document 02/01/24 08:12 SAK (Rec: 02/01/24 09:04 [facility] [id number]) Out-Patient Physical Therapy Visit Information Visit Information Visit Type Treatment Note Visit Start Time 08:15 Visit Number 11 Evaluation Information Evaluation Date 12/25/23 Precautions Precautions a-fib PT-OP-B Current Condition Start: 12/25/23 08:14 Freq: Status: Active Protocol: Document 02/01/24 08:12 SAK (Rec: 02/01/24 09:04 [facility] [id number]) Current Condition History of Current Condition Onset Date 1-1 1/2 months ago. Current Complaints jose knee pain, left leg swelling History of Current Condition pain bilateral knees, prior PT right side. History swelling jose LE's left greater than right, left got bad 1 1/2 months ago. Swelling is variable, not sure if gets better when legs elevated. Doesn't wear compression stockings except occasional knee high when travels. No use of assistive device. Trying to walk between 4 -5000 steps per day, slowed some by a-fib. Has trouble getting up and trusting legs when she moves from sit to stand. Hard time getting going, gets a little better when warmed up. Has previously worn brace on right knee. No exercises except walking. Prior Treatments and Tests ultrasound left LE negative x-rays: negative PT-OP-C Subjective Start: 12/25/23 08:14 Freq: Status: Active Protocol: Document 02/01/24 08:12 SAK (Rec: 02/01/24 09:04 SAK [id number]) OP-PT Subjective Patient Comments Patient Comments Thinks KT tape helpful. Has a hard time getting R knee comfortable in bed. Is a little more sore but has been working her knee more, took a little walk yesterday. Has been feeling some popping Left knee doing well. PT-OP-G Mobility & Gait Start: 12/25/23 08:14 Freq: Status: Active Protocol: Document 12/25/23 08:14 SAK (Rec: 12/25/23 16:06 SAK [id number]) OP Mobility Evaluation Transfers Sit to Stand requires UE use Bed to Chair Transfers painful Car Transfers painful Floor Transfers unable Functional Movements Squats painful Running Assessment unable OP Gait Assessment Gait Gait Assistance Required: Independent Assistive Devices Assistive Device None Gait Deviations General Gait Pattern Antalgic,Decreased Stride Length,Decreased Feet Clearance,Wide Based Gait Factors Limiting Gait Function Factors Limiting Gait Function Decreased Strength,Pain Comments Gait Comments excess lateral sway Stair Climbing Evaluation Evaluation Level of Assist On Stairs Independent Devices Stair Climbing Assistive Devices Left Railing,Right Railing Technique/Endurance Stair Climbing Direction Ascend and Descend Stair Climbing Technique Step to Step PT-OP-H Neuro Start: 12/25/23 08:14 Freq: Status: Active Protocol: Document 12/25/23 08:14 SAK (Rec: 12/25/23 16:06 SAK [id number]) Sensation Evaluation Gross Sensation Gross Sensation WNL PT-OP-J Posture/Palpation/Skin Start: 12/25/23 08:14 Freq: Status: Active Protocol: Document 01/08/24 09:05 SP (Rec: 01/08/24 09:51 SP [id number]) Skin Assessment Edema Assessment jose knees left greater than right Edema Type Non-Pitting Comments Circumferential measurements BLEs: (13cm inferior patella calf) 44.5cm L, 43.5 cm R (Mid Patella): 51 cm L, 49.5 cm R (15cm above patella): 65.5cm L, 64 cm R (Base MTP): 21.6cm L, 21.5cm (mid foot): 23cm L, 22.5cm R PT-OP-K Range of Motion Start: 12/25/23 08:14 Freq: Status: Active Protocol: Document 12/25/23 08:14 SAK (Rec: 12/25/23 16:06 SAK [id number]) Hip Goniometric Range of Motion Hip jose Straight Leg Raise 60 Extension 0 Abduction 20 Internal Rotation 15 External Rotation 55 Knee Goniometric Range of Motion Knee jose Knee ROM WFL Yes Ankle and Foot Goniometric Range of Motion Ankle and Foot jose Ankle/Foot ROM WFL Yes PT-OP-L Special Tests Start: 12/25/23 08:14 Freq: Status: Active Protocol: Document 12/25/23 08:14 [facility] (Rec: 12/25/23 09:04 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 (Rec: 12/25/23 16:06 [facility] [id number]) Hip Strength Hip Manual Muscle Testing jose Flexion (L2) 3+ Fair+ Extension (S1) 3- Fair- Abduction 3+ Fair+ Adduction 4- Good- External Rotation 3+ Fair+ Internal Rotation 4- Good- Knee Strength Knee Manual Muscle Testing jose Flexion (S2) 4 Good Extension (L3) 4 Good Ankle/Foot Strength Ankle and Foot Manual Muscle Testing jose Dorsiflexion (L4) 4 Good Plantarflexion (S1) 4 Good PT-OP-Q Treatments Start: 12/25/23 08:14 Freq: Status: Active Protocol: Document 02/01/24 08:12 [facility] (Rec: 02/01/24 09:04 [facility] [id number]) Cardio Equipment Recumbent Elliptical (Biodex) Duration (Minutes) 3 Resistance 1 Seat Position 8 Other LE's only Gym Equipment Shuttle Recovery Unilateral Squats Details alternate LE, cued knee alignment Resistance 25# Shuttle Recovery Platform Stable Reps/Time 10x (painful on right) Bilateral Squats Details cued knee alignment, ball between knees elim R knee popping Resistance 62# Shuttle Recovery Platform Stable Reps/Time 2x20 Therapeutic Exercises Supine Exercises SAQ Reps/Minutes 10x5, 1 min hold ea Sitting Exercises HS Sitting Exercise Name curl Resistance L2 TB Reps/Minutes 10x5 Standing Exercises sit to stand Equipment Used L2 TB around distal thighs Reps/Minutes 10x toe raises Reps/Minutes 10x Comments slow eccentric gastroc stretch Standing Exercise Name and soleus Equipment Used SUMANTH Reps/Minutes 2x30 heel raises Standing Exercise Name HR Side bilateral Resistance AROM Equipment Used stair rail Reps/Minutes 2X10 Comments slow eccentric Manual Therapy Treatment Taping Ktaping Body Location right knee Treatment Focus pain and edema reduction Type of Tape Kinesio Tape Skin Inspection intact Comments I strip lateral menisucus with second I strip for x lateral. 2 fan strips for edema reduction focused laterally PT-OP-R Modalities Start: 12/25/23 08:14 Freq: Status: Active Protocol: Document 02/01/24 08:12 [facility] (Rec: 02/01/24 09:04 [facility] [id number]) Hot Pack/Cold Pack Treatment Cold Pack Location right knee Patient Position Hooklying Patient Tolerance Good PT-OP-T Assessment and Plan Start: 12/25/23 08:14 Freq: Status: Active Protocol: Document 02/01/24 08:12 [facility] (Rec: 02/01/24 09:04 [facility] [id number]) Physical Therapy Assessment Goals Five Impairment right knee pain and swelling ( 4 cm larger than left) [facility] Goal (LTG) Decrease pain with community and outdoor ambulation on level and uneven surfaces to no greater than 2/10, and reduce edema to no greater than 1 cm larger than left LTG Duration 03/25/24 Four Impairment left LE edema [facility] Goal (LTG) Decrease edema to no greater than 1 cm difference between right and left LE 01/30/24: today right knee circumference 4 cm larger than left. Left knee no longer swolen LTG Duration 03/25/24 Three Impairment impairments in left knee and hip strength and ROM Short Term Goal (STG) Patient to be instructed in HEP for purposes of ROM and strength left LE 01/30/24: goal met, continued progression as tolerated, updated today for both left and right knee. STG Duration 02/14/24 [facility] Goal (LTG) Patient to be independent and compliant with HEP and demonstrate ROM WNL and strength to at least 4+/5 left LE 01/30/24: left knee 4+/5, hip flex 4-/5, abduction 3-/5, extension 3-/5, ER 3-/5. right knee 4-/5, hip flex 4-/5 , abduction 3-/5, extension 3- /5, ER 3-/5 LTG Duration 03/25/24 Two Impairment lower extremity functional scale (LEFS) 36% Short Term Goal (STG) Improve LEFS score to at least 55% as measure of improved activity tolerance and left knee function 01/30/24: met for left knee, but now right knee is limiting her, score 58% STG Duration 02/14/24 [facility] Goal (LTG) Improve LEFS score to at least 70% as measure of improved activity tolerance and left knee function LTG Duration 03/25/24 One Impairment pain left knee 5/10 pain scale Short Term Goal (STG) Decrease pain with household activities to no greater than 2/10 01/30/24: goal met left knee, Right knee pain 4/10 STG Duration goal met [facility] Goal (LTG) Decrease pain with community and outdoor ambulation on level and uneven surfaces to no greater than 2/10 LTG Duration goal met Assessment Summary Assessment NOted some decrease in edema right knee, emphasis on alignment right knee with transitional movements including in and out of car and sit to stand with patient demonstrating improved understanding and performance. KT tape focused on lateral menisus and edema reduction laterally Physical Therapy Plan Frequency and Duration Frequency of Treatment 2x/Week Duration of treatment (weeks) 12 Plan of Care Start Date 01/30/24 Plan of Care End Date 05/01/23 Therapeutic Interventions Therapeutic Interventions Gait Training,Home Exercise Program,Manual Therapy,Patient /Caregiver Education,Self-Care /Home Management,Soft Tissue Mobilization,Taping, Therapeutic Activities, Therapeutic Exercises Modalities Cold Pack/Ice Massage,Electric Stimulation,Hot Packs, Infrared Therapy,Ultrasound Next Visit Focus/Plan Next Note Type Treatment Note Next Visit Plan Continue PT to address knee pain, weakness, edema, gait dysfunciton.
--- NOTE | 2024-02-06 08:55 | PT.OTN ---
Current Diagnoses Unilateral primary osteoarthritis, left knee (02/06/24) Pain in right knee (02/06/24) Difficulty in walking, not elsewhere classified (02/06/24) Weakness (02/06/24) Edema, unspecified (02/06/24) Physical Therapy Treatment Note PT-OP-A Visit Information Start: 12/25/23 08:14 Freq: Status: Active Protocol: Document 02/06/24 08:14 SAK (Rec: 02/06/24 08:55 [facility] [id number]) Out-Patient Physical Therapy Visit Information Visit Information Visit Type Treatment Note Visit Start Time 08:15 Visit Number 12 Evaluation Information Evaluation Date 12/25/23 Precautions Precautions a-fib PT-OP-B Current Condition Start: 12/25/23 08:14 Freq: Status: Active Protocol: Document 02/06/24 08:14 SAK (Rec: 02/06/24 08:55 SAK [id number]) Current Condition History of Current Condition Onset Date 1-1 1/2 months ago. Current Complaints jose knee pain, left leg swelling History of Current Condition pain bilateral knees, prior PT right side. History swelling jose LE's left greater than right, left got bad 1 1/2 months ago. Swelling is variable, not sure if gets better when legs elevated. Doesn't wear compression stockings except occasional knee high when travels. No use of assistive device. Trying to walk between 4 -5000 steps per day, slowed some by a-fib. Has trouble getting up and trusting legs when she moves from sit to stand. Hard time getting going, gets a little better when warmed up. Has previously worn brace on right knee. No exercises except walking. Prior Treatments and Tests ultrasound left LE negative x-rays: negative PT-OP-C Subjective Start: 12/25/23 08:14 Freq: Status: Active Protocol: Document 02/06/24 08:14 SAK (Rec: 02/06/24 08:55 SAK [id number]) OP-PT Subjective Patient Comments Patient Comments Sees Dr. Salinas orthopedist tomorrow. Pain persists. PT-OP-G Mobility & Gait Start: 12/25/23 08:14 Freq: Status: Active Protocol: Document 12/25/23 08:14 SAK (Rec: 12/25/23 16:06 SAK [id number]) OP Mobility Evaluation Transfers Sit to Stand requires UE use Bed to Chair Transfers painful Car Transfers painful Floor Transfers unable Functional Movements Squats painful Running Assessment unable OP Gait Assessment Gait Gait Assistance Required: Independent Assistive Devices Assistive Device None Gait Deviations General Gait Pattern Antalgic,Decreased Stride Length,Decreased Feet Clearance,Wide Based Gait Factors Limiting Gait Function Factors Limiting Gait Function Decreased Strength,Pain Comments Gait Comments excess lateral sway Stair Climbing Evaluation Evaluation Level of Assist On Stairs Independent Devices Stair Climbing Assistive Devices Left Railing,Right Railing Technique/Endurance Stair Climbing Direction Ascend and Descend Stair Climbing Technique Step to Step PT-OP-H Neuro Start: 12/25/23 08:14 Freq: Status: Active Protocol: Document 12/25/23 08:14 SAK (Rec: 12/25/23 16:06 SAK [id number]) Sensation Evaluation Gross Sensation Gross Sensation WNL PT-OP-J Posture/Palpation/Skin Start: 12/25/23 08:14 Freq: Status: Active Protocol: Document 01/08/24 09:05 SP (Rec: 01/08/24 09:51 SP [id number]) Skin Assessment Edema Assessment jose knees left greater than right Edema Type Non-Pitting Comments Circumferential measurements BLEs: (13cm inferior patella calf) 44.5cm L, 43.5 cm R (Mid Patella): 51 cm L, 49.5 cm R (15cm above patella): 65.5cm L, 64 cm R (Base MTP): 21.6cm L, 21.5cm (mid foot): 23cm L, 22.5cm R PT-OP-K Range of Motion Start: 12/25/23 08:14 Freq: Status: Active Protocol: Document 12/25/23 08:14 SAK (Rec: 12/25/23 16:06 SAK [id number]) Hip Goniometric Range of Motion Hip jose Straight Leg Raise 60 Extension 0 Abduction 20 Internal Rotation 15 External Rotation 55 Knee Goniometric Range of Motion Knee jose Knee ROM WFL Yes Ankle and Foot Goniometric Range of Motion Ankle and Foot jose Ankle/Foot ROM WFL Yes PT-OP-L Special Tests Start: 12/25/23 08:14 Freq: Status: Active Protocol: Document 12/25/23 08:14 SAK (Rec: 12/25/23 09:04 SAK [id number]) Special Tests Knee Special Tests 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 (Rec: 12/25/23 16:06 [facility] [id number]) Hip Strength Hip Manual Muscle Testing jose Flexion (L2) 3+ Fair+ Extension (S1) 3- Fair- Abduction 3+ Fair+ Adduction 4- Good- External Rotation 3+ Fair+ Internal Rotation 4- Good- Knee Strength Knee Manual Muscle Testing ojse Flexion (S2) 4 Good Extension (L3) 4 Good Ankle/Foot Strength Ankle and Foot Manual Muscle Testing jose Dorsiflexion (L4) 4 Good Plantarflexion (S1) 4 Good PT-OP-Q Treatments Start: 12/25/23 08:14 Freq: Status: Active Protocol: Document 02/06/24 08:14 [facility] (Rec: 02/06/24 08:55 [facility] [id number]) Cardio Equipment Recumbent Elliptical (Biodex) Duration (Minutes) 3 Resistance 1 Seat Position 8 Other LE's only, painful right knee Therapeutic Exercises Standing Exercises backward walking Resistance L2 TB Reps/Minutes 10 ft x 4 toe raises Reps/Minutes 10x Comments slow eccentric hamstring curl Reps/Minutes 10x Comments cues for parallel thighs gastroc stretch Standing Exercise Name and soleus Equipment Used SUMANTH Reps/Minutes 2x30 resisted sidestepping Standing Exercise Name HEP reviewed Resistance L2 TB (towels under to prevent cutting into LE's) Equipment Used near rail- not need contact Reps/Minutes 10 ft x 4 Comments pnfree heel raises Standing Exercise Name HR Side bilateral Resistance AROM Equipment Used stair rail Reps/Minutes 2X10 Comments slow eccentric Manual Therapy Treatment Taping Ktaping Body Location right knee Treatment Focus pain and edema reduction Type of Tape Kinesio Tape Skin Inspection intact Comments I strip lateral menisucus with second I strip for x lateral. 2 fan strips for edema reduction focused laterally Self-Care/Home Management Treatment Education Patient Education Home Exercise Program,Pain Management PT-OP-R Modalities Start: 12/25/23 08:14 Freq: Status: Active Protocol: Document 02/06/24 08:14 [facility] (Rec: 02/06/24 08:55 [facility] [id number]) Hot Pack/Cold Pack Treatment Cold Pack Location right knee Patient Position Hooklying Patient Tolerance Good PT-OP-T Assessment and Plan Start: 12/25/23 08:14 Freq: Status: Active Protocol: Document 02/06/24 08:14 [facility] (Rec: 02/06/24 08:55 [facility] [id number]) Physical Therapy Assessment Goals Five Impairment right knee pain and swelling ( 4 cm larger than left) Detention Goal (LTG) Decrease pain with community and outdoor ambulation on level and uneven surfaces to no greater than 2/10, and reduce edema to no greater than 1 cm larger than left LTG Duration 03/25/24 Four Impairment left LE edema [facility] Goal (LTG) Decrease edema to no greater than 1 cm difference between right and left LE 01/30/24: today right knee circumference 4 cm larger than left. Left knee no longer swolen LTG Duration 03/25/24 Three Impairment impairments in left knee and hip strength and ROM Short Term Goal (STG) Patient to be instructed in HEP for purposes of ROM and strength left LE 01/30/24: goal met, continued progression as tolerated, updated today for both left and right knee. STG Duration 02/14/24 [facility] Goal (LTG) Patient to be independent and compliant with HEP and demonstrate ROM WNL and strength to at least 4+/5 left LE 01/30/24: left knee 4+/5, hip flex 4-/5, abduction 3-/5, extension 3-/5, ER 3-/5. right knee 4-/5, hip flex 4-/5 , abduction 3-/5, extension 3- /5, ER 3-/5 LTG Duration 03/25/24 Two Impairment lower extremity functional scale (LEFS) 36% Short Term Goal (STG) Improve LEFS score to at least 55% as measure of improved activity tolerance and left knee function 01/30/24: met for left knee, but now right knee is limiting her, score 58% STG Duration 02/14/24 [facility] Goal (LTG) Improve LEFS score to at least 70% as measure of improved activity tolerance and left knee function LTG Duration 03/25/24 One Impairment pain left knee 5/10 pain scale Short Term Goal (STG) Decrease pain with household activities to no greater than 2/10 01/30/24: goal met left knee, Right knee pain 4/10 STG Duration goal met [facility] Goal (LTG) Decrease pain with community and outdoor ambulation on level and uneven surfaces to no greater than 2/10 LTG Duration goal met Assessment Summary Assessment Patient fatigues quickly with exercise due to a-fib. Poor tolerance for recumbant elliptical. Started with standing exercises which patient has not been as compliant to . Seeing orthopedist tomorrow. Physical Therapy Plan Frequency and Duration Frequency of Treatment 2x/Week Duration of treatment (weeks) 12 Plan of Care Start Date 01/30/24 Plan of Care End Date 05/01/23 Therapeutic Interventions Therapeutic Interventions Gait Training,Home Exercise Program,Manual Therapy,Patient /Caregiver Education,Self-Care /Home Management,Soft Tissue Mobilization,Taping, Therapeutic Activities, Therapeutic Exercises Modalities Cold Pack/Ice Massage,Electric Stimulation,Hot Packs, Infrared Therapy,Ultrasound Next Visit Focus/Plan Next Note Type Treatment Note Next Visit Plan Continue PT pending recommendations from orthopedist.
--- NOTE | 2024-02-08 12:29 | PT.OTN ---
Current Diagnoses Unilateral primary osteoarthritis, left knee (02/08/24) Pain in right knee (02/08/24) Difficulty in walking, not elsewhere classified (02/08/24) Weakness (02/08/24) Edema, unspecified (02/08/24) Physical Therapy Treatment Note PT-OP-A Visit Information Start: 12/25/23 08:14 Freq: Status: Active Protocol: Document 02/08/24 08:07 AB (Rec: 02/08/24 12:29 AB [id number]) Out-Patient Physical Therapy Visit Information Visit Information Visit Type Treatment Note Visit Start Time 08:17 Visit Stop Time 09:03 Visit Number 13 Number of INCOME TAX ADJUSTER Visits 1 Evaluation Information Evaluation Date 12/25/23 Precautions Precautions a-fib PT-OP-B Current Condition Start: 12/25/23 08:14 Freq: Status: Active Protocol: Document 02/06/24 08:14 SAK (Rec: 02/06/24 08:55 SAK [id number]) Current Condition History of Current Condition Onset Date 1-1 1/2 months ago. Current Complaints jose knee pain, left leg swelling History of Current Condition pain bilateral knees, prior PT right side. History swelling jose LE's left greater than right, left got bad 1 1/2 months ago. Swelling is variable, not sure if gets better when legs elevated. Doesn't wear compression stockings except occasional knee high when travels. No use of assistive device. Trying to walk between 4 -5000 steps per day, slowed some by a-fib. Has trouble getting up and trusting legs when she moves from sit to stand. Hard time getting going, gets a little better when warmed up. Has previously worn brace on right knee. No exercises except walking. Prior Treatments and Tests ultrasound left LE negative x-rays: negative PT-OP-C Subjective Start: 12/25/23 08:14 Freq: Status: Active Protocol: Document 02/08/24 08:07 AB (Rec: 02/08/24 12:29 AB [id number]) OP-PT Subjective Patient Comments Patient Comments Patient reports Ortho said she is not bone on bone yet, was offered the cortisone shot. Patient reports she can call the office if she needs to get in for a cortisone shot. Patient reports she was told she is not a candidate for surgery right now. left knee lacking 2 deg ext to 120 deg flex AROM, right knee lacking 5 deg to 109 deg AROM start of session PT-OP-G Mobility & Gait Start: 12/25/23 08:14 Freq: Status: Active Protocol: Document 12/25/23 08:14 SAK (Rec: 12/25/23 16:06 SAK [id number]) OP Mobility Evaluation Transfers Sit to Stand requires UE use Bed to Chair Transfers painful Car Transfers painful Floor Transfers unable Functional Movements Squats painful Running Assessment unable OP Gait Assessment Gait Gait Assistance Required: Independent Assistive Devices Assistive Device None Gait Deviations General Gait Pattern Antalgic,Decreased Stride Length,Decreased Feet Clearance,Wide Based Gait Factors Limiting Gait Function Factors Limiting Gait Function Decreased Strength,Pain Comments Gait Comments excess lateral sway Stair Climbing Evaluation Evaluation Level of Assist On Stairs Independent Devices Stair Climbing Assistive Devices Left Railing,Right Railing Technique/Endurance Stair Climbing Direction Ascend and Descend Stair Climbing Technique Step to Step PT-OP-H Neuro Start: 12/25/23 08:14 Freq: Status: Active Protocol: Document 12/25/23 08:14 SAK (Rec: 12/25/23 16:06 SAK [id number]) Sensation Evaluation Gross Sensation Gross Sensation WNL PT-OP-J Posture/Palpation/Skin Start: 12/25/23 08:14 Freq: Status: Active Protocol: Document 01/08/24 09:05 SP (Rec: 01/08/24 09:51 SP [id number]) Skin Assessment Edema Assessment jose knees left greater than right Edema Type Non-Pitting Comments Circumferential measurements BLEs: (13cm inferior patella calf) 44.5cm L, 43.5 cm R (Mid Patella): 51 cm L, 49.5 cm R (15cm above patella): 65.5cm L, 64 cm R (Base MTP): 21.6cm L, 21.5cm (mid foot): 23cm L, 22.5cm R PT-OP-K Range of Motion Start: 12/25/23 08:14 Freq: Status: Active Protocol: Document 12/25/23 08:14 SAK (Rec: 12/25/23 16:06 SAK [id number]) Hip Goniometric Range of Motion Hip jose Straight Leg Raise 60 Extension 0 Abduction 20 Internal Rotation 15 External Rotation 55 Knee Goniometric Range of Motion Knee jose Knee ROM WFL Yes Ankle and Foot Goniometric Range of Motion Ankle and Foot jose Ankle/Foot ROM WFL Yes PT-OP-L Special Tests Start: 12/25/23 08:14 Freq: Status: Active Protocol: Document 12/25/23 08:14 SAK (Rec: 12/25/23 09:04 SAK [id number]) Special Tests Knee Special Tests 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 [id number]) Hip Strength Hip Manual Muscle Testing jose Flexion (L2) 3+ Fair+ Extension (S1) 3- Fair- Abduction 3+ Fair+ Adduction 4- Good- External Rotation 3+ Fair+ Internal Rotation 4- Good- Knee Strength Knee Manual Muscle Testing jose Flexion (S2) 4 Good Extension (L3) 4 Good Ankle/Foot Strength Ankle and Foot Manual Muscle Testing jose Dorsiflexion (L4) 4 Good Plantarflexion (S1) 4 Good PT-OP-Q Treatments Start: 12/25/23 08:14 Freq: Status: Active Protocol: Document 02/08/24 08:07 AB (Rec: 02/08/24 12:29 AB [id number]) Therapeutic Exercises Supine Exercises SLR Supine Exercise Name HEP Side bilateral Resistance AROM Reps/Minutes x10 Heel slide Supine Exercise Name 1. on ball, 2 AROM HS HEP Side bilateral Resistance AROM Reps/Minutes 2 min on ball X 10 AROM Comments verbal cues QS Supine Exercise Name HEP reviewed Side bilateral Equipment Used R knee bent Reps/Minutes X10 Sidelying Exercises clamshell Reps/Minutes 10x Comments cues for alignment abduction Side bilateral Reps/Minutes 10X Comments cued stacked on side Manual Therapy Treatment Consent Patient gave verbal consent for manual Yes treatment Soft Tissue Mobilization bilateral knees Body Location for swelling and HS stiffness Mobilization Type Cross-Friction,Rolling,Other Intensity/Depth Superficial Body Position Hooklying Comments and moderate Taping Ktaping Body Location right knee Treatment Focus pain and edema reduction Type of Tape Kinesio Tape Skin Inspection intact Comments I strip lateral menisucus with second I strip for x lateral. 2 fan strips for edema reduction focused laterally ( avoiding small scap lateral right knee) PT-OP-R Modalities Start: 12/25/23 08:14 Freq: Status: Active Protocol: Document 02/06/24 08:14 SAK (Rec: 02/06/24 08:55 SAK [id number]) Hot Pack/Cold Pack Treatment Cold Pack Location right knee Patient Position Hooklying Patient Tolerance Good PT-OP-T Assessment and Plan Start: 12/25/23 08:14 Freq: Status: Active Protocol: Document 02/08/24 08:07 AB (Rec: 02/08/24 12:29 AB [id number]) Physical Therapy Assessment Goals Five Impairment right knee pain and swelling ( 4 cm larger than left) Water Pump Assembler Goal (LTG) Decrease pain with community and outdoor ambulation on level and uneven surfaces to no greater than 2/10, and reduce edema to no greater than 1 cm larger than left LTG Duration 03/25/24 Four Impairment left LE edema Senior Care Goal (LTG) Decrease edema to no greater than 1 cm difference between right and left LE 01/30/24: today right knee circumference 4 cm larger than left. Left knee no longer swolen LTG Duration 03/25/24 Three Impairment impairments in left knee and hip strength and ROM Short Term Goal (STG) Patient to be instructed in HEP for purposes of ROM and strength left LE 01/30/24: goal met, continued progression as tolerated, updated today for both left and right knee. STG Duration 02/14/24 Water Pump Assembler Goal (LTG) Patient to be independent and compliant with HEP and demonstrate ROM WNL and strength to at least 4+/5 left LE 01/30/24: left knee 4+/5, hip flex 4-/5, abduction 3-/5, extension 3-/5, ER 3-/5. right knee 4-/5, hip flex 4-/5 , abduction 3-/5, extension 3- /5, ER 3-/5 LTG Duration 03/25/24 Two Impairment lower extremity functional scale (LEFS) 36% Short Term Goal (STG) Improve LEFS score to at least 55% as measure of improved activity tolerance and left knee function 01/30/24: met for left knee, but now right knee is limiting her, score 58% STG Duration 02/14/24 Water Pump Assembler Goal (LTG) Improve LEFS score to at least 70% as measure of improved activity tolerance and left knee function LTG Duration 03/25/24 One Impairment pain left knee 5/10 pain scale Short Term Goal (STG) Decrease pain with household activities to no greater than 2/10 01/30/24: goal met left knee, Right knee pain 4/10 STG Duration goal met Senior Care Goal (LTG) Decrease pain with community and outdoor ambulation on level and uneven surfaces to no greater than 2/10 LTG Duration goal met Assessment Summary Assessment Patient reports the knee feels like we worked it, plans to go home and use. Physical Therapy Plan Frequency and Duration Frequency of Treatment 2x/Week Duration of treatment (weeks) 12 Plan of Care Start Date 01/30/24 Plan of Care End Date 05/01/23 Next Visit Focus/Plan Next Note Type Treatment Note Next Visit Plan Continue PT to address knee pain, weakness, edema, gait dysfunciton. possibly next ssession sidelying hip abd/clamshell back to wall with level one band
--- NOTE | 2024-02-13 09:14 | PT.OTN ---
Current Diagnoses Unilateral primary osteoarthritis, left knee (02/13/24) Pain in right knee (02/13/24) Difficulty in walking, not elsewhere classified (02/13/24) Weakness (02/13/24) Edema, unspecified (02/13/24) Physical Therapy Treatment Note PT-OP-A Visit Information Start: 12/25/23 08:14 Freq: Status: Active Protocol: Document 02/13/24 08:09 AB (Rec: 02/13/24 09:13 AB [id number]) Out-Patient Physical Therapy Visit Information Visit Information Visit Type Treatment Note Visit Note Access Code: [email or web address] Visit Start Time 08:16 Visit Stop Time 09:01 Visit Number 14 Number of DIGITAL CAMPAIGN MANAGER Visits 2 Evaluation Information Evaluation Date 12/25/23 Precautions Precautions a-fib PT-OP-B Current Condition Start: 12/25/23 08:14 Freq: Status: Active Protocol: Document 02/06/24 08:14 SAK (Rec: 02/06/24 08:55 SAK [id number]) Current Condition History of Current Condition Onset Date 1-1 1/2 months ago. Current Complaints jose knee pain, left leg swelling History of Current Condition pain bilateral knees, prior PT right side. History swelling jose LE's left greater than right, left got bad 1 1/2 months ago. Swelling is variable, not sure if gets better when legs elevated. Doesn't wear compression stockings except occasional knee high when travels. No use of assistive device. Trying to walk between 4 -5000 steps per day, slowed some by a-fib. Has trouble getting up and trusting legs when she moves from sit to stand. Hard time getting going, gets a little better when warmed up. Has previously worn brace on right knee. No exercises except walking. Prior Treatments and Tests ultrasound left LE negative x-rays: negative PT-OP-C Subjective Start: 12/25/23 08:14 Freq: Status: Active Protocol: Document 02/13/24 08:09 AB (Rec: 02/13/24 09:13 AB [id number]) OP-PT Subjective Patient Comments Patient Comments Patient comments she found a way to do the hip exercises with back against the headboard, but it is a lot to get into that position. Patient requests being re taped today. Patient reports knees did pretty well with cooking her applesauce. AROM left knee 0 to 134 deg right knee lacking 6 deg ext to 114 deg flexion PT-OP-G Mobility & Gait Start: 12/25/23 08:14 Freq: Status: Active Protocol: Document 12/25/23 08:14 SAK (Rec: 12/25/23 16:06 SAK [id number]) OP Mobility Evaluation Transfers Sit to Stand requires UE use Bed to Chair Transfers painful Car Transfers painful Floor Transfers unable Functional Movements Squats painful Running Assessment unable OP Gait Assessment Gait Gait Assistance Required: Independent Assistive Devices Assistive Device None Gait Deviations General Gait Pattern Antalgic,Decreased Stride Length,Decreased Feet Clearance,Wide Based Gait Factors Limiting Gait Function Factors Limiting Gait Function Decreased Strength,Pain Comments Gait Comments excess lateral sway Stair Climbing Evaluation Evaluation Level of Assist On Stairs Independent Devices Stair Climbing Assistive Devices Left Railing,Right Railing Technique/Endurance Stair Climbing Direction Ascend and Descend Stair Climbing Technique Step to Step PT-OP-H Neuro Start: 12/25/23 08:14 Freq: Status: Active Protocol: Document 12/25/23 08:14 SAK (Rec: 12/25/23 16:06 SAK [id number]) Sensation Evaluation Gross Sensation Gross Sensation WNL PT-OP-J Posture/Palpation/Skin Start: 12/25/23 08:14 Freq: Status: Active Protocol: Document 01/08/24 09:05 SP (Rec: 01/08/24 09:51 SP [id number]) Skin Assessment Edema Assessment jose knees left greater than right Edema Type Non-Pitting Comments Circumferential measurements BLEs: (13cm inferior patella calf) 44.5cm L, 43.5 cm R (Mid Patella): 51 cm L, 49.5 cm R (15cm above patella): 65.5cm L, 64 cm R (Base MTP): 21.6cm L, 21.5cm (mid foot): 23cm L, 22.5cm R PT-OP-K Range of Motion Start: 12/25/23 08:14 Freq: Status: Active Protocol: Document 12/25/23 08:14 SAK (Rec: 12/25/23 16:06 SAK [id number]) Hip Goniometric Range of Motion Hip jose Straight Leg Raise 60 Extension 0 Abduction 20 Internal Rotation 15 External Rotation 55 Knee Goniometric Range of Motion Knee jose Knee ROM WFL Yes Ankle and Foot Goniometric Range of Motion Ankle and Foot jose Ankle/Foot ROM WFL Yes PT-OP-L Special Tests Start: 12/25/23 08:14 Freq: Status: Active Protocol: Document 12/25/23 08:14 SAK (Rec: 12/25/23 09:04 SAK [id number]) Special Tests Knee Special Tests 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 Test Results - Varus- 0 Degrees Test Results - Valgus- 0 Degrees Test Results - Other Special Tests Special Tests circumferential measurements: MTP R 21.7 L 22.2 mid foot R 21.5 L 22.8 ankle R 26.7 L 25.7 mid calf R 43.5 L 43.9 knees R 48.7 L 50.9 10 cm prox patella R 58.2 L 58.8 PT-OP-M Strength Start: 12/25/23 08:14 Freq: Status: Active Protocol: Document 12/25/23 08:14 [facility] (Rec: 12/25/23 16:06 [facility] [id number]) Hip Strength Hip Manual Muscle Testing jose Flexion (L2) 3+ Fair+ Extension (S1) 3- Fair- Abduction 3+ Fair+ Adduction 4- Good- External Rotation 3+ Fair+ Internal Rotation 4- Good- Knee Strength Knee Manual Muscle Testing jose Flexion (S2) 4 Good Extension (L3) 4 Good Ankle/Foot Strength Ankle and Foot Manual Muscle Testing jose Dorsiflexion (L4) 4 Good Plantarflexion (S1) 4 Good PT-OP-Q Treatments Start: 12/25/23 08:14 Freq: Status: Active Protocol: Document 02/13/24 08:09 AB (Rec: 02/13/24 09:13 AB [id number]) Therapeutic Exercises Supine Exercises HS stretch Supine Exercise Name from hooklying Side bilateral Reps/Minutes 60 X 1 each LE Comments verbal cues, towel to Heel slide Supine Exercise Name 1. on ball, 2 AROM HS HEP Side bilateral Resistance AROM Reps/Minutes X15 on ball X 10 AROM Comments verbal cues Sidelying Exercises clamshell Side bilateral Reps/Minutes 15x X10 with level one light blue band Comments back to wall abduction Side bilateral Reps/Minutes 10x without band X10 with level one light blue band Comments back to wall Manual Therapy Treatment Soft Tissue Mobilization bilateral knees Body Location for swelling and HS stiffness R> L Mobilization Type Cross-Friction,Rolling,Other Intensity/Depth Superficial Body Position Hooklying Comments and moderate PT-OP-R Modalities Start: 12/25/23 08:14 Freq: Status: Active Protocol: Document 02/06/24 08:14 SAK (Rec: 02/06/24 08:55 SAK [id number]) Hot Pack/Cold Pack Treatment Cold Pack Location right knee Patient Position Hooklying Patient Tolerance Good PT-OP-T Assessment and Plan Start: 12/25/23 08:14 Freq: Status: Active Protocol: Document 02/13/24 08:09 AB (Rec: 02/13/24 09:13 AB [id number]) Physical Therapy Assessment Goals Five Impairment right knee pain and swelling ( 4 cm larger than left) Assisted Goal (LTG) Decrease pain with community and outdoor ambulation on level and uneven surfaces to no greater than 2/10, and reduce edema to no greater than 1 cm larger than left LTG Duration 03/25/24 Four Impairment left LE edema Assisted Goal (LTG) Decrease edema to no greater than 1 cm difference between right and left LE 01/30/24: today right knee circumference 4 cm larger than left. Left knee no longer swolen LTG Duration 03/25/24 Three Impairment impairments in left knee and hip strength and ROM Short Term Goal (STG) Patient to be instructed in HEP for purposes of ROM and strength left LE 01/30/24: goal met, continued progression as tolerated, updated today for both left and right knee. STG Duration 02/14/24 Assisted Goal (LTG) Patient to be independent and compliant with HEP and demonstrate ROM WNL and strength to at least 4+/5 left LE 01/30/24: left knee 4+/5, hip flex 4-/5, abduction 3-/5, extension 3-/5, ER 3-/5. right knee 4-/5, hip flex 4-/5 , abduction 3-/5, extension 3- /5, ER 3-/5 LTG Duration 03/25/24 Two Impairment lower extremity functional scale (LEFS) 36% Short Term Goal (STG) Improve LEFS score to at least 55% as measure of improved activity tolerance and left knee function 01/30/24: met for left knee, but now right knee is limiting her, score 58% STG Duration 02/14/24 Assisted Goal (LTG) Improve LEFS score to at least 70% as measure of improved activity tolerance and left knee function LTG Duration 03/25/24 One Impairment pain left knee 5/10 pain scale Short Term Goal (STG) Decrease pain with household activities to no greater than 2/10 01/30/24: goal met left knee, Right knee pain 4/10 STG Duration goal met Assisted Goal (LTG) Decrease pain with community and outdoor ambulation on level and uneven surfaces to no greater than 2/10 LTG Duration goal met Assessment Summary Assessment AROM right knee flexion 122 deg post manual and exercise. Macre reports having no knee pain ambulating out of session without device. Physical Therapy Plan Frequency and Duration Frequency of Treatment 2x/Week Duration of treatment (weeks) 12 Plan of Care Start Date 01/30/24 Plan of Care End Date 05/01/23 Next Visit Focus/Plan Next Note Type Treatment Note Next Visit Plan Continue PT to address knee pain, weakness, edema, gait dysfunciton.
--- NOTE | 2024-02-15 10:46 | PT.OTN ---
Current Diagnoses Unilateral primary osteoarthritis, left knee (02/15/24) Pain in right knee (02/15/24) Difficulty in walking, not elsewhere classified (02/15/24) Weakness (02/15/24) Edema, unspecified (02/15/24) Physical Therapy Treatment Note PT-OP-A Visit Information Start: 12/25/23 08:14 Freq: Status: Active Protocol: Document 02/15/24 08:10 AB (Rec: 02/15/24 10:45 AB [id number]) Out-Patient Physical Therapy Visit Information Visit Information Visit Type Treatment Note Visit Note Access Code: [email or web address] Visit Start Time 09:01 Visit Stop Time 09:46 Visit Number 15 Number of STRUCTURES MECHANIC Visits 1 Evaluation Information Evaluation Date 12/25/23 Precautions Precautions a-fib PT-OP-B Current Condition Start: 12/25/23 08:14 Freq: Status: Active Protocol: Document 02/06/24 08:14 SAK (Rec: 02/06/24 08:55 SAK [id number]) Current Condition History of Current Condition Onset Date 1-1 1/2 months ago. Current Complaints jose knee pain, left leg swelling History of Current Condition pain bilateral knees, prior PT right side. History swelling jose LE's left greater than right, left got bad 1 1/2 months ago. Swelling is variable, not sure if gets better when legs elevated. Doesn't wear compression stockings except occasional knee high when travels. No use of assistive device. Trying to walk between 4 -5000 steps per day, slowed some by a-fib. Has trouble getting up and trusting legs when she moves from sit to stand. Hard time getting going, gets a little better when warmed up. Has previously worn brace on right knee. No exercises except walking. Prior Treatments and Tests ultrasound left LE negative x-rays: negative PT-OP-C Subjective Start: 12/25/23 08:14 Freq: Status: Active Protocol: Document 02/15/24 08:10 AB (Rec: 02/15/24 10:45 AB [id number]) OP-PT Subjective Patient Comments Patient Comments Patient reports the left knee is fine, right knee is a little better. Patient rates right knee pain 1-2/10. AROM right knee lacking 4 deg ext to 110 deg flexion start of session. PT-OP-G Mobility & Gait Start: 12/25/23 08:14 Freq: Status: Active Protocol: Document 12/25/23 08:14 SAK (Rec: 12/25/23 16:06 SAK [id number]) OP Mobility Evaluation Transfers Sit to Stand requires UE use Bed to Chair Transfers painful Car Transfers painful Floor Transfers unable Functional Movements Squats painful Running Assessment unable OP Gait Assessment Gait Gait Assistance Required: Independent Assistive Devices Assistive Device None Gait Deviations General Gait Pattern Antalgic,Decreased Stride Length,Decreased Feet Clearance,Wide Based Gait Factors Limiting Gait Function Factors Limiting Gait Function Decreased Strength,Pain Comments Gait Comments excess lateral sway Stair Climbing Evaluation Evaluation Level of Assist On Stairs Independent Devices Stair Climbing Assistive Devices Left Railing,Right Railing Technique/Endurance Stair Climbing Direction Ascend and Descend Stair Climbing Technique Step to Step PT-OP-H Neuro Start: 12/25/23 08:14 Freq: Status: Active Protocol: Document 12/25/23 08:14 SAK (Rec: 12/25/23 16:06 SAK [id number]) Sensation Evaluation Gross Sensation Gross Sensation WNL PT-OP-J Posture/Palpation/Skin Start: 12/25/23 08:14 Freq: Status: Active Protocol: Document 01/08/24 09:05 SP (Rec: 01/08/24 09:51 SP [id number]) Skin Assessment Edema Assessment jose knees left greater than right Edema Type Non-Pitting Comments Circumferential measurements BLEs: (13cm inferior patella calf) 44.5cm L, 43.5 cm R (Mid Patella): 51 cm L, 49.5 cm R (15cm above patella): 65.5cm L, 64 cm R (Base MTP): 21.6cm L, 21.5cm (mid foot): 23cm L, 22.5cm R PT-OP-K Range of Motion Start: 12/25/23 08:14 Freq: Status: Active Protocol: Document 12/25/23 08:14 SAK (Rec: 12/25/23 16:06 SAK [id number]) Hip Goniometric Range of Motion Hip jose Straight Leg Raise 60 Extension 0 Abduction 20 Internal Rotation 15 External Rotation 55 Knee Goniometric Range of Motion Knee jose Knee ROM WFL Yes Ankle and Foot Goniometric Range of Motion Ankle and Foot jose Ankle/Foot ROM WFL Yes PT-OP-L Special Tests Start: 12/25/23 08:14 Freq: Status: Active Protocol: Document 12/25/23 08:14 SAK (Rec: 12/25/23 09:04 [facility] [id number]) Special Tests Knee Special Tests 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 Test Results - Varus- 0 Degrees Test Results - Valgus- 0 Degrees Test Results - Other Special Tests Special Tests circumferential measurements: MTP R 21.7 L 22.2 mid foot R 21.5 L 22.8 ankle R 26.7 L 25.7 mid calf R 43.5 L 43.9 knees R 48.7 L 50.9 10 cm prox patella R 58.2 L 58.8 PT-OP-M Strength Start: 12/25/23 08:14 Freq: Status: Active Protocol: Document 12/25/23 08:14 [facility] (Rec: 12/25/23 16:06 [facility] [id number]) Hip Strength Hip Manual Muscle Testing jose Flexion (L2) 3+ Fair+ Extension (S1) 3- Fair- Abduction 3+ Fair+ Adduction 4- Good- External Rotation 3+ Fair+ Internal Rotation 4- Good- Knee Strength Knee Manual Muscle Testing jose Flexion (S2) 4 Good Extension (L3) 4 Good Ankle/Foot Strength Ankle and Foot Manual Muscle Testing jose Dorsiflexion (L4) 4 Good Plantarflexion (S1) 4 Good PT-OP-Q Treatments Start: 12/25/23 08:14 Freq: Status: Active Protocol: Document 02/15/24 08:10 AB (Rec: 02/15/24 10:45 AB [id number]) Therapeutic Exercises Supine Exercises HS stretch Supine Exercise Name from hooklying Side bilateral Reps/Minutes 60 X 2 each LE Comments verbal cues, towel to SLR Supine Exercise Name HEP Side bilateral Resistance AROM Reps/Minutes x10 Heel slide Supine Exercise Name 1. on ball, 2 AROM HS HEP Side bilateral Reps/Minutes X15 on ball X X3 then X 10 R AROM Comments reports clicking with heel slide, eliminated post clicking for X 10 Sitting Exercises seated clam Sitting Exercise Name HEP Side bilateral Resistance Level 4 latex free Reps/Minutes one one minute hold then X 15 without hold Standing Exercises sit to stand Standing Exercise Name HEP Equipment Used L4TB around distal thighs Reps/Minutes X1 without band then 5X 2 with band Comments monitored for pain Therapeutic Activity Therapeutic Activity self massage Name right knee Comments Verbal and tactile cues for circular and side to side movts to areas of decreased mobility/ increased tissue density and upward strokes lateral and medial knee. Manual Therapy Treatment Soft Tissue Mobilization bilateral knees Body Location right knee HS stiffness and areas of increased density med , lat and sup pat Mobilization Type Cross-Friction,Rolling,Other Intensity/Depth Moderate Body Position Hooklying Taping Ktaping Body Location right knee Treatment Focus pain Type of Tape Kinesio Tape Skin Inspection intact Comments I strip lateral menisucus with second I strip for x lateral. 2 I strips distal patella 50% pull med and lat to unload fat pad PT-OP-R Modalities Start: 12/25/23 08:14 Freq: Status: Active Protocol: Document 02/06/24 08:14 SAK (Rec: 02/06/24 08:55 SAK [id number]) Hot Pack/Cold Pack Treatment Cold Pack Location right knee Patient Position Hooklying Patient Tolerance Good PT-OP-T Assessment and Plan Start: 12/25/23 08:14 Freq: Status: Active Protocol: Document 02/15/24 08:10 AB (Rec: 02/15/24 10:45 AB [id number]) Physical Therapy Assessment Goals Five Impairment right knee pain and swelling ( 4 cm larger than left) Usp Goal (LTG) Decrease pain with community and outdoor ambulation on level and uneven surfaces to no greater than 2/10, and reduce edema to no greater than 1 cm larger than left LTG Duration 03/25/24 Four Impairment left LE edema Usp Goal (LTG) Decrease edema to no greater than 1 cm difference between right and left LE 01/30/24: today right knee circumference 4 cm larger than left. Left knee no longer swolen LTG Duration 03/25/24 Three Impairment impairments in left knee and hip strength and ROM Short Term Goal (STG) Patient to be instructed in HEP for purposes of ROM and strength left LE 01/30/24: goal met, continued progression as tolerated, updated today for both left and right knee. STG Duration 02/14/24 Coke Inspector Goal (LTG) Patient to be independent and compliant with HEP and demonstrate ROM WNL and strength to at least 4+/5 left LE 01/30/24: left knee 4+/5, hip flex 4-/5, abduction 3-/5, extension 3-/5, ER 3-/5. right knee 4-/5, hip flex 4-/5 , abduction 3-/5, extension 3- /5, ER 3-/5 LTG Duration 03/25/24 Two Impairment lower extremity functional scale (LEFS) 36% Short Term Goal (STG) Improve LEFS score to at least 55% as measure of improved activity tolerance and left knee function 01/30/24: met for left knee, but now right knee is limiting her, score 58% STG Duration 02/14/24 Usp Goal (LTG) Improve LEFS score to at least 70% as measure of improved activity tolerance and left knee function LTG Duration 03/25/24 One Impairment pain left knee 5/10 pain scale Short Term Goal (STG) Decrease pain with household activities to no greater than 2/10 01/30/24: goal met left knee, Right knee pain 4/10 STG Duration goal met Usp Goal (LTG) Decrease pain with community and outdoor ambulation on level and uneven surfaces to no greater than 2/10 LTG Duration goal met Assessment Summary Assessment AROM lacking 2 deg extension to 120 deg flexion post manual therapy and exercise. Able to perform sit to stand with level 4 band from calero mat at lowest height with reports of no increased pain. Marce rates pain 0/10 right knee end of session. Physical Therapy Plan Frequency and Duration Frequency of Treatment 2x/Week Duration of treatment (weeks) 12 Plan of Care Start Date 01/30/24 Plan of Care End Date 05/01/23 Next Visit Focus/Plan Next Note Type Treatment Note Next Visit Plan Continue PT to address knee pain, weakness, edema, gait dysfunciton.
--- NOTE | 2024-02-28 16:16 | PT.OTN ---
Current Diagnoses Unilateral primary osteoarthritis, left knee (02/28/24) Pain in right knee (02/28/24) Difficulty in walking, not elsewhere classified (02/28/24) Weakness (02/28/24) Edema, unspecified (02/28/24) Physical Therapy Treatment Note PT-OP-A Visit Information Start: 12/25/23 08:14 Freq: Status: Active Protocol: Document 02/28/24 10:44 SAK (Rec: 02/28/24 11:32 SAK [id number]) Out-Patient Physical Therapy Visit Information Visit Information Visit Type Treatment Note Visit Start Time 10:45 Visit Stop Time 11:30 Visit Number 16 Number of VP OF TECHNOLOGY Visits 0 Evaluation Information Evaluation Date 12/25/23 Precautions Precautions a-fib PT-OP-B Current Condition Start: 12/25/23 08:14 Freq: Status: Active Protocol: Document 02/28/24 10:44 SAK (Rec: 02/28/24 11:32 SAK [id number]) Current Condition History of Current Condition Onset Date 1-1 1/2 months ago. Current Complaints jose knee pain, left leg swelling History of Current Condition pain bilateral knees, prior PT right side. History swelling jose LE's left greater than right, left got bad 1 1/2 months ago. Swelling is variable, not sure if gets better when legs elevated. Doesn't wear compression stockings except occasional knee high when travels. No use of assistive device. Trying to walk between 4 -5000 steps per day, slowed some by a-fib. Has trouble getting up and trusting legs when she moves from sit to stand. Hard time getting going, gets a little better when warmed up. Has previously worn brace on right knee. No exercises except walking. Prior Treatments and Tests ultrasound left LE negative x-rays: negative PT-OP-C Subjective Start: 12/25/23 08:14 Freq: Status: Active Protocol: Document 02/28/24 10:44 SAK (Rec: 02/28/24 11:32 SAK [id number]) OP-PT Subjective Patient Comments Patient Comments Reports pressure changes affect her knee, overall getting around a little better . Feels like she is getting stronger. Hasn't been walking as much due to weather PT-OP-G Mobility & Gait Start: 12/25/23 08:14 Freq: Status: Active Protocol: Document 12/25/23 08:14 SAK (Rec: 12/25/23 16:06 SAK [id number]) OP Mobility Evaluation Transfers Sit to Stand requires UE use Bed to Chair Transfers painful Car Transfers painful Floor Transfers unable Functional Movements Squats painful Running Assessment unable OP Gait Assessment Gait Gait Assistance Required: Independent Assistive Devices Assistive Device None Gait Deviations General Gait Pattern Antalgic,Decreased Stride Length,Decreased Feet Clearance,Wide Based Gait Factors Limiting Gait Function Factors Limiting Gait Function Decreased Strength,Pain Comments Gait Comments excess lateral sway Stair Climbing Evaluation Evaluation Level of Assist On Stairs Independent Devices Stair Climbing Assistive Devices Left Railing,Right Railing Technique/Endurance Stair Climbing Direction Ascend and Descend Stair Climbing Technique Step to Step PT-OP-H Neuro Start: 12/25/23 08:14 Freq: Status: Active Protocol: Document 12/25/23 08:14 SAK (Rec: 12/25/23 16:06 SAK [id number]) Sensation Evaluation Gross Sensation Gross Sensation WNL PT-OP-J Posture/Palpation/Skin Start: 12/25/23 08:14 Freq: Status: Active Protocol: Document 01/08/24 09:05 SP (Rec: 01/08/24 09:51 SP [id number]) Skin Assessment Edema Assessment jose knees left greater than right Edema Type Non-Pitting Comments Circumferential measurements BLEs: (13cm inferior patella calf) 44.5cm L, 43.5 cm R (Mid Patella): 51 cm L, 49.5 cm R (15cm above patella): 65.5cm L, 64 cm R (Base MTP): 21.6cm L, 21.5cm (mid foot): 23cm L, 22.5cm R PT-OP-K Range of Motion Start: 12/25/23 08:14 Freq: Status: Active Protocol: Document 12/25/23 08:14 SAK (Rec: 12/25/23 16:06 SAK [id number]) Hip Goniometric Range of Motion Hip jose Straight Leg Raise 60 Extension 0 Abduction 20 Internal Rotation 15 External Rotation 55 Knee Goniometric Range of Motion Knee jose Knee ROM WFL Yes Ankle and Foot Goniometric Range of Motion Ankle and Foot jose Ankle/Foot ROM WFL Yes PT-OP-L Special Tests Start: 12/25/23 08:14 Freq: Status: Active Protocol: Document 12/25/23 08:14 [facility] (Rec: 12/25/23 09:04 [facility] [id number]) Special Tests Knee Special Tests 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 Test Results - Varus- 0 Degrees Test Results - Valgus- 0 Degrees Test Results - Other Special Tests Special Tests circumferential measurements: MTP R 21.7 L 22.2 mid foot R 21.5 L 22.8 ankle R 26.7 L 25.7 mid calf R 43.5 L 43.9 knees R 48.7 L 50.9 10 cm prox patella R 58.2 L 58.8 PT-OP-M Strength Start: 12/25/23 08:14 Freq: Status: Active Protocol: Document 12/25/23 08:14 [facility] (Rec: 12/25/23 16:06 [facility] [id number]) Hip Strength Hip Manual Muscle Testing jose Flexion (L2) 3+ Fair+ Extension (S1) 3- Fair- Abduction 3+ Fair+ Adduction 4- Good- External Rotation 3+ Fair+ Internal Rotation 4- Good- Knee Strength Knee Manual Muscle Testing jose Flexion (S2) 4 Good Extension (L3) 4 Good Ankle/Foot Strength Ankle and Foot Manual Muscle Testing jose Dorsiflexion (L4) 4 Good Plantarflexion (S1) 4 Good PT-OP-Q Treatments Start: 12/25/23 08:14 Freq: Status: Active Protocol: Document 02/28/24 10:44 [facility] (Rec: 02/28/24 11:32 [facility] [id number]) Therapeutic Exercises Supine Exercises HS stretch Supine Exercise Name from hooklying Side bilateral Reps/Minutes 60 X 2 each LE Comments verbal cues, towel to SLR Side bilateral Resistance AROM Reps/Minutes x10 Sitting Exercises seated clam Sitting Exercise Name HEP Side bilateral Resistance Level 4 latex free Reps/Minutes one one minute hold then X 15 without hold Standing Exercises knee ext Equipment Used L4 TB Reps/Minutes 10x sit to stand Standing Exercise Name HEP Equipment Used L4TB around distal thighs Reps/Minutes X1 without band then 5X 2 with band Comments monitored for pain gastroc stretch Standing Exercise Name and soleus Equipment Used SUMANTH Reps/Minutes 2x30 resisted sidestepping Standing Exercise Name HEP reviewed Resistance L2 TB Equipment Used near rail- not need contact Reps/Minutes 10 ft x 4 Comments pnfree Manual Therapy Treatment Soft Tissue Mobilization bilateral knees Body Location right knee HS stiffness and areas of increased density med , lat and sup pat Mobilization Type Cross-Friction,Rolling,Other Intensity/Depth Moderate Body Position Hooklying Taping Ktaping Body Location right knee Treatment Focus pain Type of Tape Kinesio Tape Skin Inspection intact Comments I strip lateral menisucus with second I strip for x lateral. 2 I strips distal patella 50% pull med and lat to unload fat pad PT-OP-R Modalities Start: 12/25/23 08:14 Freq: Status: Active Protocol: Document 02/06/24 08:14 SAK (Rec: 02/06/24 08:55 [facility] [id number]) Hot Pack/Cold Pack Treatment Cold Pack Location right knee Patient Position Hooklying Patient Tolerance Good PT-OP-T Assessment and Plan Start: 12/25/23 08:14 Freq: Status: Active Protocol: Document 02/28/24 10:44 SAK (Rec: 02/28/24 11:32 [facility] [id number]) Physical Therapy Assessment Goals Five Impairment right knee pain and swelling ( 4 cm larger than left) Alf Goal (LTG) Decrease pain with community and outdoor ambulation on level and uneven surfaces to no greater than 2/10, and reduce edema to no greater than 1 cm larger than left 02/28/24: good goal progress LTG Duration 03/25/24 Four Impairment left LE edema Compliance Vice President Goal (LTG) Decrease edema to no greater than 1 cm difference between right and left LE 01/30/24: today right knee circumference 4 cm larger than left. Left knee no longer swolen 02/18/24: good goal progress LTG Duration 03/25/24 Three Impairment impairments in left knee and hip strength and ROM Short Term Goal (STG) Patient to be instructed in HEP for purposes of ROM and strength left LE 01/30/24: goal met, continued progression as tolerated, updated today for both left and right knee. 02/28/24: goal met STG Duration goal met Alf Goal (LTG) Patient to be independent and compliant with HEP and demonstrate ROM WNL and strength to at least 4+/5 left LE 01/30/24: left knee 4+/5, hip flex 4-/5, abduction 3-/5, extension 3-/5, ER 3-/5. right knee 4-/5, hip flex 4-/5 , abduction 3-/5, extension 3- /5, ER 3-/5 LTG Duration 03/25/24 Two Impairment lower extremity functional scale (LEFS) 36% Short Term Goal (STG) Improve LEFS score to at least 55% as measure of improved activity tolerance and left knee function 01/30/24: met for left knee, but now right knee is limiting her, score 58% STG Duration 02/14/24 Alf Goal (LTG) Improve LEFS score to at least 70% as measure of improved activity tolerance and left knee function LTG Duration 03/25/24 One Impairment pain left knee 5/10 pain scale Short Term Goal (STG) Decrease pain with household activities to no greater than 2/10 01/30/24: goal met left knee, Right knee pain /10 02/28/24: goal met STG Duration goal met Compliance Vice President Goal (LTG) Decrease pain with community and outdoor ambulation on level and uneven surfaces to no greater than 2/10 LTG Duration goal met Progress Towards Goals Progress Towards Goals Progressing Toward Goals Assessment Summary Assessment Pain improv, sing trength improving, patient reports losing about 10 lbs, eating less carb and processed foods as recomended. Pain 0-2/10, can increase with extended walking, standing, or ambulation on stairs Physical Therapy Plan Frequency and Duration Frequency of Treatment 2x/Week Duration of treatment (weeks) 12 Plan of Care Start Date 01/30/24 Plan of Care End Date 05/01/23 Next Visit Focus/Plan Next Note Type Treatment Note Next Visit Plan Continue PT to address knee pain, weakness, edema, gait dysfunciton. Step ups, stair training.
--- NOTE | 2024-03-01 09:02 | PT.OTN ---
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 Current Complaints jose knee pain, left leg swelling History of Current Condition pain bilateral knees, prior PT right side. History swelling jose LE's left greater than right, left got bad 1 1/2 months ago. Swelling is variable, not sure if gets better when legs elevated. Doesn't wear compression stockings except occasional knee high when travels. No use of assistive device. Trying to walk between 4 -5000 steps per day, slowed some by a-fib. Has trouble getting up and trusting legs when she moves from sit to stand. Hard time getting going, gets a little better when warmed up. Has previously worn brace on right knee. No exercises except walking. Prior Treatments and Tests ultrasound left LE negative x-rays: negative PT-OP-C Subjective Start: 12/25/23 08:14 Freq: Status: Active Protocol: Document 03/01/24 08:06 AB (Rec: 03/01/24 09:02 AB [id number]) OP-PT Subjective Patient Comments Patient Comments Patient reports she overdid it with walking yesterday, rates right knee pain 1.5/10 ambulating into session without device. AROM R knee 0 to 120 deg start of session, noted crepitus/popping sensation per patient with AROM knee extension. Marce ascends and descends 6 inch stairs (4) with 2 rails using a reciprocal pattern, reports no pain but right LE feels stiff with ascending. slight ER at hips L>R PT-OP-G Mobility & Gait Start: 12/25/23 08:14 Freq: Status: Active Protocol: Document 12/25/23 08:14 SAK (Rec: 12/25/23 16:06 SAK [id number]) OP Mobility Evaluation Transfers Sit to Stand requires UE use Bed to Chair Transfers painful Car Transfers painful Floor Transfers unable Functional Movements Squats painful Running Assessment unable OP Gait Assessment Gait Gait Assistance Required: Independent Assistive Devices Assistive Device None Gait Deviations General Gait Pattern Antalgic,Decreased Stride Length,Decreased Feet Clearance,Wide Based Gait Factors Limiting Gait Function Factors Limiting Gait Function Decreased Strength,Pain Comments Gait Comments excess lateral sway Stair Climbing Evaluation Evaluation Level of Assist On Stairs Independent Devices Stair Climbing Assistive Devices Left Railing,Right Railing Technique/Endurance Stair Climbing Direction Ascend and Descend Stair Climbing Technique Step to Step PT-OP-H Neuro Start: 12/25/23 08:14 Freq: Status: Active Protocol: Document 12/25/23 08:14 SAK (Rec: 12/25/23 16:06 SAK [id number]) Sensation Evaluation Gross Sensation Gross Sensation WNL PT-OP-J Posture/Palpation/Skin Start: 12/25/23 08:14 Freq: Status: Active Protocol: Document 01/08/24 09:05 SP (Rec: 01/08/24 09:51 SP [id number]) Skin Assessment Edema Assessment jose knees left greater than right Edema Type Non-Pitting Comments Circumferential measurements BLEs: (13cm inferior patella calf) 44.5cm L, 43.5 cm R (Mid Patella): 51 cm L, 49.5 cm R (15cm above patella): 65.5cm L, 64 cm R (Base MTP): 21.6cm L, 21.5cm (mid foot): 23cm L, 22.5cm R PT-OP-K Range of Motion Start: 12/25/23 08:14 Freq: Status: Active Protocol: Document 12/25/23 08:14 SAK (Rec: 12/25/23 16:06 SAK [id number]) Hip Goniometric Range of Motion Hip jose Straight Leg Raise 60 Extension 0 Abduction 20 Internal Rotation 15 External Rotation 55 Knee Goniometric Range of Motion Knee jose Knee ROM WFL Yes Ankle and Foot Goniometric Range of Motion Ankle and Foot jose Ankle/Foot ROM WFL Yes PT-OP-L Special Tests Start: 12/25/23 08:14 Freq: Status: Active Protocol: Document 12/25/23 08:14 SAK (Rec: 12/25/23 09:04 SAK [id number]) Special Tests Knee Special Tests 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 Test Results - Varus- 0 Degrees Test Results - Valgus- 0 Degrees Test Results - Other Special Tests Special Tests circumferential measurements: MTP R 21.7 L 22.2 mid foot R 21.5 L 22.8 ankle R 26.7 L 25.7 mid calf R 43.5 L 43.9 knees R 48.7 L 50.9 10 cm prox patella R 58.2 L 58.8 PT-OP-M Strength Start: 12/25/23 08:14 Freq: Status: Active Protocol: Document 12/25/23 08:14 [facility] (Rec: 12/25/23 16:06 [facility] [id number]) Hip Strength Hip Manual Muscle Testing jose Flexion (L2) 3+ Fair+ Extension (S1) 3- Fair- Abduction 3+ Fair+ Adduction 4- Good- External Rotation 3+ Fair+ Internal Rotation 4- Good- Knee Strength Knee Manual Muscle Testing jose Flexion (S2) 4 Good Extension (L3) 4 Good Ankle/Foot Strength Ankle and Foot Manual Muscle Testing jose Dorsiflexion (L4) 4 Good Plantarflexion (S1) 4 Good PT-OP-Q Treatments Start: 12/25/23 08:14 Freq: Status: Active Protocol: Document 03/01/24 08:06 AB (Rec: 03/01/24 09:02 AB [id number]) Therapeutic Exercises Supine Exercises pirifomris stretch Supine Exercise Name due to reports of right LE toeing out and increased piriformis stiffness Side right Equipment Used HEP Reps/Minutes 60 sec X 1 Comments verbal cues hip and knee ext with band Side right Resistance level 5 band Reps/Minutes X15 Comments reports no popping sensation Sitting Exercises seated clam Sitting Exercise Name HEP Side bilateral Resistance Level5 Reps/Minutes one one minute hold then X 15 without hold Standing Exercises 6 inch step up Standing Exercise Name with UE support Side right Reps/Minutes X10 X2 Comments Monitored with pain ( pre and post calf stretch) terminal knee extension Side right Resistance level 5 band Reps/Minutes X3 Comments limited by popping sensation gastroc stretch Standing Exercise Name and soleus Equipment Used SUMANTH Reps/Minutes 2x60 Therapeutic Activity Therapeutic Activity stairs Name bilateral rails Comments Verbal and visual cues for less quad dominant pattern X4 six inch stairs. Manual Therapy Treatment Consent Patient gave verbal consent for manual Yes treatment Soft Tissue Mobilization bilateral knees Body Location right knee HS stiffness and areas of increased density med , lat and sup pat Mobilization Type Cross-Friction,Rolling,Other Intensity/Depth Moderate Body Position Hooklying Taping Ktaping Body Location right knee Treatment Focus crepitus, tracking Type of Tape Kinesio Tape Skin Inspection intact Comments additional tape added for improving tracking medially X 2 I strips and 2 I strips to unload fat pad PT-OP-R Modalities Start: 12/25/23 08:14 Freq: Status: Active Protocol: Document 02/06/24 08:14 SAK (Rec: 02/06/24 08:55 SAK [id number]) Hot Pack/Cold Pack Treatment Cold Pack Location right knee Patient Position Hooklying Patient Tolerance Good PT-OP-T Assessment and Plan Start: 12/25/23 08:14 Freq: Status: Active Protocol: Document 03/01/24 08:06 AB (Rec: 03/01/24 09:02 AB [id number]) Physical Therapy Assessment Goals Five Impairment right knee pain and swelling ( 4 cm larger than left) Alf Goal (LTG) Decrease pain with community and outdoor ambulation on level and uneven surfaces to no greater than 2/10, and reduce edema to no greater than 1 cm larger than left 02/28/24: good goal progress LTG Duration 03/25/24 Four Impairment left LE edema Eddy Current Inspector Goal (LTG) Decrease edema to no greater than 1 cm difference between right and left LE 01/30/24: today right knee circumference 4 cm larger than left. Left knee no longer swolen 02/18/24: good goal progress LTG Duration 03/25/24 Three Impairment impairments in left knee and hip strength and ROM Short Term Goal (STG) Patient to be instructed in HEP for purposes of ROM and strength left LE 01/30/24: goal met, continued progression as tolerated, updated today for both left and right knee. 02/28/24: goal met STG Duration goal met Alf Goal (LTG) Patient to be independent and compliant with HEP and demonstrate ROM WNL and strength to at least 4+/5 left LE 01/30/24: left knee 4+/5, hip flex 4-/5, abduction 3-/5, extension 3-/5, ER 3-/5. right knee 4-/5, hip flex 4-/5 , abduction 3-/5, extension 3- /5, ER 3-/5 LTG Duration 03/25/24 Two Impairment lower extremity functional scale (LEFS) 36% Short Term Goal (STG) Improve LEFS score to at least 55% as measure of improved activity tolerance and left knee function 01/30/24: met for left knee, but now right knee is limiting her, score 58% STG Duration 02/14/24 Alf Goal (LTG) Improve LEFS score to at least 70% as measure of improved activity tolerance and left knee function LTG Duration 03/25/24 One Impairment pain left knee 5/10 pain scale Short Term Goal (STG) Decrease pain with household activities to no greater than 2/10 01/30/24: goal met left knee, Right knee pain 4/10 02/28/24: goal met STG Duration goal met Eddy Current Inspector Goal (LTG) Decrease pain with community and outdoor ambulation on level and uneven surfaces to no greater than 2/10 LTG Duration goal met Assessment Summary Assessment Patient rates pain 0/10 end of session, able to descend stairs with a less quad dominant pattern with bilateral UE use. Noted less popping sensation post tape, but not eliminated for terminal knee extension exercise. Physical Therapy Plan Frequency and Duration Frequency of Treatment 2x/Week Duration of treatment (weeks) 12 Plan of Care Start Date 01/30/24 Plan of Care End Date 05/01/23 Next Visit Focus/Plan Next Note Type Progress Note Next Visit Plan Continue PT to address knee pain, weakness, edema, gait dysfunciton. Step ups Possibly step up to HEP, stair training.
--- NOTE | 2024-03-06 10:41 | PT.OTN ---
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 Current Complaints jose knee pain, left leg swelling History of Current Condition pain bilateral knees, prior PT right side. History swelling jose LE's left greater than right, left got bad 1 1/2 months ago. Swelling is variable, not sure if gets better when legs elevated. Doesn't wear compression stockings except occasional knee high when travels. No use of assistive device. Trying to walk between 4 -5000 steps per day, slowed some by a-fib. Has trouble getting up and trusting legs when she moves from sit to stand. Hard time getting going, gets a little better when warmed up. Has previously worn brace on right knee. No exercises except walking. Prior Treatments and Tests ultrasound left LE negative x-rays: negative PT-OP-C Subjective Start: 12/25/23 08:14 Freq: Status: Active Protocol: Document 03/06/24 08:25 AB (Rec: 03/06/24 10:40 AB [id number]) OP-PT Subjective Patient Comments Patient Comments Patient rates right knee pain 2/10 start of session, attributes pain to the weather today. Patient reports performing HEP throughout her days. Patient reports she re did the tape Monday and the knee is not snapping. PT-OP-G Mobility & Gait Start: 12/25/23 08:14 Freq: Status: Active Protocol: Document 12/25/23 08:14 SAK (Rec: 12/25/23 16:06 SAK [id number]) OP Mobility Evaluation Transfers Sit to Stand requires UE use Bed to Chair Transfers painful Car Transfers painful Floor Transfers unable Functional Movements Squats painful Running Assessment unable OP Gait Assessment Gait Gait Assistance Required: Independent Assistive Devices Assistive Device None Gait Deviations General Gait Pattern Antalgic,Decreased Stride Length,Decreased Feet Clearance,Wide Based Gait Factors Limiting Gait Function Factors Limiting Gait Function Decreased Strength,Pain Comments Gait Comments excess lateral sway Stair Climbing Evaluation Evaluation Level of Assist On Stairs Independent Devices Stair Climbing Assistive Devices Left Railing,Right Railing Technique/Endurance Stair Climbing Direction Ascend and Descend Stair Climbing Technique Step to Step PT-OP-H Neuro Start: 12/25/23 08:14 Freq: Status: Active Protocol: Document 12/25/23 08:14 SAK (Rec: 12/25/23 16:06 SAK [id number]) Sensation Evaluation Gross Sensation Gross Sensation WNL PT-OP-J Posture/Palpation/Skin Start: 12/25/23 08:14 Freq: Status: Active Protocol: Document 01/08/24 09:05 SP (Rec: 01/08/24 09:51 SP [id number]) Skin Assessment Edema Assessment jose knees left greater than right Edema Type Non-Pitting Comments Circumferential measurements BLEs: (13cm inferior patella calf) 44.5cm L, 43.5 cm R (Mid Patella): 51 cm L, 49.5 cm R (15cm above patella): 65.5cm L, 64 cm R (Base MTP): 21.6cm L, 21.5cm (mid foot): 23cm L, 22.5cm R PT-OP-K Range of Motion Start: 12/25/23 08:14 Freq: Status: Active Protocol: Document 12/25/23 08:14 SAK (Rec: 12/25/23 16:06 SAK [id number]) Hip Goniometric Range of Motion Hip jose Straight Leg Raise 60 Extension 0 Abduction 20 Internal Rotation 15 External Rotation 55 Knee Goniometric Range of Motion Knee jose Knee ROM WFL Yes Ankle and Foot Goniometric Range of Motion Ankle and Foot jose Ankle/Foot ROM WFL Yes PT-OP-L Special Tests Start: 12/25/23 08:14 Freq: Status: Active Protocol: Document 12/25/23 08:14 SAK (Rec: 12/25/23 09:04 [facility] [id number]) Special Tests Knee Special Tests 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 Test Results - Varus- 0 Degrees Test Results - Valgus- 0 Degrees Test Results - Other Special Tests Special Tests circumferential measurements: MTP R 21.7 L 22.2 mid foot R 21.5 L 22.8 ankle R 26.7 L 25.7 mid calf R 43.5 L 43.9 knees R 48.7 L 50.9 10 cm prox patella R 58.2 L 58.8 PT-OP-M Strength Start: 12/25/23 08:14 Freq: Status: Active Protocol: Document 12/25/23 08:14 [facility] (Rec: 12/25/23 16:06 [facility] [id number]) Hip Strength Hip Manual Muscle Testing jose Flexion (L2) 3+ Fair+ Extension (S1) 3- Fair- Abduction 3+ Fair+ Adduction 4- Good- External Rotation 3+ Fair+ Internal Rotation 4- Good- Knee Strength Knee Manual Muscle Testing jose Flexion (S2) 4 Good Extension (L3) 4 Good Ankle/Foot Strength Ankle and Foot Manual Muscle Testing jose Dorsiflexion (L4) 4 Good Plantarflexion (S1) 4 Good PT-OP-Q Treatments Start: 12/25/23 08:14 Freq: Status: Active Protocol: Document 03/06/24 08:25 AB (Rec: 03/06/24 10:40 AB [id number]) Cardio Equipment Recumbent Elliptical (HealthyOut) Duration (Minutes) 4 Resistance 1-3 Seat Position 11 Other reports pain increaed to 4/10 right knee discontinued when pain increased Therapeutic Exercises Supine Exercises HS stretch Supine Exercise Name from hooklying Side bilateral Reps/Minutes 60 each LE Comments verbal cues, towel to SLR Side bilateral Resistance AROM Reps/Minutes x10 Sidelying Exercises clamshell Sidelying Exercise Name back to wall Side bilateral Resistance level one band second set Reps/Minutes 10x w/o band X15 with level one light blue band Comments back to wall abduction Sidelying Exercise Name back to wall Side bilateral Resistance level one band Reps/Minutes level one light blue band Comments back to wall Sitting Exercises seated clam Sitting Exercise Name HEP Side bilateral Resistance Level5 HEP for level 5 Reps/Minutes one one minute hold then X 15 without hold Standing Exercises 6 inch step up Standing Exercise Name with UE support HEP Side bilateral Reps/Minutes X10 Comments monitored for pain Manual Therapy Treatment Consent Patient gave verbal consent for manual Yes treatment Soft Tissue Mobilization bilateral knees Body Location B knee HS stiffness and areas of increased density med, lat and sup pat Mobilization Type Cross-Friction,Rolling,Other Intensity/Depth Moderate Body Position Hooklying Comments and supeficial PT-OP-R Modalities Start: 12/25/23 08:14 Freq: Status: Active Protocol: Document 02/06/24 08:14 SAK (Rec: 02/06/24 08:55 SAK [id number]) Hot Pack/Cold Pack Treatment Cold Pack Location right knee Patient Position Hooklying Patient Tolerance Good PT-OP-T Assessment and Plan Start: 12/25/23 08:14 Freq: Status: Active Protocol: Document 03/06/24 08:25 AB (Rec: 03/06/24 10:40 AB [id number]) Physical Therapy Assessment Goals Five Impairment right knee pain and swelling ( 4 cm larger than left) Care Home Goal (LTG) Decrease pain with community and outdoor ambulation on level and uneven surfaces to no greater than 2/10, and reduce edema to no greater than 1 cm larger than left 02/28/24: good goal progress LTG Duration 03/25/24 Four Impairment left LE edema Care Home Goal (LTG) Decrease edema to no greater than 1 cm difference between right and left LE 01/30/24: today right knee circumference 4 cm larger than left. Left knee no longer swolen 02/18/24: good goal progress LTG Duration 03/25/24 Three Impairment impairments in left knee and hip strength and ROM Short Term Goal (STG) Patient to be instructed in HEP for purposes of ROM and strength left LE 01/30/24: goal met, continued progression as tolerated, updated today for both left and right knee. 02/28/24: goal met STG Duration goal met Care Home Goal (LTG) Patient to be independent and compliant with HEP and demonstrate ROM WNL and strength to at least 4+/5 left LE 01/30/24: left knee 4+/5, hip flex 4-/5, abduction 3-/5, extension 3-/5, ER 3-/5. right knee 4-/5, hip flex 4-/5 , abduction 3-/5, extension 3- /5, ER 3-/5 LTG Duration 03/25/24 Two Impairment lower extremity functional scale (LEFS) 36% Short Term Goal (STG) Improve LEFS score to at least 55% as measure of improved activity tolerance and left knee function 01/30/24: met for left knee, but now right knee is limiting her, score 58% STG Duration 02/14/24 Relationship Specialist Goal (LTG) Improve LEFS score to at least 70% as measure of improved activity tolerance and left knee function LTG Duration 03/25/24 One Impairment pain left knee 08/24 pain scale Short Term Goal (STG) Decrease pain with household activities to no greater than 2/10 01/30/24: goal met left knee, Right knee pain 07/2502/28/24: goal met STG Duration goal met Care Home Goal (LTG) Decrease pain with community and outdoor ambulation on level and uneven surfaces to no greater than 2/10 LTG Duration goal met Assessment Summary Assessment Patient rates right knee pain .08/24 end of session. Good lauren to step up today bilateral knees. Physical Therapy Plan Frequency and Duration Frequency of Treatment 2x/Week Duration of treatment (weeks) 12 Plan of Care Start Date 01/30/24 Plan of Care End Date 05/01/23 Next Visit Focus/Plan Next Note Type Progress Note Next Visit Plan Discontinue elliptical, trial of bike next session. Continue PT to address knee pain, weakness, edema, gait dysfunciton.
--- NOTE | 2024-03-08 16:31 | PT.OTN ---
Current Diagnoses Unilateral primary osteoarthritis, left knee (03/08/24) Pain in right knee (03/08/24) Difficulty in walking, not elsewhere classified (03/08/24) Weakness (03/08/24) Edema, unspecified (03/08/24) Physical Therapy Treatment Note PT-OP-A Visit Information Start: 12/25/23 08:14 Freq: Status: Active Protocol: Document 03/08/24 13:12 AB (Rec: 03/08/24 16:29 AB [id number]) Out-Patient Physical Therapy Visit Information Visit Information Visit Type Treatment Note Visit Note Access Code: [email or web address] Visit Start Time 14:32 Visit Stop Time 15:17 Visit Number 19 Number of CLAIM REPRESENTATIVE Visits 3 Evaluation Information Evaluation Date 12/25/23 Precautions Precautions a-fib PT-OP-B Current Condition Start: 12/25/23 08:14 Freq: Status: Active Protocol: Document 02/28/24 10:44 SAK (Rec: 02/28/24 11:32 SAK [id number]) Current Condition History of Current Condition Onset Date 1-1 1/2 months ago. Current Complaints jose knee pain, left leg swelling History of Current Condition pain bilateral knees, prior PT right side. History swelling jose LE's left greater than right, left got bad 1 1/2 months ago. Swelling is variable, not sure if gets better when legs elevated. Doesn't wear compression stockings except occasional knee high when travels. No use of assistive device. Trying to walk between 4 -5000 steps per day, slowed some by a-fib. Has trouble getting up and trusting legs when she moves from sit to stand. Hard time getting going, gets a little better when warmed up. Has previously worn brace on right knee. No exercises except walking. Prior Treatments and Tests ultrasound left LE negative x-rays: negative PT-OP-C Subjective Start: 12/25/23 08:14 Freq: Status: Active Protocol: Document 03/08/24 13:12 AB (Rec: 03/08/24 16:29 AB [id number]) OP-PT Subjective Patient Comments Patient Comments Marce reports the knee is doing pretty good, popping is less. Patient reports back is hurting due to baking. Patient rates right knee pain .5/10 start of session seated. PT-OP-G Mobility & Gait Start: 12/25/23 08:14 Freq: Status: Active Protocol: Document 12/25/23 08:14 SAK (Rec: 12/25/23 16:06 SAK [id number]) OP Mobility Evaluation Transfers Sit to Stand requires UE use Bed to Chair Transfers painful Car Transfers painful Floor Transfers unable Functional Movements Squats painful Running Assessment unable OP Gait Assessment Gait Gait Assistance Required: Independent Assistive Devices Assistive Device None Gait Deviations General Gait Pattern Antalgic,Decreased Stride Length,Decreased Feet Clearance,Wide Based Gait Factors Limiting Gait Function Factors Limiting Gait Function Decreased Strength,Pain Comments Gait Comments excess lateral sway Stair Climbing Evaluation Evaluation Level of Assist On Stairs Independent Devices Stair Climbing Assistive Devices Left Railing,Right Railing Technique/Endurance Stair Climbing Direction Ascend and Descend Stair Climbing Technique Step to Step PT-OP-H Neuro Start: 12/25/23 08:14 Freq: Status: Active Protocol: Document 12/25/23 08:14 SAK (Rec: 12/25/23 16:06 SAK [id number]) Sensation Evaluation Gross Sensation Gross Sensation WNL PT-OP-J Posture/Palpation/Skin Start: 12/25/23 08:14 Freq: Status: Active Protocol: Document 01/08/24 09:05 SP (Rec: 01/08/24 09:51 SP [id number]) Skin Assessment Edema Assessment jose knees left greater than right Edema Type Non-Pitting Comments Circumferential measurements BLEs: (13cm inferior patella calf) 44.5cm L, 43.5 cm R (Mid Patella): 51 cm L, 49.5 cm R (15cm above patella): 65.5cm L, 64 cm R (Base MTP): 21.6cm L, 21.5cm (mid foot): 23cm L, 22.5cm R PT-OP-K Range of Motion Start: 12/25/23 08:14 Freq: Status: Active Protocol: Document 12/25/23 08:14 SAK (Rec: 12/25/23 16:06 SAK [id number]) Hip Goniometric Range of Motion Hip jose Straight Leg Raise 60 Extension 0 Abduction 20 Internal Rotation 15 External Rotation 55 Knee Goniometric Range of Motion Knee jose Knee ROM WFL Yes Ankle and Foot Goniometric Range of Motion Ankle and Foot jose Ankle/Foot ROM WFL Yes PT-OP-L Special Tests Start: 12/25/23 08:14 Freq: Status: Active Protocol: Document 12/25/23 08:14 SAK (Rec: 12/25/23 09:04 [facility] [id number]) Special Tests Knee Special Tests 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 Test Results - Varus- 0 Degrees Test Results - Valgus- 0 Degrees Test Results - Other Special Tests Special Tests circumferential measurements: MTP R 21.7 L 22.2 mid foot R 21.5 L 22.8 ankle R 26.7 L 25.7 mid calf R 43.5 L 43.9 knees R 48.7 L 50.9 10 cm prox patella R 58.2 L 58.8 PT-OP-M Strength Start: 12/25/23 08:14 Freq: Status: Active Protocol: Document 12/25/23 08:14 [facility] (Rec: 12/25/23 16:06 [facility] [id number]) Hip Strength Hip Manual Muscle Testing jose Flexion (L2) 3+ Fair+ Extension (S1) 3- Fair- Abduction 3+ Fair+ Adduction 4- Good- External Rotation 3+ Fair+ Internal Rotation 4- Good- Knee Strength Knee Manual Muscle Testing jose Flexion (S2) 4 Good Extension (L3) 4 Good Ankle/Foot Strength Ankle and Foot Manual Muscle Testing jose Dorsiflexion (L4) 4 Good Plantarflexion (S1) 4 Good PT-OP-Q Treatments Start: 12/25/23 08:14 Freq: Status: Active Protocol: Document 03/08/24 13:12 AB (Rec: 03/08/24 16:29 AB [id number]) Cardio Equipment Recumbent Bicycle Duration (Minutes) 4 Resistance 2 Seat Position 7 Gym Equipment Shuttle Recovery Unilateral Squats Resistance 37# Shuttle Recovery Platform Stable Bilateral Squats Resistance 75# 2 navy one teal Shuttle Recovery Platform Stable Reps/Time X10 X 2 Therapeutic Exercises Supine Exercises HS stretch Supine Exercise Name from hooklying Side bilateral Reps/Minutes 60 each LE Comments verbal cues, towel to Standing Exercises 6 inch step up Standing Exercise Name with UE support HEP Reps/Minutes X15 Comments monitored for pain Manual Therapy Treatment Consent Patient gave verbal consent for manual Yes treatment Soft Tissue Mobilization bilateral knees Body Location R knee HS stiffness and areas of increased density med, lat and sup pat Mobilization Type Cross-Friction,Rolling,Other Intensity/Depth Moderate Body Position Hooklying Comments and supeficial Taping Ktaping Body Location right knee Treatment Focus crepitus, tracking Type of Tape Kinesio Tape Skin Inspection intact Comments 2 I strips lateral X at lat meniscus then supra and infra pat 50% stretch, 2 I strips to unload fat pad peripatallar area med and lat superior pull 50% PT-OP-R Modalities Start: 12/25/23 08:14 Freq: Status: Active Protocol: Document 02/06/24 08:14 SAK (Rec: 02/06/24 08:55 SAK [id number]) Hot Pack/Cold Pack Treatment Cold Pack Location right knee Patient Position Hooklying Patient Tolerance Good PT-OP-T Assessment and Plan Start: 12/25/23 08:14 Freq: Status: Active Protocol: Document 03/08/24 13:12 AB (Rec: 03/08/24 16:29 AB [id number]) Physical Therapy Assessment Goals Five Impairment right knee pain and swelling ( 4 cm larger than left) Production Analyst Goal (LTG) Decrease pain with community and outdoor ambulation on level and uneven surfaces to no greater than 2/10, and reduce edema to no greater than 1 cm larger than left 02/28/24: good goal progress LTG Duration 03/25/24 Four Impairment left LE edema Snf Goal (LTG) Decrease edema to no greater than 1 cm difference between right and left LE 01/30/24: today right knee circumference 4 cm larger than left. Left knee no longer swolen 02/18/24: good goal progress LTG Duration 03/25/24 Three Impairment impairments in left knee and hip strength and ROM Short Term Goal (STG) Patient to be instructed in HEP for purposes of ROM and strength left LE 01/30/24: goal met, continued progression as tolerated, updated today for both left and right knee. 02/28/24: goal met STG Duration goal met Production Analyst Goal (LTG) Patient to be independent and compliant with HEP and demonstrate ROM WNL and strength to at least 4+/5 left LE 01/30/24: left knee 4+/5, hip flex 4-/5, abduction 3-/5, extension 3-/5, ER 3-/5. right knee 4-/5, hip flex 4-/5 , abduction 3-/5, extension 3- /5, ER 3-/5 LTG Duration 03/25/24 Two Impairment lower extremity functional scale (LEFS) 36% Short Term Goal (STG) Improve LEFS score to at least 55% as measure of improved activity tolerance and left knee function 01/30/24: met for left knee, but now right knee is limiting her, score 58% STG Duration 02/14/24 Production Analyst Goal (LTG) Improve LEFS score to at least 70% as measure of improved activity tolerance and left knee function LTG Duration 03/25/24 One Impairment pain left knee 08/24 pain scale Short Term Goal (STG) Decrease pain with household activities to no greater than 2/10 01/30/24: goal met left knee, Right knee pain 07/2502/28/24: goal met STG Duration goal met Snf Goal (LTG) Decrease pain with community and outdoor ambulation on level and uneven surfaces to no greater than 2/10 LTG Duration goal met Assessment Summary Assessment Marce rated right knee pain end of session ambulating without device. Good lauren to 6 inch step up and improved lauren to single leg on Shuttle recovery right LE with 25# compared to the last time this ex performed. Physical Therapy Plan Frequency and Duration Frequency of Treatment 2x/Week Duration of treatment (weeks) 12 Plan of Care Start Date 01/30/24 Plan of Care End Date 05/01/23 Next Visit Focus/Plan Next Note Type Progress Note Next Visit Plan recumbent bike vs elliptical Continue PT to address knee pain, weakness, edema, gait dysfunciton.
--- NOTE | 2024-03-12 16:27 | PT.OTN ---
Current Diagnoses Unilateral primary osteoarthritis, left knee (03/12/24) Pain in right knee (03/12/24) Difficulty in walking, not elsewhere classified (03/12/24) Weakness (03/12/24) Edema, unspecified (03/12/24) Physical Therapy Treatment Note PT-OP-A Visit Information Start: 12/25/23 08:14 Freq: Status: Active Protocol: Document 03/12/24 13:28 AB (Rec: 03/12/24 16:27 AB [id number]) Out-Patient Physical Therapy Visit Information Visit Information Visit Type Treatment Note Visit Note Access Code: [email or web address] Visit Start Time 14:34 Visit Stop Time 15:16 Visit Number 20 Number of SAFETY DEPOSIT BOXES CUSTODIAN Visits 4 Evaluation Information Evaluation Date 12/25/23 PT-OP-B Current Condition Start: 12/25/23 08:14 Freq: Status: Active Protocol: Document 02/28/24 10:44 SAK (Rec: 02/28/24 11:32 SAK [id number]) Current Condition History of Current Condition Onset Date 1-1 1/2 months ago. Current Complaints jose knee pain, left leg swelling History of Current Condition pain bilateral knees, prior PT right side. History swelling jose LE's left greater than right, left got bad 1 1/2 months ago. Swelling is variable, not sure if gets better when legs elevated. Doesn't wear compression stockings except occasional knee high when travels. No use of assistive device. Trying to walk between 4 -5000 steps per day, slowed some by a-fib. Has trouble getting up and trusting legs when she moves from sit to stand. Hard time getting going, gets a little better when warmed up. Has previously worn brace on right knee. No exercises except walking. Prior Treatments and Tests ultrasound left LE negative x-rays: negative PT-OP-C Subjective Start: 12/25/23 08:14 Freq: Status: Active Protocol: Document 03/12/24 13:28 AB (Rec: 03/12/24 16:27 AB [id number]) OP-PT Subjective Patient Comments Patient Comments Marce reports having no pain start of session. Patient reports knees feel stiff due to sitting for lunch for 2 hours. PT-OP-G Mobility & Gait Start: 12/25/23 08:14 Freq: Status: Active Protocol: Document 12/25/23 08:14 SAK (Rec: 12/25/23 16:06 SAK [id number]) OP Mobility Evaluation Transfers Sit to Stand requires UE use Bed to Chair Transfers painful Car Transfers painful Floor Transfers unable Functional Movements Squats painful Running Assessment unable OP Gait Assessment Gait Gait Assistance Required: Independent Assistive Devices Assistive Device None Gait Deviations General Gait Pattern Antalgic,Decreased Stride Length,Decreased Feet Clearance,Wide Based Gait Factors Limiting Gait Function Factors Limiting Gait Function Decreased Strength,Pain Comments Gait Comments excess lateral sway Stair Climbing Evaluation Evaluation Level of Assist On Stairs Independent Devices Stair Climbing Assistive Devices Left Railing,Right Railing Technique/Endurance Stair Climbing Direction Ascend and Descend Stair Climbing Technique Step to Step PT-OP-H Neuro Start: 12/25/23 08:14 Freq: Status: Active Protocol: Document 12/25/23 08:14 SAK (Rec: 12/25/23 16:06 SAK [id number]) Sensation Evaluation Gross Sensation Gross Sensation WNL PT-OP-J Posture/Palpation/Skin Start: 12/25/23 08:14 Freq: Status: Active Protocol: Document 01/08/24 09:05 SP (Rec: 01/08/24 09:51 SP [id number]) Skin Assessment Edema Assessment jose knees left greater than right Edema Type Non-Pitting Comments Circumferential measurements BLEs: (13cm inferior patella calf) 44.5cm L, 43.5 cm R (Mid Patella): 51 cm L, 49.5 cm R (15cm above patella): 65.5cm L, 64 cm R (Base MTP): 21.6cm L, 21.5cm (mid foot): 23cm L, 22.5cm R PT-OP-K Range of Motion Start: 12/25/23 08:14 Freq: Status: Active Protocol: Document 12/25/23 08:14 SAK (Rec: 12/25/23 16:06 SAK [id number]) Hip Goniometric Range of Motion Hip jose Straight Leg Raise 60 Extension 0 Abduction 20 Internal Rotation 15 External Rotation 55 Knee Goniometric Range of Motion Knee jose Knee ROM WFL Yes Ankle and Foot Goniometric Range of Motion Ankle and Foot jose Ankle/Foot ROM WFL Yes PT-OP-L Special Tests Start: 12/25/23 08:14 Freq: Status: Active Protocol: Document 12/25/23 08:14 SAK (Rec: 12/25/23 09:04 [facility] [id number]) Special Tests Knee Special Tests 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 Test Results - Varus- 0 Degrees Test Results - Valgus- 0 Degrees Test Results - Other Special Tests Special Tests circumferential measurements: MTP R 21.7 L 22.2 mid foot R 21.5 L 22.8 ankle R 26.7 L 25.7 mid calf R 43.5 L 43.9 knees R 48.7 L 50.9 10 cm prox patella R 58.2 L 58.8 PT-OP-M Strength Start: 12/25/23 08:14 Freq: Status: Active Protocol: Document 12/25/23 08:14 SAK (Rec: 12/25/23 16:06 [facility] [id number]) Hip Strength Hip Manual Muscle Testing jose Flexion (L2) 3+ Fair+ Extension (S1) 3- Fair- Abduction 3+ Fair+ Adduction 4- Good- External Rotation 3+ Fair+ Internal Rotation 4- Good- Knee Strength Knee Manual Muscle Testing jose Flexion (S2) 4 Good Extension (L3) 4 Good Ankle/Foot Strength Ankle and Foot Manual Muscle Testing jose Dorsiflexion (L4) 4 Good Plantarflexion (S1) 4 Good PT-OP-Q Treatments Start: 12/25/23 08:14 Freq: Status: Active Protocol: Document 03/12/24 13:28 AB (Rec: 03/12/24 16:27 AB [id number]) Cardio Equipment Recumbent Bicycle Duration (Minutes) 7 Resistance 1,2 Seat Position 5 and 7 Therapeutic Exercises Supine Exercises ankle pumps Supine Exercise Name LE's elevated above heart Side bilateral Reps/Minutes 30 X 2 Comments verbal cues for breathing from diaphragm bridge Side bilateral Reps/Minutes X15 Comments monitored for pain SLR Side bilateral Resistance AROM Reps/Minutes x10 Manual Therapy Treatment Consent Patient gave verbal consent for manual Yes treatment Soft Tissue Mobilization bilateral knees Body Location R knee HS stiffness and areas of increased density med, lat and sup pat Mobilization Type Cross-Friction,Myofascial Release,Rolling,Other Intensity/Depth Moderate Body Position Hooklying Comments and superficial PT-OP-R Modalities Start: 12/25/23 08:14 Freq: Status: Active Protocol: Document 02/06/24 08:14 AMANDEEP (Rec: 02/06/24 08:55 [facility] [id number]) Hot Pack/Cold Pack Treatment Cold Pack Location right knee Patient Position Hooklying Patient Tolerance Good PT-OP-T Assessment and Plan Start: 12/25/23 08:14 Freq: Status: Active Protocol: Document 03/12/24 13:28 AB (Rec: 03/12/24 16:27 AB [id number]) Physical Therapy Assessment Goals Five Impairment right knee pain and swelling ( 4 cm larger than left) Mcc Goal (LTG) Decrease pain with community and outdoor ambulation on level and uneven surfaces to no greater than 2/10, and reduce edema to no greater than 1 cm larger than left 02/28/24: good goal progress 03/11/24 Patient reports she can do her normal walk outside 15 - 20 min with no pain over the past 2 weeks. LTG Duration 03/25/24 Four Impairment left LE edema Mcc Goal (LTG) Decrease edema to no greater than 1 cm difference between right and left LE 01/30/24: today right knee circumference 4 cm larger than left. Left knee no longer swolen 02/18/24: good goal progress 03/12/24 47.25 cm right knee joint line 45.25 cm LTG Duration 03/25/24 Three Impairment impairments in left knee and hip strength and ROM Short Term Goal (STG) Patient to be instructed in HEP for purposes of ROM and strength left LE 01/30/24: goal met, continued progression as tolerated, updated today for both left and right knee. 02/28/24: goal met STG Duration goal met Mcc Goal (LTG) Patient to be independent and compliant with HEP and demonstrate ROM WNL and strength to at least 4+/5 left LE 01/30/24: left knee 4+/5, hip flex 4-/5, abduction 3-/5, extension 3-/5, ER 3-/5. right knee 4-/5, hip flex 4-/5 , abduction 3-/5, extension 3- /5, ER 3-/5 03/12/2024 L ER 3-/ 5 Quad L 4+/5 R quad 4/5 hamstring L 4+/5 R 4+/5 ER3-/5 bilaterally hip flexion left 3+/5 Right 4 -/5 Right LE ext and abd 3-/5 but able to hold abd against fair + resistance in limited ROM. left LE hip ext 4-/5 abd 4-/5 within limited ROM LTG Duration 03/25/24 Two Impairment lower extremity functional scale (LEFS) 36% Short Term Goal (STG) Improve LEFS score to at least 55% as measure of improved activity tolerance and left knee function 01/30/24: met for left knee, but now right knee is limiting her, score 58% STG Duration 02/14/24 Industrial Furnace Fabricator Goal (LTG) Improve LEFS score to at least 70% as measure of improved activity tolerance and left knee function LTG Duration 03/25/24 One Impairment pain left knee 5/10 pain scale Short Term Goal (STG) Decrease pain with household activities to no greater than 2/10 01/30/24: goal met left knee, Right knee pain /10 02/28/24: goal met 03/12/2024 Patient reports having no pain greater than 2/ 10 during household activities comments occasionally gets a twinge. STG Duration goal met Industrial Furnace Fabricator Goal (LTG) Decrease pain with community and outdoor ambulation on level and uneven surfaces to no greater than 2/10 03/11/24 Patient reports she can do her normal walk outside 15 - 20 min with no pain over the past 2 weeks. LTG Duration goal met Assessment Summary Assessment Marce rates pain 0/10 end of session ambulating out of session without device. No change in swelling post manual therapy and exercise right knee at joint line. Marce has now met her goal for ambulation out doors with less than 2/10 pain and decreased pain with household activities . Marce has made significant gains in right quad strength, but is not yet WNL. Physical Therapy Plan Frequency and Duration Frequency of Treatment 2x/Week Duration of treatment (weeks) 12 Plan of Care Start Date 01/30/24 Plan of Care End Date 05/01/23 Next Visit Focus/Plan Next Note Type Treatment Note Next Visit Plan recumbent bike vs elliptical Continue PT to address knee pain, weakness, edema, gait dysfunciton.
--- NOTE | 2024-03-12 17:16 | PT.OPPN ---
Current Diagnoses Unilateral primary osteoarthritis, left knee (03/12/24) Pain in right knee (03/12/24) Difficulty in walking, not elsewhere classified (03/12/24) Weakness (03/12/24) Edema, unspecified (03/12/24) Physical Therapy Progress Note PT-OP-A Visit Information Start: 12/25/23 08:14 Freq: Status: Active Protocol: Document 03/12/24 17:09 SAK (Rec: 03/12/24 17:16 SAK [id number]) Out-Patient Physical Therapy Visit Information Visit Information Visit Type Progress Note Visit Start Time 14:34 Visit Stop Time 15:16 PT-OP-B Current Condition Start: 12/25/23 08:14 Freq: Status: Active Protocol: Document 02/28/24 10:44 SAK (Rec: 02/28/24 11:32 SAK [id number]) Current Condition History of Current Condition Onset Date 1-1 1/2 months ago. Current Complaints jose knee pain, left leg swelling History of Current Condition pain bilateral knees, prior PT right side. History swelling jose LE's left greater than right, left got bad 1 1/2 months ago. Swelling is variable, not sure if gets better when legs elevated. Doesn't wear compression stockings except occasional knee high when travels. No use of assistive device. Trying to walk between 4 -5000 steps per day, slowed some by a-fib. Has trouble getting up and trusting legs when she moves from sit to stand. Hard time getting going, gets a little better when warmed up. Has previously worn brace on right knee. No exercises except walking. Prior Treatments and Tests ultrasound left LE negative x-rays: negative PT-OP-C Subjective Start: 12/25/23 08:14 Freq: Status: Active Protocol: Document 03/12/24 13:28 AB (Rec: 03/12/24 16:27 AB [id number]) OP-PT Subjective Patient Comments Patient Comments Marce reports having no pain start of session. Patient reports knees feel stiff due to sitting for lunch for 2 hours. PT-OP-G Mobility & Gait Start: 12/25/23 08:14 Freq: Status: Active Protocol: Document 12/25/23 08:14 SAK (Rec: 12/25/23 16:06 SAK [id number]) OP Mobility Evaluation Transfers Sit to Stand requires UE use Bed to Chair Transfers painful Car Transfers painful Floor Transfers unable Functional Movements Squats painful Running Assessment unable OP Gait Assessment Gait Gait Assistance Required: Independent Assistive Devices Assistive Device None Gait Deviations General Gait Pattern Antalgic,Decreased Stride Length,Decreased Feet Clearance,Wide Based Gait Factors Limiting Gait Function Factors Limiting Gait Function Decreased Strength,Pain Comments Gait Comments excess lateral sway Stair Climbing Evaluation Evaluation Level of Assist On Stairs Independent Devices Stair Climbing Assistive Devices Left Railing,Right Railing Technique/Endurance Stair Climbing Direction Ascend and Descend Stair Climbing Technique Step to Step PT-OP-H Neuro Start: 12/25/23 08:14 Freq: Status: Active Protocol: Document 12/25/23 08:14 SAK (Rec: 12/25/23 16:06 SAK [id number]) Sensation Evaluation Gross Sensation Gross Sensation WNL PT-OP-J Posture/Palpation/Skin Start: 12/25/23 08:14 Freq: Status: Active Protocol: Document 01/08/24 09:05 SP (Rec: 01/08/24 09:51 SP [id number]) Skin Assessment Edema Assessment jose knees left greater than right Edema Type Non-Pitting Comments Circumferential measurements BLEs: (13cm inferior patella calf) 44.5cm L, 43.5 cm R (Mid Patella): 51 cm L, 49.5 cm R (15cm above patella): 65.5cm L, 64 cm R (Base MTP): 21.6cm L, 21.5cm (mid foot): 23cm L, 22.5cm R PT-OP-K Range of Motion Start: 12/25/23 08:14 Freq: Status: Active Protocol: Document 12/25/23 08:14 SAK (Rec: 12/25/23 16:06 SAK [id number]) Hip Goniometric Range of Motion Hip Measured in Degrees jose Straight Leg Raise 60 Extension 0 Abduction 20 Internal Rotation 15 External Rotation 55 Knee Goniometric Range of Motion Knee Measured in Degrees jose Knee ROM WFL Yes Ankle and Foot Goniometric Range of Motion Ankle and Foot Measured in Degrees jose Ankle/Foot ROM WFL Yes PT-OP-L Special Tests Start: 12/25/23 08:14 Freq: Status: Active Protocol: Document 12/25/23 08:14 SAK (Rec: 12/25/23 09:04 SAK [id number]) Special Tests Knee Special Tests 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 Test Results - Varus- 0 Degrees Test Results - Valgus- 0 Degrees Test Results - Other Special Tests Special Tests circumferential measurements: MTP R 21.7 L 22.2 mid foot R 21.5 L 22.8 ankle R 26.7 L 25.7 mid calf R 43.5 L 43.9 knees R 48.7 L 50.9 10 cm prox patella R 58.2 L 58.8 PT-OP-M Strength Start: 12/25/23 08:14 Freq: Status: Active Protocol: Document 12/25/23 08:14 [facility] (Rec: 12/25/23 16:06 [facility] [id number]) Hip Strength Hip Manual Muscle Testing jose Flexion (L2) 3+ Fair+ Extension (S1) 3- Fair- Abduction 3+ Fair+ Adduction 4- Good- External Rotation 3+ Fair+ Internal Rotation 4- Good- Knee Strength Knee Manual Muscle Testing jose Flexion (S2) 4 Good Extension (L3) 4 Good Ankle/Foot Strength Ankle and Foot Manual Muscle Testing jose Dorsiflexion (L4) 4 Good Plantarflexion (S1) 4 Good PT-OP-T Assessment and Plan Start: 12/25/23 08:14 Freq: Status: Active Protocol: Document 03/12/24 17:09 [facility] (Rec: 03/12/24 17:16 [facility] [id number]) Physical Therapy Assessment Goals Five Impairment right knee pain and swelling ( 4 cm larger than left) [employer] Manager Goal (LTG) Decrease pain with community and outdoor ambulation on level and uneven surfaces to no greater than 2/10, and reduce edema to no greater than 1 cm larger than left 02/28/24: good goal progress 03/11/24 Patient reports she can do her normal walk outside 15 - 20 min with no pain over the past 2 weeks. LTG Duration 03/25/24 Four Impairment left LE edema [employer] Manager Goal (LTG) Decrease edema to no greater than 1 cm difference between right and left LE 01/30/24: today right knee circumference 4 cm larger than left. Left knee no longer swolen 02/18/24: good goal progress 03/12/24 47.25 cm right knee joint line 45.25 cm LTG Duration 03/25/24 Three Impairment impairments in left knee and hip strength and ROM Short Term Goal (STG) Patient to be instructed in HEP for purposes of ROM and strength left LE 01/30/24: goal met, continued progression as tolerated, updated today for both left and right knee. 02/28/24: goal met STG Duration goal met Snf Goal (LTG) Patient to be independent and compliant with HEP and demonstrate ROM WNL and strength to at least 4+/5 left LE 01/30/24: left knee 4+/5, hip flex 4-/5, abduction 3-/5, extension 3-/5, ER 3-/5. right knee 4-/5, hip flex 4-/5 , abduction 3-/5, extension 3- /5, ER 3-/5 03/12/2024 L ER 3-/ 5 Quad L 4+/5 R quad 4/5 hamstring L 4+/5 R 4+/5 ER3-/5 bilaterally hip flexion left 3+/5 Right 4 -/5 Right LE ext and abd 3-/5 but able to hold abd against fair + resistance in limited ROM. left LE hip ext 4-/5 abd 4-/5 within limited ROM LTG Duration 03/25/24 Two Impairment lower extremity functional scale (LEFS) 36% Short Term Goal (STG) Improve LEFS score to at least 55% as measure of improved activity tolerance and left knee function 01/30/24: met for left knee, but now right knee is limiting her, score 58% 03/12/24: patient reporting improved function but questionnaire not completed STG Duration 02/14/24 [employer] Manager Goal (LTG) Improve LEFS score to at least 70% as measure of improved activity tolerance and left knee function LTG Duration 03/25/24 One Impairment pain left knee 5/10 pain scale Short Term Goal (STG) Decrease pain with household activities to no greater than 2/10 01/30/24: goal met left knee, Right knee pain 4/10 02/28/24: goal met 03/12/2024 Patient reports having no pain greater than 2/ 10 during household activities comments occasionally gets a twinge. Goal met STG Duration goal met Snf Goal (LTG) Decrease pain with community and outdoor ambulation on level and uneven surfaces to no greater than 2/10 03/11/24 Patient reports she can do her normal walk outside 15 - 20 min with no pain over the past 2 weeks. LTG Duration goal met Assessment Summary Assessment Marce has been making good progress toward her goals, and with continued therapy feel she has good potential to fully reach them. We discussed POC anticipated discharge by end march if not before. Physical Therapy Plan Frequency and Duration Frequency of Treatment 2x/Week Duration of treatment (weeks) 12 Plan of Care Start Date 01/30/24 Plan of Care End Date 05/01/23 Next Visit Focus/Plan Next Note Type Treatment Note Next Visit Plan Continue PT to address knee pain, weakness, edema, gait dysfunction. Progress HEP as indicated.
--- NOTE | 2024-03-20 12:14 | PT.OTN ---
Current Diagnoses Unilateral primary osteoarthritis, left knee (03/20/24) Pain in right knee (03/20/24) Difficulty in walking, not elsewhere classified (03/20/24) Weakness (03/20/24) Edema, unspecified (03/20/24) Physical Therapy Treatment Note PT-OP-A Visit Information Start: 12/25/23 08:14 Freq: Status: Active Protocol: Document 03/20/24 08:08 AB (Rec: 03/20/24 12:14 AB [id number]) Out-Patient Physical Therapy Visit Information Visit Information Visit Type Treatment Note Visit Note Access Code: [email or web address] Visit Start Time 09:02 Visit Stop Time 09:46 Visit Number 23 Number of MANAGER STATISTICAL Visits 1 Evaluation Information Evaluation Date 12/25/23 PT-OP-B Current Condition Start: 12/25/23 08:14 Freq: Status: Active Protocol: Document 03/18/24 09:46 SAK (Rec: 03/18/24 10:31 SAK [id number]) Current Condition History of Current Condition Onset Date 1-1 1/2 months ago. Current Complaints jose knee pain, left leg swelling History of Current Condition pain bilateral knees, prior PT right side. History swelling jose LE's left greater than right, left got bad 1 1/2 months ago. Swelling is variable, not sure if gets better when legs elevated. Doesn't wear compression stockings except occasional knee high when travels. No use of assistive device. Trying to walk between 4 -5000 steps per day, slowed some by a-fib. Has trouble getting up and trusting legs when she moves from sit to stand. Hard time getting going, gets a little better when warmed up. Has previously worn brace on right knee. No exercises except walking. Prior Treatments and Tests ultrasound left LE negative x-rays: negative PT-OP-C Subjective Start: 12/25/23 08:14 Freq: Status: Active Protocol: Document 03/20/24 08:08 AB (Rec: 03/20/24 12:14 AB [id number]) OP-PT Subjective Patient Comments Patient Comments Patient reports she hasn't been sleeping. Patient reports mind has too much going on, and is sleeping with pillow between knees. Patient rates right knee pain .25/10 attributes to normal knee pain she gets when getting up in the morning prior to moving around. PT-OP-G Mobility & Gait Start: 12/25/23 08:14 Freq: Status: Active Protocol: Document 12/25/23 08:14 SAK (Rec: 12/25/23 16:06 SAK [id number]) OP Mobility Evaluation Transfers Sit to Stand requires UE use Bed to Chair Transfers painful Car Transfers painful Floor Transfers unable Functional Movements Squats painful Running Assessment unable OP Gait Assessment Gait Gait Assistance Required: Independent Assistive Devices Assistive Device None Gait Deviations General Gait Pattern Antalgic,Decreased Stride Length,Decreased Feet Clearance,Wide Based Gait Factors Limiting Gait Function Factors Limiting Gait Function Decreased Strength,Pain Comments Gait Comments excess lateral sway Stair Climbing Evaluation Evaluation Level of Assist On Stairs Independent Devices Stair Climbing Assistive Devices Left Railing,Right Railing Technique/Endurance Stair Climbing Direction Ascend and Descend Stair Climbing Technique Step to Step PT-OP-H Neuro Start: 12/25/23 08:14 Freq: Status: Active Protocol: Document 12/25/23 08:14 SAK (Rec: 12/25/23 16:06 SAK [id number]) Sensation Evaluation Gross Sensation Gross Sensation WNL PT-OP-J Posture/Palpation/Skin Start: 12/25/23 08:14 Freq: Status: Active Protocol: Document 01/08/24 09:05 SP (Rec: 01/08/24 09:51 SP [id number]) Skin Assessment Edema Assessment jose knees left greater than right Edema Type Non-Pitting Comments Circumferential measurements BLEs: (13cm inferior patella calf) 44.5cm L, 43.5 cm R (Mid Patella): 51 cm L, 49.5 cm R (15cm above patella): 65.5cm L, 64 cm R (Base MTP): 21.6cm L, 21.5cm (mid foot): 23cm L, 22.5cm R PT-OP-K Range of Motion Start: 12/25/23 08:14 Freq: Status: Active Protocol: Document 12/25/23 08:14 SAK (Rec: 12/25/23 16:06 SAK [id number]) Hip Goniometric Range of Motion Hip jose Straight Leg Raise 60 Extension 0 Abduction 20 Internal Rotation 15 External Rotation 55 Knee Goniometric Range of Motion Knee jose Knee ROM WFL Yes Ankle and Foot Goniometric Range of Motion Ankle and Foot jose Ankle/Foot ROM WFL Yes PT-OP-L Special Tests Start: 12/25/23 08:14 Freq: Status: Active Protocol: Document 12/25/23 08:14 SAK (Rec: 12/25/23 09:04 SAK [id number]) Special Tests Knee Special Tests 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 Test Results - Varus- 0 Degrees Test Results - Valgus- 0 Degrees Test Results - Other Special Tests Special Tests circumferential measurements: MTP R 21.7 L 22.2 mid foot R 21.5 L 22.8 ankle R 26.7 L 25.7 mid calf R 43.5 L 43.9 knees R 48.7 L 50.9 10 cm prox patella R 58.2 L 58.8 PT-OP-M Strength Start: 12/25/23 08:14 Freq: Status: Active Protocol: Document 12/25/23 08:14 SAK (Rec: 12/25/23 16:06 SAK [id number]) Hip Strength Hip Manual Muscle Testing jose Flexion (L2) 3+ Fair+ Extension (S1) 3- Fair- Abduction 3+ Fair+ Adduction 4- Good- External Rotation 3+ Fair+ Internal Rotation 4- Good- Knee Strength Knee Manual Muscle Testing jose Flexion (S2) 4 Good Extension (L3) 4 Good Ankle/Foot Strength Ankle and Foot Manual Muscle Testing jose Dorsiflexion (L4) 4 Good Plantarflexion (S1) 4 Good PT-OP-Q Treatments Start: 12/25/23 08:14 Freq: Status: Active Protocol: Document 03/20/24 08:08 AB (Rec: 03/20/24 12:14 AB [id number]) Therapeutic Exercises Supine Exercises pirifomris stretch Supine Exercise Name and figure 4 Side right Equipment Used HEP Reps/Minutes 60 sec X 1 Comments verbal cues bridge Supine Exercise Name over foam roll, initiated without roll Side bilateral Reps/Minutes X15 Comments verbal cues to keep LE's on foam roll and for breathing Sidelying Exercises clamshell Side bilateral Resistance level one band second set Reps/Minutes X15 Comments Verbal cues for trunk position abduction Side bilateral Resistance level one band Reps/Minutes X15 Comments Verbal cues for trunk position Standing Exercises 6 inch step up Standing Exercise Name with UE support HEP Side bilateral Reps/Minutes 2X10 Comments monitored for pain sit to stand Standing Exercise Name HEP Equipment Used L4TB around distal thighs Reps/Minutes X5X 3 Comments VC to keep tension on band and for inc hip hinge PT-OP-R Modalities Start: 12/25/23 08:14 Freq: Status: Active Protocol: Document 02/06/24 08:14 SAK (Rec: 02/06/24 08:55 SAK [id number]) Hot Pack/Cold Pack Treatment Cold Pack Location right knee Patient Position Hooklying Patient Tolerance Good PT-OP-T Assessment and Plan Start: 12/25/23 08:14 Freq: Status: Active Protocol: Document 03/20/24 08:08 AB (Rec: 03/20/24 12:14 AB [id number]) Physical Therapy Assessment Goals Five Impairment right knee pain and swelling ( 4 cm larger than left) [employer] Teacher Goal (LTG) Decrease pain with community and outdoor ambulation on level and uneven surfaces to no greater than 2/10, and reduce edema to no greater than 1 cm larger than left 02/28/24: good goal progress 03/11/24 Patient reports she can do her normal walk outside 15 - 20 min with no pain over the past 2 weeks. LTG Duration 03/25/24 Four Impairment left LE edema [employer] Teacher Goal (LTG) Decrease edema to no greater than 1 cm difference between right and left LE 01/30/24: today right knee circumference 4 cm larger than left. Left knee no longer swolen 02/18/24: good goal progress 03/12/24 47.25 cm right knee joint line 45.25 cm LTG Duration 03/25/24 Three Impairment impairments in left knee and hip strength and ROM Short Term Goal (STG) Patient to be instructed in HEP for purposes of ROM and strength left LE 01/30/24: goal met, continued progression as tolerated, updated today for both left and right knee. 02/28/24: goal met STG Duration goal met [employer] Teacher Goal (LTG) Patient to be independent and compliant with HEP and demonstrate ROM WNL and strength to at least 4+/5 left LE 01/30/24: left knee 4+/5, hip flex 4-/5, abduction 3-/5, extension 3-/5, ER 3-/5. right knee 4-/5, hip flex 4-/5 , abduction 3-/5, extension 3- /5, ER 3-/5 03/12/2024 L ER 3-/ 5 Quad L 4+/5 R quad 4/5 hamstring L 4+/5 R 4+/5 ER3-/5 bilaterally hip flexion left 3+/5 Right 4 -/5 Right LE ext and abd 3-/5 but able to hold abd against fair + resistance in limited ROM. left LE hip ext 4-/5 abd 4-/5 within limited ROM LTG Duration 03/25/24 Two Impairment lower extremity functional scale (LEFS) 36% Short Term Goal (STG) Improve LEFS score to at least 55% as measure of improved activity tolerance and left knee function 01/30/24: met for left knee, but now right knee is limiting her, score 58% 03/12/24: patient reporting improved function but questionnaire not completed STG Duration 02/14/24 Vol[employer]ology Teacher Goal (LTG) Improve LEFS score to at least 70% as measure of improved activity tolerance and left knee function LTG Duration 03/25/24 One Impairment pain left knee 5/10 pain scale Short Term Goal (STG) Decrease pain with household activities to no greater than 2/10 01/30/24: goal met left knee, Right knee pain 4/10 02/28/24: goal met 03/12/2024 Patient reports having no pain greater than 2/ 10 during household activities comments occasionally gets a twinge. Goal met STG Duration goal met Vol[employer]ology Teacher Goal (LTG) Decrease pain with community and outdoor ambulation on level and uneven surfaces to no greater than 2/10 03/11/24 Patient reports she can do her normal walk outside 15 - 20 min with no pain over the past 2 weeks. LTG Duration goal met Assessment Summary Assessment Patient reports having no increased pain end of session. HEP condensed this session. Physical Therapy Plan Frequency and Duration Frequency of Treatment 2x/Week Duration of treatment (weeks) 12 Plan of Care Start Date 01/30/24 Plan of Care End Date 05/01/23 Next Visit Focus/Plan Next Note Type Treatment Note Next Visit Plan Assess lauren to HEP being condensed previous session. Continue to condense and progress HEP for future discharge.
--- NOTE | 2024-03-25 09:01 | PT.OTN ---
Current Diagnoses Unilateral primary osteoarthritis, left knee (03/25/24) Pain in right knee (03/25/24) Difficulty in walking, not elsewhere classified (03/25/24) Weakness (03/25/24) Edema, unspecified (03/25/24) Physical Therapy Treatment Note PT-OP-A Visit Information Start: 12/25/23 08:14 Freq: Status: Active Protocol: Document 03/25/24 08:20 SP (Rec: 03/25/24 09:05 SP [id number]) Out-Patient Physical Therapy Visit Information Visit Information Visit Type Treatment Note Visit Start Time 08:20 Visit Stop Time 09:01 Visit Number 24 Number of GARAGE MANAGER Visits 2 Evaluation Information Evaluation Date 12/25/23 Precautions Precautions a-fib PT-OP-B Current Condition Start: 12/25/23 08:14 Freq: Status: Active Protocol: Document 03/18/24 09:46 SAK (Rec: 03/18/24 10:31 SAK [id number]) Current Condition History of Current Condition Onset Date 1-1 1/2 months ago. Current Complaints jose knee pain, left leg swelling History of Current Condition pain bilateral knees, prior PT right side. History swelling jose LE's left greater than right, left got bad 1 1/2 months ago. Swelling is variable, not sure if gets better when legs elevated. Doesn't wear compression stockings except occasional knee high when travels. No use of assistive device. Trying to walk between 4 -5000 steps per day, slowed some by a-fib. Has trouble getting up and trusting legs when she moves from sit to stand. Hard time getting going, gets a little better when warmed up. Has previously worn brace on right knee. No exercises except walking. Prior Treatments and Tests ultrasound left LE negative x-rays: negative PT-OP-C Subjective Start: 12/25/23 08:14 Freq: Status: Active Protocol: Document 03/25/24 08:20 SP (Rec: 03/25/24 09:05 SP [id number]) OP-PT Subjective Patient Comments Patient Comments Pt reports pleased can bend her R knee more now. The ktaping helps but needs to replaced today has been on for 5 days now. Has been performing step ups outside step higher with umbrella if raining. Pt states little off balance out on lawn to 's grave, would like to work on balance if can during PT to help feel more confident with uneven surfaces. PT-OP-G Mobility & Gait Start: 12/25/23 08:14 Freq: Status: Active Protocol: Document 12/25/23 08:14 SAK (Rec: 12/25/23 16:06 SAK [id number]) OP Mobility Evaluation Transfers Sit to Stand requires UE use Bed to Chair Transfers painful Car Transfers painful Floor Transfers unable Functional Movements Squats painful Running Assessment unable OP Gait Assessment Gait Gait Assistance Required: Independent Assistive Devices Assistive Device None Gait Deviations General Gait Pattern Antalgic,Decreased Stride Length,Decreased Feet Clearance,Wide Based Gait Factors Limiting Gait Function Factors Limiting Gait Function Decreased Strength,Pain Comments Gait Comments excess lateral sway Stair Climbing Evaluation Evaluation Level of Assist On Stairs Independent Devices Stair Climbing Assistive Devices Left Railing,Right Railing Technique/Endurance Stair Climbing Direction Ascend and Descend Stair Climbing Technique Step to Step PT-OP-H Neuro Start: 12/25/23 08:14 Freq: Status: Active Protocol: Document 12/25/23 08:14 SAK (Rec: 12/25/23 16:06 SAK [id number]) Sensation Evaluation Gross Sensation Gross Sensation WNL PT-OP-J Posture/Palpation/Skin Start: 12/25/23 08:14 Freq: Status: Active Protocol: Document 01/08/24 09:05 SP (Rec: 01/08/24 09:51 SP [id number]) Skin Assessment Edema Assessment jose knees left greater than right Edema Type Non-Pitting Comments Circumferential measurements BLEs: (13cm inferior patella calf) 44.5cm L, 43.5 cm R (Mid Patella): 51 cm L, 49.5 cm R (15cm above patella): 65.5cm L, 64 cm R (Base MTP): 21.6cm L, 21.5cm (mid foot): 23cm L, 22.5cm R PT-OP-K Range of Motion Start: 12/25/23 08:14 Freq: Status: Active Protocol: Document 12/25/23 08:14 SAK (Rec: 12/25/23 16:06 SAK [id number]) Hip Goniometric Range of Motion Hip jose Straight Leg Raise 60 Extension 0 Abduction 20 Internal Rotation 15 External Rotation 55 Knee Goniometric Range of Motion Knee jose Knee ROM WFL Yes Ankle and Foot Goniometric Range of Motion Ankle and Foot jose Ankle/Foot ROM WFL Yes PT-OP-L Special Tests Start: 12/25/23 08:14 Freq: Status: Active Protocol: Document 12/25/23 08:14 SAK (Rec: 12/25/23 09:04 SAK [id number]) Special Tests Knee Special Tests 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 Test Results - Varus- 0 Degrees Test Results - Valgus- 0 Degrees Test Results - Other Special Tests Special Tests circumferential measurements: MTP R 21.7 L 22.2 mid foot R 21.5 L 22.8 ankle R 26.7 L 25.7 mid calf R 43.5 L 43.9 knees R 48.7 L 50.9 10 cm prox patella R 58.2 L 58.8 PT-OP-M Strength Start: 12/25/23 08:14 Freq: Status: Active Protocol: Document 12/25/23 08:14 AMANDEEP (Rec: 12/25/23 16:06 [facility] [id number]) Hip Strength Hip Manual Muscle Testing jose Flexion (L2) 3+ Fair+ Extension (S1) 3- Fair- Abduction 3+ Fair+ Adduction 4- Good- External Rotation 3+ Fair+ Internal Rotation 4- Good- Knee Strength Knee Manual Muscle Testing jose Flexion (S2) 4 Good Extension (L3) 4 Good Ankle/Foot Strength Ankle and Foot Manual Muscle Testing jose Dorsiflexion (L4) 4 Good Plantarflexion (S1) 4 Good PT-OP-Q Treatments Start: 12/25/23 08:14 Freq: Status: Active Protocol: Document 03/25/24 08:20 SP (Rec: 03/25/24 09:05 SP [id number]) Cardio Equipment Recumbent Bicycle Duration (Minutes) 8 Resistance 14 Seat Position 7>5 Gym Equipment Shuttle Recovery Unilateral Squats Resistance 37# (1 navy) R, 50 (1 navy, 1 teal) L Shuttle Recovery Platform Stable Reps/Time 15 x2 Bilateral Squats Resistance 75# (2 navy one teal) Shuttle Recovery Platform Stable Reps/Time 15 X 2 Therapeutic Exercises Standing Exercises 6 inch step up Standing Exercise Name bottom MAP bldg stairs (might come here for HEP) Side bilateral Equipment Used light touch bal RLE, no UE LLE , 6 step Reps/Minutes 2X10 Comments cued glut drive RLE Gait Training Gait Activity stair mgt Description Receiprocal stepping Device Used R HR PRN ascend, min>light descend needed Level of Assistance Mod I Distance/Duration 14 stairs MAP bldg stairs Treatment Focus confidence stairs Comments Cued glut drive /c midline trunk over R>L LE, light touch initially ascend, Min>light descend during LLE advancement /stance RLE eccentric flexion. Manual Therapy Treatment Consent Patient gave verbal consent for manual Yes treatment Taping Ktaping Body Location right knee Treatment Focus crepitus, tracking Type of Tape Kinesio Tape Skin Inspection intact Comments 2 I strips lateral X at lat meniscus then supra and infra pat 50% stretch, 2 I strips to unload fat pad peripatallar area med and lat superior pull 50% Neuro Re-Education Treatment Balance Activities Uneven surface Details Future tx Comments Assist confidence gait to 's gravesite, decline uneven lawn, [place] [facility] . PT-OP-R Modalities Start: 12/25/23 08:14 Freq: Status: Active Protocol: Document 02/06/24 08:14 SAK (Rec: 02/06/24 08:55 SAK [id number]) Hot Pack/Cold Pack Treatment Cold Pack Location right knee Patient Position Hooklying Patient Tolerance Good PT-OP-T Assessment and Plan Start: 12/25/23 08:14 Freq: Status: Active Protocol: Document 03/25/24 08:20 SP (Rec: 03/25/24 09:05 SP [id number]) Physical Therapy Assessment Goals Five Impairment right knee pain and swelling ( 4 cm larger than left) Fdc Goal (LTG) Decrease pain with community and outdoor ambulation on level and uneven surfaces to no greater than 2/10, and reduce edema to no greater than 1 cm larger than left 02/28/24: good goal progress 03/11/24 Patient reports she can do her normal walk outside 15 - 20 min with no pain over the past 2 weeks. LTG Duration 03/25/24 Four Impairment left LE edema Fdc Goal (LTG) Decrease edema to no greater than 1 cm difference between right and left LE 01/30/24: today right knee circumference 4 cm larger than left. Left knee no longer swolen 02/18/24: good goal progress 03/12/24 47.25 cm right knee joint line 45.25 cm LTG Duration 03/25/24 Three Impairment impairments in left knee and hip strength and ROM Short Term Goal (STG) Patient to be instructed in HEP for purposes of ROM and strength left LE 01/30/24: goal met, continued progression as tolerated, updated today for both left and right knee. 02/28/24: goal met STG Duration goal met Screen Printing Stencil Preparer Goal (LTG) Patient to be independent and compliant with HEP and demonstrate ROM WNL and strength to at least 4+/5 left LE 01/30/24: left knee 4+/5, hip flex 4-/5, abduction 3-/5, extension 3-/5, ER 3-/5. right knee 4-/5, hip flex 4-/5 , abduction 3-/5, extension 3- /5, ER 3-/5 03/12/2024 L ER 3-/ 5 Quad L 4+/5 R quad 4/5 hamstring L 4+/5 R 4+/5 ER3-/5 bilaterally hip flexion left 3+/5 Right 4 -/5 Right LE ext and abd 3-/5 but able to hold abd against fair + resistance in limited ROM. left LE hip ext 4-/5 abd 4-/5 within limited ROM LTG Duration 03/25/24 Two Impairment lower extremity functional scale (LEFS) 36% Short Term Goal (STG) Improve LEFS score to at least 55% as measure of improved activity tolerance and left knee function 01/30/24: met for left knee, but now right knee is limiting her, score 58% 03/12/24: patient reporting improved function but questionnaire not completed STG Duration 02/14/24 Screen Printing Stencil Preparer Goal (LTG) Improve LEFS score to at least 70% as measure of improved activity tolerance and left knee function LTG Duration 03/25/24 One Impairment pain left knee 5/10 pain scale Short Term Goal (STG) Decrease pain with household activities to no greater than 2/10 01/30/24: goal met left knee, Right knee pain /10 02/28/24: goal met 03/12/2024 Patient reports having no pain greater than 2/ 10 during household activities comments occasionally gets a twinge. Goal met STG Duration goal met Screen Printing Stencil Preparer Goal (LTG) Decrease pain with community and outdoor ambulation on level and uneven surfaces to no greater than 2/10 11/25/24 Patient reports she can do her normal walk outside 15 - 20 min with no pain over the past 2 weeks. LTG Duration goal met Assessment Summary Assessment Pt reports no pain with ther ex. Re-Ktaping for R patellar stability with good response during stair mgt. Progressed stepping today using MAP bld stairs for community mgt, only required light touch ascending and lessening moderate 1 UE to light glide descending during R LE eccentric flexion. Cues for R glut drive step up for ascend power and stability. Suggestion for coming to hospital to perform stair mgt strength and ROM progression carryover due to low single step home not enough, to easy. Next tx: condense HEP and would benefit from uneven surface training for confidence balance at ' s grave site [place] [facility]. Physical Therapy Plan Frequency and Duration Frequency of Treatment 2x/Week Duration of treatment (weeks) 12 Plan of Care Start Date 01/30/24 Plan of Care End Date 05/01/23 Therapeutic Interventions Therapeutic Interventions Gait Training,Home Exercise Program,Manual Therapy,Patient /Caregiver Education,Self-Care /Home Management,Soft Tissue Mobilization,Taping, Therapeutic Activities, Therapeutic Exercises Modalities Cold Pack/Ice Massage,Electric Stimulation,Hot Packs, Infrared Therapy,Ultrasound Next Visit Focus/Plan Next Note Type Treatment Note Next Visit Plan Next: Condense HEP, uneven surface for lawn advanced surgical hospitale site confidence. Added 2 more appts til future DC prior to 05/01/23.
--- NOTE | 2024-04-01 10:35 | PT.OTN ---
Current Diagnoses Unilateral primary osteoarthritis, left knee (04/01/24) Pain in right knee (04/01/24) Difficulty in walking, not elsewhere classified (04/01/24) Weakness (04/01/24) Edema, unspecified (04/01/24) Physical Therapy Treatment Note PT-OP-A Visit Information Start: 12/25/23 08:14 Freq: Status: Active Protocol: Document 04/01/24 09:46 SAK (Rec: 04/01/24 10:35 [facility] [id number]) Out-Patient Physical Therapy Visit Information Visit Information Visit Type Treatment Note Visit Start Time 09:47 Visit Number 25 Number of COMMODITIES TRADER Visits 0 Evaluation Information Evaluation Date 12/25/23 Precautions Precautions a-fib PT-OP-B Current Condition Start: 12/25/23 08:14 Freq: Status: Active Protocol: Document 03/18/24 09:46 SAK (Rec: 03/18/24 10:31 [facility] [id number]) Current Condition History of Current Condition Onset Date 1-1 1/2 months ago. Current Complaints jose knee pain, left leg swelling History of Current Condition pain bilateral knees, prior PT right side. History swelling jose LE's left greater than right, left got bad 1 1/2 months ago. Swelling is variable, not sure if gets better when legs elevated. Doesn't wear compression stockings except occasional knee high when travels. No use of assistive device. Trying to walk between 4 -5000 steps per day, slowed some by a-fib. Has trouble getting up and trusting legs when she moves from sit to stand. Hard time getting going, gets a little better when warmed up. Has previously worn brace on right knee. No exercises except walking. Prior Treatments and Tests ultrasound left LE negative x-rays: negative PT-OP-C Subjective Start: 12/25/23 08:14 Freq: Status: Active Protocol: Document 04/01/24 09:46 SAK (Rec: 04/01/24 10:35 [facility] [id number]) OP-PT Subjective Patient Comments Patient Comments Took tape off last night, skin a little irritated. PT-OP-G Mobility & Gait Start: 12/25/23 08:14 Freq: Status: Active Protocol: Document 12/25/23 08:14 SAK (Rec: 12/25/23 16:06 [facility] [id number]) OP Mobility Evaluation Transfers Sit to Stand requires UE use Bed to Chair Transfers painful Car Transfers painful Floor Transfers unable Functional Movements Squats painful Running Assessment unable OP Gait Assessment Gait Gait Assistance Required: Independent Assistive Devices Assistive Device None Gait Deviations General Gait Pattern Antalgic,Decreased Stride Length,Decreased Feet Clearance,Wide Based Gait Factors Limiting Gait Function Factors Limiting Gait Function Decreased Strength,Pain Comments Gait Comments excess lateral sway Stair Climbing Evaluation Evaluation Level of Assist On Stairs Independent Devices Stair Climbing Assistive Devices Left Railing,Right Railing Technique/Endurance Stair Climbing Direction Ascend and Descend Stair Climbing Technique Step to Step PT-OP-H Neuro Start: 12/25/23 08:14 Freq: Status: Active Protocol: Document 12/25/23 08:14 SAK (Rec: 12/25/23 16:06 SAK [id number]) Sensation Evaluation Gross Sensation Gross Sensation WNL PT-OP-J Posture/Palpation/Skin Start: 12/25/23 08:14 Freq: Status: Active Protocol: Document 01/08/24 09:05 SP (Rec: 01/08/24 09:51 SP [id number]) Skin Assessment Edema Assessment jose knees left greater than right Edema Type Non-Pitting Comments Circumferential measurements BLEs: (13cm inferior patella calf) 44.5cm L, 43.5 cm R (Mid Patella): 51 cm L, 49.5 cm R (15cm above patella): 65.5cm L, 64 cm R (Base MTP): 21.6cm L, 21.5cm (mid foot): 23cm L, 22.5cm R PT-OP-K Range of Motion Start: 12/25/23 08:14 Freq: Status: Active Protocol: Document 12/25/23 08:14 SAK (Rec: 12/25/23 16:06 SAK [id number]) Hip Goniometric Range of Motion Hip jose Straight Leg Raise 60 Extension 0 Abduction 20 Internal Rotation 15 External Rotation 55 Knee Goniometric Range of Motion Knee jose Knee ROM WFL Yes Ankle and Foot Goniometric Range of Motion Ankle and Foot jose Ankle/Foot ROM WFL Yes PT-OP-L Special Tests Start: 12/25/23 08:14 Freq: Status: Active Protocol: Document 12/25/23 08:14 SAK (Rec: 12/25/23 09:04 SAK [id number]) Special Tests Knee Special Tests 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 Test Results - Varus- 0 Degrees Test Results - Valgus- 0 Degrees Test Results - Other Special Tests Special Tests circumferential measurements: MTP R 21.7 L 22.2 mid foot R 21.5 L 22.8 ankle R 26.7 L 25.7 mid calf R 43.5 L 43.9 knees R 48.7 L 50.9 10 cm prox patella R 58.2 L 58.8 PT-OP-M Strength Start: 12/25/23 08:14 Freq: Status: Active Protocol: Document 12/25/23 08:14 [facility] (Rec: 12/25/23 16:06 [facility] [id number]) Hip Strength Hip Manual Muscle Testing jose Flexion (L2) 3+ Fair+ Extension (S1) 3- Fair- Abduction 3+ Fair+ Adduction 4- Good- External Rotation 3+ Fair+ Internal Rotation 4- Good- Knee Strength Knee Manual Muscle Testing jose Flexion (S2) 4 Good Extension (L3) 4 Good Ankle/Foot Strength Ankle and Foot Manual Muscle Testing jose Dorsiflexion (L4) 4 Good Plantarflexion (S1) 4 Good PT-OP-Q Treatments Start: 12/25/23 08:14 Freq: Status: Active Protocol: Document 04/01/24 09:46 [facility] (Rec: 04/01/24 10:35 [facility] [id number]) Cardio Equipment Recumbent Bicycle Duration (Minutes) 8 Resistance 14 Seat Position 7>5 Gym Equipment Cable Column (Body Solid) unil hamstring curl Resistance 20 Reps/Time 10x hamstring curl Resistance 40 Reps/Time 10x2 Shuttle Recovery Unilateral Squats Resistance 37# (1 navy) R, 50 (1 navy, 1 teal) L Shuttle Recovery Platform Stable Reps/Time 15 x2 Bilateral Squats Resistance 75# (2 navy one teal) Shuttle Recovery Platform Stable Reps/Time 15 X 2 Therapeutic Exercises Standing Exercises gastroc stretch Standing Exercise Name and soleus Equipment Used stair Reps/Minutes 2x60 heel raises Standing Exercise Name HR Side bilateral Resistance AROM Equipment Used stair rail Reps/Minutes 2X10 Comments slow eccentric Gait Training Gait Activity uneven ground Description blue mat over pods Device Used cane in hand, only down to ground 2x briefly Treatment Focus safety for walking to ' s grave stair mgt Description Receiprocal stepping Device Used R HR PRN ascend, min>light descend needed Level of Assistance Mod I Distance/Duration 14 stairs MAP bldg stairs Treatment Focus confidence stairs Comments Cued glut drive /c midline trunk over R>L LE, light touch initially ascend, Min>light descend during LLE advancement /stance RLE eccentric flexion. PT-OP-R Modalities Start: 12/25/23 08:14 Freq: Status: Active Protocol: Document 02/06/24 08:14 [facility] (Rec: 02/06/24 08:55 [facility] [id number]) Hot Pack/Cold Pack Treatment Cold Pack Location right knee Patient Position Hooklying Patient Tolerance Good PT-OP-T Assessment and Plan Start: 12/25/23 08:14 Freq: Status: Active Protocol: Document 04/01/24 09:46 [facility] (Rec: 04/01/24 10:35 [facility] [id number]) Physical Therapy Assessment Goals Five Impairment right knee pain and swelling ( 4 cm larger than left) Ceo Goal (LTG) Decrease pain with community and outdoor ambulation on level and uneven surfaces to no greater than 2/10, and reduce edema to no greater than 1 cm larger than left 02/28/24: good goal progress 03/11/24 Patient reports she can do her normal walk outside 15 - 20 min with no pain over the past 2 weeks. LTG Duration 04/01 Four Impairment left LE edema Snf Goal (LTG) Decrease edema to no greater than 1 cm difference between right and left LE 01/30/24: today right knee circumference 4 cm larger than left. Left knee no longer swolen 02/18/24: good goal progress 03/12/24 47.25 cm right knee joint line 45.25 cm LTG Duration 05/02/24 Three Impairment impairments in left knee and hip strength and ROM Short Term Goal (STG) Patient to be instructed in HEP for purposes of ROM and strength left LE 01/30/24: goal met, continued progression as tolerated, updated today for both left and right knee. 02/28/24: goal met STG Duration goal met Snf Goal (LTG) Patient to be independent and compliant with HEP and demonstrate ROM WNL and strength to at least 4+/5 left LE 01/30/24: left knee 4+/5, hip flex 4-/5, abduction 3-/5, extension 3-/5, ER 3-/5. right knee 4-/5, hip flex 4-/5 , abduction 3-/5, extension 3- /5, ER 3-/5 03/12/2024 L ER 3-/ 5 Quad L 4+/5 R quad 4/5 hamstring L 4+/5 R 4+/5 ER3-/5 bilaterally hip flexion left 3+/5 Right 4 -/5 Right LE ext and abd 3-/5 but able to hold abd against fair + resistance in limited ROM. left LE hip ext 4-/5 abd 4-/5 within limited ROM LTG Duration 05/02/24 Two Impairment lower extremity functional scale (LEFS) 36% Short Term Goal (STG) Improve LEFS score to at least 55% as measure of improved activity tolerance and left knee function 01/30/24: met for left knee, but now right knee is limiting her, score 58% 03/12/24: patient reporting improved function but questionnaire not completed STG Duration 02/14/24 Snf Goal (LTG) Improve LEFS score to at least 70% as measure of improved activity tolerance and left knee function LTG Duration 05/02/24 One Impairment pain left knee 5/10 pain scale Short Term Goal (STG) Decrease pain with household activities to no greater than 2/10 01/30/24: goal met left knee, Right knee pain 4/10 02/28/24: goal met 03/12/2024 Patient reports having no pain greater than 2/ 10 during household activities comments occasionally gets a twinge. Goal met STG Duration goal met Snf Goal (LTG) Decrease pain with community and outdoor ambulation on level and uneven surfaces to no greater than 2/10 03/11/24 Patient reports she can do her normal walk outside 15 - 20 min with no pain over the past 2 weeks. LTG Duration goal met Assessment Summary Assessment Patient slow and careful with CGA, no device on uneven walking on mat over pods. Patient reports continues to feel stronger, compliant with HEP. Physical Therapy Plan Frequency and Duration Frequency of Treatment 2x/Week Duration of treatment (weeks) 12 Plan of Care Start Date 01/30/24 Plan of Care End Date 05/01/23 Therapeutic Interventions Therapeutic Interventions Gait Training,Home Exercise Program,Manual Therapy,Patient /Caregiver Education,Self-Care /Home Management,Soft Tissue Mobilization,Taping, Therapeutic Activities, Therapeutic Exercises Modalities Cold Pack/Ice Massage,Electric Stimulation,Hot Packs, Infrared Therapy,Ultrasound Next Visit Focus/Plan Next Note Type Treatment Note Next Visit Plan Continue gait on uneven ground , strengthening.
--- NOTE | 2024-04-08 10:41 | PT.OTN ---
Current Diagnoses Unilateral primary osteoarthritis, left knee (04/08/24) Pain in right knee (04/08/24) Difficulty in walking, not elsewhere classified (04/08/24) Weakness (04/08/24) Edema, unspecified (04/08/24) Physical Therapy Treatment Note PT-OP-A Visit Information Start: 12/25/23 08:14 Freq: Status: Active Protocol: Document 04/08/24 08:08 AB (Rec: 04/08/24 10:41 AB [id number]) Out-Patient Physical Therapy Visit Information Visit Information Visit Type Treatment Note Visit Start Time 08:17 Visit Stop Time 08:58 Visit Number 26 Number of PATIENT CARE TECHNICIAN INSTRUCTOR Visits 1 Evaluation Information Evaluation Date 12/25/23 Precautions Precautions a-fib PT-OP-B Current Condition Start: 12/25/23 08:14 Freq: Status: Active Protocol: Document 03/18/24 09:46 SAK (Rec: 03/18/24 10:31 SAK [id number]) Current Condition History of Current Condition Onset Date 1-1 1/2 months ago. Current Complaints jose knee pain, left leg swelling History of Current Condition pain bilateral knees, prior PT right side. History swelling jose LE's left greater than right, left got bad 1 1/2 months ago. Swelling is variable, not sure if gets better when legs elevated. Doesn't wear compression stockings except occasional knee high when travels. No use of assistive device. Trying to walk between 4 -5000 steps per day, slowed some by a-fib. Has trouble getting up and trusting legs when she moves from sit to stand. Hard time getting going, gets a little better when warmed up. Has previously worn brace on right knee. No exercises except walking. Prior Treatments and Tests ultrasound left LE negative x-rays: negative PT-OP-C Subjective Start: 12/25/23 08:14 Freq: Status: Active Protocol: Document 04/08/24 08:08 AB (Rec: 04/08/24 10:41 AB [id number]) OP-PT Subjective Patient Comments Patient Comments Marce reports that she had a libertarian last night and the knee held up with the cooking and libertarian. Patient rates pain 0/10 start of session. PT-OP-G Mobility & Gait Start: 12/25/23 08:14 Freq: Status: Active Protocol: Document 12/25/23 08:14 SAK (Rec: 12/25/23 16:06 SAK [id number]) OP Mobility Evaluation Transfers Sit to Stand requires UE use Bed to Chair Transfers painful Car Transfers painful Floor Transfers unable Functional Movements Squats painful Running Assessment unable OP Gait Assessment Gait Gait Assistance Required: Independent Assistive Devices Assistive Device None Gait Deviations General Gait Pattern Antalgic,Decreased Stride Length,Decreased Feet Clearance,Wide Based Gait Factors Limiting Gait Function Factors Limiting Gait Function Decreased Strength,Pain Comments Gait Comments excess lateral sway Stair Climbing Evaluation Evaluation Level of Assist On Stairs Independent Devices Stair Climbing Assistive Devices Left Railing,Right Railing Technique/Endurance Stair Climbing Direction Ascend and Descend Stair Climbing Technique Step to Step PT-OP-H Neuro Start: 12/25/23 08:14 Freq: Status: Active Protocol: Document 12/25/23 08:14 SAK (Rec: 12/25/23 16:06 SAK [id number]) Sensation Evaluation Gross Sensation Gross Sensation WNL PT-OP-J Posture/Palpation/Skin Start: 12/25/23 08:14 Freq: Status: Active Protocol: Document 01/08/24 09:05 SP (Rec: 01/08/24 09:51 SP [id number]) Skin Assessment Edema Assessment jose knees left greater than right Edema Type Non-Pitting Comments Circumferential measurements BLEs: (13cm inferior patella calf) 44.5cm L, 43.5 cm R (Mid Patella): 51 cm L, 49.5 cm R (15cm above patella): 65.5cm L, 64 cm R (Base MTP): 21.6cm L, 21.5cm (mid foot): 23cm L, 22.5cm R PT-OP-K Range of Motion Start: 12/25/23 08:14 Freq: Status: Active Protocol: Document 12/25/23 08:14 SAK (Rec: 12/25/23 16:06 SAK [id number]) Hip Goniometric Range of Motion Hip jose Straight Leg Raise 60 Extension 0 Abduction 20 Internal Rotation 15 External Rotation 55 Knee Goniometric Range of Motion Knee jose Knee ROM WFL Yes Ankle and Foot Goniometric Range of Motion Ankle and Foot jose Ankle/Foot ROM WFL Yes PT-OP-L Special Tests Start: 12/25/23 08:14 Freq: Status: Active Protocol: Document 12/25/23 08:14 AMANDEEP (Rec: 12/25/23 09:04 [facility] [id number]) Special Tests Knee Special Tests 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 Test Results - Varus- 0 Degrees Test Results - Valgus- 0 Degrees Test Results - Other Special Tests Special Tests circumferential measurements: MTP R 21.7 L 22.2 mid foot R 21.5 L 22.8 ankle R 26.7 L 25.7 mid calf R 43.5 L 43.9 knees R 48.7 L 50.9 10 cm prox patella R 58.2 L 58.8 PT-OP-M Strength Start: 12/25/23 08:14 Freq: Status: Active Protocol: Document 12/25/23 08:14 [facility] (Rec: 12/25/23 16:06 [facility] [id number]) Hip Strength Hip Manual Muscle Testing jose Flexion (L2) 3+ Fair+ Extension (S1) 3- Fair- Abduction 3+ Fair+ Adduction 4- Good- External Rotation 3+ Fair+ Internal Rotation 4- Good- Knee Strength Knee Manual Muscle Testing jose Flexion (S2) 4 Good Extension (L3) 4 Good Ankle/Foot Strength Ankle and Foot Manual Muscle Testing jose Dorsiflexion (L4) 4 Good Plantarflexion (S1) 4 Good PT-OP-Q Treatments Start: 12/25/23 08:14 Freq: Status: Active Protocol: Document 04/08/24 08:08 AB (Rec: 04/08/24 10:41 AB [id number]) Gym Equipment Cable Column (Body Solid) hamstring curl Resistance 40 Reps/Time 10x2 Shuttle Balance chains red Details CGA hands above bars normal Trem[place]ne and stagger Comments head turns and visual scanning with Normal TREMAYNE Therapeutic Exercises Sitting Exercises seated clam Sitting Exercise Name HEP Side bilateral Resistance Level5 HEP for level 5 Reps/Minutes one one minute hold then X 15 without hold Standing Exercises backward walking Standing Exercise Name monster walk fwd Resistance L3 TB Reps/Minutes 10 ft x 2 each gastroc stretch Standing Exercise Name and soleus Equipment Used stair Reps/Minutes 1x60 Comments Verbal cues to avoid toeing out right Le resisted sidestepping Standing Exercise Name HEP reviewed Resistance L3 TB Equipment Used near rail- not need contact Reps/Minutes 10 ft x 6 Comments pnfree Neuro Re-Education Treatment Balance Activities Foam Details SLS, mod tandem, Romb Reps/Duration 3 min Comments CGA with eyes closed for Romber and modified tandem Hurdles Details 4 off mat 2 on mat with and without obst under mat Reps/Duration X4 w/o objects under mat and X 4 w/ obj under mat Comments CGA to minimal A Verbal cues to avoid hip circumduction. PT-OP-R Modalities Start: 12/25/23 08:14 Freq: Status: Active Protocol: Document 02/06/24 08:14 SAK (Rec: 02/06/24 08:55 SAK [id number]) Hot Pack/Cold Pack Treatment Cold Pack Location right knee Patient Position Hooklying Patient Tolerance Good PT-OP-T Assessment and Plan Start: 12/25/23 08:14 Freq: Status: Active Protocol: Document 04/08/24 08:08 AB (Rec: 04/08/24 10:41 AB [id number]) Physical Therapy Assessment Goals Five Impairment right knee pain and swelling ( 4 cm larger than left) Materials Management Clerk Goal (LTG) Decrease pain with community and outdoor ambulation on level and uneven surfaces to no greater than 2/10, and reduce edema to no greater than 1 cm larger than left 02/28/24: good goal progress 03/11/24 Patient reports she can do her normal walk outside 15 - 20 min with no pain over the past 2 weeks. LTG Duration 04/01 Four Impairment left LE edema Materials Management Clerk Goal (LTG) Decrease edema to no greater than 1 cm difference between right and left LE 01/30/24: today right knee circumference 4 cm larger than left. Left knee no longer swolen 02/18/24: good goal progress 03/12/24 47.25 cm right knee joint line 45.25 cm LTG Duration 05/02/24 Three Impairment impairments in left knee and hip strength and ROM Short Term Goal (STG) Patient to be instructed in HEP for purposes of ROM and strength left LE 01/30/24: goal met, continued progression as tolerated, updated today for both left and right knee. 02/28/24: goal met STG Duration goal met Materials Management Clerk Goal (LTG) Patient to be independent and compliant with HEP and demonstrate ROM WNL and strength to at least 4+/5 left LE 01/30/24: left knee 4+/5, hip flex 4-/5, abduction 3-/5, extension 3-/5, ER 3-/5. right knee 4-/5, hip flex 4-/5 , abduction 3-/5, extension 3- /5, ER 3-/5 03/12/2024 L ER 3-/ 5 Quad L 4+/5 R quad 4/5 hamstring L 4+/5 R 4+/5 ER3-/5 bilaterally hip flexion left 3+/5 Right 4 -/5 Right LE ext and abd 3-/5 but able to hold abd against fair + resistance in limited ROM. left LE hip ext 4-/5 abd 4-/5 within limited ROM LTG Duration 05/02/24 Two Impairment lower extremity functional scale (LEFS) 36% Short Term Goal (STG) Improve LEFS score to at least 55% as measure of improved activity tolerance and left knee function 01/30/24: met for left knee, but now right knee is limiting her, score 58% 03/12/24: patient reporting improved function but questionnaire not completed STG Duration 02/14/24 Assisted Goal (LTG) Improve LEFS score to at least 70% as measure of improved activity tolerance and left knee function LTG Duration 05/02/24 One Impairment pain left knee 5/10 pain scale Short Term Goal (STG) Decrease pain with household activities to no greater than 2/10 01/30/24: goal met left knee, Right knee pain 4/10 02/28/24: goal met 03/12/2024 Patient reports having no pain greater than 2/ 10 during household activities comments occasionally gets a twinge. Goal met STG Duration goal met Assisted Goal (LTG) Decrease pain with community and outdoor ambulation on level and uneven surfaces to no greater than 2/10 03/11/24 Patient reports she can do her normal walk outside 15 - 20 min with no pain over the past 2 weeks. LTG Duration goal met Assessment Summary Assessment Marce reports having no pain, just tied end of session. Improved SLS post seated hip abd isometric, but fatigues quickly with balance activities. Physical Therapy Plan Frequency and Duration Frequency of Treatment 2x/Week Duration of treatment (weeks) 12 Plan of Care Start Date 01/30/24 Plan of Care End Date 05/01/23 Next Visit Focus/Plan Next Note Type Treatment Note Next Visit Plan Continue gait on uneven ground , strengthening.
--- NOTE | 2024-04-18 12:17 | PT.OTN ---
Current Diagnoses Unilateral primary osteoarthritis, left knee (04/18/24) Pain in right knee (04/18/24) Difficulty in walking, not elsewhere classified (04/18/24) Weakness (04/18/24) Edema, unspecified (04/18/24) Physical Therapy Treatment Note PT-OP-A Visit Information Start: 12/25/23 08:14 Freq: Status: Active Protocol: Document 04/18/24 11:36 SAK (Rec: 04/18/24 12:16 [facility] [id number]) Out-Patient Physical Therapy Visit Information Visit Information Visit Type Treatment Note Visit Start Time 11:32 Visit Stop Time 12:15 Visit Number 27 Number of VOICE STUDIES DIRECTOR Visits 0 Evaluation Information Evaluation Date 12/25/23 Precautions Precautions a-fib PT-OP-B Current Condition Start: 12/25/23 08:14 Freq: Status: Active Protocol: Document 04/18/24 11:36 SAK (Rec: 04/18/24 12:16 [facility] [id number]) Current Condition History of Current Condition Onset Date 1-1 1/2 months ago. Current Complaints jose knee pain, left leg swelling History of Current Condition pain bilateral knees, prior PT right side. History swelling jose LE's left greater than right, left got bad 1 1/2 months ago. Swelling is variable, not sure if gets better when legs elevated. Doesn't wear compression stockings except occasional knee high when travels. No use of assistive device. Trying to walk between 4 -5000 steps per day, slowed some by a-fib. Has trouble getting up and trusting legs when she moves from sit to stand. Hard time getting going, gets a little better when warmed up. Has previously worn brace on right knee. No exercises except walking. Prior Treatments and Tests ultrasound left LE negative x-rays: negative PT-OP-C Subjective Start: 12/25/23 08:14 Freq: Status: Active Protocol: Document 04/18/24 11:36 SAK (Rec: 04/18/24 12:16 [facility] [id number]) OP-PT Subjective Patient Comments Patient Comments Min to no pain. Doing better at getting out for regular walks and do exercises. PT-OP-G Mobility & Gait Start: 12/25/23 08:14 Freq: Status: Active Protocol: Document 12/25/23 08:14 SAK (Rec: 12/25/23 16:06 [facility] [id number]) OP Mobility Evaluation Transfers Sit to Stand requires UE use Bed to Chair Transfers painful Car Transfers painful Floor Transfers unable Functional Movements Squats painful Running Assessment unable OP Gait Assessment Gait Gait Assistance Required: Independent Assistive Devices Assistive Device None Gait Deviations General Gait Pattern Antalgic,Decreased Stride Length,Decreased Feet Clearance,Wide Based Gait Factors Limiting Gait Function Factors Limiting Gait Function Decreased Strength,Pain Comments Gait Comments excess lateral sway Stair Climbing Evaluation Evaluation Level of Assist On Stairs Independent Devices Stair Climbing Assistive Devices Left Railing,Right Railing Technique/Endurance Stair Climbing Direction Ascend and Descend Stair Climbing Technique Step to Step PT-OP-H Neuro Start: 12/25/23 08:14 Freq: Status: Active Protocol: Document 12/25/23 08:14 SAK (Rec: 12/25/23 16:06 SAK [id number]) Sensation Evaluation Gross Sensation Gross Sensation WNL PT-OP-J Posture/Palpation/Skin Start: 12/25/23 08:14 Freq: Status: Active Protocol: Document 01/08/24 09:05 SP (Rec: 01/08/24 09:51 SP [id number]) Skin Assessment Edema Assessment jose knees left greater than right Edema Type Non-Pitting Comments Circumferential measurements BLEs: (13cm inferior patella calf) 44.5cm L, 43.5 cm R (Mid Patella): 51 cm L, 49.5 cm R (15cm above patella): 65.5cm L, 64 cm R (Base MTP): 21.6cm L, 21.5cm (mid foot): 23cm L, 22.5cm R PT-OP-K Range of Motion Start: 12/25/23 08:14 Freq: Status: Active Protocol: Document 12/25/23 08:14 SAK (Rec: 12/25/23 16:06 SAK [id number]) Hip Goniometric Range of Motion Hip jose Straight Leg Raise 60 Extension 0 Abduction 20 Internal Rotation 15 External Rotation 55 Knee Goniometric Range of Motion Knee jose Knee ROM WFL Yes Ankle and Foot Goniometric Range of Motion Ankle and Foot jose Ankle/Foot ROM WFL Yes PT-OP-L Special Tests Start: 12/25/23 08:14 Freq: Status: Active Protocol: Document 12/25/23 08:14 SAK (Rec: 12/25/23 09:04 SAK [id number]) Special Tests Knee Special Tests 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 Test Results - Varus- 0 Degrees Test Results - Valgus- 0 Degrees Test Results - Other Special Tests Special Tests circumferential measurements: MTP R 21.7 L 22.2 mid foot R 21.5 L 22.8 ankle R 26.7 L 25.7 mid calf R 43.5 L 43.9 knees R 48.7 L 50.9 10 cm prox patella R 58.2 L 58.8 PT-OP-M Strength Start: 12/25/23 08:14 Freq: Status: Active Protocol: Document 12/25/23 08:14 [facility] (Rec: 12/25/23 16:06 [facility] [id number]) Hip Strength Hip Manual Muscle Testing jose Flexion (L2) 3+ Fair+ Extension (S1) 3- Fair- Abduction 3+ Fair+ Adduction 4- Good- External Rotation 3+ Fair+ Internal Rotation 4- Good- Knee Strength Knee Manual Muscle Testing jose Flexion (S2) 4 Good Extension (L3) 4 Good Ankle/Foot Strength Ankle and Foot Manual Muscle Testing jose Dorsiflexion (L4) 4 Good Plantarflexion (S1) 4 Good PT-OP-Q Treatments Start: 12/25/23 08:14 Freq: Status: Active Protocol: Document 04/18/24 11:36 [facility] (Rec: 04/18/24 12:16 [facility] [id number]) Cardio Equipment Recumbent Stepper (Sci-Fit) Duration (Minutes) 10 Resistance 1.5 Seat Position 12 Other LE's only Gym Equipment Cable Column (Body Solid) unil hamstring curl Resistance 25 Reps/Time 10x2 hamstring curl Resistance 45 Reps/Time 10x2 Shuttle Recovery Unilateral Squats Resistance 37# (1 navy) R, 50 (1 navy, 1 teal) L Shuttle Recovery Platform Stable Reps/Time 15 x2 Bilateral Squats Resistance 75# (2 navy one teal) Shuttle Recovery Platform Stable Reps/Time 15 X 2 Shuttle Balance chains red Details CGA hands above bars normal Adriel and stagger, side to side Comments bal and wt shift Therapeutic Exercises Sitting Exercises seated clam Sitting Exercise Name HEP Side bilateral Resistance Level5 HEP for level 5 Reps/Minutes one one minute hold then X 15 without hold Standing Exercises backward walking Standing Exercise Name monster walk fwd, bck, side Resistance L3 TB Reps/Minutes 10 ft x 2 each Gait Training Gait Activity uneven ground Description blue mat over pods Device Used cane in hand, only down to ground 2x briefly Treatment Focus safety for walking to ' s grave stair mgt Description Receiprocal stepping Device Used R HR PRN ascend, min>light descend needed Level of Assistance Mod I Distance/Duration 14 stairs MAP bldg stairs Treatment Focus confidence stairs Comments Cued glut drive /c midline trunk over R>L LE, light touch initially ascend, Min>light descend during LLE advancement /stance RLE eccentric flexion. Neuro Re-Education Treatment Balance Activities Hurdles Details 4 off mat 2 on mat with and without obst under mat Reps/Duration X4 w/o objects under mat and X 4 w/ obj under mat Comments CGA to minimal A Verbal cues to avoid hip circumduction. Self-Care/Home Management Treatment Education Other Education SLS, tandem stand PT-OP-R Modalities Start: 12/25/23 08:14 Freq: Status: Active Protocol: Document 02/06/24 08:14 [facility] (Rec: 02/06/24 08:55 [facility] [id number]) Hot Pack/Cold Pack Treatment Cold Pack Location right knee Patient Position Hooklying Patient Tolerance Good PT-OP-T Assessment and Plan Start: 12/25/23 08:14 Freq: Status: Active Protocol: Document 04/18/24 11:36 [facility] (Rec: 04/18/24 12:16 [facility] [id number]) Physical Therapy Assessment Goals Five Impairment right knee pain and swelling ( 4 cm larger than left) Fdc Goal (LTG) Decrease pain with community and outdoor ambulation on level and uneven surfaces to no greater than 2/10, and reduce edema to no greater than 1 cm larger than left 02/28/24: good goal progress 03/11/24 Patient reports she can do her normal walk outside 15 - 20 min with no pain over the past 2 weeks. 04/18/24: goal met LTG Duration 05/02/24 Four Impairment left LE edema Welding Foreman Goal (LTG) Decrease edema to no greater than 1 cm difference between right and left LE 01/30/24: today right knee circumference 4 cm larger than left. Left knee no longer swolen 02/18/24: good goal progress 03/12/24 47.25 cm right knee joint line 45.25 cm 04/18/24: goal met LTG Duration 05/02/24 Three Impairment impairments in left knee and hip strength and ROM Short Term Goal (STG) Patient to be instructed in HEP for purposes of ROM and strength left LE 01/30/24: goal met, continued progression as tolerated, updated today for both left and right knee. 02/28/24: goal met STG Duration goal met Welding Foreman Goal (LTG) Patient to be independent and compliant with HEP and demonstrate ROM WNL and strength to at least 4+/5 left LE 01/30/24: left knee 4+/5, hip flex 4-/5, abduction 3-/5, extension 3-/5, ER 3-/5. right knee 4-/5, hip flex 4-/5 , abduction 3-/5, extension 3- /5, ER 3-/5 03/12/2024 L ER 3-/ 5 Quad L 4+/5 R quad 4/5 hamstring L 4+/5 R 4+/5 ER3-/5 bilaterally hip flexion left 3+/5 Right 4 -/5 Right LE ext and abd 3-/5 but able to hold abd against fair + resistance in limited ROM. left LE hip ext 4-/5 abd 4-/5 within limited ROM 04/18/24: LTG Duration 05/02/24 Two Impairment lower extremity functional scale (LEFS) 36% Short Term Goal (STG) Improve LEFS score to at least 55% as measure of improved activity tolerance and left knee function 01/30/24: met for left knee, but now right knee is limiting her, score 58% 03/12/24: patient reporting improved function but questionnaire not completed 04/18/24 STG Duration 02/14/24 Fdc Goal (LTG) Improve LEFS score to at least 70% as measure of improved activity tolerance and left knee function LTG Duration 05/02/24 One Impairment pain left knee 5/10 pain scale Short Term Goal (STG) Decrease pain with household activities to no greater than 2/10 01/30/24: goal met left knee, Right knee pain 4/10 02/28/24: goal met 03/12/2024 Patient reports having no pain greater than 2/ 10 during household activities comments occasionally gets a twinge. Goal met STG Duration goal met Welding Foreman Goal (LTG) Decrease pain with community and outdoor ambulation on level and uneven surfaces to no greater than 2/10 03/11/24 Patient reports she can do her normal walk outside 15 - 20 min with no pain over the past 2 weeks. LTG Duration goal met Progress Towards Goals Progress Towards Goals Progressing Toward Goals Assessment Summary Assessment Improving functional balance on hurdles/foam. Min pain. should be ready for discharge after next session. Physical Therapy Plan Frequency and Duration Frequency of Treatment 2x/Week Duration of treatment (weeks) 12 Plan of Care Start Date 01/30/24 Plan of Care End Date 05/01/23 Therapeutic Interventions Therapeutic Interventions Gait Training,Home Exercise Program,Manual Therapy,Patient /Caregiver Education,Self-Care /Home Management,Soft Tissue Mobilization,Taping, Therapeutic Activities, Therapeutic Exercises Modalities Cold Pack/Ice Massage,Electric Stimulation,Hot Packs, Infrared Therapy,Ultrasound Next Visit Focus/Plan Next Note Type Discharge Summary Next Visit Plan final reassessment, review HEP
--- NOTE | 2024-04-23 10:35 | PT.OTN ---
Current Diagnoses Unilateral primary osteoarthritis, left knee (04/23/24) Pain in right knee (04/23/24) Difficulty in walking, not elsewhere classified (04/23/24) Weakness (04/23/24) Edema, unspecified (04/23/24) Physical Therapy Treatment Note PT-OP-A Visit Information Start: 12/25/23 08:14 Freq: Status: Active Protocol: Document 04/23/24 09:48 SAK (Rec: 04/23/24 10:34 [facility] [id number]) Out-Patient Physical Therapy Visit Information Visit Information Visit Type Discharge Summary Visit Start Time 09:49 Visit Number 28 Number of [facility] Visits 0 Evaluation Information Evaluation Date 12/25/23 PT-OP-B Current Condition Start: 12/25/23 08:14 Freq: Status: Active Protocol: Document 04/23/24 09:48 SAK (Rec: 04/23/24 10:34 [facility] [id number]) Current Condition History of Current Condition Onset Date 1-1 1/2 months ago. Current Complaints jose knee pain, left leg swelling History of Current Condition pain bilateral knees, prior PT right side. History swelling jose LE's left greater than right, left got bad 1 1/2 months ago. Swelling is variable, not sure if gets better when legs elevated. Doesn't wear compression stockings except occasional knee high when travels. No use of assistive device. Trying to walk between 4 -5000 steps per day, slowed some by a-fib. Has trouble getting up and trusting legs when she moves from sit to stand. Hard time getting going, gets a little better when warmed up. Has previously worn brace on right knee. No exercises except walking. Prior Treatments and Tests ultrasound left LE negative x-rays: negative PT-OP-C Subjective Start: 12/25/23 08:14 Freq: Status: Active Protocol: Document 04/23/24 09:48 SAK (Rec: 04/23/24 10:34 [facility] [id number]) OP-PT Subjective Patient Comments Patient Comments No new c/o, doesn't have KT tape on today, requests PT tape one more time. PT-OP-G Mobility & Gait Start: 12/25/23 08:14 Freq: Status: Active Protocol: Document 12/25/23 08:14 SAK (Rec: 12/25/23 16:06 [facility] [id number]) OP Mobility Evaluation Transfers Sit to Stand requires UE use Bed to Chair Transfers painful Car Transfers painful Floor Transfers unable Functional Movements Squats painful Running Assessment unable OP Gait Assessment Gait Gait Assistance Required: Independent Assistive Devices Assistive Device None Gait Deviations General Gait Pattern Antalgic,Decreased Stride Length,Decreased Feet Clearance,Wide Based Gait Factors Limiting Gait Function Factors Limiting Gait Function Decreased Strength,Pain Comments Gait Comments excess lateral sway Stair Climbing Evaluation Evaluation Level of Assist On Stairs Independent Devices Stair Climbing Assistive Devices Left Railing,Right Railing Technique/Endurance Stair Climbing Direction Ascend and Descend Stair Climbing Technique Step to Step PT-OP-H Neuro Start: 12/25/23 08:14 Freq: Status: Active Protocol: Document 12/25/23 08:14 SAK (Rec: 12/25/23 16:06 SAK [id number]) Sensation Evaluation Gross Sensation Gross Sensation WNL PT-OP-J Posture/Palpation/Skin Start: 12/25/23 08:14 Freq: Status: Active Protocol: Document 01/08/24 09:05 SP (Rec: 01/08/24 09:51 SP [id number]) Skin Assessment Edema Assessment jose knees left greater than right Edema Type Non-Pitting Comments Circumferential measurements BLEs: (13cm inferior patella calf) 44.5cm L, 43.5 cm R (Mid Patella): 51 cm L, 49.5 cm R (15cm above patella): 65.5cm L, 64 cm R (Base MTP): 21.6cm L, 21.5cm (mid foot): 23cm L, 22.5cm R PT-OP-K Range of Motion Start: 12/25/23 08:14 Freq: Status: Active Protocol: Document 12/25/23 08:14 SAK (Rec: 12/25/23 16:06 SAK [id number]) Hip Goniometric Range of Motion Hip jose Straight Leg Raise 60 Extension 0 Abduction 20 Internal Rotation 15 External Rotation 55 Knee Goniometric Range of Motion Knee jose Knee ROM WFL Yes Ankle and Foot Goniometric Range of Motion Ankle and Foot jose Ankle/Foot ROM WFL Yes PT-OP-L Special Tests Start: 12/25/23 08:14 Freq: Status: Active Protocol: Document 12/25/23 08:14 SAK (Rec: 12/25/23 09:04 SAK [id number]) Special Tests Knee Special Tests 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 Test Results - Varus- 0 Degrees Test Results - Valgus- 0 Degrees Test Results - Other Special Tests Special Tests circumferential measurements: MTP R 21.7 L 22.2 mid foot R 21.5 L 22.8 ankle R 26.7 L 25.7 mid calf R 43.5 L 43.9 knees R 48.7 L 50.9 10 cm prox patella R 58.2 L 58.8 PT-OP-M Strength Start: 12/25/23 08:14 Freq: Status: Active Protocol: Document 12/25/23 08:14 [facility] (Rec: 12/25/23 16:06 [facility] [id number]) Hip Strength Hip Manual Muscle Testing jose Flexion (L2) 3+ Fair+ Extension (S1) 3- Fair- Abduction 3+ Fair+ Adduction 4- Good- External Rotation 3+ Fair+ Internal Rotation 4- Good- Knee Strength Knee Manual Muscle Testing jose Flexion (S2) 4 Good Extension (L3) 4 Good Ankle/Foot Strength Ankle and Foot Manual Muscle Testing jose Dorsiflexion (L4) 4 Good Plantarflexion (S1) 4 Good PT-OP-Q Treatments Start: 12/25/23 08:14 Freq: Status: Active Protocol: Document 04/23/24 09:48 [facility] (Rec: 04/23/24 10:34 [facility] [id number]) Cardio Equipment Recumbent Stepper (Sci-Fit) Duration (Minutes) 10 Resistance 2.0 Seat Position 12 Other LE's only Therapeutic Exercises Sidelying Exercises clamshell Side bilateral Resistance level one band second set Equipment Used L1 TB Reps/Minutes X15 Comments Verbal cues for trunk position abduction Side bilateral Resistance level one band Reps/Minutes X15 Comments Verbal cues for trunk position Manual Therapy Treatment Taping Ktaping Body Location right knee Treatment Focus crepitus, tracking Type of Tape Kinesio Tape Skin Inspection intact Comments 2 I strips lateral X at lat meniscus then supra and infra pat 50% stretch, 2 I strips to unload fat pad peripatallar area med and lat superior pull 50% Other Other Manual Treatments LE MMT PT-OP-R Modalities Start: 12/25/23 08:14 Freq: Status: Active Protocol: Document 02/06/24 08:14 [facility] (Rec: 02/06/24 08:55 [facility] [id number]) Hot Pack/Cold Pack Treatment Cold Pack Location right knee Patient Position Hooklying Patient Tolerance Good PT-OP-T Assessment and Plan Start: 12/25/23 08:14 Freq: Status: Active Protocol: Document 04/23/24 09:48 [facility] (Rec: 04/23/24 10:34 [facility] [id number]) Physical Therapy Assessment Goals Five Impairment right knee pain and swelling ( 4 cm larger than left) Mannequin Mold Maker Goal (LTG) Decrease pain with community and outdoor ambulation on level and uneven surfaces to no greater than 2/10, and reduce edema to no greater than 1 cm larger than left 02/28/24: good goal progress 03/11/24 Patient reports she can do her normal walk outside 15 - 20 min with no pain over the past 2 weeks. 04/18/24: goal met LTG Duration goal met Four Impairment left LE edema Nursing Home Goal (LTG) Decrease edema to no greater than 1 cm difference between right and left LE 01/30/24: today right knee circumference 4 cm larger than left. Left knee no longer swolen 02/18/24: good goal progress 03/12/24 47.25 cm right knee joint line 45.25 cm 04/18/24: goal met LTG Duration goal met Three Impairment impairments in left knee and hip strength and ROM Short Term Goal (STG) Patient to be instructed in HEP for purposes of ROM and strength left LE 01/30/24: goal met, continued progression as tolerated, updated today for both left and right knee. 02/28/24: goal met STG Duration goal met Nursing Home Goal (LTG) Patient to be independent and compliant with HEP and demonstrate ROM WNL and strength to at least 4+/5 left LE 01/30/24: left knee 4+/5, hip flex 4-/5, abduction 3-/5, extension 3-/5, ER 3-/5. right knee 4-/5, hip flex 4-/5 , abduction 3-/5, extension 3- /5, ER 3-/5 03/12/2024 L ER 3-/ 5 Quad L 4+/5 R quad 4/5 hamstring L 4+/5 R 4+/5 ER3-/5 bilaterally hip flexion left 3+/5 Right 4 -/5 Right LE ext and abd 3-/5 but able to hold abd against fair + resistance in limited ROM. left LE hip ext 4-/5 abd 4-/5 within limited ROM 04/18/24: 04/23/24: knees 5/5, hips 4+/5 LTG Duration goal met Two Impairment lower extremity functional scale (LEFS) 36% Short Term Goal (STG) Improve LEFS score to at least 55% as measure of improved activity tolerance and left knee function 01/30/24: met for left knee, but now right knee is limiting her, score 58% 03/12/24: patient reporting improved function but questionnaire not completed 04/18/24 STG Duration 02/14/24 Nursing Home Goal (LTG) Improve LEFS score to at least 70% as measure of improved activity tolerance and left knee function 04/23/24: 73% LTG Duration goal met One Impairment pain left knee 5/10 pain scale Short Term Goal (STG) Decrease pain with household activities to no greater than 2/10 01/30/24: goal met left knee, Right knee pain 4/10 02/28/24: goal met 03/12/2024 Patient reports having no pain greater than 2/ 10 during household activities comments occasionally gets a twinge. Goal met STG Duration goal met Nursing Home Goal (LTG) Decrease pain with community and outdoor ambulation on level and uneven surfaces to no greater than 2/10 03/11/24 Patient reports she can do her normal walk outside 15 - 20 min with no pain over the past 2 weeks. 04/23/24: pain 1/10 LTG Duration goal met Progress Towards Goals Progress Towards Goals Goals Met Assessment Summary Assessment Patient has met all PT goals, good compliance to HEP. REady for discharge to independent HEP and self care.
== END 2024-04-25 12:42 | disposition home or self-care (01) ==
LOC: PHYS 09:45
PROVIDERS: Family Provider Family Medicine; PCP Family Medicine; Referring Provider Family Medicine; Visit Provider Family Medicine
DX: M25.561 Pain in right knee (principal); M17.12 Unilateral primary osteoarthritis, left knee; R26.2 Difficulty in walking, not elsewhere classified; R53.1 Weakness; R60.9 Edema, unspecified
CPT/HCPCS: 97014; 97110; 97112; 97116; 97140; 97162; 97530; 97535; G0283

== ENCOUNTER → 2024-08-02 10:41 | Outpatient (CLI) | payer MEDICARE, OTHER, SELFPAY ==
--- NOTE | 2024-08-02 10:42 | DI.RAD.S_ITS ---
PROCEDURE: XR DEXA AXIAL SKELETON INDICATIONS: hx of osteopenia COMPARISON: [facility], CR, XR DEXA AXIAL SKELETON, 02/15/2023, 11:04. [facility], CR, XR DEXA AXIAL SKELETON, 05/24/2021, 14:44. [facility], CR, XR DEXA AXIAL SKELETON, 04/28/2020, 10:30. [facility], CR, XR DEXA AXIAL SKELETON, 04/26/2019, 15:23. FINDINGS: Lumbar Spine: Bone mineral density 0.881 g/cm2, T score -1.5, previously -1.6. Left Femoral Neck: Bone mineral density 0.698 g/cm2, T score -1.4. Left Hip: Bone mineral density 0.75 g/cm2, T score -1.5, previously -1.3. Fracture Risk Calculation (when applicable): 10-year fracture risk of a major osteoporotic fracture 12 percent and of a hip fracture 2.4 percent. (T score greater or equal to -1.0 to: NORMAL) (T score from -1.1 to -2.4: OSTEOPENIA) (T score less than or equal to -2.5: OSTEOPOROSIS) IMPRESSION: 1. Osteopenia of the lumbar spine. 2. Osteopenia of the left hip and femoral neck. Follow-up guidelines as follows: Osteoporosis: Consider a repeat DEXA and Vertebral Fracture Assessment (VFA) exam in 2 years or sooner if medically necessary, to reassess this patient's status. Osteopenia: Consider a repeat DEXA in 2-3 years to reassess this patient's status, or if there is a new clinical indication. Normal: Consider a repeat DEXA in 5 years or sooner, or if there is a new clinical indication. All treatment decisions require clinical judgment and consideration of individual patient factors, including patient preferences, comorbidities, previous drug use, risk factors not captured in the FRAX model (e.g., frailty, falls, vitamin D deficiency, increased bone turnover, interval significant decline in bone density ) and possible under- or over-estimation of fracture risk by FRAX. In addition, the NOF Guide recommends that FDA-approved medical therapies be considered in postmenopausal women and men age >= 50 years with a: * Hip or vertebral (clinical or morphometric) fracture * T-score of <=-2.5 at the spine or hip * Ten-year fracture probability by FRAX of >= 3% for hip fracture or >=20% for major osteoporotic fracture. Dictated by: Daniel Hernández M.D. on 08/02/2024 at 15:27 Approved by: Daniel Hernández M.D. on 08/02/2024 at 15:39
== END ==
PROVIDERS: Family Provider Family Medicine; PCP Family Medicine; Referring Provider Family Medicine; Visit Provider Family Medicine
DX: Z78.0 Asymptomatic menopausal state (principal); R79.89 Other specified abnormal findings of blood chemistry; M85.89 Other specified disorders of bone density and structure, multiple sites
CPT/HCPCS: 77080

== ENCOUNTER → 2024-11-01 08:04 | Outpatient (CLI) | payer MEDICARE, OTHER, SELFPAY ==
[2024-11-01 09:24] LABS: Add Manual Diff / Slide Review NO; Hematocrit 41.8 % (36-46); Hemoglobin 14.2 g/dL (12.0-16.0); Lymphocytes Absolute Auto 1500 /uL (1100-4500); Mean Corpuscular HGB Conc 33.9 % (30-36); Mean Corpuscular Hemoglobin 30.5 PG (26-34); Mean Corpuscular Volume 90.0 fL (80-100); Platelet Count 199 X10^3/uL (150-400)
[2024-11-01 10:00] LABS: Alanine Aminotransferase 22 IU/L (<35); Albumin 4.5 g/dL (3.5-5.0); Albumin Globulin Ratio 1.4 (1.0-2.8); Alkaline Phosphatase 109 U/L (38-126); Blood Urea Nitrogen 16 mg/dL (7-17); Calcium 9.9 mg/dL (8.4-10.2); Carbon Dioxide 26 mmol/L (22-32); Chloride 104 mmol/L (98-107); Cholesterol 161 mg/dL (140-199); Estimated Glomerular Filt Rate > 60 mL/min (>60); Globulin 3.2 g/dL (1.7-4.1); Glucose 98 mg/dL (70-99); HDL Cholesterol 69 mg/dL (40-60); HEMOLYSIS < 15 (0-50); Potassium 4.3 mmol/L (3.4-5.1); Sodium 139 mmol/L (137-145); Total Protein 7.7 g/dL (6.3-8.2); Triglycerides 80 mg/dL (35-150)
[2024-11-01 10:17] LABS: Vitamin D 25 Hydroxy (D3) 42.5 ng/mL (30.0-100.0)
== END ==
PROVIDERS: Family Provider Family Medicine; PCP Family Medicine; Referring Provider Family Medicine; Visit Provider Family Medicine
DX: M17.9 Osteoarthritis of knee, unspecified (principal); M85.80 Other specified disorders of bone density and structure, unspecified site; E78.2 Mixed hyperlipidemia; M25.561 Pain in right knee; I10 Essential (primary) hypertension; I48.0 Paroxysmal atrial fibrillation; R79.89 Other specified abnormal findings of blood chemistry
CPT/HCPCS: 36415; 80053; 80061; 82306; 85025

== ENCOUNTER 2024-11-12 09:00 | Outpatient (RCR) | payer MEDICARE, OTHER, SELFPAY ==
--- NOTE | 2024-09-04 16:07 | PT.OIE ---
Current Diagnoses Other chronic pain (09/04/24) Pain in left knee (09/04/24) Past Medical History (Last Updated 06/17/24 @ 14:50 by Nick Flores DO) Cataracts, bilateral Chronic anticoagulation Essential hypertension (02/17/15) Hyperlipemia Lumbar compression fracture Mitral valve disorder Mixed hyperlipidemia (02/17/15) Paroxysmal atrial fibrillation (02/17/15) Traumatic ecchymosis of left lower leg Past Surgical History (This Medical Record has been edited. Action required.) History of mitral valve replacement (02/17/15) Hx of cataract surgery (~01/2016) Hx of foot surgery Visit Care Team Role Provider Type Marisol Pena DO Attending Provider Physician Family Provider Primary Care Provider Referring Provider Specialty: Family Practice Address: [address] [place] [address], [address], [facility] Email: [email or web address] Physical Therapy Initial Evaluation PT-OP-A Visit Information Start: 09/04/24 14:16 Freq: Status: Active Protocol: Document 09/04/24 14:20 CLEAT FEEDER (Rec: 09/04/24 16:03 [employer]ER Desktop) Out-Patient Physical Therapy Visit Information Visit Information Visit Type Initial Evaluation Visit Start Time 09:00 Visit Stop Time 09:45 Visit Number 1 Number of SNOW REMOVAL/PLOWING Visits 0 Evaluation Information Evaluation Date 09/04/24 Precautions Precautions N/A PT-OP-B Current Condition Start: 09/04/24 14:16 Freq: Status: Active Protocol: Document 09/04/24 14:20 CLEAT FEEDER (Rec: 09/04/24 16:03 CLEAT FEEDER Desktop) Current Condition History of Current Condition Onset Date ~1 week ago Current Complaints L knee pain, lat/infer patella with tightness into lower leg History of Current Condition H/o R knee pain from OA improved with OP PT. Pt was amb on uneven ground/incline when L knee began feeling achy which progressed. Treatment Goals Patient/Caregiver Goals To be pain free for graduation trip to [place] on September 28 including 5 hr flight Personal Factors Other Personal Factors That May Effect Chronic A fib with chronic BLE Therapy/Recovery edema PT-OP-C Subjective Start: 09/04/24 14:16 Freq: Status: Active Protocol: Document 09/04/24 14:20 CLEAT FEEDER (Rec: 09/04/24 16:03 CLEAT FEEDER Desktop) Patient Questionnaires Lower Extremity Functional Scale LEFS Score 49/80 OP-PT Pain Assessment Pain Assessment Grid Paper Pain Assessment Grid Completed Yes PT-OP-D Balance Start: 09/04/24 14:16 Freq: Status: Active Protocol: Document 09/04/24 14:20 CLEAT FEEDER (Rec: 09/04/24 16:03 CLEAT FEEDER Desktop) OP-PT Balance Assessment Standing Balance Static Standing Balance Ability Normal Dynamic Standing Balance Ability Fair Device Used none Standing Balance Comments normal rhomberg and sharpened rhomberg and semi tandem stance with slight sway but no LOB, had small LOB while turning during gait Wright Fall Scale Copyright Permission PT-OP-F Manual Assessment Start: 09/04/24 14:16 Freq: Status: Active Protocol: Document 09/04/24 14:20 CLEAT FEEDER (Rec: 09/04/24 16:03 CLEAT FEEDER Desktop) Manual Assessments Soft Tissue Assessment Soft Tissue Mobility Assessment TTP and decreased soft tissue mobility to L ant tib, L lateral quad, and L glute med Joint Mobility Assessment Joint Mobility Assessment AROM and PROM normal without pain or crepitus PT-OP-G Mobility & Gait Start: 09/04/24 14:16 Freq: Status: Active Protocol: Document 09/04/24 14:20 [employer]ER (Rec: 09/04/24 16:03 CLEAT FEEDER Desktop) OP Gait Assessment Comments Gait Comments without AD, slight less stance time on LLE, increased lateral trunk lean to R, small LOB while turning PT-OP-K Range of Motion Start: 09/04/24 14:16 Freq: Status: Active Protocol: Document 09/04/24 14:20 CLEAT FEEDER (Rec: 09/04/24 16:03 CLEAT FEEDER Desktop) Knee Goniometric Range of Motion Knee R Patient Position Supine Flexion Active (degrees) 125 Extension Active (degrees) 4 L Knee ROM WFL Yes Patient Position Supine Flexion Active (degrees) 125 Extension Active (degrees) 0 Ankle and Foot Goniometric Range of Motion Ankle and Foot ROM Limitations Comments DF limited on L d/t h/o foot ORIF in 2003 PT-OP-M Strength Start: 09/04/24 14:16 Freq: Status: Active Protocol: Document 09/04/24 14:20 CLEAT FEEDER (Rec: 09/04/24 16:03 CLEAT FEEDER Desktop) Hip Strength Hip Manual Muscle Testing L Flexion (L2) 5 Normal Extension (S1) 3- Fair- Abduction 4 Good R Flexion (L2) 4+ Good+ Extension (S1) 3- Fair- Abduction 4 Good Knee Strength Knee Manual Muscle Testing L Flexion (S2) 4+ Good+ Extension (L3) 4+ Good+ R Flexion (S2) 4+ Good+ Extension (L3) 4+ Good+ Ankle/Foot Strength Ankle and Foot Manual Muscle Testing B Dorsiflexion (L4) 5 Normal Comments PF function test: standing heel raises x10 WNL PT-OP-Q Treatments Start: 09/04/24 14:16 Freq: Status: Active Protocol: Document 09/04/24 14:20 CLEAT FEEDER (Rec: 09/04/24 16:03 CLEAT FEEDER Desktop) Therapeutic Exercises Supine Exercises Clamshells Side bilateral Reps/Minutes 10 Comments starting without resistance band Bridge Side bilateral Reps/Minutes 10 Comments 5s hold Sitting Exercises Thigh roll outs Side bilateral Equipment Used rolling pin PT-OP-T Assessment and Plan Start: 09/04/24 14:16 Freq: Status: Active Protocol: Document 09/04/24 14:20 CLEAT FEEDER (Rec: 09/04/24 16:03 CLEAT FEEDER Desktop) Physical Therapy Assessment Rehab Potential Rehabilitation Potential Good Evaluation Complexity Number of Personal Factors/Comorbidities 1-2 Number of Body Systems Impaired 1-2 Clinical Presentation at Evaluation Evolving Impairments Impairments Activity Tolerance,Balance, Edema,Functional Activities, Functional Mobility,Gait,Pain, Soft Tissue Mobility,Strength Goals 3 Short Term Goal (STG) Pt will improve LEFS score at least 5 points from 49/80 to improve functional mobility STG Duration 4 weeks Molder Setter Goal (LTG) Pt will improve LEFS score at least 10 points from 49/80 to improve functional mobility LTG Duration 10 weeks 2 Short Term Goal (STG) Pt will improve B hip strength by 1 MMT to improve functional mobility STG Duration 4 weeks Jail Goal (LTG) Pt will ascend/descend 4 stairs with reciprocal pattern without impairment LTG Duration 10 weeks 1 Short Term Goal (STG) Pt will be able to amb 1 mile on even surface without pain STG Duration 4 weeks Molder Setter Goal (LTG) Pt will be able to amb >1 mile on uneven surface without pain LTG Duration 10 weeks Physical Therapy Plan Frequency and Duration Frequency of Treatment 3x/Week Duration of treatment (weeks) 10 Plan of Care Start Date 09/04/24 Plan of Care End Date 11/13/24 Therapeutic Interventions Therapeutic Interventions Balance Training,Coordination Training,Gait Training,Home Exercise Program,Joint Mobilizations,Lymphedema Management,Manual Therapy, Neuromuscular Re-education, Soft Tissue Mobilization, Taping,Therapeutic Activities, Therapeutic Exercises Modalities Cold Pack/Ice Massage,Electric Stimulation,Hot Packs, Infrared Therapy,Ultrasound Next Visit Focus/Plan Next Note Type Treatment Note Next Visit Plan Give printed BLE HEP, STM to L ant tib/quad/glute med, L knee special tests, quad stretching
--- NOTE | 2024-09-04 16:19 | PT.OIE ---
Addendum entered and electronically signed by Mei Gaona PT 09/04/24 18:21: Assessment: Pt presents with decreased B hip and knee strength, decreased dynamic standing balance, decreased activity tolerance d/t pain, and impaired gait. Pt is highly motivated to improve and will highly benefit from skilled PT in order to progress towards goals Original Note: Current Diagnoses Other chronic pain (09/04/24) Pain in left knee (09/04/24) Past Medical History (Last Updated 06/17/24 @ 14:50 by Nick Flores DO) Cataracts, bilateral Chronic anticoagulation Essential hypertension (02/17/15) Hyperlipemia Lumbar compression fracture Mitral valve disorder Mixed hyperlipidemia (02/17/15) Paroxysmal atrial fibrillation (02/17/15) Traumatic ecchymosis of left lower leg Past Surgical History (This Medical Record has been edited. Action required.) History of mitral valve replacement (02/17/15) Hx of cataract surgery (~01/2016) Hx of foot surgery Visit Care Team Role Provider Type Marisol Pena DO Attending Provider Physician Family Provider Primary Care Provider Referring Provider Specialty: [facility] Address: [address] [place] [address], [address], [facility] Email: [email or web address] Physical Therapy Initial Evaluation PT-OP-A Visit Information Start: 09/04/24 14:16 Freq: Status: Active Protocol: Document 09/04/24 14:20 PROTECTION MGR (Rec: 09/04/24 16:03 PROTECTION MGR Desktop) Out-Patient Physical Therapy Visit Information Visit Information Visit Type Initial Evaluation Visit Start Time 09:00 Visit Stop Time 09:45 Visit Number 1 Number of SUPERVISOR PARTIAL DENTURE DEPARTMENT Visits 0 Evaluation Information Evaluation Date 09/04/24 Precautions Precautions N/A PT-OP-B Current Condition Start: 09/04/24 14:16 Freq: Status: Active Protocol: Document 09/04/24 14:20 PROTECTION MGR (Rec: 09/04/24 16:03 PROTECTION MGR Desktop) Current Condition History of Current Condition Onset Date ~1 week ago Current Complaints L knee pain, lat/infer patella with tightness into lower leg History of Current Condition H/o R knee pain from OA improved with OP PT. Pt was amb on uneven ground/incline when L knee began feeling achy which progressed. Treatment Goals Patient/Caregiver Goals To be pain free for graduation trip to [place] on September 28 including 5 hr flight Personal Factors Other Personal Factors That May Effect Chronic A fib with chronic BLE Therapy/Recovery edema PT-OP-C Subjective Start: 09/04/24 14:16 Freq: Status: Active Protocol: Document 09/04/24 14:20 PROTECTION MGR (Rec: 09/04/24 16:03 PROTECTION MGR Desktop) Patient Questionnaires Lower Extremity Functional Scale LEFS Score 49/80 OP-PT Pain Assessment Pain Assessment Grid Paper Pain Assessment Grid Completed Yes PT-OP-D Balance Start: 09/04/24 14:16 Freq: Status: Active Protocol: Document 09/04/24 14:20 PROTECTION MGR (Rec: 09/04/24 16:03 PROTECTION MGR Desktop) OP-PT Balance Assessment Standing Balance Static Standing Balance Ability Normal Dynamic Standing Balance Ability Fair Device Used none Standing Balance Comments normal rhomberg and sharpened rhomberg and semi tandem stance with slight sway but no LOB, had small LOB while turning during gait Wright Fall Scale Copyright Permission PT-OP-F Manual Assessment Start: 09/04/24 14:16 Freq: Status: Active Protocol: Document 09/04/24 14:20 PROTECTION MGR (Rec: 09/04/24 16:03 PROTECTION MGR Desktop) Manual Assessments Soft Tissue Assessment Soft Tissue Mobility Assessment TTP and decreased soft tissue mobility to L ant tib, L lateral quad, and L glute med Joint Mobility Assessment Joint Mobility Assessment AROM and PROM normal without pain or crepitus PT-OP-G Mobility & Gait Start: 09/04/24 14:16 Freq: Status: Active Protocol: Document 09/04/24 14:20 PROTECTION MGR (Rec: 09/04/24 16:03 PROTECTION MGR Desktop) OP Gait Assessment Comments Gait Comments without AD, slight less stance time on LLE, increased lateral trunk lean to R, small LOB while turning PT-OP-K Range of Motion Start: 09/04/24 14:16 Freq: Status: Active Protocol: Document 09/04/24 14:20 PROTECTION MGR (Rec: 09/04/24 16:03 PROTECTION MGR Desktop) Knee Goniometric Range of Motion Knee R Patient Position Supine Flexion Active (degrees) 125 Extension Active (degrees) 4 L Knee ROM WFL Yes Patient Position Supine Flexion Active (degrees) 125 Extension Active (degrees) 0 Ankle and Foot Goniometric Range of Motion Ankle and Foot ROM Limitations Comments DF limited on L d/t h/o foot ORIF in 2003 PT-OP-M Strength Start: 09/04/24 14:16 Freq: Status: Active Protocol: Document 09/04/24 14:20 PROTECTION MGR (Rec: 09/04/24 16:03 PROTECTION MGR Desktop) Hip Strength Hip Manual Muscle Testing L Flexion (L2) 5 Normal Extension (S1) 3- Fair- Abduction 4 Good R Flexion (L2) 4+ Good+ Extension (S1) 3- Fair- Abduction 4 Good Knee Strength Knee Manual Muscle Testing L Flexion (S2) 4+ Good+ Extension (L3) 4+ Good+ R Flexion (S2) 4+ Good+ Extension (L3) 4+ Good+ Ankle/Foot Strength Ankle and Foot Manual Muscle Testing B Dorsiflexion (L4) 5 Normal Comments PF function test: standing heel raises x10 WNL PT-OP-Q Treatments Start: 09/04/24 14:16 Freq: Status: Active Protocol: Document 09/04/24 14:20 PROTECTION MGR (Rec: 09/04/24 16:03 PROTECTION MGR Desktop) Therapeutic Exercises Supine Exercises Clamshells Side bilateral Reps/Minutes 10 Comments starting without resistance band Bridge Side bilateral Reps/Minutes 10 Comments 5s hold Sitting Exercises Thigh roll outs Side bilateral Equipment Used rolling pin PT-OP-T Assessment and Plan Start: 09/04/24 14:16 Freq: Status: Active Protocol: Document 09/04/24 14:20 PROTECTION MGR (Rec: 09/04/24 16:03 PROTECTION MGR Desktop) Physical Therapy Assessment Rehab Potential Rehabilitation Potential Good Evaluation Complexity Number of Personal Factors/Comorbidities 1-2 Number of Body Systems Impaired 1-2 Clinical Presentation at Evaluation Evolving Impairments Impairments Activity Tolerance,Balance, Edema,Functional Activities, Functional Mobility,Gait,Pain, Soft Tissue Mobility,Strength Goals 3 Short Term Goal (STG) Pt will improve LEFS score at least 5 points from 49/80 to improve functional mobility STG Duration 4 weeks Computer Repair Instructor Goal (LTG) Pt will improve LEFS score at least 10 points from 49/80 to improve functional mobility LTG Duration 10 weeks 2 Short Term Goal (STG) Pt will improve B hip strength by 1 MMT to improve functional mobility STG Duration 4 weeks Computer Repair Instructor Goal (LTG) Pt will ascend/descend 4 stairs with reciprocal pattern without impairment LTG Duration 10 weeks 1 Short Term Goal (STG) Pt will be able to amb 1 mile on even surface without pain STG Duration 4 weeks Computer Repair Instructor Goal (LTG) Pt will be able to amb >1 mile on uneven surface without pain LTG Duration 10 weeks Physical Therapy Plan Frequency and Duration Frequency of Treatment 3x/Week Duration of treatment (weeks) 10 Plan of Care Start Date 09/04/24 Plan of Care End Date 11/13/24 Therapeutic Interventions Therapeutic Interventions Balance Training,Coordination Training,Gait Training,Home Exercise Program,Joint Mobilizations,Lymphedema Management,Manual Therapy, Neuromuscular Re-education, Soft Tissue Mobilization, Taping,Therapeutic Activities, Therapeutic Exercises Modalities Cold Pack/Ice Massage,Electric Stimulation,Hot Packs, Infrared Therapy,Ultrasound Next Visit Focus/Plan Next Note Type Treatment Note Next Visit Plan Give printed BLE HEP, STM to L ant tib/quad/glute med, L knee special tests, quad stretching
--- NOTE | 2024-09-04 16:20 | PT.OPPOC ---
Addendum entered and electronically signed by Mei Gaona, PT 09/04/24 18:21: Assessment: Pt presents with decreased B hip and knee strength, decreased dynamic standing balance, decreased activity tolerance d/t pain, and impaired gait. Pt is highly motivated to improve and will highly benefit from skilled PT in order to progress towards goals Original Note: Physical, Occupational & Speech Therapy At [facility] Current Diagnoses Other chronic pain (09/04/24) Pain in left knee (09/04/24) Visit Care Team Role Provider Type Marisol Pena DO Attending Provider Physician Family Provider Primary Care Provider Referring Provider Specialty: Family Practice Address: [address] [place] [address], [address], [facility] Email: [email or web address] Plan Of Care PT-OP-B Current Condition Start: 09/04/24 14:16 Freq: Status: Active Protocol: Document 09/04/24 14:20 DEICER REPAIRER PNEUMATIC (Rec: 09/04/24 16:03 DEICER REPAIRER PNEUMATIC Desktop) Current Condition History of Current Condition Onset Date ~1 week ago Current Complaints L knee pain, lat/infer patella with tightness into lower leg History of Current Condition H/o R knee pain from OA improved with OP PT. Pt was amb on uneven ground/incline when L knee began feeling achy which progressed. Treatment Goals Patient/Caregiver Goals To be pain free for graduation trip to [place] on September 28 including 5 hr flight Personal Factors Other Personal Factors That May Effect Chronic A fib with chronic BLE Therapy/Recovery edema PT-OP-T Assessment and Plan Start: 09/04/24 14:16 Freq: Status: Active Protocol: Document 09/04/24 14:20 DEICER REPAIRER PNEUMATIC (Rec: 09/04/24 16:03 DEICER REPAIRER PNEUMATIC Desktop) Physical Therapy Assessment Rehab Potential Rehabilitation Potential Good Evaluation Complexity Number of Personal Factors/Comorbidities 1-2 Number of Body Systems Impaired 1-2 Clinical Presentation at Evaluation Evolving Impairments Impairments Activity Tolerance,Balance, Edema,Functional Activities, Functional Mobility,Gait,Pain, Soft Tissue Mobility,Strength Goals 3 Short Term Goal (STG) Pt will improve LEFS score at least 5 points from 49/80 to improve functional mobility STG Duration 4 weeks Prison Goal (LTG) Pt will improve LEFS score at least 10 points from 49/80 to improve functional mobility LTG Duration 10 weeks 2 Short Term Goal (STG) Pt will improve B hip strength by 1 MMT to improve functional mobility STG Duration 4 weeks Prison Goal (LTG) Pt will ascend/descend 4 stairs with reciprocal pattern without impairment LTG Duration 10 weeks 1 Short Term Goal (STG) Pt will be able to amb 1 mile on even surface without pain STG Duration 4 weeks Acreage Reporter Goal (LTG) Pt will be able to amb >1 mile on uneven surface without pain LTG Duration 10 weeks Physical Therapy Plan Frequency and Duration Frequency of Treatment 3x/Week Duration of treatment (weeks) 10 Plan of Care Start Date 09/04/24 Plan of Care End Date 11/13/24 Therapeutic Interventions Therapeutic Interventions Balance Training,Coordination Training,Gait Training,Home Exercise Program,Joint Mobilizations,Lymphedema Management,Manual Therapy, Neuromuscular Re-education, Soft Tissue Mobilization, Taping,Therapeutic Activities, Therapeutic Exercises Modalities Cold Pack/Ice Massage,Electric Stimulation,Hot Packs, Infrared Therapy,Ultrasound Next Visit Focus/Plan Next Note Type Treatment Note Next Visit Plan Give printed BLE HEP, STM to L ant tib/quad/glute med, L knee special tests, quad stretching Plan of Care Dates Plan of Care Start Date 09/04/24 Plan of Care End Date 11/13/24 Electronically Signed by: Mei Gaona, PT 09/04/24 2380 If you are in agreement with this Plan of Care, please return a signed and dated copy. I have reviewed this Plan of Care and certify that the skilled therapy services above are required to meet the patient?s needs. Physician Signature Date Printed Name and Credentials Clinical Instructor Signature Printed Name and Credentials
--- NOTE | 2024-09-06 11:35 | PT.OTN ---
Current Diagnoses Other chronic pain (09/06/24) Pain in left knee (09/06/24) Physical Therapy Treatment Note PT-OP-A Visit Information Start: 09/04/24 14:16 Freq: Status: Active Protocol: Document 09/06/24 11:35 PG (Rec: 09/06/24 12:45 PG Laptop) Out-Patient Physical Therapy Visit Information Visit Information Visit Type Treatment Note Visit Note SPTA dilan led tx with permission of pt and direct supervision from Shawnee COFFMAN. Visit Start Time 11:35 Visit Stop Time 12:23 Visit Number 2 Number of CARBON PAPER INTERLEAFER Visits 1 Evaluation Information Evaluation Date 09/04/24 Precautions Precautions N/A PT-OP-B Current Condition Start: 09/04/24 14:16 Freq: Status: Active Protocol: Document 09/04/24 14:20 SHIPPING/RECEIVING CLERK (Rec: 09/04/24 16:03 SHIPPING/RECEIVING CLERK Desktop) Current Condition History of Current Condition Onset Date ~1 week ago Current Complaints L knee pain, lat/infer patella with tightness into lower leg History of Current Condition H/o R knee pain from OA improved with OP PT. Pt was amb on uneven ground/incline when L knee began feeling achy which progressed. Treatment Goals Patient/Caregiver Goals To be pain free for graduation trip to [place] on September 28 including 5 hr flight Personal Factors Other Personal Factors That May Effect Chronic A fib with chronic BLE Therapy/Recovery edema PT-OP-C Subjective Start: 09/04/24 14:16 Freq: Status: Active Protocol: Document 09/06/24 11:35 PG (Rec: 09/06/24 12:45 PG Laptop) OP-PT Subjective Patient Comments Patient Comments Pt is doing well, pn in left knee. Going to [place] September 28 for a week to her family's graduation. Pt reports bump on calf of bed bar during evaluation on Monday, had purple/dark golf ball sized bruise to show this tx. PT-OP-D Balance Start: 09/04/24 14:16 Freq: Status: Active Protocol: Document 09/04/24 14:20 SHIPPING/RECEIVING CLERK (Rec: 09/04/24 16:03 SHIPPING/RECEIVING CLERK Desktop) OP-PT Balance Assessment Standing Balance Static Standing Balance Ability Normal Dynamic Standing Balance Ability Fair Device Used none Standing Balance Comments normal rhomberg and sharpened rhomberg and semi tandem stance with slight sway but no LOB, had small LOB while turning during gait Wright Fall Scale Copyright Permission PT-OP-F Manual Assessment Start: 09/04/24 14:16 Freq: Status: Active Protocol: Document 09/04/24 14:20 SHIPPING/RECEIVING CLERK (Rec: 09/04/24 16:03 SHIPPING/RECEIVING CLERK Desktop) Manual Assessments Soft Tissue Assessment Soft Tissue Mobility Assessment TTP and decreased soft tissue mobility to L ant tib, L lateral quad, and L glute med Joint Mobility Assessment Joint Mobility Assessment AROM and PROM normal without pain or crepitus PT-OP-G Mobility & Gait Start: 09/04/24 14:16 Freq: Status: Active Protocol: Document 09/04/24 14:20 SHIPPING/RECEIVING CLERK (Rec: 09/04/24 16:03 SHIPPING/RECEIVING CLERK Desktop) OP Gait Assessment Comments Gait Comments without AD, slight less stance time on LLE, increased lateral trunk lean to R, small LOB while turning PT-OP-K Range of Motion Start: 09/04/24 14:16 Freq: Status: Active Protocol: Document 09/04/24 14:20 SHIPPING/RECEIVING CLERK (Rec: 09/04/24 16:03 SHIPPING/RECEIVING CLERK Desktop) Knee Goniometric Range of Motion Knee R Patient Position Supine Flexion Active (degrees) 125 Extension Active (degrees) 4 L Knee ROM WFL Yes Patient Position Supine Flexion Active (degrees) 125 Extension Active (degrees) 0 Ankle and Foot Goniometric Range of Motion Ankle and Foot ROM Limitations Comments DF limited on L d/t h/o foot ORIF in 2003 PT-OP-M Strength Start: 09/04/24 14:16 Freq: Status: Active Protocol: Document 09/04/24 14:20 SHIPPING/RECEIVING CLERK (Rec: 09/04/24 16:03 SHIPPING/RECEIVING CLERK Desktop) Hip Strength Hip Manual Muscle Testing L Flexion (L2) 5 Normal Extension (S1) 3- Fair- Abduction 4 Good R Flexion (L2) 4+ Good+ Extension (S1) 3- Fair- Abduction 4 Good Knee Strength Knee Manual Muscle Testing L Flexion (S2) 4+ Good+ Extension (L3) 4+ Good+ R Flexion (S2) 4+ Good+ Extension (L3) 4+ Good+ Ankle/Foot Strength Ankle and Foot Manual Muscle Testing B Dorsiflexion (L4) 5 Normal Comments PF function test: standing heel raises x10 WNL PT-OP-Q Treatments Start: 09/04/24 14:16 Freq: Status: Active Protocol: Document 09/06/24 11:35 PG (Rec: 09/06/24 12:45 PG Laptop) Cardio Equipment Recumbent Elliptical (Biodex) Duration (Minutes) 5 Resistance 1 Seat Position 11 Therapeutic Exercises Supine Exercises Taiwo Stretch Supine Exercise Name Trialed; did not add to HEP due to soft bed at home Side bilateral Reps/Minutes 30 sec each Comments cued for leg off edge of bed, light stretch Clamshells Supine Exercise Name Reviewed, provided HO for HEP Side bilateral Resistance AAROM > level 2 (latex free band) Reps/Minutes 10 Comments cued for control, TA brace Bridge Supine Exercise Name Reviewed, provided cues on HO for HEP Reps/Minutes 7 Comments cued for pn free range, Sitting Exercises Thigh roll outs Sitting Exercise Name Verbally reviewed Standing Exercises Doorway hip flex stretch Standing Exercise Name Added to HEP w HO Side bilateral Reps/Minutes 30 sec each Comments cued to engage core to protect low back, bend infront knee. Manual Therapy Treatment Soft Tissue Mobilization L LE Body Location L: glute med, ITB, quads, anterior tib Mobilization Type Rolling,Sustained Pressure Intensity/Depth Moderate Body Position Hooklying Taping L Knee Treatment Focus Medial stability and knee pn managment Comments two strips: 1st strip V from lat to med patellar glide, 2nd strip from distal quad to anterior tib to support medial glide. PT-OP-T Assessment and Plan Start: 09/04/24 14:16 Freq: Status: Active Protocol: Document 09/06/24 11:35 PG (Rec: 09/06/24 12:45 PG Laptop) Physical Therapy Assessment Rehab Potential Rehabilitation Potential Good Evaluation Complexity Number of Personal Factors/Comorbidities 1-2 Number of Body Systems Impaired 1-2 Clinical Presentation at Evaluation Evolving Impairments Impairments Activity Tolerance,Balance, Edema,Functional Activities, Functional Mobility,Gait,Pain, Soft Tissue Mobility,Strength Goals 3 Short Term Goal (STG) Pt will improve LEFS score at least 5 points from 49/80 to improve functional mobility STG Duration 4 weeks Prison Officer Goal (LTG) Pt will improve LEFS score at least 10 points from 49/80 to improve functional mobility LTG Duration 10 weeks 2 Short Term Goal (STG) Pt will improve B hip strength by 1 MMT to improve functional mobility STG Duration 4 weeks Prison Officer Goal (LTG) Pt will ascend/descend 4 stairs with reciprocal pattern without impairment LTG Duration 10 weeks 1 Short Term Goal (STG) Pt will be able to amb 1 mile on even surface without pain STG Duration 4 weeks Group Home Goal (LTG) Pt will be able to amb >1 mile on uneven surface without pain LTG Duration 10 weeks Assessment Summary Assessment Initiated STM to L LE with pt' s feedback on pressure. Palpable adhesions on distal 2 /3rds of L ITB, used rolling and sustained pressure to relieve tension and verbally reviewed self STM's with rolling pin for at home pn management. Reviewed HEP and provided HO's for improved carryover. Pt challenged by bridges, cued to engage core and glutes while lifting in pain free range. Physical Therapy Plan Frequency and Duration Frequency of Treatment 3x/Week Duration of treatment (weeks) 10 Plan of Care Start Date 09/04/24 Plan of Care End Date 11/13/24 Therapeutic Interventions Therapeutic Interventions Balance Training,Coordination Training,Gait Training,Home Exercise Program,Joint Mobilizations,Lymphedema Management,Manual Therapy, Neuromuscular Re-education, Soft Tissue Mobilization, Taping,Therapeutic Activities, Therapeutic Exercises Modalities Cold Pack/Ice Massage,Electric Stimulation,Hot Packs, Infrared Therapy,Ultrasound Next Visit Focus/Plan Next Note Type Treatment Note Next Visit Plan Next: Continue with STM to L ant tib/quad/glute med, PT: L knee special tests, Review added HEP.
--- NOTE | 2024-09-06 12:23 | PT.OTN ---
Current Diagnoses Other chronic pain (09/06/24) Pain in left knee (09/06/24) Physical Therapy Treatment Note PT-OP-A Visit Information Start: 09/04/24 14:16 Freq: Status: Active Protocol: Document 09/06/24 11:35 PG (Rec: 09/06/24 12:45 PG Laptop) Out-Patient Physical Therapy Visit Information Visit Information Visit Type Treatment Note Visit Note SPTA dilan led tx with permission of pt and direct supervision from Shawnee COFFMAN. Visit Start Time 11:35 Visit Stop Time 12:23 Visit Number 2 Number of CHIEF CREW SCHEDULER Visits 1 Evaluation Information Evaluation Date 09/04/24 Precautions Precautions N/A PT-OP-B Current Condition Start: 09/04/24 14:16 Freq: Status: Active Protocol: Document 09/04/24 14:20 FINISHING DEPARTMENT SUPERVISOR (Rec: 09/04/24 16:03 FINISHING DEPARTMENT SUPERVISOR Desktop) Current Condition History of Current Condition Onset Date ~1 week ago Current Complaints L knee pain, lat/infer patella with tightness into lower leg History of Current Condition H/o R knee pain from OA improved with OP PT. Pt was amb on uneven ground/incline when L knee began feeling achy which progressed. Treatment Goals Patient/Caregiver Goals To be pain free for graduation trip to [place] on September 28 including 5 hr flight Personal Factors Other Personal Factors That May Effect Chronic A fib with chronic BLE Therapy/Recovery edema PT-OP-C Subjective Start: 09/04/24 14:16 Freq: Status: Active Protocol: Document 09/06/24 11:35 PG (Rec: 09/06/24 12:45 PG Laptop) OP-PT Subjective Patient Comments Patient Comments Pt is doing well, pn in left knee. Going to [place] September 28 for a week to her family's graduation. Pt reports bump on calf of bed bar during evaluation on Monday, had purple/dark golf ball sized bruise to show this tx. PT-OP-D Balance Start: 09/04/24 14:16 Freq: Status: Active Protocol: Document 09/04/24 14:20 FINISHING DEPARTMENT SUPERVISOR (Rec: 09/04/24 16:03 FINISHING DEPARTMENT SUPERVISOR Desktop) OP-PT Balance Assessment Standing Balance Static Standing Balance Ability Normal Dynamic Standing Balance Ability Fair Device Used none Standing Balance Comments normal rhomberg and sharpened rhomberg and semi tandem stance with slight sway but no LOB, had small LOB while turning during gait Wright Fall Scale Copyright Permission PT-OP-F Manual Assessment Start: 09/04/24 14:16 Freq: Status: Active Protocol: Document 09/04/24 14:20 FINISHING DEPARTMENT SUPERVISOR (Rec: 09/04/24 16:03 FINISHING DEPARTMENT SUPERVISOR Desktop) Manual Assessments Soft Tissue Assessment Soft Tissue Mobility Assessment TTP and decreased soft tissue mobility to L ant tib, L lateral quad, and L glute med Joint Mobility Assessment Joint Mobility Assessment AROM and PROM normal without pain or crepitus PT-OP-G Mobility & Gait Start: 09/04/24 14:16 Freq: Status: Active Protocol: Document 09/04/24 14:20 FINISHING DEPARTMENT SUPERVISOR (Rec: 09/04/24 16:03 FINISHING DEPARTMENT SUPERVISOR Desktop) OP Gait Assessment Comments Gait Comments without AD, slight less stance time on LLE, increased lateral trunk lean to R, small LOB while turning PT-OP-K Range of Motion Start: 09/04/24 14:16 Freq: Status: Active Protocol: Document 09/04/24 14:20 FINISHING DEPARTMENT SUPERVISOR (Rec: 09/04/24 16:03 FINISHING DEPARTMENT SUPERVISOR Desktop) Knee Goniometric Range of Motion Knee R Patient Position Supine Flexion Active (degrees) 125 Extension Active (degrees) 4 L Knee ROM WFL Yes Patient Position Supine Flexion Active (degrees) 125 Extension Active (degrees) 0 Ankle and Foot Goniometric Range of Motion Ankle and Foot ROM Limitations Comments DF limited on L d/t h/o foot ORIF in 2003 PT-OP-M Strength Start: 09/04/24 14:16 Freq: Status: Active Protocol: Document 09/04/24 14:20 FINISHING DEPARTMENT SUPERVISOR (Rec: 09/04/24 16:03 FINISHING DEPARTMENT SUPERVISOR Desktop) Hip Strength Hip Manual Muscle Testing L Flexion (L2) 5 Normal Extension (S1) 3- Fair- Abduction 4 Good R Flexion (L2) 4+ Good+ Extension (S1) 3- Fair- Abduction 4 Good Knee Strength Knee Manual Muscle Testing L Flexion (S2) 4+ Good+ Extension (L3) 4+ Good+ R Flexion (S2) 4+ Good+ Extension (L3) 4+ Good+ Ankle/Foot Strength Ankle and Foot Manual Muscle Testing B Dorsiflexion (L4) 5 Normal Comments PF function test: standing heel raises x10 WNL PT-OP-Q Treatments Start: 09/04/24 14:16 Freq: Status: Active Protocol: Document 09/06/24 11:35 PG (Rec: 09/06/24 12:45 PG Laptop) Cardio Equipment Recumbent Elliptical (Biodex) Duration (Minutes) 5 Resistance 1 Seat Position 11 Therapeutic Exercises Supine Exercises Taiwo Stretch Supine Exercise Name Trialed; did not add to HEP due to soft bed at home Side bilateral Reps/Minutes 30 sec each Comments cued for leg off edge of bed, light stretch Clamshells Supine Exercise Name Reviewed, provided HO for HEP Side bilateral Resistance AAROM > level 2 (latex free band) Reps/Minutes 10 Comments cued for control, TA brace Bridge Supine Exercise Name Reviewed, provided cues on HO for HEP Reps/Minutes 7 Comments cued for pn free range, Sitting Exercises Thigh roll outs Sitting Exercise Name Verbally reviewed Standing Exercises Doorway hip flex stretch Standing Exercise Name Added to HEP w HO Side bilateral Reps/Minutes 30 sec each Comments cued to engage core to protect low back, bend infront knee. Manual Therapy Treatment Soft Tissue Mobilization L LE Body Location L: glute med, ITB, quads, anterior tib Mobilization Type Rolling,Sustained Pressure Intensity/Depth Moderate Body Position Hooklying Taping L Knee Treatment Focus Medial stability and knee pn managment Comments two strips: 1st strip V from lat to med patellar glide, 2nd strip from distal quad to anterior tib to support medial glide. PT-OP-T Assessment and Plan Start: 09/04/24 14:16 Freq: Status: Active Protocol: Document 09/06/24 11:35 PG (Rec: 09/06/24 12:45 PG Laptop) Physical Therapy Assessment Rehab Potential Rehabilitation Potential Good Evaluation Complexity Number of Personal Factors/Comorbidities 1-2 Number of Body Systems Impaired 1-2 Clinical Presentation at Evaluation Evolving Impairments Impairments Activity Tolerance,Balance, Edema,Functional Activities, Functional Mobility,Gait,Pain, Soft Tissue Mobility,Strength Goals 3 Short Term Goal (STG) Pt will improve LEFS score at least 5 points from 49/80 to improve functional mobility STG Duration 4 weeks Medicine And Health Service Manager Goal (LTG) Pt will improve LEFS score at least 10 points from 49/80 to improve functional mobility LTG Duration 10 weeks 2 Short Term Goal (STG) Pt will improve B hip strength by 1 MMT to improve functional mobility STG Duration 4 weeks Medicine And Health Service Manager Goal (LTG) Pt will ascend/descend 4 stairs with reciprocal pattern without impairment LTG Duration 10 weeks 1 Short Term Goal (STG) Pt will be able to amb 1 mile on even surface without pain STG Duration 4 weeks Shelter Goal (LTG) Pt will be able to amb >1 mile on uneven surface without pain LTG Duration 10 weeks Assessment Summary Assessment Initiated STM to L LE with pt' s feedback on pressure. Palpable adhesions on distal 2 /3rds of L ITB, used rolling and sustained pressure to relieve tension and verbally reviewed self STM's with rolling pin for at home pn management. Reviewed HEP and provided HO's for improved carryover. Pt challenged by bridges, cued to engage core and glutes while lifting in pain free range. Physical Therapy Plan Frequency and Duration Frequency of Treatment 3x/Week Duration of treatment (weeks) 10 Plan of Care Start Date 09/04/24 Plan of Care End Date 11/13/24 Therapeutic Interventions Therapeutic Interventions Balance Training,Coordination Training,Gait Training,Home Exercise Program,Joint Mobilizations,Lymphedema Management,Manual Therapy, Neuromuscular Re-education, Soft Tissue Mobilization, Taping,Therapeutic Activities, Therapeutic Exercises Modalities Cold Pack/Ice Massage,Electric Stimulation,Hot Packs, Infrared Therapy,Ultrasound Next Visit Focus/Plan Next Note Type Treatment Note Next Visit Plan Next: Continue with STM to L ant tib/quad/glute med, PT: L knee special tests, Review added HEP.
--- NOTE | 2024-09-11 10:06 | PT.OTN ---
Current Diagnoses Other chronic pain (09/11/24) Pain in left knee (09/11/24) Physical Therapy Treatment Note PT-OP-A Visit Information Start: 09/04/24 14:16 Freq: Status: Active Protocol: Document 09/11/24 08:29 IMAGING SCIENCE PROFESSOR (Rec: 09/11/24 10:05 IMAGING SCIENCE PROFESSOR Laptop) Out-Patient Physical Therapy Visit Information Visit Information Visit Type Treatment Note Visit Start Time 09:00 Visit Stop Time 09:49 Visit Number 3 Number of STROBOROMA OPERATOR Visits 0 Evaluation Information Evaluation Date 09/04/24 Precautions Precautions on blood thinners, easily bruises, latex allergy PT-OP-B Current Condition Start: 09/04/24 14:16 Freq: Status: Active Protocol: Document 09/04/24 14:20 IMAGING SCIENCE PROFESSOR (Rec: 09/04/24 16:03 IMAGING SCIENCE PROFESSOR Desktop) Current Condition History of Current Condition Onset Date ~1 week ago Current Complaints L knee pain, lat/infer patella with tightness into lower leg History of Current Condition H/o R knee pain from OA improved with OP PT. Pt was amb on uneven ground/incline when L knee began feeling achy which progressed. Treatment Goals Patient/Caregiver Goals To be pain free for graduation trip to [place] on September 28 including 5 hr flight Personal Factors Other Personal Factors That May Effect Chronic A fib with chronic BLE Therapy/Recovery edema PT-OP-C Subjective Start: 09/04/24 14:16 Freq: Status: Active Protocol: Document 09/11/24 08:29 IMAGING SCIENCE PROFESSOR (Rec: 09/11/24 10:05 IMAGING SCIENCE PROFESSOR Laptop) OP-PT Subjective Patient Comments Patient Comments Pt reports the taping at last session helped her knee feel better over the weekend. She also reports her L knee has been sore since last session, reporting pain at 4-5/10 to inferior lateral knee. PT-OP-D Balance Start: 09/04/24 14:16 Freq: Status: Active Protocol: Document 09/04/24 14:20 IMAGING SCIENCE PROFESSOR (Rec: 09/04/24 16:03 IMAGING SCIENCE PROFESSOR Desktop) OP-PT Balance Assessment Standing Balance Static Standing Balance Ability Normal Dynamic Standing Balance Ability Fair Device Used none Standing Balance Comments normal rhomberg and sharpened rhomberg and semi tandem stance with slight sway but no LOB, had small LOB while turning during gait Wright Fall Scale Copyright Permission PT-OP-F Manual Assessment Start: 09/04/24 14:16 Freq: Status: Active Protocol: Document 09/04/24 14:20 IMAGING SCIENCE PROFESSOR (Rec: 09/04/24 16:03 IMAGING SCIENCE PROFESSOR Desktop) Manual Assessments Soft Tissue Assessment Soft Tissue Mobility Assessment TTP and decreased soft tissue mobility to L ant tib, L lateral quad, and L glute med Joint Mobility Assessment Joint Mobility Assessment AROM and PROM normal without pain or crepitus PT-OP-G Mobility & Gait Start: 09/04/24 14:16 Freq: Status: Active Protocol: Document 09/04/24 14:20 IMAGING SCIENCE PROFESSOR (Rec: 09/04/24 16:03 IMAGING SCIENCE PROFESSOR Desktop) OP Gait Assessment Comments Gait Comments without AD, slight less stance time on LLE, increased lateral trunk lean to R, small LOB while turning PT-OP-K Range of Motion Start: 09/04/24 14:16 Freq: Status: Active Protocol: Document 09/04/24 14:20 IMAGING SCIENCE PROFESSOR (Rec: 09/04/24 16:03 IMAGING SCIENCE PROFESSOR Desktop) Knee Goniometric Range of Motion Knee R Patient Position Supine Flexion Active (degrees) 125 Extension Active (degrees) 4 L Knee ROM WFL Yes Patient Position Supine Flexion Active (degrees) 125 Extension Active (degrees) 0 Ankle and Foot Goniometric Range of Motion Ankle and Foot ROM Limitations Comments DF limited on L d/t h/o foot ORIF in 2003 PT-OP-M Strength Start: 09/04/24 14:16 Freq: Status: Active Protocol: Document 09/04/24 14:20 IMAGING SCIENCE PROFESSOR (Rec: 09/04/24 16:03 IMAGING SCIENCE PROFESSOR Desktop) Hip Strength Hip Manual Muscle Testing L Flexion (L2) 5 Normal Extension (S1) 3- Fair- Abduction 4 Good R Flexion (L2) 4+ Good+ Extension (S1) 3- Fair- Abduction 4 Good Knee Strength Knee Manual Muscle Testing L Flexion (S2) 4+ Good+ Extension (L3) 4+ Good+ R Flexion (S2) 4+ Good+ Extension (L3) 4+ Good+ Ankle/Foot Strength Ankle and Foot Manual Muscle Testing B Dorsiflexion (L4) 5 Normal Comments PF function test: standing heel raises x10 WNL PT-OP-Q Treatments Start: 09/04/24 14:16 Freq: Status: Active Protocol: Document 09/11/24 08:29 IMAGING SCIENCE PROFESSOR (Rec: 09/11/24 10:05 IMAGING SCIENCE PROFESSOR Laptop) Cardio Equipment Recumbent Elliptical (Biodex) Duration (Minutes) 7 Resistance 3 Other NuStep for warm up Therapeutic Exercises Standing Exercises Mini Squats Side bilateral Resistance L2 TB latex free Reps/Minutes 10x2 Comments Mod TC/VC for post WS through heels Manual Therapy Treatment Consent Patient gave verbal consent for manual Yes treatment Soft Tissue Mobilization Stretching Body Location L hip flexor and quad Mobilization Type Other Intensity/Depth Moderate Body Position R sidelying Comments Manual stretch 30sx3 L LE Body Location L ant tib, ITB, lateral/medial quad Mobilization Type Myofascial Release,Rolling Intensity/Depth Moderate Body Position Supine Comments bolster under knees Taping L Knee Treatment Focus Medial stability and knee pn managment Comments two strips: 1st strip V from lat to med patellar glide, 2nd strip from distal quad to anterior tib to support medial glide. PT-OP-T Assessment and Plan Start: 09/04/24 14:16 Freq: Status: Active Protocol: Document 09/11/24 08:29 IMAGING SCIENCE PROFESSOR (Rec: 09/11/24 10:05 IMAGING SCIENCE PROFESSOR Laptop) Physical Therapy Assessment Rehab Potential Rehabilitation Potential Good Evaluation Complexity Number of Personal Factors/Comorbidities 1-2 Number of Body Systems Impaired 1-2 Clinical Presentation at Evaluation Evolving Impairments Impairments Activity Tolerance,Balance, Edema,Functional Activities, Functional Mobility,Gait,Pain, Soft Tissue Mobility,Strength Goals 3 Short Term Goal (STG) Pt will improve LEFS score at least 5 points from 49/80 to improve functional mobility STG Duration 4 weeks Lathe Setup Operator Goal (LTG) Pt will improve LEFS score at least 10 points from 49/80 to improve functional mobility LTG Duration 10 weeks 2 Short Term Goal (STG) Pt will improve B hip strength by 1 MMT to improve functional mobility STG Duration 4 weeks Intermediate Goal (LTG) Pt will ascend/descend 4 stairs with reciprocal pattern without impairment LTG Duration 10 weeks 1 Short Term Goal (STG) Pt will be able to amb 1 mile on even surface without pain STG Duration 4 weeks Lathe Setup Operator Goal (LTG) Pt will be able to amb >1 mile on uneven surface without pain LTG Duration 10 weeks Progress Towards Goals Progress Towards Goals Progressing Toward Goals Assessment Summary Assessment Pt tolerated light-moderate STM to L ant tib, ITB, and quad as well as mod manual stretching to L hip flexor and quad. Taping to L knee re- applied for pain management, and participated well with mini-squat activity for closed chain B knee strengthening with mod cueing for form. No changes made to HEP, continue PT POC. Physical Therapy Plan Frequency and Duration Frequency of Treatment 3x/Week Duration of treatment (weeks) 10 Plan of Care Start Date 09/04/24 Plan of Care End Date 11/13/24 Therapeutic Interventions Therapeutic Interventions Balance Training,Coordination Training,Gait Training,Home Exercise Program,Joint Mobilizations,Lymphedema Management,Manual Therapy, Neuromuscular Re-education, Soft Tissue Mobilization, Taping,Therapeutic Activities, Therapeutic Exercises Modalities Cold Pack/Ice Massage,Electric Stimulation,Hot Packs, Infrared Therapy,Ultrasound Next Visit Focus/Plan Next Note Type Treatment Note Next Visit Plan Taping to L knee, STM to L ant tib and L glute med, review stretching to L quad/hip flexor, leg press, supine quad /VMO exercises
--- NOTE | 2024-09-13 10:09 | PT.OTN ---
Current Diagnoses Other chronic pain (09/13/24) Pain in left knee (09/13/24) Physical Therapy Treatment Note PT-OP-A Visit Information Start: 09/04/24 14:16 Freq: Status: Active Protocol: Document 09/13/24 08:46 MANAGER PACKAGING (Rec: 09/13/24 10:08 MANAGER PACKAGING Laptop) Out-Patient Physical Therapy Visit Information Visit Information Visit Type Treatment Note Visit Start Time 09:00 Visit Stop Time 09:57 Visit Number 4 Number of COAL PULVERIZER OPERATOR Visits 0 Evaluation Information Evaluation Date 09/04/24 Precautions Precautions on blood thinners, easily bruises, latex allergy PT-OP-B Current Condition Start: 09/04/24 14:16 Freq: Status: Active Protocol: Document 09/04/24 14:20 MANAGER PACKAGING (Rec: 09/04/24 16:03 MANAGER PACKAGING Desktop) Current Condition History of Current Condition Onset Date ~1 week ago Current Complaints L knee pain, lat/infer patella with tightness into lower leg History of Current Condition H/o R knee pain from OA improved with OP PT. Pt was amb on uneven ground/incline when L knee began feeling achy which progressed. Treatment Goals Patient/Caregiver Goals To be pain free for graduation trip to [place] on September 28 including 5 hr flight Personal Factors Other Personal Factors That May Effect Chronic A fib with chronic BLE Therapy/Recovery edema PT-OP-C Subjective Start: 09/04/24 14:16 Freq: Status: Active Protocol: Document 09/13/24 08:46 MANAGER PACKAGING (Rec: 09/13/24 10:08 MANAGER PACKAGING Laptop) OP-PT Subjective Patient Comments Patient Comments Pt reports she feels her left knee is loosening up but still has pain when amb across parking lots. She is also feeling pain free popping in R knee. Reports 3/10 pain in left knee currently. PT-OP-D Balance Start: 09/04/24 14:16 Freq: Status: Active Protocol: Document 09/04/24 14:20 MANAGER PACKAGING (Rec: 09/04/24 16:03 MANAGER PACKAGING Desktop) OP-PT Balance Assessment Standing Balance Static Standing Balance Ability Normal Dynamic Standing Balance Ability Fair Device Used none Standing Balance Comments normal rhomberg and sharpened rhomberg and semi tandem stance with slight sway but no LOB, had small LOB while turning during gait Wright Fall Scale Copyright Permission PT-OP-F Manual Assessment Start: 09/04/24 14:16 Freq: Status: Active Protocol: Document 09/04/24 14:20 MANAGER PACKAGING (Rec: 09/04/24 16:03 MANAGER PACKAGING Desktop) Manual Assessments Soft Tissue Assessment Soft Tissue Mobility Assessment TTP and decreased soft tissue mobility to L ant tib, L lateral quad, and L glute med Joint Mobility Assessment Joint Mobility Assessment AROM and PROM normal without pain or crepitus PT-OP-G Mobility & Gait Start: 09/04/24 14:16 Freq: Status: Active Protocol: Document 09/04/24 14:20 MANAGER PACKAGING (Rec: 09/04/24 16:03 MANAGER PACKAGING Desktop) OP Gait Assessment Comments Gait Comments without AD, slight less stance time on LLE, increased lateral trunk lean to R, small LOB while turning PT-OP-K Range of Motion Start: 09/04/24 14:16 Freq: Status: Active Protocol: Document 09/04/24 14:20 MANAGER PACKAGING (Rec: 09/04/24 16:03 MANAGER PACKAGING Desktop) Knee Goniometric Range of Motion Knee R Patient Position Supine Flexion Active (degrees) 125 Extension Active (degrees) 4 L Knee ROM WFL Yes Patient Position Supine Flexion Active (degrees) 125 Extension Active (degrees) 0 Ankle and Foot Goniometric Range of Motion Ankle and Foot ROM Limitations Comments DF limited on L d/t h/o foot ORIF in 2003 PT-OP-M Strength Start: 09/04/24 14:16 Freq: Status: Active Protocol: Document 09/04/24 14:20 MANAGER PACKAGING (Rec: 09/04/24 16:03 MANAGER PACKAGING Desktop) Hip Strength Hip Manual Muscle Testing L Flexion (L2) 5 Normal Extension (S1) 3- Fair- Abduction 4 Good R Flexion (L2) 4+ Good+ Extension (S1) 3- Fair- Abduction 4 Good Knee Strength Knee Manual Muscle Testing L Flexion (S2) 4+ Good+ Extension (L3) 4+ Good+ R Flexion (S2) 4+ Good+ Extension (L3) 4+ Good+ Ankle/Foot Strength Ankle and Foot Manual Muscle Testing B Dorsiflexion (L4) 5 Normal Comments PF function test: standing heel raises x10 WNL PT-OP-Q Treatments Start: 09/04/24 14:16 Freq: Status: Active Protocol: Document 09/13/24 08:46 MANAGER PACKAGING (Rec: 09/13/24 10:08 MANAGER PACKAGING Laptop) Cardio Equipment Recumbent Elliptical (Biodex) Duration (Minutes) 8 Resistance 3 Other NuStep for strength and endurance, attempted L4 but too much for L knee Therapeutic Exercises Supine Exercises SLR Supine Exercise Name 1. SLR neutral rotation 2. SLR with ER Side left Reps/Minutes 10x2 each Comments able to maintain knee ext SAQs Side left Equipment Used Large bolster Reps/Minutes x10 with 5s hold Bridge Side bilateral Equipment Used soft ball between knees Reps/Minutes x10 Standing Exercises Gastroc Stretch Side bilateral Equipment Used Base of 4 stairs with HRs Reps/Minutes 1min x2 each Comments Added to HEP Manual Therapy Treatment Consent Patient gave verbal consent for manual Yes treatment Soft Tissue Mobilization L LE Body Location L ant tib, ITB, prox gastroc, distal HS Mobilization Type Myofascial Release,Rolling Intensity/Depth Moderate Body Position Supine Comments bolster under knees PT-OP-T Assessment and Plan Start: 09/04/24 14:16 Freq: Status: Active Protocol: Document 09/13/24 08:46 MANAGER PACKAGING (Rec: 09/13/24 10:08 MANAGER PACKAGING Laptop) Physical Therapy Assessment Impairments Impairments Activity Tolerance,Balance, Edema,Functional Activities, Functional Mobility,Gait,Pain, Soft Tissue Mobility,Strength Goals 3 Short Term Goal (STG) Pt will improve LEFS score at least 5 points from 49/80 to improve functional mobility STG Duration 4 weeks Group Home Goal (LTG) Pt will improve LEFS score at least 10 points from 49/80 to improve functional mobility LTG Duration 10 weeks Progress Towards Goals Progress Towards Goals Progressing Toward Goals Progress Comments pt reports small progress in flexibility of L knee Assessment Summary Assessment Pt tolerated light tissue mobilization of L ant tib, gastroc, and HS well with sig tightness of fascia to ant tib and would benefit from cupping. Pt also tolerated L quad and VMO strengthening via SLRs this session without reports of increased pain. Standing B gastroc stretches initiated and tolerated and added to HEP, would benefit from standing HS stretch at next session. Continue working on LLE stretches, knee strengthening and endurance exercises. Pt reports improved pain from 3/10 to 1/10 in L knee after session. Physical Therapy Plan Frequency and Duration Frequency of Treatment 3x/Week Duration of treatment (weeks) 10 Plan of Care Start Date 09/04/24 Plan of Care End Date 11/13/24 Therapeutic Interventions Therapeutic Interventions Balance Training,Coordination Training,Gait Training,Home Exercise Program,Joint Mobilizations,Lymphedema Management,Manual Therapy, Neuromuscular Re-education, Soft Tissue Mobilization, Taping,Therapeutic Activities, Therapeutic Exercises Modalities Cold Pack/Ice Massage,Electric Stimulation,Hot Packs, Infrared Therapy,Ultrasound Next Visit Focus/Plan Next Note Type Treatment Note Next Visit Plan Increase endurance on NuStep, Taping to L knee, sidelying L hip flexor/quad stretch, SLR/ VMO exercises, standing gastroc and HS stretch, leg press
--- NOTE | 2024-09-17 12:13 | PT.OTN ---
Current Diagnoses Other chronic pain (09/17/24) Pain in left knee (09/17/24) Physical Therapy Treatment Note PT-OP-A Visit Information Start: 09/04/24 14:16 Freq: Status: Active Protocol: Document 09/17/24 08:55 MAGNETIC PROSPECTING SUPERVISOR (Rec: 09/17/24 09:48 MAGNETIC PROSPECTING SUPERVISOR Laptop) Out-Patient Physical Therapy Visit Information Visit Information Visit Type Treatment Note Visit Start Time 09:00 Visit Stop Time 09:45 Visit Number 5 Number of POTATO CHIP MAKER Visits 0 Evaluation Information Evaluation Date 09/04/24 Precautions Precautions on blood thinners, easily bruises, latex allergy PT-OP-B Current Condition Start: 09/04/24 14:16 Freq: Status: Active Protocol: Document 09/04/24 14:20 MAGNETIC PROSPECTING SUPERVISOR (Rec: 09/04/24 16:03 MAGNETIC PROSPECTING SUPERVISOR Desktop) Current Condition History of Current Condition Onset Date ~1 week ago Current Complaints L knee pain, lat/infer patella with tightness into lower leg History of Current H/o R knee pain from OA improved with OP PT. Pt was amb Condition on uneven ground/incline when L knee began feeling achy which progressed. Treatment Goals Patient/Caregiver To be pain free for graduation trip to [place] Goals on September 28 including 5 hr flight Personal Factors Other Personal Chronic A fib with chronic BLE edema Factors That May Effect Therapy/ Recovery PT-OP-C Subjective Start: 09/04/24 14:16 Freq: Status: Active Protocol: Document 09/17/24 08:55 MAGNETIC PROSPECTING SUPERVISOR (Rec: 09/17/24 09:48 MAGNETIC PROSPECTING SUPERVISOR Laptop) OP-PT Subjective Patient Comments Patient Comments Pt reports she took off tape for 24 hrs to let skin rest and then re-applied it at home and wore brace when amb in community. [place] good after last session on Mon but has been more sore Sun and Mon even though she only ran a few errands with minimal walking from parking lots. Increased soreness this morning to inf/lateral knee and down lateral castillo and is unsure why, is wanting to call doctor's office and ask if she should get an x-ray. PT-OP-D Balance Start: 09/04/24 14:16 Freq: Status: Active Protocol: Document 09/04/24 14:20 MAGNETIC PROSPECTING SUPERVISOR (Rec: 09/04/24 16:03 MAGNETIC PROSPECTING SUPERVISOR Desktop) OP-PT Balance Assessment Standing Balance Static Standing Normal Balance Ability Dynamic Standing Fair Balance Ability Device Used none Standing Balance normal rhomberg and sharpened rhomberg and semi tandem Comments stance with slight sway but no LOB, had small LOB while turning during gait Wright Fall Scale Copyright Permission PT-OP-F Manual Assessment Start: 09/04/24 14:16 Freq: Status: Active Protocol: Document 09/04/24 14:20 MAGNETIC PROSPECTING SUPERVISOR (Rec: 09/04/24 16:03 MAGNETIC PROSPECTING SUPERVISOR Desktop) Manual Assessments Soft Tissue Assessment Soft Tissue Mobility TTP and decreased soft tissue mobility to L ant tib, L Assessment lateral quad, and L glute med Joint Mobility Assessment Joint Mobility AROM and PROM normal without pain or crepitus Assessment PT-OP-G Mobility & Gait Start: 09/04/24 14:16 Freq: Status: Active Protocol: Document 09/04/24 14:20 MAGNETIC PROSPECTING SUPERVISOR (Rec: 09/04/24 16:03 MAGNETIC PROSPECTING SUPERVISOR Desktop) OP Gait Assessment Comments Gait Comments without AD, slight less stance time on LLE, increased lateral trunk lean to R, small LOB while turning PT-OP-K Range of Motion Start: 09/04/24 14:16 Freq: Status: Active Protocol: Document 09/04/24 14:20 MAGNETIC PROSPECTING SUPERVISOR (Rec: 09/04/24 16:03 MAGNETIC PROSPECTING SUPERVISOR Desktop) Knee Goniometric Range of Motion Knee R Patient Position Supine Flexion Active ( 125 degrees) Extension Active ( 4 degrees) L Knee ROM WFL Yes Patient Position Supine Flexion Active ( 125 degrees) Extension Active ( 0 degrees) Ankle and Foot Goniometric Range of Motion Ankle and Foot ROM Limitations Comments DF limited on L d/t h/o foot ORIF in 2003 PT-OP-M Strength Start: 09/04/24 14:16 Freq: Status: Active Protocol: Document 09/04/24 14:20 MAGNETIC PROSPECTING SUPERVISOR (Rec: 09/04/24 16:03 MAGNETIC PROSPECTING SUPERVISOR Desktop) Hip Strength Hip Manual Muscle Testing L Flexion (L2) 5 Normal Extension (S1) 3- Fair- Abduction 4 Good R Flexion (L2) 4+ Good+ Extension (S1) 3- Fair- Abduction 4 Good Knee Strength Knee Manual Muscle Testing L Flexion (S2) 4+ Good+ Extension (L3) 4+ Good+ R Flexion (S2) 4+ Good+ Extension (L3) 4+ Good+ Ankle/Foot Strength Ankle and Foot Manual Muscle Testing B Dorsiflexion (L4) 5 Normal Comments PF function test: standing heel raises x10 WNL PT-OP-Q Treatments Start: 09/04/24 14:16 Freq: Status: Active Protocol: Document 09/17/24 08:55 MAGNETIC PROSPECTING SUPERVISOR (Rec: 09/17/24 09:48 MAGNETIC PROSPECTING SUPERVISOR Laptop) Cardio Equipment Recumbent Elliptical (Biodex) Duration (Minutes) 5 Resistance 1 Other NuStep on L1 for light ROM warm up Gym Equipment Shuttle Recovery Bilateral Squats Details with L2 TB latex free around knees Resistance 50 lbs navy old bands Shuttle Recovery Stable Platform Reps/Time 10x2 Therapeutic Exercises Supine Exercises SLR Supine Exercise Name 1. SLR neutral rotation 2. SLR with ER Side left Reps/Minutes 10x2 each Comments able to maintain knee ext Manual Therapy Treatment Consent Patient gave verbal Yes consent for manual treatment Soft Tissue Mobilization L LE Body Location L ant tib, ITB, prox gastroc, distal HS Mobilization Type Myofascial Release,Rolling Intensity/Depth Moderate Body Position Supine Comments bolster under knees Taping L Knee Treatment Focus Medial stability and knee pn managment Comments two strips: 1st strip V from lat to med patellar glide, 2nd strip from distal quad to anterior tib to support medial glide. PT-OP-T Assessment and Plan Start: 09/04/24 14:16 Freq: Status: Active Protocol: Document 09/17/24 08:55 MAGNETIC PROSPECTING SUPERVISOR (Rec: 09/17/24 09:48 MAGNETIC PROSPECTING SUPERVISOR Laptop) Physical Therapy Assessment Progress Towards Goals Progress Towards Slow Progress due to Activity Tolerance Goals Assessment Summary Assessment Light session performed d/t increased pain this morning , focused on light soft tissue mob of L ant tib vs standing stretching, taping, and closed chain BLE strengthening. Pt reports slightly less pain and more flexibility in LLE walking out vs walking in. Physical Therapy Plan Next Visit Focus/Plan Next Note Type Treatment Note Next Visit Plan Increase endurance on NuStep, Taping to L knee, sidelying L hip flexor/quad stretch, SLR/VMO exercises, standing gastroc and HS stretch, leg press
--- NOTE | 2024-09-20 09:49 | PT.OTN ---
Current Diagnoses Other chronic pain (09/20/24) Pain in left knee (09/20/24) Physical Therapy Treatment Note PT-OP-A Visit Information Start: 09/04/24 14:16 Freq: Status: Active Protocol: Document 09/20/24 09:04 GOVERNMENT EMPLOYEE (Rec: 09/20/24 09:49 GOVERNMENT EMPLOYEE Laptop) Out-Patient Physical Therapy Visit Information Visit Information Visit Type Treatment Note Visit Start Time 09:00 Visit Stop Time 09:45 Visit Number 6 Number of PEST CONTROL SERVICE SALES AGENT Visits 0 Evaluation Information Evaluation Date 09/04/24 Precautions Precautions on blood thinners, easily bruises, latex allergy PT-OP-B Current Condition Start: 09/04/24 14:16 Freq: Status: Active Protocol: Document 09/04/24 14:20 GOVERNMENT EMPLOYEE (Rec: 09/04/24 16:03 GOVERNMENT EMPLOYEE Desktop) Current Condition History of Current Condition Onset Date ~1 week ago Current Complaints L knee pain, lat/infer patella with tightness into lower leg History of Current H/o R knee pain from OA improved with OP PT. Pt was amb Condition on uneven ground/incline when L knee began feeling achy which progressed. Treatment Goals Patient/Caregiver To be pain free for graduation trip to [place] Goals on September 28 including 5 hr flight Personal Factors Other Personal Chronic A fib with chronic BLE edema Factors That May Effect Therapy/ Recovery PT-OP-C Subjective Start: 09/04/24 14:16 Freq: Status: Active Protocol: Document 09/20/24 09:04 GOVERNMENT EMPLOYEE (Rec: 09/20/24 09:49 GOVERNMENT EMPLOYEE Laptop) OP-PT Subjective Patient Comments Patient Comments Pt reports tolerated last session well the following day but with recent increased pain to R knee from unknown reason. Reports 0 pain until after short walk from car to therapy office increased to 4/10. PT-OP-D Balance Start: 09/04/24 14:16 Freq: Status: Active Protocol: Document 09/04/24 14:20 GOVERNMENT EMPLOYEE (Rec: 09/04/24 16:03 GOVERNMENT EMPLOYEE Desktop) OP-PT Balance Assessment Standing Balance Static Standing Normal Balance Ability Dynamic Standing Fair Balance Ability Device Used none Standing Balance normal rhomberg and sharpened rhomberg and semi tandem Comments stance with slight sway but no LOB, had small LOB while turning during gait Wright Fall Scale Copyright Permission PT-OP-F Manual Assessment Start: 09/04/24 14:16 Freq: Status: Active Protocol: Document 09/04/24 14:20 GOVERNMENT EMPLOYEE (Rec: 09/04/24 16:03 GOVERNMENT EMPLOYEE Desktop) Manual Assessments Soft Tissue Assessment Soft Tissue Mobility TTP and decreased soft tissue mobility to L ant tib, L Assessment lateral quad, and L glute med Joint Mobility Assessment Joint Mobility AROM and PROM normal without pain or crepitus Assessment PT-OP-G Mobility & Gait Start: 09/04/24 14:16 Freq: Status: Active Protocol: Document 09/04/24 14:20 GOVERNMENT EMPLOYEE (Rec: 09/04/24 16:03 GOVERNMENT EMPLOYEE Desktop) OP Gait Assessment Comments Gait Comments without AD, slight less stance time on LLE, increased lateral trunk lean to R, small LOB while turning PT-OP-K Range of Motion Start: 09/04/24 14:16 Freq: Status: Active Protocol: Document 09/04/24 14:20 GOVERNMENT EMPLOYEE (Rec: 09/04/24 16:03 GOVERNMENT EMPLOYEE Desktop) Knee Goniometric Range of Motion Knee R Patient Position Supine Flexion Active ( 125 degrees) Extension Active ( 4 degrees) L Knee ROM WFL Yes Patient Position Supine Flexion Active ( 125 degrees) Extension Active ( 0 degrees) Ankle and Foot Goniometric Range of Motion Ankle and Foot ROM Limitations Comments DF limited on L d/t h/o foot ORIF in 2003 PT-OP-M Strength Start: 09/04/24 14:16 Freq: Status: Active Protocol: Document 09/04/24 14:20 GOVERNMENT EMPLOYEE (Rec: 09/04/24 16:03 GOVERNMENT EMPLOYEE Desktop) Hip Strength Hip Manual Muscle Testing L Flexion (L2) 5 Normal Extension (S1) 3- Fair- Abduction 4 Good R Flexion (L2) 4+ Good+ Extension (S1) 3- Fair- Abduction 4 Good Knee Strength Knee Manual Muscle Testing L Flexion (S2) 4+ Good+ Extension (L3) 4+ Good+ R Flexion (S2) 4+ Good+ Extension (L3) 4+ Good+ Ankle/Foot Strength Ankle and Foot Manual Muscle Testing B Dorsiflexion (L4) 5 Normal Comments PF function test: standing heel raises x10 WNL PT-OP-Q Treatments Start: 09/04/24 14:16 Freq: Status: Active Protocol: Document 09/20/24 09:04 GOVERNMENT EMPLOYEE (Rec: 09/20/24 09:49 GOVERNMENT EMPLOYEE Laptop) Therapeutic Exercises Supine Exercises SLR Supine Exercise Name 1. SLR neutral rotation 2. SLR with ER Side left Reps/Minutes 10x2 each Comments able to maintain knee ext Bridge Side bilateral Reps/Minutes 10x2 Comments 5s hold Standing Exercises Heel Raises Side bilateral Resistance body weight Equipment Used HRs at stairs for support Reps/Minutes 10x2 Manual Therapy Treatment Consent Patient gave verbal Yes consent for manual treatment Soft Tissue Mobilization Stretching Body Location L hip flexor/quad Body Position R sidelying Comments 1min x2 L LE Body Location L ant tib Mobilization Type Myofascial Release,Rolling Intensity/Depth Moderate Body Position Supine Comments bolster under knees Taping L Knee Treatment Focus Medial stability and knee pn managment Comments two strips: 1st strip V from lat to med patellar glide, 2nd strip from distal quad to anterior tib to support medial glide. PT-OP-T Assessment and Plan Start: 09/04/24 14:16 Freq: Status: Active Protocol: Document 09/20/24 09:04 GOVERNMENT EMPLOYEE (Rec: 09/20/24 09:49 GOVERNMENT EMPLOYEE Laptop) Physical Therapy Assessment Progress Towards Goals Progress Towards Slow Progress due to Activity Tolerance Goals Assessment Summary Assessment Pt tolerated session well with ability to tolerate more pressure during STM to L ant tib. Pt also tolerated new exercise of standing heel lifts after STM reporting good muscle pain Physical Therapy Plan Next Visit Focus/Plan Next Note Type Treatment Note Next Visit Plan Increase endurance on NuStep, Taping to L knee, sidelying L hip flexor/quad stretch, SLR/VMO exercises, standing gastroc and HS stretch, leg press
--- NOTE | 2024-09-24 10:44 | PT.OTN ---
Current Diagnoses Other chronic pain (09/24/24) Pain in left knee (09/24/24) Physical Therapy Treatment Note PT-OP-A Visit Information Start: 09/04/24 14:16 Freq: Status: Active Protocol: Document 09/24/24 08:50 FINANCIAL REPORTING ADVISOR (Rec: 09/24/24 10:43 FINANCIAL REPORTING ADVISOR Laptop) Out-Patient Physical Therapy Visit Information Visit Information Visit Type Treatment Note Visit Start Time 09:00 Visit Stop Time 09:46 Visit Number 7 Number of RADIO STATION MANAGER Visits 0 PT-OP-B Current Condition Start: 09/04/24 14:16 Freq: Status: Active Protocol: Document 09/04/24 14:20 FINANCIAL REPORTING ADVISOR (Rec: 09/04/24 16:03 FINANCIAL REPORTING ADVISOR Desktop) Current Condition History of Current Condition Onset Date ~1 week ago Current Complaints L knee pain, lat/infer patella with tightness into lower leg History of Current H/o R knee pain from OA improved with OP PT. Pt was amb Condition on uneven ground/incline when L knee began feeling achy which progressed. Treatment Goals Patient/Caregiver To be pain free for graduation trip to [place] Goals on September 28 including 5 hr flight Personal Factors Other Personal Chronic A fib with chronic BLE edema Factors That May Effect Therapy/ Recovery PT-OP-C Subjective Start: 09/04/24 14:16 Freq: Status: Active Protocol: Document 09/24/24 08:50 FINANCIAL REPORTING ADVISOR (Rec: 09/24/24 10:43 FINANCIAL REPORTING ADVISOR Laptop) OP-PT Subjective Patient Comments Patient Comments Pt ambs into session with 3/10 pain in L ant castillo. Pt reports she was active running errands this weekend with short stents of walking. Reports the tightness and lump from bruise is getting better and feels she is making small improvements with therapy, able to walk a little further before leg starts aching. PT-OP-D Balance Start: 09/04/24 14:16 Freq: Status: Active Protocol: Document 09/04/24 14:20 FINANCIAL REPORTING ADVISOR (Rec: 09/04/24 16:03 FINANCIAL REPORTING ADVISOR Desktop) OP-PT Balance Assessment Standing Balance Static Standing Normal Balance Ability Dynamic Standing Fair Balance Ability Device Used none Standing Balance normal rhomberg and sharpened rhomberg and semi tandem Comments stance with slight sway but no LOB, had small LOB while turning during gait Wright Fall Scale Copyright Permission PT-OP-F Manual Assessment Start: 09/04/24 14:16 Freq: Status: Active Protocol: Document 09/04/24 14:20 FINANCIAL REPORTING ADVISOR (Rec: 09/04/24 16:03 FINANCIAL REPORTING ADVISOR Desktop) Manual Assessments Soft Tissue Assessment Soft Tissue Mobility TTP and decreased soft tissue mobility to L ant tib, L Assessment lateral quad, and L glute med Joint Mobility Assessment Joint Mobility AROM and PROM normal without pain or crepitus Assessment PT-OP-G Mobility & Gait Start: 09/04/24 14:16 Freq: Status: Active Protocol: Document 09/04/24 14:20 FINANCIAL REPORTING ADVISOR (Rec: 09/04/24 16:03 FINANCIAL REPORTING ADVISOR Desktop) OP Gait Assessment Comments Gait Comments without AD, slight less stance time on LLE, increased lateral trunk lean to R, small LOB while turning PT-OP-K Range of Motion Start: 09/04/24 14:16 Freq: Status: Active Protocol: Document 09/04/24 14:20 FINANCIAL REPORTING ADVISOR (Rec: 09/04/24 16:03 FINANCIAL REPORTING ADVISOR Desktop) Knee Goniometric Range of Motion Knee R Patient Position Supine Flexion Active ( 125 degrees) Extension Active ( 4 degrees) L Knee ROM WFL Yes Patient Position Supine Flexion Active ( 125 degrees) Extension Active ( 0 degrees) Ankle and Foot Goniometric Range of Motion Ankle and Foot ROM Limitations Comments DF limited on L d/t h/o foot ORIF in 2003 PT-OP-M Strength Start: 09/04/24 14:16 Freq: Status: Active Protocol: Document 09/04/24 14:20 FINANCIAL REPORTING ADVISOR (Rec: 09/04/24 16:03 FINANCIAL REPORTING ADVISOR Desktop) Hip Strength Hip Manual Muscle Testing L Flexion (L2) 5 Normal Extension (S1) 3- Fair- Abduction 4 Good R Flexion (L2) 4+ Good+ Extension (S1) 3- Fair- Abduction 4 Good Knee Strength Knee Manual Muscle Testing L Flexion (S2) 4+ Good+ Extension (L3) 4+ Good+ R Flexion (S2) 4+ Good+ Extension (L3) 4+ Good+ Ankle/Foot Strength Ankle and Foot Manual Muscle Testing B Dorsiflexion (L4) 5 Normal Comments PF function test: standing heel raises x10 WNL PT-OP-Q Treatments Start: 09/04/24 14:16 Freq: Status: Active Protocol: Document 09/24/24 08:50 FINANCIAL REPORTING ADVISOR (Rec: 09/24/24 10:43 FINANCIAL REPORTING ADVISOR Laptop) Cardio Equipment Recumbent Bicycle Duration (Minutes) 6 Resistance L1 Other warm up for BLEs, tolerated ROM Therapeutic Exercises Supine Exercises Clamshells Side bilateral Resistance L3 latex free ([place]) Equipment Used TB Reps/Minutes x10 Comments Progressed HEP Bridge Side bilateral Reps/Minutes x10 Standing Exercises Heel Raises Standing Exercise Heel and toe raises Name Side bilateral Resistance body weight Equipment Used HRs at stairs for support Reps/Minutes 10x2 Comments after STM Manual Therapy Treatment Consent Patient gave verbal Yes consent for manual treatment Soft Tissue Mobilization Stretching Body Location L hip flexor/quad Body Position R sidelying Comments 1min x2 L LE Body Location L ant tib, L gastroc Mobilization Type Myofascial Release,Rolling Intensity/Depth Moderate Body Position supine and L sidelying Comments bolster under knees Other Other Manual Compression stocking rec and fit for airplane trip. Pt Treatments brought store bought compression stockings wanted assist measuring ankle/calf for appropriate fit. PT-OP-T Assessment and Plan Start: 09/04/24 14:16 Freq: Status: Active Protocol: Document 09/24/24 08:50 FINANCIAL REPORTING ADVISOR (Rec: 09/24/24 10:43 FINANCIAL REPORTING ADVISOR Laptop) Physical Therapy Assessment Impairments Impairments Activity Tolerance,Balance,Edema,Functional Activities, Functional Mobility,Gait,Pain,Soft Tissue Mobility, Strength Goals 3 Short Term Goal (STG Pt will improve LEFS score at least 5 points from 49/80 ) to improve functional mobility STG Duration 4 weeks Stiff Straw Hat Washer Goal (LTG) Pt will improve LEFS score at least 10 points from 49/ 80 to improve functional mobility LTG Duration 10 weeks 2 Short Term Goal (STG Pt will improve B hip strength by 1 MMT to improve ) functional mobility STG Duration 4 weeks Correction Goal (LTG) Pt will ascend/descend 4 stairs with reciprocal pattern without impairment LTG Duration 10 weeks 1 Short Term Goal (STG Pt will be able to amb 1 mile on even surface without ) pain STG Duration 4 weeks Stiff Straw Hat Washer Goal (LTG) Pt will be able to amb >1 mile on uneven surface without pain LTG Duration 10 weeks Progress Towards Goals Progress Towards Progressing Toward Goals Goals Assessment Summary Assessment Noted improved soft tissue mobilization this session of L ant tib, gastroc, and hip flexor with increased pressure tolerated. Tape still remains from last session, pt wanting to leave it on and apply new taping right before trip at next session. Pt reports decreased pain at end of session than beginning. Physical Therapy Plan Frequency and Duration Frequency of 3x/Week Treatment Duration of 10 treatment (weeks) Plan of Care Start 09/04/24 Date Plan of Care End 11/13/24 Date Therapeutic Interventions Therapeutic Balance Training,Coordination Training,Gait Training, Interventions Home Exercise Program,Joint Mobilizations,Lymphedema Management,Manual Therapy,Neuromuscular Re-education, Soft Tissue Mobilization,Taping,Therapeutic Activities, Therapeutic Exercises Modalities Cold Pack/Ice Massage,Electric Stimulation,Hot Packs, Infrared Therapy,Ultrasound Next Visit Focus/Plan Next Note Type Treatment Note Next Visit Plan Taping to L knee, review HEP and doorway stretch, SLR/ VMO exercises, closed chain strengthening mini squats or shuttle recovery
--- NOTE | 2024-09-26 13:33 | PT.OTN ---
Current Diagnoses Other chronic pain (09/26/24) Pain in left knee (09/26/24) Physical Therapy Treatment Note PT-OP-A Visit Information Start: 09/04/24 14:16 Freq: Status: Active Protocol: Document 09/26/24 08:58 ACCOUNTANT CLERK (Rec: 09/26/24 09:49 ACCOUNTANT CLERK Laptop) Out-Patient Physical Therapy Visit Information Visit Information Visit Type Treatment Note Visit Start Time 09:00 Visit Stop Time 09:50 Visit Number 8 Number of STOCK CLIPPER Visits 0 PT-OP-B Current Condition Start: 09/04/24 14:16 Freq: Status: Active Protocol: Document 09/04/24 14:20 ACCOUNTANT CLERK (Rec: 09/04/24 16:03 ACCOUNTANT CLERK Desktop) Current Condition History of Current Condition Onset Date ~1 week ago Current Complaints L knee pain, lat/infer patella with tightness into lower leg History of Current H/o R knee pain from OA improved with OP PT. Pt was amb Condition on uneven ground/incline when L knee began feeling achy which progressed. Treatment Goals Patient/Caregiver To be pain free for graduation trip to [place] Goals on September 28 including 5 hr flight Personal Factors Other Personal Chronic A fib with chronic BLE edema Factors That May Effect Therapy/ Recovery PT-OP-C Subjective Start: 09/04/24 14:16 Freq: Status: Active Protocol: Document 09/26/24 08:58 ACCOUNTANT CLERK (Rec: 09/26/24 09:49 ACCOUNTANT CLERK Laptop) OP-PT Subjective Patient Comments Patient Comments Pt ambs into session with 3/10 pain in L ant/lat castillo. She reports it has been extra achy d/t increased errands before her trip but is better than before she started PT. PT-OP-D Balance Start: 09/04/24 14:16 Freq: Status: Active Protocol: Document 09/04/24 14:20 ACCOUNTANT CLERK (Rec: 09/04/24 16:03 ACCOUNTANT CLERK Desktop) OP-PT Balance Assessment Standing Balance Static Standing Normal Balance Ability Dynamic Standing Fair Balance Ability Device Used none Standing Balance normal rhomberg and sharpened rhomberg and semi tandem Comments stance with slight sway but no LOB, had small LOB while turning during gait Wright Fall Scale Copyright Permission PT-OP-F Manual Assessment Start: 09/04/24 14:16 Freq: Status: Active Protocol: Document 09/04/24 14:20 ACCOUNTANT CLERK (Rec: 09/04/24 16:03 ACCOUNTANT CLERK Desktop) Manual Assessments Soft Tissue Assessment Soft Tissue Mobility TTP and decreased soft tissue mobility to L ant tib, L Assessment lateral quad, and L glute med Joint Mobility Assessment Joint Mobility AROM and PROM normal without pain or crepitus Assessment PT-OP-G Mobility & Gait Start: 09/04/24 14:16 Freq: Status: Active Protocol: Document 09/04/24 14:20 ACCOUNTANT CLERK (Rec: 09/04/24 16:03 ACCOUNTANT CLERK Desktop) OP Gait Assessment Comments Gait Comments without AD, slight less stance time on LLE, increased lateral trunk lean to R, small LOB while turning PT-OP-K Range of Motion Start: 09/04/24 14:16 Freq: Status: Active Protocol: Document 09/04/24 14:20 ACCOUNTANT CLERK (Rec: 09/04/24 16:03 ACCOUNTANT CLERK Desktop) Knee Goniometric Range of Motion Knee R Patient Position Supine Flexion Active ( 125 degrees) Extension Active ( 4 degrees) L Knee ROM WFL Yes Patient Position Supine Flexion Active ( 125 degrees) Extension Active ( 0 degrees) Ankle and Foot Goniometric Range of Motion Ankle and Foot ROM Limitations Comments DF limited on L d/t h/o foot ORIF in 2003 PT-OP-M Strength Start: 09/04/24 14:16 Freq: Status: Active Protocol: Document 09/04/24 14:20 ACCOUNTANT CLERK (Rec: 09/04/24 16:03 ACCOUNTANT CLERK Desktop) Hip Strength Hip Manual Muscle Testing L Flexion (L2) 5 Normal Extension (S1) 3- Fair- Abduction 4 Good R Flexion (L2) 4+ Good+ Extension (S1) 3- Fair- Abduction 4 Good Knee Strength Knee Manual Muscle Testing L Flexion (S2) 4+ Good+ Extension (L3) 4+ Good+ R Flexion (S2) 4+ Good+ Extension (L3) 4+ Good+ Ankle/Foot Strength Ankle and Foot Manual Muscle Testing B Dorsiflexion (L4) 5 Normal Comments PF function test: standing heel raises x10 WNL PT-OP-Q Treatments Start: 09/04/24 14:16 Freq: Status: Active Protocol: Document 09/26/24 08:58 ACCOUNTANT CLERK (Rec: 09/26/24 09:49 ACCOUNTANT CLERK Laptop) Cardio Equipment Recumbent Stepper (Sci-Fit) Duration (Minutes) 6 Resistance L3 Seat Position 8 Other NuStep BLEs only for warm up Therapeutic Exercises Supine Exercises SLR Supine Exercise Name 1. SLR neutral rotation 2. SLR with ER Side left Reps/Minutes x10 each Comments Added to HEP Clamshells Side bilateral Resistance L3 latex free (nisqually) Equipment Used TB Reps/Minutes x10 Comments HEP review Bridge Side bilateral Reps/Minutes x10 Comments HEP review, VC to engage core Standing Exercises Heel Raises Standing Exercise Heel and toe raises Name Side bilateral Resistance body weight Equipment Used HRs at stairs for support Reps/Minutes 10x2 Comments Added to HEP Doorway hip flex stretch Side bilateral Reps/Minutes 30sx2 Comments HEP review Manual Therapy Treatment Consent Patient gave verbal Yes consent for manual treatment Taping L Knee Treatment Focus Medial stability and knee pn managment Comments two strips: 1st strip V from lat to med patellar glide, 2nd strip from distal quad to anterior tib to support medial glide. PT-OP-T Assessment and Plan Start: 09/04/24 14:16 Freq: Status: Active Protocol: Document 09/26/24 08:58 ACCOUNTANT CLERK (Rec: 09/26/24 09:49 ACCOUNTANT CLERK Laptop) Physical Therapy Assessment Goals 3 Short Term Goal (STG Pt will improve LEFS score at least 5 points from 49/80 ) to improve functional mobility STG Duration 4 weeks Fdc Goal (LTG) Pt will improve LEFS score at least 10 points from 49/ 80 to improve functional mobility LTG Duration 10 weeks 2 Short Term Goal (STG Pt will improve B hip strength by 1 MMT to improve ) functional mobility STG Duration 4 weeks Integration Solution Architect Goal (LTG) Pt will ascend/descend 4 stairs with reciprocal pattern without impairment LTG Duration 10 weeks 1 Short Term Goal (STG Pt will be able to amb 1 mile on even surface without ) pain STG Duration 4 weeks Fdc Goal (LTG) Pt will be able to amb >1 mile on uneven surface without pain LTG Duration 10 weeks Progress Towards Goals Progress Towards Progressing Toward Goals Goals Assessment Summary Assessment Focus this session on reviewing and consolidating HEP to perform next week while on trip, pt participated well and is demonstrating improvements in L quad strength and flexibility to decrease overall pain in L knee. Pt will continue to benefit from skilled PT. Physical Therapy Plan Frequency and Duration Frequency of 3x/Week Treatment Duration of 10 treatment (weeks) Plan of Care Start 09/04/24 Plan of Care End 11/13/24 Date Therapeutic Interventions Therapeutic Balance Training,Coordination Training,Gait Training, Interventions Home Exercise Program,Joint Mobilizations,Lymphedema Management,Manual Therapy,Neuromuscular Re-education, Soft Tissue Mobilization,Taping,Therapeutic Activities, Therapeutic Exercises Modalities Cold Pack/Ice Massage,Electric Stimulation,Hot Packs, Infrared Therapy,Ultrasound Next Visit Focus/Plan Next Note Type Treatment Note Next Visit Plan Assess after trip, taping to L knee, mini squats, shuttle recovery, standing balance
--- NOTE | 2024-09-26 13:40 | PT.OTN ---
Current Diagnoses Other chronic pain (09/26/24) Pain in left knee (09/26/24) Physical Therapy Treatment Note PT-OP-A Visit Information Start: 09/04/24 14:16 Freq: Status: Active Protocol: Document 09/26/24 08:58 INTELLIGENCE SENIOR SERGEANT (Rec: 09/26/24 09:49 INTELLIGENCE SENIOR SERGEANT Laptop) Out-Patient Physical Therapy Visit Information Visit Information Visit Type Treatment Note Visit Start Time 09:00 Visit Stop Time 09:50 Visit Number 8 Number of WINERY CELLAR HAND Visits 0 PT-OP-B Current Condition Start: 09/04/24 14:16 Freq: Status: Active Protocol: Document 09/04/24 14:20 INTELLIGENCE SENIOR SERGEANT (Rec: 09/04/24 16:03 INTELLIGENCE SENIOR SERGEANT Desktop) Current Condition History of Current Condition Onset Date ~1 week ago Current Complaints L knee pain, lat/infer patella with tightness into lower leg History of Current H/o R knee pain from OA improved with OP PT. Pt was amb Condition on uneven ground/incline when L knee began feeling achy which progressed. Treatment Goals Patient/Caregiver To be pain free for graduation trip to [place] Goals on September 28 including 5 hr flight Personal Factors Other Personal Chronic A fib with chronic BLE edema Factors That May Effect Therapy/ Recovery PT-OP-C Subjective Start: 09/04/24 14:16 Freq: Status: Active Protocol: Document 09/26/24 08:58 INTELLIGENCE SENIOR SERGEANT (Rec: 09/26/24 09:49 INTELLIGENCE SENIOR SERGEANT Laptop) OP-PT Subjective Patient Comments Patient Comments Pt ambs into session with 3/10 pain in L ant/lat castillo. She reports it has been extra achy d/t increased errands before her trip but is better than before she started PT. PT-OP-D Balance Start: 09/04/24 14:16 Freq: Status: Active Protocol: Document 09/04/24 14:20 INTELLIGENCE SENIOR SERGEANT (Rec: 09/04/24 16:03 INTELLIGENCE SENIOR SERGEANT Desktop) OP-PT Balance Assessment Standing Balance Static Standing Normal Balance Ability Dynamic Standing Fair Balance Ability Device Used none Standing Balance normal rhomberg and sharpened rhomberg and semi tandem Comments stance with slight sway but no LOB, had small LOB while turning during gait Wright Fall Scale Copyright Permission PT-OP-F Manual Assessment Start: 09/04/24 14:16 Freq: Status: Active Protocol: Document 09/04/24 14:20 INTELLIGENCE SENIOR SERGEANT (Rec: 09/04/24 16:03 INTELLIGENCE SENIOR SERGEANT Desktop) Manual Assessments Soft Tissue Assessment Soft Tissue Mobility TTP and decreased soft tissue mobility to L ant tib, L Assessment lateral quad, and L glute med Joint Mobility Assessment Joint Mobility AROM and PROM normal without pain or crepitus Assessment PT-OP-G Mobility & Gait Start: 09/04/24 14:16 Freq: Status: Active Protocol: Document 09/04/24 14:20 INTELLIGENCE SENIOR SERGEANT (Rec: 09/04/24 16:03 INTELLIGENCE SENIOR SERGEANT Desktop) OP Gait Assessment Comments Gait Comments without AD, slight less stance time on LLE, increased lateral trunk lean to R, small LOB while turning PT-OP-K Range of Motion Start: 09/04/24 14:16 Freq: Status: Active Protocol: Document 09/04/24 14:20 INTELLIGENCE SENIOR SERGEANT (Rec: 09/04/24 16:03 INTELLIGENCE SENIOR SERGEANT Desktop) Knee Goniometric Range of Motion Knee R Patient Position Supine Flexion Active ( 125 degrees) Extension Active ( 4 degrees) L Knee ROM WFL Yes Patient Position Supine Flexion Active ( 125 degrees) Extension Active ( 0 degrees) Ankle and Foot Goniometric Range of Motion Ankle and Foot ROM Limitations Comments DF limited on L d/t h/o foot ORIF in 2003 PT-OP-M Strength Start: 09/04/24 14:16 Freq: Status: Active Protocol: Document 09/04/24 14:20 INTELLIGENCE SENIOR SERGEANT (Rec: 09/04/24 16:03 INTELLIGENCE SENIOR SERGEANT Desktop) Hip Strength Hip Manual Muscle Testing L Flexion (L2) 5 Normal Extension (S1) 3- Fair- Abduction 4 Good R Flexion (L2) 4+ Good+ Extension (S1) 3- Fair- Abduction 4 Good Knee Strength Knee Manual Muscle Testing L Flexion (S2) 4+ Good+ Extension (L3) 4+ Good+ R Flexion (S2) 4+ Good+ Extension (L3) 4+ Good+ Ankle/Foot Strength Ankle and Foot Manual Muscle Testing B Dorsiflexion (L4) 5 Normal Comments PF function test: standing heel raises x10 WNL PT-OP-Q Treatments Start: 09/04/24 14:16 Freq: Status: Active Protocol: Document 09/26/24 08:58 INTELLIGENCE SENIOR SERGEANT (Rec: 09/26/24 09:49 INTELLIGENCE SENIOR SERGEANT Laptop) Cardio Equipment Recumbent Stepper (Sci-Fit) Duration (Minutes) 6 Resistance L3 Seat Position 8 Other NuStep BLEs only for warm up Therapeutic Exercises Supine Exercises SLR Supine Exercise Name 1. SLR neutral rotation 2. SLR with ER Side left Reps/Minutes x10 each Comments Added to HEP Clamshells Side bilateral Resistance L3 latex free (iliamna) Equipment Used TB Reps/Minutes x10 Comments HEP review Bridge Side bilateral Reps/Minutes x10 Comments HEP review, VC to engage core Standing Exercises Heel Raises Standing Exercise Heel and toe raises Name Side bilateral Resistance body weight Equipment Used HRs at stairs for support Reps/Minutes 10x2 Comments Added to HEP Doorway hip flex stretch Side bilateral Reps/Minutes 30sx2 Comments HEP review Manual Therapy Treatment Consent Patient gave verbal Yes consent for manual treatment Taping L Knee Treatment Focus Medial stability and knee pn managment Comments two strips: 1st strip V from lat to med patellar glide, 2nd strip from distal quad to anterior tib to support medial glide. PT-OP-T Assessment and Plan Start: 09/04/24 14:16 Freq: Status: Active Protocol: Document 09/26/24 08:58 INTELLIGENCE SENIOR SERGEANT (Rec: 09/26/24 09:49 INTELLIGENCE SENIOR SERGEANT Laptop) Physical Therapy Assessment Goals 3 Short Term Goal (STG Pt will improve LEFS score at least 5 points from 49/80 ) to improve functional mobility STG Duration 4 weeks Intermediate Goal (LTG) Pt will improve LEFS score at least 10 points from 49/ 80 to improve functional mobility LTG Duration 10 weeks 2 Short Term Goal (STG Pt will improve B hip strength by 1 MMT to improve ) functional mobility STG Duration 4 weeks Mechanical Applications Engineer Goal (LTG) Pt will ascend/descend 4 stairs with reciprocal pattern without impairment LTG Duration 10 weeks 1 Short Term Goal (STG Pt will be able to amb 1 mile on even surface without ) pain STG Duration 4 weeks Intermediate Goal (LTG) Pt will be able to amb >1 mile on uneven surface without pain LTG Duration 10 weeks Progress Towards Goals Progress Towards Progressing Toward Goals Goals Assessment Summary Assessment Focus this session on reviewing and consolidating HEP to perform next week while on trip, pt participated well and is demonstrating improvements in L quad strength and flexibility to decrease overall pain in L knee. Pt will continue to benefit from skilled PT. Physical Therapy Plan Frequency and Duration Frequency of 3x/Week Treatment Duration of 10 treatment (weeks) Plan of Care Start 09/04/24 Plan of Care End 11/13/24 Date Therapeutic Interventions Therapeutic Balance Training,Coordination Training,Gait Training, Interventions Home Exercise Program,Joint Mobilizations,Lymphedema Management,Manual Therapy,Neuromuscular Re-education, Soft Tissue Mobilization,Taping,Therapeutic Activities, Therapeutic Exercises Modalities Cold Pack/Ice Massage,Electric Stimulation,Hot Packs, Infrared Therapy,Ultrasound Next Visit Focus/Plan Next Note Type Treatment Note Next Visit Plan Assess after trip, taping to L knee, mini squats, shuttle recovery, standing balance
--- NOTE | 2024-10-08 15:10 | PT.OTN ---
Current Diagnoses Other chronic pain (10/08/24) Pain in left knee (10/08/24) Physical Therapy Treatment Note PT-OP-A Visit Information Start: 09/04/24 14:16 Freq: Status: Active Protocol: Document 10/08/24 07:53 AB (Rec: 10/08/24 10:09 AB Laptop) Out-Patient Physical Therapy Visit Information Visit Information Visit Type Treatment Note Visit Start Time 09:03 Visit Stop Time 09:47 Visit Number 9 Number of RAIL OPERATIONS CONTROLLER Visits 1 PT-OP-B Current Condition Start: 09/04/24 14:16 Freq: Status: Active Protocol: Document 09/04/24 14:20 DERRICK WORKER WELL SERVICE (Rec: 09/04/24 16:03 DERRICK WORKER WELL SERVICE Desktop) Current Condition History of Current Condition Onset Date ~1 week ago Current Complaints L knee pain, lat/infer patella with tightness into lower leg History of Current H/o R knee pain from OA improved with OP PT. Pt was amb Condition on uneven ground/incline when L knee began feeling achy which progressed. Treatment Goals Patient/Caregiver To be pain free for graduation trip to [place] Goals on September 28 including 5 hr flight Personal Factors Other Personal Chronic A fib with chronic BLE edema Factors That May Effect Therapy/ Recovery PT-OP-C Subjective Start: 09/04/24 14:16 Freq: Status: Active Protocol: Document 10/08/24 07:53 AB (Rec: 10/08/24 10:09 AB Laptop) OP-PT Subjective Patient Comments Patient Comments Patient reports the knee held up for the trip, did use a wheelchair at the airport. Patient rates pain 2/10 L knee ambulating into session, R knee pain 0/10 start of session. Patient comments the right knee has held up quite well. Patient Questionnaires Lower Extremity Functional Scale LEFS Impairment 60 to 79% Impaired (Score 17-31) PT-OP-D Balance Start: 09/04/24 14:16 Freq: Status: Active Protocol: Document 10/08/24 07:53 AB (Rec: 10/08/24 15:05 AB Laptop) Balance Tests Single Limb Standing Single Limb- Right 2,3,2 Single Limb- Left 1,1,1 PT-OP-F Manual Assessment Start: 09/04/24 14:16 Freq: Status: Active Protocol: Document 09/04/24 14:20 DERRICK WORKER WELL SERVICE (Rec: 09/04/24 16:03 DERRICK WORKER WELL SERVICE Desktop) Manual Assessments Soft Tissue Assessment Soft Tissue Mobility TTP and decreased soft tissue mobility to L ant tib, L Assessment lateral quad, and L glute med Joint Mobility Assessment Joint Mobility AROM and PROM normal without pain or crepitus Assessment PT-OP-G Mobility & Gait Start: 09/04/24 14:16 Freq: Status: Active Protocol: Document 09/04/24 14:20 DERRICK WORKER WELL SERVICE (Rec: 09/04/24 16:03 DERRICK WORKER WELL SERVICE Desktop) OP Gait Assessment Comments Gait Comments without AD, slight less stance time on LLE, increased lateral trunk lean to R, small LOB while turning PT-OP-K Range of Motion Start: 09/04/24 14:16 Freq: Status: Active Protocol: Document 09/04/24 14:20 DERRICK WORKER WELL SERVICE (Rec: 09/04/24 16:03 DERRICK WORKER WELL SERVICE Desktop) Knee Goniometric Range of Motion Knee R Patient Position Supine Flexion Active ( 125 degrees) Extension Active ( 4 degrees) L Knee ROM WFL Yes Patient Position Supine Flexion Active ( 125 degrees) Extension Active ( 0 degrees) Ankle and Foot Goniometric Range of Motion Ankle and Foot ROM Limitations Comments DF limited on L d/t h/o foot ORIF in 2003 PT-OP-M Strength Start: 09/04/24 14:16 Freq: Status: Active Protocol: Document 10/08/24 07:53 AB (Rec: 10/08/24 15:05 AB Laptop) Hip Strength Hip Manual Muscle Testing L Flexion (L2) 3+ Fair+ Extension (S1) 3- Fair- Abduction 4- Good- Adduction 4- Good- External Rotation 3+ Fair+ Internal Rotation 4+ Good+ R Flexion (L2) 3+ Fair+ Extension (S1) 3- Fair- Abduction 3 Fair Adduction 3+ Fair+ External Rotation 4- Good- Internal Rotation 4+ Good+ PT-OP-Q Treatments Start: 09/04/24 14:16 Freq: Status: Active Protocol: Document 10/08/24 07:53 AB (Rec: 10/08/24 10:09 AB Laptop) Therapeutic Exercises Supine Exercises prifiormis stretch Side bilateral Reps/Minutes x1 each LE 60 sec post contract relax R LE Comments verbal cues Manual Therapy Treatment Consent Patient gave verbal Yes consent for manual treatment Soft Tissue Mobilization Stretching Body Location L hip flexor/quad L LE Body Location L gastroc bilateral this session Mobilization Type Cross-Friction,Rolling Intensity/Depth Moderate Body Position supine and L sidelying Comments bolster under knees PT-OP-T Assessment and Plan Start: 09/04/24 14:16 Freq: Status: Active Protocol: Document 10/08/24 07:53 AB (Rec: 10/08/24 10:09 AB Laptop) Physical Therapy Assessment Goals 3 Short Term Goal (STG Pt will improve LEFS score at least 5 points from 49/80 ) to improve functional mobility STG Duration 4 weeks Care Home Goal (LTG) Pt will improve LEFS score at least 10 points from 49/ 80 to improve functional mobility LEFS score 54/80 (67.5%) LTG Duration 10 weeks MET 2 Short Term Goal (STG Pt will improve B hip strength by 1 MMT to improve ) functional mobility STG Duration 4 weeks Production Line Worker Goal (LTG) Pt will ascend/descend 4 stairs with reciprocal pattern without impairment 10/08/2024 Patient ascends/descends 4 six inc stairs with a reciprocal pattern using 2 rails, reports having no pain, noted R LE ER at hip (of note also while supine on mat R LE ER at hip) LTG Duration 10 weeks met 1 Short Term Goal (STG Pt will be able to amb 1 mile on even surface without ) pain 10/08/2024 Patient report she hasn't tried uneven surfaces in a while due to hills when on trip. Patient estimates 10 min lauren ( no pain ) to walking on level surface since she has returned home from vacation. STG Duration 4 weeks not met for one mile without pain Care Home Goal (LTG) Pt will be able to amb >1 mile on uneven surface without pain LTG Duration 10 weeks Assessment Summary Assessment Patient reports feeling achy, not pain end of session. Patient into session with reports of tolerating her trip well in and out of son's trunk increased ambulation on inclines/declines. Goal met for LEFS score, but strength decreased/possibly partially due to out of town on vacation. Physical Therapy Plan Frequency and Duration Frequency of 3x/Week Treatment Duration of 10 treatment (weeks) Plan of Care Start 09/04/24 Date Plan of Care End 11/13/24 Date Next Visit Focus/Plan Next Note Type Treatment Note Next Visit Plan taping to L knee, mini squats, shuttle recovery, standing balance, possibly focus on balance, calf stretches HEP/in clinic. Patient has met goal for reciprocal pattern on stairs, but walking a mile on level surface without pain has not yet been achieved.
--- NOTE | 2024-10-10 14:13 | PT.OTN ---
Current Diagnoses Other chronic pain (10/10/24) Pain in left knee (10/10/24) Physical Therapy Treatment Note PT-OP-A Visit Information Start: 09/04/24 14:16 Freq: Status: Active Protocol: Document 10/10/24 09:07 POOLROOM/POOLHALL MANAGER (Rec: 10/10/24 09:49 POOLROOM/POOLHALL MANAGER Laptop) Out-Patient Physical Therapy Visit Information Visit Information Visit Type Treatment Note Visit Start Time 09:06 Visit Stop Time 09:46 Visit Number 10 Number of COMMUTATOR ASSEMBLER Visits 0 PT-OP-B Current Condition Start: 09/04/24 14:16 Freq: Status: Active Protocol: Document 09/04/24 14:20 POOLROOM/POOLHALL MANAGER (Rec: 09/04/24 16:03 POOLROOM/POOLHALL MANAGER Desktop) Current Condition History of Current Condition Onset Date ~1 week ago Current Complaints L knee pain, lat/infer patella with tightness into lower leg History of Current H/o R knee pain from OA improved with OP PT. Pt was amb Condition on uneven ground/incline when L knee began feeling achy which progressed. Treatment Goals Patient/Caregiver To be pain free for graduation trip to [place] Goals on September 28 including 5 hr flight Personal Factors Other Personal Chronic A fib with chronic BLE edema Factors That May Effect Therapy/ Recovery PT-OP-C Subjective Start: 09/04/24 14:16 Freq: Status: Active Protocol: Document 10/10/24 09:07 POOLROOM/POOLHALL MANAGER (Rec: 10/10/24 09:49 POOLROOM/POOLHALL MANAGER Laptop) OP-PT Subjective Patient Comments Patient Comments Pt reports consistent ache not pain to L ant knee, rates at 1/10 pain today. PT-OP-D Balance Start: 09/04/24 14:16 Freq: Status: Active Protocol: Document 10/08/24 07:53 AB (Rec: 10/08/24 15:05 AB Laptop) Balance Tests Single Limb Standing Single Limb- Right 2,3,2 Single Limb- Left 1,1,1 PT-OP-F Manual Assessment Start: 09/04/24 14:16 Freq: Status: Active Protocol: Document 09/04/24 14:20 POOLROOM/POOLHALL MANAGER (Rec: 09/04/24 16:03 POOLROOM/POOLHALL MANAGER Desktop) Manual Assessments Soft Tissue Assessment Soft Tissue Mobility TTP and decreased soft tissue mobility to L ant tib, L Assessment lateral quad, and L glute med Joint Mobility Assessment Joint Mobility AROM and PROM normal without pain or crepitus Assessment PT-OP-G Mobility & Gait Start: 09/04/24 14:16 Freq: Status: Active Protocol: Document 09/04/24 14:20 POOLROOM/POOLHALL MANAGER (Rec: 09/04/24 16:03 POOLROOM/POOLHALL MANAGER Desktop) OP Gait Assessment Comments Gait Comments without AD, slight less stance time on LLE, increased lateral trunk lean to R, small LOB while turning PT-OP-K Range of Motion Start: 09/04/24 14:16 Freq: Status: Active Protocol: Document 09/04/24 14:20 POOLROOM/POOLHALL MANAGER (Rec: 09/04/24 16:03 POOLROOM/POOLHALL MANAGER Desktop) Knee Goniometric Range of Motion Knee R Patient Position Supine Flexion Active ( 125 degrees) Extension Active ( 4 degrees) L Knee ROM WFL Yes Patient Position Supine Flexion Active ( 125 degrees) Extension Active ( 0 degrees) Ankle and Foot Goniometric Range of Motion Ankle and Foot ROM Limitations Comments DF limited on L d/t h/o foot ORIF in 2003 PT-OP-M Strength Start: 09/04/24 14:16 Freq: Status: Active Protocol: Document 10/08/24 07:53 AB (Rec: 10/08/24 15:05 AB Laptop) Hip Strength Hip Manual Muscle Testing L Flexion (L2) 3+ Fair+ Extension (S1) 3- Fair- Abduction 4- Good- Adduction 4- Good- External Rotation 3+ Fair+ Internal Rotation 4+ Good+ R Flexion (L2) 3+ Fair+ Extension (S1) 3- Fair- Abduction 3 Fair Adduction 3+ Fair+ External Rotation 4- Good- Internal Rotation 4+ Good+ PT-OP-Q Treatments Start: 09/04/24 14:16 Freq: Status: Active Protocol: Document 10/10/24 09:07 POOLROOM/POOLHALL MANAGER (Rec: 10/10/24 09:49 POOLROOM/POOLHALL MANAGER Laptop) Cardio Equipment Recumbent Stepper (Sci-Fit) Duration (Minutes) 12 Resistance L3 Seat Position 9 Other NuStep BLEs to increase endurance Gym Equipment Shuttle Recovery Bilateral Squats Details with L2 TB latex free around knees Resistance 50 lbs navy old bands Shuttle Recovery Stable Platform Reps/Time x10 Manual Therapy Treatment Consent Patient gave verbal Yes consent for manual treatment Taping L Knee Treatment Focus Medial stability and knee pn managment Comments two strips: 1st strip V from lat to med patellar glide, 2nd strip from distal quad to anterior tib to support medial glide. Neuro Re-Education Treatment Balance Activities SLS Details modified with toe taps on 6 step Surface even Reps/Duration x12 each leg Comments without UE support, maintains level pelvis, no LOB PT-OP-T Assessment and Plan Start: 09/04/24 14:16 Freq: Status: Active Protocol: Document 10/10/24 09:07 POOLROOM/POOLHALL MANAGER (Rec: 10/10/24 09:49 POOLROOM/POOLHALL MANAGER Laptop) Physical Therapy Assessment Goals 3 Short Term Goal (STG Pt will improve LEFS score at least 5 points from 49/80 ) to improve functional mobility STG Duration 4 weeks Longterm Goal (LTG) Pt will improve LEFS score at least 10 points from 49/ 80 to improve functional mobility LEFS score 54/80 (67.5%) LTG Duration 10 weeks MET 2 Short Term Goal (STG Pt will improve B hip strength by 1 MMT to improve ) functional mobility STG Duration 4 weeks Longterm Goal (LTG) Pt will ascend/descend 4 stairs with reciprocal pattern without impairment 10/08/2024 Patient ascends/descends 4 six inc stairs with a reciprocal pattern using 2 rails, reports having no pain, noted R LE ER at hip (of note also while supine on mat R LE ER at hip) LTG Duration 10 weeks met 1 Short Term Goal (STG Pt will be able to amb 1 mile on even surface without ) pain 10/08/2024 Patient report she hasn't tried uneven surfaces in a while due to hills when on trip. Patient estimates 10 min lauren ( no pain ) to walking on level surface since she has returned home from vacation. STG Duration 4 weeks not met for one mile without pain Learning And Development Coordinator Goal (LTG) Pt will be able to amb >1 mile on uneven surface without pain LTG Duration 10 weeks Progress Towards Goals Progress Towards Progressing Toward Goals Goals Assessment Summary Assessment Pt tolerated taping to L knee and functional glute med exercises this session with improved modified SLS step ups. Pt reports pain to L knee from 1/10 to 0/10 at end of session. Physical Therapy Plan Frequency and Duration Frequency of 3x/Week Treatment Duration of 10 treatment (weeks) Plan of Care Start 09/04/24 Date Plan of Care End 11/13/24 Date Therapeutic Interventions Therapeutic Balance Training,Coordination Training,Gait Training, Interventions Home Exercise Program,Joint Mobilizations,Lymphedema Management,Manual Therapy,Neuromuscular Re-education, Soft Tissue Mobilization,Taping,Therapeutic Activities, Therapeutic Exercises Modalities Cold Pack/Ice Massage,Electric Stimulation,Hot Packs, Infrared Therapy,Ultrasound Next Visit Focus/Plan Next Note Type Treatment Note Next Visit Plan taping to L knee, mini squats, shuttle recovery, standing balance, possibly focus on balance, calf stretches HEP/in clinic. Patient has met goal for reciprocal pattern on stairs, but walking a mile on level surface without pain has not yet been achieved.
--- NOTE | 2024-10-15 10:03 | PT.OTN ---
Current Diagnoses Other chronic pain (10/15/24) Pain in left knee (10/15/24) Physical Therapy Treatment Note PT-OP-A Visit Information Start: 09/04/24 14:16 Freq: Status: Active Protocol: Document 10/15/24 09:05 CARTOGRAPHY SUPERVISOR (Rec: 10/15/24 10:03 CARTOGRAPHY SUPERVISOR Laptop) Out-Patient Physical Therapy Visit Information Visit Information Visit Type Treatment Note Visit Start Time 09:05 Visit Stop Time 09:49 Visit Number 11 Number of CIVIL SERVICE WORKER Visits 0 PT-OP-B Current Condition Start: 09/04/24 14:16 Freq: Status: Active Protocol: Document 09/04/24 14:20 CARTOGRAPHY SUPERVISOR (Rec: 09/04/24 16:03 CARTOGRAPHY SUPERVISOR Desktop) Current Condition History of Current Condition Onset Date ~1 week ago Current Complaints L knee pain, lat/infer patella with tightness into lower leg History of Current H/o R knee pain from OA improved with OP PT. Pt was amb Condition on uneven ground/incline when L knee began feeling achy which progressed. Treatment Goals Patient/Caregiver To be pain free for graduation trip to [place] Goals on September 28 including 5 hr flight Personal Factors Other Personal Chronic A fib with chronic BLE edema Factors That May Effect Therapy/ Recovery PT-OP-C Subjective Start: 09/04/24 14:16 Freq: Status: Active Protocol: Document 10/15/24 09:05 CARTOGRAPHY SUPERVISOR (Rec: 10/15/24 10:03 CARTOGRAPHY SUPERVISOR Laptop) OP-PT Subjective Patient Comments Patient Comments Pt reports can walk slightly longer across parking lot before fatigue/pain in L knee limits her and is now able to lay onto L side a little easier with less pain in L knee. Pt reports 2/10 pain to L knee walking into session. PT-OP-D Balance Start: 09/04/24 14:16 Freq: Status: Active Protocol: Document 10/08/24 07:53 AB (Rec: 10/08/24 15:05 AB Laptop) Balance Tests Single Limb Standing Single Limb- Right 2,3,2 Single Limb- Left 1,1,1 PT-OP-F Manual Assessment Start: 09/04/24 14:16 Freq: Status: Active Protocol: Document 09/04/24 14:20 CARTOGRAPHY SUPERVISOR (Rec: 09/04/24 16:03 CARTOGRAPHY SUPERVISOR Desktop) Manual Assessments Soft Tissue Assessment Soft Tissue Mobility TTP and decreased soft tissue mobility to L ant tib, L Assessment lateral quad, and L glute med Joint Mobility Assessment Joint Mobility AROM and PROM normal without pain or crepitus Assessment PT-OP-G Mobility & Gait Start: 09/04/24 14:16 Freq: Status: Active Protocol: Document 09/04/24 14:20 CARTOGRAPHY SUPERVISOR (Rec: 09/04/24 16:03 CARTOGRAPHY SUPERVISOR Desktop) OP Gait Assessment Comments Gait Comments without AD, slight less stance time on LLE, increased lateral trunk lean to R, small LOB while turning PT-OP-K Range of Motion Start: 09/04/24 14:16 Freq: Status: Active Protocol: Document 09/04/24 14:20 CARTOGRAPHY SUPERVISOR (Rec: 09/04/24 16:03 CARTOGRAPHY SUPERVISOR Desktop) Knee Goniometric Range of Motion Knee R Patient Position Supine Flexion Active ( 125 degrees) Extension Active ( 4 degrees) L Knee ROM WFL Yes Patient Position Supine Flexion Active ( 125 degrees) Extension Active ( 0 degrees) Ankle and Foot Goniometric Range of Motion Ankle and Foot ROM Limitations Comments DF limited on L d/t h/o foot ORIF in 2003 PT-OP-M Strength Start: 09/04/24 14:16 Freq: Status: Active Protocol: Document 10/08/24 07:53 AB (Rec: 10/08/24 15:05 AB Laptop) Hip Strength Hip Manual Muscle Testing L Flexion (L2) 3+ Fair+ Extension (S1) 3- Fair- Abduction 4- Good- Adduction 4- Good- External Rotation 3+ Fair+ Internal Rotation 4+ Good+ R Flexion (L2) 3+ Fair+ Extension (S1) 3- Fair- Abduction 3 Fair Adduction 3+ Fair+ External Rotation 4- Good- Internal Rotation 4+ Good+ PT-OP-Q Treatments Start: 09/04/24 14:16 Freq: Status: Active Protocol: Document 10/15/24 09:05 CARTOGRAPHY SUPERVISOR (Rec: 10/15/24 10:03 CARTOGRAPHY SUPERVISOR Laptop) Cardio Equipment Recumbent Stepper (Sci-Fit) Duration (Minutes) 6 Resistance L4 Seat Position 9 Other NuStep BLEs to increase endurance Therapeutic Exercises Supine Exercises SLR Supine Exercise Name 1. SLR neutral rotation 2. SLR with ER Side bilateral Reps/Minutes x10 each Prone Exercises Hip Ext Prone Exercise Name SLR Side bilateral Resistance gravity Reps/Minutes x10 Sidelying Exercises Hip Abd Sidelying Exercise SLR Name Side bilateral Resistance gravity Reps/Minutes x10 Standing Exercises Mini Squats Side bilateral Resistance L2 TB latex free Reps/Minutes 10x2 Comments Mod TC/VC for post WS through heels Manual Therapy Treatment Consent Patient gave verbal Yes consent for manual treatment Taping L Knee Treatment Focus Medial stability and knee pn managment Comments two strips: 1st strip V from lat to med patellar glide, 2nd strip from distal quad to anterior tib to support medial glide. PT-OP-T Assessment and Plan Start: 09/04/24 14:16 Freq: Status: Active Protocol: Document 10/15/24 09:05 CARTOGRAPHY SUPERVISOR (Rec: 10/15/24 10:03 CARTOGRAPHY SUPERVISOR Laptop) Physical Therapy Assessment Goals 3 Short Term Goal (STG Pt will improve LEFS score at least 5 points from 49/80 ) to improve functional mobility STG Duration 4 weeks Catalyst Manufacturing Operator Goal (LTG) Pt will improve LEFS score at least 10 points from 49/ 80 to improve functional mobility LEFS score 54/80 (67.5%) LTG Duration 10 weeks MET 2 Short Term Goal (STG Pt will improve B hip strength by 1 MMT to improve ) functional mobility STG Duration 4 weeks Skilled Nursing Goal (LTG) Pt will ascend/descend 4 stairs with reciprocal pattern without impairment 10/08/2024 Patient ascends/descends 4 six inc stairs with a reciprocal pattern using 2 rails, reports having no pain, noted R LE ER at hip (of note also while supine on mat R LE ER at hip) LTG Duration 10 weeks met 1 Short Term Goal (STG Pt will be able to amb 1 mile on even surface without ) pain 10/08/2024 Patient report she hasn't tried uneven surfaces in a while due to hills when on trip. Patient estimates 10 min lauren ( no pain ) to walking on level surface since she has returned home from vacation. STG Duration 4 weeks not met for one mile without pain Skilled Nursing Goal (LTG) Pt will be able to amb >1 mile on uneven surface without pain LTG Duration 10 weeks Progress Towards Goals Progress Towards Progressing Toward Goals Goals Assessment Summary Assessment Pt tolerated tolerated hip exercises against gravity this session with noted weakness in B hip abd and ext during SLR in sidelying and prone and therefore need to focus on these exercises. Noted pain free popping in R knee during sit<>stands, no pain in L knee. Pt reports pain down from 2/10 to 0/10 in L knee at end of session. Physical Therapy Plan Frequency and Duration Frequency of 3x/Week Treatment Duration of 10 treatment (weeks) Plan of Care Start 09/04/24 Date Plan of Care End 11/13/24 Date Therapeutic Interventions Therapeutic Balance Training,Coordination Training,Gait Training, Interventions Home Exercise Program,Joint Mobilizations,Lymphedema Management,Manual Therapy,Neuromuscular Re-education, Soft Tissue Mobilization,Taping,Therapeutic Activities, Therapeutic Exercises Modalities Cold Pack/Ice Massage,Electric Stimulation,Hot Packs, Infrared Therapy,Ultrasound Next Visit Focus/Plan Next Note Type Treatment Note Next Visit Plan shuttle recovery, standing balance, calf stretches, prone SLRs for glute strengthening, standing glute med exercise. Working towards walking a mile on level surface without pain-endurance
--- NOTE | 2024-10-17 12:35 | PT.OTN ---
Current Diagnoses Other chronic pain (10/17/24) Pain in left knee (10/17/24) Physical Therapy Treatment Note PT-OP-A Visit Information Start: 09/04/24 14:16 Freq: Status: Active Protocol: Document 10/17/24 09:13 AB (Rec: 10/17/24 12:26 AB [id number]) Out-Patient Physical Therapy Visit Information Visit Information Visit Type Treatment Note Visit Start Time 09:05 Visit Stop Time 09:49 Visit Number 12 Number of ASSOCIATE PROFESSOR OF LITERACY Visits 1 PT-OP-B Current Condition Start: 09/04/24 14:16 Freq: Status: Active Protocol: Document 09/04/24 14:20 CERTIFIED ALCOHOL COUNSELOR (Rec: 09/04/24 16:03 CERTIFIED ALCOHOL COUNSELOR Desktop) Current Condition History of Current Condition Onset Date ~1 week ago Current Complaints L knee pain, lat/infer patella with tightness into lower leg History of Current H/o R knee pain from OA improved with OP PT. Pt was amb Condition on uneven ground/incline when L knee began feeling achy which progressed. Treatment Goals Patient/Caregiver To be pain free for graduation trip to [place] Goals on September 28 including 5 hr flight Personal Factors Other Personal Chronic A fib with chronic BLE edema Factors That May Effect Therapy/ Recovery PT-OP-C Subjective Start: 09/04/24 14:16 Freq: Status: Active Protocol: Document 10/17/24 09:13 AB (Rec: 10/17/24 12:26 AB [id number]) OP-PT Subjective Patient Comments Patient Comments Patient reports she is getting a little better, but is having slow progress this time. Patient reports increased L knee pain ambulating form parking lot into session, 2/10 pain. Patient Questionnaires Lower Extremity Functional Scale LEFS Score 51 LEFS Impairment 1 to 19% Impaired (Score 63-79) PT-OP-D Balance Start: 09/04/24 14:16 Freq: Status: Active Protocol: Document 10/08/24 07:53 AB (Rec: 10/08/24 15:05 AB Laptop) Balance Tests Single Limb Standing Single Limb- Right 2,3,2 Single Limb- Left 1,1,1 PT-OP-F Manual Assessment Start: 09/04/24 14:16 Freq: Status: Active Protocol: Document 09/04/24 14:20 CERTIFIED ALCOHOL COUNSELOR (Rec: 09/04/24 16:03 CERTIFIED ALCOHOL COUNSELOR Desktop) Manual Assessments Soft Tissue Assessment Soft Tissue Mobility TTP and decreased soft tissue mobility to L ant tib, L Assessment lateral quad, and L glute med Joint Mobility Assessment Joint Mobility AROM and PROM normal without pain or crepitus Assessment PT-OP-G Mobility & Gait Start: 09/04/24 14:16 Freq: Status: Active Protocol: Document 09/04/24 14:20 CERTIFIED ALCOHOL COUNSELOR (Rec: 09/04/24 16:03 CERTIFIED ALCOHOL COUNSELOR Desktop) OP Gait Assessment Comments Gait Comments without AD, slight less stance time on LLE, increased lateral trunk lean to R, small LOB while turning PT-OP-K Range of Motion Start: 09/04/24 14:16 Freq: Status: Active Protocol: Document 09/04/24 14:20 CERTIFIED ALCOHOL COUNSELOR (Rec: 09/04/24 16:03 CERTIFIED ALCOHOL COUNSELOR Desktop) Knee Goniometric Range of Motion Knee R Patient Position Supine Flexion Active ( 125 degrees) Extension Active ( 4 degrees) L Knee ROM WFL Yes Patient Position Supine Flexion Active ( 125 degrees) Extension Active ( 0 degrees) Ankle and Foot Goniometric Range of Motion Ankle and Foot ROM Limitations Comments DF limited on L d/t h/o foot ORIF in 2003 PT-OP-M Strength Start: 09/04/24 14:16 Freq: Status: Active Protocol: Document 10/17/24 09:13 AB (Rec: 10/17/24 12:26 AB [id number]) Hip Strength Hip Manual Muscle Testing L Flexion (L2) 4- Good- Extension (S1) 3- Fair- Abduction 4- Good- Adduction 4- Good- External Rotation 4- Good- Internal Rotation 4+ Good+ R Flexion (L2) 4- Good- Extension (S1) 3- Fair- Abduction 3 Fair Adduction 4- Good- External Rotation 4 Good Internal Rotation 5 Normal PT-OP-Q Treatments Start: 09/04/24 14:16 Freq: Status: Active Protocol: Document 10/17/24 09:13 AB (Rec: 10/17/24 12:26 AB [id number]) Gym Equipment Shuttle Recovery Bilateral Squats Details with L2 TB latex free around knees Resistance 50 lbs [employer] Shuttle Recovery Stable Platform Reps/Time x10 Therapeutic Exercises Supine Exercises Mod Taiwo stretch Supine Exercise Name HEP Side bilateral Reps/Minutes 1-2 min X 2 each LE also AROM X 10 knee flexion Comments verbal cues Manual Therapy Treatment Consent Patient gave verbal Yes consent for manual treatment Soft Tissue Mobilization L LE Body Location L knee and quad Mobilization Type Cross-Friction,Rolling,Other Intensity/Depth Moderate Body Position Hooklying Comments bolster under knees PT-OP-T Assessment and Plan Start: 09/04/24 14:16 Freq: Status: Active Protocol: Document 10/17/24 09:13 AB (Rec: 10/17/24 12:26 AB [id number]) Physical Therapy Assessment Goals 3 Short Term Goal (STG Pt will improve LEFS score at least 5 points from 49/80 ) to improve functional mobility STG Duration 4 weeks Halfway Goal (LTG) Pt will improve LEFS score at least 10 points from 49/ 80 to improve functional mobility LEFS score 54/80 (67.5%) 10/17/2024 LEFS 51/80 LEFS 63.7 % LTG Duration 10 weeks MET 2 Short Term Goal (STG Pt will improve B hip strength by 1 MMT to improve ) functional mobility STG Duration 4 weeks Dice Person Goal (LTG) Pt will ascend/descend 4 stairs with reciprocal pattern without impairment 10/08/2024 Patient ascends/descends 4 six inc stairs with a reciprocal pattern using 2 rails, reports having no pain, noted R LE ER at hip (of note also while supine on mat R LE ER at hip) LTG Duration 10 weeks met 1 Short Term Goal (STG Pt will be able to amb 1 mile on even surface without ) pain 10/08/2024 Patient report she hasn't tried uneven surfaces in a while due to hills when on trip. Patient estimates 10 min lauren ( no pain ) to walking on level surface since she has returned home from vacation. STG Duration 4 weeks not met for one mile without pain Dice Person Goal (LTG) Pt will be able to amb >1 mile on uneven surface without pain 10/17/2024 Patient reports increased L knee pain ambulating form parking lot into session, 2/10 pain. LTG Duration 10 weeks Assessment Summary Assessment Patient continues to be unable to walk a mile without increased pain, and did make strength gains in hip add, IR and ER, hip flex R LE, L LE gains in ER and flexion , No gains in hip abd bilaterally. LEFS 63.7 % dec from previous session possibly due to time off from ex and inc ambulation during trip for Michael's graduation. Physical Therapy Plan Frequency and Duration Frequency of 3x/Week Treatment Duration of 10 treatment (weeks) Plan of Care Start 09/04/24 Date Plan of Care End 11/13/24 Date Next Visit Focus/Plan Next Note Type Treatment Note Next Visit Plan shuttle recovery, standing balance, calf stretches, prone SLRs for glute strengthening, standing glute med exercise. Working towards walking a mile on level surface without pain-endurance
--- NOTE | 2024-10-17 17:00 | PT.OPPN ---
Current Diagnoses Other chronic pain (10/17/24) Pain in left knee (10/17/24) Physical Therapy Progress Note PT-OP-A Visit Information Start: 09/04/24 14:16 Freq: Status: Active Protocol: Document 10/17/24 12:32 SPINNERET CLEANER (Rec: 10/20/24 12:38 SPINNERET CLEANER Laptop) Out-Patient Physical Therapy Visit Information Visit Information Visit Type Progress Note PT-OP-B Current Condition Start: 09/04/24 14:16 Freq: Status: Active Protocol: Document 09/04/24 14:20 SPINNERET CLEANER (Rec: 09/04/24 16:03 SPINNERET CLEANER Desktop) Current Condition History of Current Condition Onset Date ~1 week ago Current Complaints L knee pain, lat/infer patella with tightness into lower leg History of Current H/o R knee pain from OA improved with OP PT. Pt was amb Condition on uneven ground/incline when L knee began feeling achy which progressed. Treatment Goals Patient/Caregiver To be pain free for graduation trip to [place] Goals on September 28 including 5 hr flight Personal Factors Other Personal Chronic A fib with chronic BLE edema Factors That May Effect Therapy/ Recovery PT-OP-C Subjective Start: 09/04/24 14:16 Freq: Status: Active Protocol: Document 10/17/24 09:13 AB (Rec: 10/17/24 12:26 AB [id number]) OP-PT Subjective Patient Comments Patient Comments Patient reports she is getting a little better, but is having slow progress this time. Patient reports increased L knee pain ambulating form parking lot into session, 2/10 pain. Patient Questionnaires Lower Extremity Functional Scale LEFS Score 51 LEFS Impairment 1 to 19% Impaired (Score 63-79) PT-OP-D Balance Start: 09/04/24 14:16 Freq: Status: Active Protocol: Document 10/08/24 07:53 AB (Rec: 10/08/24 15:05 AB Laptop) Balance Tests Single Limb Standing Single Limb- Right 2,3,2 Single Limb- Left 1,1,1 PT-OP-F Manual Assessment Start: 09/04/24 14:16 Freq: Status: Active Protocol: Document 09/04/24 14:20 SPINNERET CLEANER (Rec: 09/04/24 16:03 SPINNERET CLEANER Desktop) Manual Assessments Soft Tissue Assessment Soft Tissue Mobility TTP and decreased soft tissue mobility to L ant tib, L Assessment lateral quad, and L glute med Joint Mobility Assessment Joint Mobility AROM and PROM normal without pain or crepitus Assessment PT-OP-G Mobility & Gait Start: 09/04/24 14:16 Freq: Status: Active Protocol: Document 09/04/24 14:20 SPINNERET CLEANER (Rec: 09/04/24 16:03 SPINNERET CLEANER Desktop) OP Gait Assessment Comments Gait Comments without AD, slight less stance time on LLE, increased lateral trunk lean to R, small LOB while turning PT-OP-K Range of Motion Start: 09/04/24 14:16 Freq: Status: Active Protocol: Document 09/04/24 14:20 SPINNERET CLEANER (Rec: 09/04/24 16:03 SPINNERET CLEANER Desktop) Knee Goniometric Range of Motion Knee Measured in Degrees R Patient Position Supine Flexion Active ( 125 degrees) Extension Active ( 4 degrees) L Knee ROM WFL Yes Patient Position Supine Flexion Active ( 125 degrees) Extension Active ( 0 degrees) Ankle and Foot Goniometric Range of Motion Ankle and Foot ROM Limitations Comments DF limited on L d/t h/o foot ORIF in 2003 PT-OP-M Strength Start: 09/04/24 14:16 Freq: Status: Active Protocol: Document 10/17/24 09:13 AB (Rec: 10/17/24 12:26 AB [id number]) Hip Strength Hip Manual Muscle Testing L Flexion (L2) 4- Good- Extension (S1) 3- Fair- Abduction 4- Good- Adduction 4- Good- External Rotation 4- Good- Internal Rotation 4+ Good+ R Flexion (L2) 4- Good- Extension (S1) 3- Fair- Abduction 3 Fair Adduction 4- Good- External Rotation 4 Good Internal Rotation 5 Normal PT-OP-T Assessment and Plan Start: 09/04/24 14:16 Freq: Status: Active Protocol: Document 10/17/24 12:32 SPINNERET CLEANER (Rec: 10/20/24 12:38 SPINNERET CLEANER Laptop) Physical Therapy Assessment Goals 3 Short Term Goal (STG Pt will improve LEFS score at least 5 points from 49/80 ) to improve functional mobility STG Duration 4 weeks Labeling Specialist Goal (LTG) Pt will improve LEFS score at least 10 points from 49/ 80 to improve functional mobility LEFS score 54/80 (67.5%) 10/17/2024 LEFS 51/80 LEFS 63.7 % LTG Duration 10 weeks MET 2 Short Term Goal (STG Pt will improve B hip strength by 1 MMT to improve ) functional mobility STG Duration 4 weeks Usp Goal (LTG) Pt will ascend/descend 4 stairs with reciprocal pattern without impairment 10/08/2024 Patient ascends/descends 4 six inc stairs with a reciprocal pattern using 2 rails, reports having no pain, noted R LE ER at hip (of note also while supine on mat R LE ER at hip) LTG Duration 10 weeks met 1 Short Term Goal (STG Pt will be able to amb 1 mile on even surface without ) pain 10/08/2024 Patient report she hasn't tried uneven surfaces in a while due to hills when on trip. Patient estimates 10 min lauren ( no pain ) to walking on level surface since she has returned home from vacation. STG Duration 4 weeks not met for one mile without pain Usp Goal (LTG) Pt will be able to amb >1 mile on uneven surface without pain 10/17/2024 Patient reports increased L knee pain ambulating form parking lot into session, 2/10 pain. LTG Duration 10 weeks Progress Towards Goals Progress Towards Progressing Toward Goals Goals Assessment Summary Assessment Pt is making slow progress towards goals, continues to be unable to walk a mile without without pain and has decreased LEFS score, possibly d/t time off PT for grandson's graduation. Pt is making gains towards L hip strength with improvements in hip strength but without gains in B hip abd and still requires skilled PT intervention to continue progressing towards goals. Physical Therapy Plan Frequency and Duration Frequency of 3x/Week Treatment Duration of 10 treatment (weeks) Plan of Care Start 09/04/24 Date Plan of Care End 11/13/24 Date Therapeutic Interventions Therapeutic Balance Training,Coordination Training,Gait Training, Interventions Home Exercise Program,Joint Mobilizations,Lymphedema Management,Manual Therapy,Neuromuscular Re-education, Soft Tissue Mobilization,Taping,Therapeutic Activities, Therapeutic Exercises Modalities Cold Pack/Ice Massage,Electric Stimulation,Hot Packs, Infrared Therapy,Ultrasound
--- NOTE | 2024-10-22 10:32 | PT.OTN ---
Current Diagnoses Other chronic pain (10/22/24) Pain in left knee (10/22/24) Physical Therapy Treatment Note PT-OP-A Visit Information Start: 09/04/24 14:16 Freq: Status: Active Protocol: Document 10/22/24 09:48 SP (Rec: 10/22/24 10:47 SP [id number]) Out-Patient Physical Therapy Visit Information Visit Information Visit Type Treatment Note Visit Note Next PN by 11/17/24 Visit Start Time 09:48 Visit Stop Time 10:32 Visit Number 13 Number of PET TECHNOLOGIST Visits 1 Evaluation Information Evaluation Date 09/04/24 Precautions Precautions on blood thinners, easily bruises, latex allergy PT-OP-B Current Condition Start: 09/04/24 14:16 Freq: Status: Active Protocol: Document 09/04/24 14:20 ELEVATOR OPERATOR SERVICE (Rec: 09/04/24 16:03 ELEVATOR OPERATOR SERVICE Desktop) Current Condition History of Current Condition Onset Date ~1 week ago Current Complaints L knee pain, lat/infer patella with tightness into lower leg History of Current H/o R knee pain from OA improved with OP PT. Pt was amb Condition on uneven ground/incline when L knee began feeling achy which progressed. Treatment Goals Patient/Caregiver To be pain free for graduation trip to [place] Goals on September 28 including 5 hr flight Personal Factors Other Personal Chronic A fib with chronic BLE edema Factors That May Effect Therapy/ Recovery PT-OP-C Subjective Start: 09/04/24 14:16 Freq: Status: Active Protocol: Document 10/22/24 09:48 SP (Rec: 10/22/24 10:47 SP [id number]) OP-PT Subjective Patient Comments Patient Comments Pt reports L knee bothersome especially point specific, L knee pain dull ache 2/10 pain different than R: L distal HS anterolateral tibia down lateral castillo. Overall better and compliant with HEP. PT-OP-D Balance Start: 09/04/24 14:16 Freq: Status: Active Protocol: Document 10/08/24 07:53 AB (Rec: 10/08/24 15:05 AB Laptop) Balance Tests Single Limb Standing Single Limb- Right 2,3,2 Single Limb- Left 1,1,1 PT-OP-F Manual Assessment Start: 09/04/24 14:16 Freq: Status: Active Protocol: Document 09/04/24 14:20 ELEVATOR OPERATOR SERVICE (Rec: 09/04/24 16:03 ELEVATOR OPERATOR SERVICE Desktop) Manual Assessments Soft Tissue Assessment Soft Tissue Mobility TTP and decreased soft tissue mobility to L ant tib, L Assessment lateral quad, and L glute med Joint Mobility Assessment Joint Mobility AROM and PROM normal without pain or crepitus Assessment PT-OP-G Mobility & Gait Start: 09/04/24 14:16 Freq: Status: Active Protocol: Document 09/04/24 14:20 ELEVATOR OPERATOR SERVICE (Rec: 09/04/24 16:03 ELEVATOR OPERATOR SERVICE Desktop) OP Gait Assessment Comments Gait Comments without AD, slight less stance time on LLE, increased lateral trunk lean to R, small LOB while turning PT-OP-K Range of Motion Start: 09/04/24 14:16 Freq: Status: Active Protocol: Document 09/04/24 14:20 ELEVATOR OPERATOR SERVICE (Rec: 09/04/24 16:03 ELEVATOR OPERATOR SERVICE Desktop) Knee Goniometric Range of Motion Knee R Patient Position Supine Flexion Active ( 125 degrees) Extension Active ( 4 degrees) L Knee ROM WFL Yes Patient Position Supine Flexion Active ( 125 degrees) Extension Active ( 0 degrees) Ankle and Foot Goniometric Range of Motion Ankle and Foot ROM Limitations Comments DF limited on L d/t h/o foot ORIF in 2003 PT-OP-M Strength Start: 09/04/24 14:16 Freq: Status: Active Protocol: Document 10/17/24 09:13 AB (Rec: 10/17/24 12:26 AB [id number]) Hip Strength Hip Manual Muscle Testing L Flexion (L2) 4- Good- Extension (S1) 3- Fair- Abduction 4- Good- Adduction 4- Good- External Rotation 4- Good- Internal Rotation 4+ Good+ R Flexion (L2) 4- Good- Extension (S1) 3- Fair- Abduction 3 Fair Adduction 4- Good- External Rotation 4 Good Internal Rotation 5 Normal PT-OP-Q Treatments Start: 09/04/24 14:16 Freq: Status: Active Protocol: Document 10/22/24 09:48 SP (Rec: 10/22/24 10:47 SP [id number]) Cardio Equipment Recumbent Elliptical (Biodex) Resistance L4 Seat Position 9 Other Nustep LEs only- previous tx- unavailable today 7/8 Recumbent Stepper (Sci-Fit) Duration (Minutes) 6 Resistance L3 Seat Position 13 Other BLEs less endurance, requested slight lower resistance Gym Equipment Shuttle Recovery Unilateral Squats Details tactile cues k nee alignment laterall midline Resistance 37# (1 navy) B Shuttle Recovery Stable Platform Reps/Time 8 L, Bilateral Squats Details with L2 TB latex free around knees Resistance 50 lbs navy Shuttle Recovery Stable Platform Reps/Time x10 Therapeutic Exercises Prone Exercises Hip Ext Prone Exercise Name SLR Side bilateral Resistance gravity Reps/Minutes 2x10 Comments DF neutral help TKE Sidelying Exercises Hip Abd Sidelying Exercise SLR Name Side bilateral Resistance gravity Equipment Used lean into top arm kick stand hand on table in front Reps/Minutes 2x10 Comments stacked alignment with UE support on table, DF neutral help TKE Standing Exercises Gastroc Stretch Side bilateral Equipment Used Base of 4 stairs with HRs Reps/Minutes 1 min x2 each Comments Reviewed Manual Therapy Treatment Consent Patient gave verbal Yes consent for manual treatment Soft Tissue Mobilization L LE Body Location L VL, distal ITB, lateral gastroc, Mobilization Type Cross-Friction,Rolling,Other Intensity/Depth Moderate Body Position Hooklying Comments bolster under knees Trialed very light cupping, still causes light pink improved diminishing with gentle modified skin rolling Taping L Knee Treatment Focus Medial stability and knee pn managment Comments two strips: 1st strip V from lat to med patellar glide, 2nd strip from distal quad to anterior tib to support medial glide. PT-OP-T Assessment and Plan Start: 09/04/24 14:16 Freq: Status: Active Protocol: Document 10/22/24 09:48 SP (Rec: 10/22/24 10:47 SP [id number]) Physical Therapy Assessment Goals 3 Short Term Goal (STG Pt will improve LEFS score at least 5 points from 49/80 ) to improve functional mobility STG Duration 4 weeks Table Cut Off Saw Operator Goal (LTG) Pt will improve LEFS score at least 10 points from 49/ 80 to improve functional mobility LEFS score 54/80 (67.5%) 10/17/2024 LEFS 51/80 LEFS 63.7 % LTG Duration 10 weeks MET 2 Short Term Goal (STG Pt will improve B hip strength by 1 MMT to improve ) functional mobility STG Duration 4 weeks Table Cut Off Saw Operator Goal (LTG) Pt will ascend/descend 4 stairs with reciprocal pattern without impairment 10/08/2024 Patient ascends/descends 4 six inc stairs with a reciprocal pattern using 2 rails, reports having no pain, noted R LE ER at hip (of note also while supine on mat R LE ER at hip) LTG Duration 10 weeks met 1 Short Term Goal (STG Pt will be able to amb 1 mile on even surface without ) pain 10/08/2024 Patient report she hasn't tried uneven surfaces in a while due to hills when on trip. Patient estimates 10 min lauren ( no pain ) to walking on level surface since she has returned home from vacation. STG Duration 4 weeks not met for one mile without pain Usp Goal (LTG) Pt will be able to amb >1 mile on uneven surface without pain 10/17/2024 Patient reports increased L knee pain ambulating form parking lot into session, 05/27 pain. LTG Duration 10 weeks Assessment Summary Assessment Pt good feedback response to manual and Ktaping to Lateral L knee. Cues for stacked R SL for LLE lateral hip abductors and prone glut strengthening to improve knee midline alignment and for functional strengthening return to gait longer distance. She reports less pain end tx lateral knee and no ache. Physical Therapy Plan Frequency and Duration Frequency of 3x/Week Treatment Duration of 10 treatment (weeks) Plan of Care Start 09/04/24 Date Plan of Care End 11/13/24 Date Therapeutic Interventions Therapeutic Balance Training,Coordination Training,Gait Training, Interventions Home Exercise Program,Joint Mobilizations,Lymphedema Management,Manual Therapy,Neuromuscular Re-education, Soft Tissue Mobilization,Taping,Therapeutic Activities, Therapeutic Exercises Modalities Cold Pack/Ice Massage,Electric Stimulation,Hot Packs, Infrared Therapy,Ultrasound Next Visit Focus/Plan Next Note Type Treatment Note Next Visit Plan shuttle recovery, standing balance, calf stretches, prone SLRs for glute strengthening, standing glute med exercise. Working towards walking a mile on level surface without pain-endurance
--- NOTE | 2024-10-25 09:46 | PT.OTN ---
Current Diagnoses Other chronic pain (10/25/24) Pain in left knee (10/25/24) Physical Therapy Treatment Note PT-OP-A Visit Information Start: 09/04/24 14:16 Freq: Status: Active Protocol: Document 10/25/24 09:06 SP (Rec: 10/25/24 09:49 SP [id number]) Out-Patient Physical Therapy Visit Information Visit Information Visit Type Treatment Note Visit Note Next PN by 11/17/24 Visit Start Time 09:06 Visit Stop Time 09:46 Visit Number 14 Number of FINANCE EXECUTIVE Visits 2 Evaluation Information Evaluation Date 09/04/24 Precautions Precautions on blood thinners, easily bruises, latex allergy PT-OP-B Current Condition Start: 09/04/24 14:16 Freq: Status: Active Protocol: Document 09/04/24 14:20 EEO OFFICER (Rec: 09/04/24 16:03 EEO OFFICER Desktop) Current Condition History of Current Condition Onset Date ~1 week ago Current Complaints L knee pain, lat/infer patella with tightness into lower leg History of Current H/o R knee pain from OA improved with OP PT. Pt was amb Condition on uneven ground/incline when L knee began feeling achy which progressed. Treatment Goals Patient/Caregiver To be pain free for graduation trip to [place] Goals on September 28 including 5 hr flight Personal Factors Other Personal Chronic A fib with chronic BLE edema Factors That May Effect Therapy/ Recovery PT-OP-C Subjective Start: 09/04/24 14:16 Freq: Status: Active Protocol: Document 10/25/24 09:06 SP (Rec: 10/25/24 09:49 SP [id number]) OP-PT Subjective Patient Comments Patient Comments Pt reports still having pain especially wakes up anterolateral tibia. It isn't swelling. She is trying to stay away from processed foods. She isn't able to walk to far due to L knee pain. Has a call into Dr Pena's office requesting Xray of L knee- achiness and pain for problem solving. is OOT right now though. PT-OP-D Balance Start: 09/04/24 14:16 Freq: Status: Active Protocol: Document 10/08/24 07:53 AB (Rec: 10/08/24 15:05 AB Laptop) Balance Tests Single Limb Standing Single Limb- Right 2,3,2 Single Limb- Left 1,1,1 PT-OP-F Manual Assessment Start: 09/04/24 14:16 Freq: Status: Active Protocol: Document 09/04/24 14:20 EEO OFFICER (Rec: 09/04/24 16:03 EEO OFFICER Desktop) Manual Assessments Soft Tissue Assessment Soft Tissue Mobility TTP and decreased soft tissue mobility to L ant tib, L Assessment lateral quad, and L glute med Joint Mobility Assessment Joint Mobility AROM and PROM normal without pain or crepitus Assessment PT-OP-G Mobility & Gait Start: 09/04/24 14:16 Freq: Status: Active Protocol: Document 09/04/24 14:20 EEO OFFICER (Rec: 09/04/24 16:03 EEO OFFICER Desktop) OP Gait Assessment Comments Gait Comments without AD, slight less stance time on LLE, increased lateral trunk lean to R, small LOB while turning PT-OP-K Range of Motion Start: 09/04/24 14:16 Freq: Status: Active Protocol: Document 09/04/24 14:20 EEO OFFICER (Rec: 09/04/24 16:03 EEO OFFICER Desktop) Knee Goniometric Range of Motion Knee R Patient Position Supine Flexion Active ( 125 degrees) Extension Active ( 4 degrees) L Knee ROM WFL Yes Patient Position Supine Flexion Active ( 125 degrees) Extension Active ( 0 degrees) Ankle and Foot Goniometric Range of Motion Ankle and Foot ROM Limitations Comments DF limited on L d/t h/o foot ORIF in 2003 PT-OP-M Strength Start: 09/04/24 14:16 Freq: Status: Active Protocol: Document 10/17/24 09:13 AB (Rec: 10/17/24 12:26 AB [id number]) Hip Strength Hip Manual Muscle Testing L Flexion (L2) 4- Good- Extension (S1) 3- Fair- Abduction 4- Good- Adduction 4- Good- External Rotation 4- Good- Internal Rotation 4+ Good+ R Flexion (L2) 4- Good- Extension (S1) 3- Fair- Abduction 3 Fair Adduction 4- Good- External Rotation 4 Good Internal Rotation 5 Normal PT-OP-Q Treatments Start: 09/04/24 14:16 Freq: Status: Active Protocol: Document 10/25/24 09:06 SP (Rec: 10/25/24 09:49 SP [id number]) Cardio Equipment Recumbent Bicycle Duration (Minutes) 6 Resistance 6 Seat Position in 8 Other 36 RPMs. 0.24 miles, just tiring and no snapping lat L knee. Gym Equipment Shuttle Recovery Unilateral Squats Details tactile cues k nee alignment laterall midline Resistance 37# (1 navy) B Shuttle Recovery Stable Platform Reps/Time 8 L Bilateral Squats Details with L2>4 TB (personal brought) around knees Resistance 50 lbs navy Shuttle Recovery Stable Platform Reps/Time x10 Therapeutic Exercises Supine Exercises SLR Supine Exercise Name SLR with ER Side bilateral Reps/Minutes 2x10 Comments good form, pnfree Prone Exercises Hip Ext Prone Exercise Name SLR- ( states bed to squishy to do home) Side bilateral Resistance gravity Reps/Minutes 2x10 Comments DF neutral help TKE Standing Exercises Resisted Stepping Standing Exercise fwd, lateral Name Resistance TB #3 crow green Gastroc Stretch Side bilateral Equipment Used Base of 4 stairs with HRs Reps/Minutes 1 min x2 each Comments Reviewed Manual Therapy Treatment Consent Patient gave verbal Yes consent for manual treatment Soft Tissue Mobilization L LE Body Location L VL, distal ITB, lateral gastroc, Mobilization Type Cross-Friction,Rolling,Other Intensity/Depth Moderate Body Position Hooklying Comments bolster under knees Trialed very light cupping, still causes light pink improved diminishing with gentle modified skin rolling Joint Mobilizations L knee Joint tibfib, tib femoral, patella glides Direction PA Comments hooklying Taping L Knee Body Location stated didnt need retape L knee, still doing well. PT-OP-T Assessment and Plan Start: 09/04/24 14:16 Freq: Status: Active Protocol: Document 10/25/24 09:06 DAT (Rec: 10/25/24 09:49 SP [id number]) Physical Therapy Assessment Goals 3 Short Term Goal (STG Pt will improve LEFS score at least 5 points from 49/80 ) to improve functional mobility STG Duration 4 weeks Penitentiary Goal (LTG) Pt will improve LEFS score at least 10 points from 49/ 80 to improve functional mobility LEFS score 54/80 (67.5%) 10/17/2024 LEFS 51/80 LEFS 63.7 % LTG Duration 10 weeks MET 2 Short Term Goal (STG Pt will improve B hip strength by 1 MMT to improve ) functional mobility STG Duration 4 weeks Penitentiary Goal (LTG) Pt will ascend/descend 4 stairs with reciprocal pattern without impairment 10/08/2024 Patient ascends/descends 4 six inc stairs with a reciprocal pattern using 2 rails, reports having no pain, noted R LE ER at hip (of note also while supine on mat R LE ER at hip) LTG Duration 10 weeks met 1 Short Term Goal (STG Pt will be able to amb 1 mile on even surface without ) pain 10/08/2024 Patient report she hasn't tried uneven surfaces in a while due to hills when on trip. Patient estimates 10 min lauren ( no pain ) to walking on level surface since she has returned home from vacation. STG Duration 4 weeks not met for one mile without pain Associate Curator Goal (LTG) Pt will be able to amb >1 mile on uneven surface without pain 10/17/2024 Patient reports increased L knee pain ambulating form parking lot into session, 2/10 pain. LTG Duration 10 weeks Assessment Summary Assessment Pt responded well to manual, emphasis on hip IR/ER co- contraction and VMO during SLR after manual, less pain in lateral L knee. Physical Therapy Plan Frequency and Duration Frequency of 3x/Week Treatment Duration of 10 treatment (weeks) Plan of Care Start 09/04/24 Date Plan of Care End 11/13/24 Date Therapeutic Interventions Therapeutic Balance Training,Coordination Training,Gait Training, Interventions Home Exercise Program,Joint Mobilizations,Lymphedema Management,Manual Therapy,Neuromuscular Re-education, Soft Tissue Mobilization,Taping,Therapeutic Activities, Therapeutic Exercises Modalities Cold Pack/Ice Massage,Electric Stimulation,Hot Packs, Infrared Therapy,Ultrasound Next Visit Focus/Plan Next Note Type Treatment Note Next Visit Plan POC: shuttle recovery, standing balance, calf stretches , prone SLRs for glute strengthening, standing glute med exercise. Working towards walking a mile on level surface without pain-endurance
--- NOTE | 2024-10-29 18:32 | PT.OTN ---
Current Diagnoses Other chronic pain (10/29/24) Pain in left knee (10/29/24) Physical Therapy Treatment Note PT-OP-A Visit Information Start: 09/04/24 14:16 Freq: Status: Active Protocol: Document 10/29/24 17:10 FIELD ACCOUNT MANAGER (Rec: 10/29/24 17:57 FIELD ACCOUNT MANAGER Laptop) Out-Patient Physical Therapy Visit Information Visit Information Visit Type Treatment Note Visit Start Time 17:07 Visit Stop Time 17:47 Visit Number 15 Number of END FINDER TWISTING DEPARTMENT Visits 0 PT-OP-B Current Condition Start: 09/04/24 14:16 Freq: Status: Active Protocol: Document 09/04/24 14:20 FIELD ACCOUNT MANAGER (Rec: 09/04/24 16:03 FIELD ACCOUNT MANAGER Desktop) Current Condition History of Current Condition Onset Date ~1 week ago Current Complaints L knee pain, lat/infer patella with tightness into lower leg History of Current H/o R knee pain from OA improved with OP PT. Pt was amb Condition on uneven ground/incline when L knee began feeling achy which progressed. Treatment Goals Patient/Caregiver To be pain free for graduation trip to [place] Goals on September 28 including 5 hr flight Personal Factors Other Personal Chronic A fib with chronic BLE edema Factors That May Effect Therapy/ Recovery PT-OP-C Subjective Start: 09/04/24 14:16 Freq: Status: Active Protocol: Document 10/29/24 17:10 FIELD ACCOUNT MANAGER (Rec: 10/29/24 17:57 FIELD ACCOUNT MANAGER Laptop) OP-PT Subjective Patient Comments Patient Comments Pt reports she feels she is making progress slowly but surely, with persistent 1/10 pain to L ant knee. Pt also reports she has a lot on her mind today and feels generally more sluggish. PT-OP-D Balance Start: 09/04/24 14:16 Freq: Status: Active Protocol: Document 10/08/24 07:53 AB (Rec: 10/08/24 15:05 AB Laptop) Balance Tests Single Limb Standing Single Limb- Right 2,3,2 Single Limb- Left 1,1,1 PT-OP-F Manual Assessment Start: 09/04/24 14:16 Freq: Status: Active Protocol: Document 09/04/24 14:20 FIELD ACCOUNT MANAGER (Rec: 09/04/24 16:03 FIELD ACCOUNT MANAGER Desktop) Manual Assessments Soft Tissue Assessment Soft Tissue Mobility TTP and decreased soft tissue mobility to L ant tib, L Assessment lateral quad, and L glute med Joint Mobility Assessment Joint Mobility AROM and PROM normal without pain or crepitus Assessment PT-OP-G Mobility & Gait Start: 09/04/24 14:16 Freq: Status: Active Protocol: Document 09/04/24 14:20 FIELD ACCOUNT MANAGER (Rec: 09/04/24 16:03 FIELD ACCOUNT MANAGER Desktop) OP Gait Assessment Comments Gait Comments without AD, slight less stance time on LLE, increased lateral trunk lean to R, small LOB while turning PT-OP-K Range of Motion Start: 09/04/24 14:16 Freq: Status: Active Protocol: Document 09/04/24 14:20 FIELD ACCOUNT MANAGER (Rec: 09/04/24 16:03 FIELD ACCOUNT MANAGER Desktop) Knee Goniometric Range of Motion Knee R Patient Position Supine Flexion Active ( 125 degrees) Extension Active ( 4 degrees) L Knee ROM WFL Yes Patient Position Supine Flexion Active ( 125 degrees) Extension Active ( 0 degrees) Ankle and Foot Goniometric Range of Motion Ankle and Foot ROM Limitations Comments DF limited on L d/t h/o foot ORIF in 2003 PT-OP-M Strength Start: 09/04/24 14:16 Freq: Status: Active Protocol: Document 10/17/24 09:13 AB (Rec: 10/17/24 12:26 AB [id number]) Hip Strength Hip Manual Muscle Testing L Flexion (L2) 4- Good- Extension (S1) 3- Fair- Abduction 4- Good- Adduction 4- Good- External Rotation 4- Good- Internal Rotation 4+ Good+ R Flexion (L2) 4- Good- Extension (S1) 3- Fair- Abduction 3 Fair Adduction 4- Good- External Rotation 4 Good Internal Rotation 5 Normal PT-OP-Q Treatments Start: 09/04/24 14:16 Freq: Status: Active Protocol: Document 10/29/24 17:10 FIELD ACCOUNT MANAGER (Rec: 10/29/24 17:57 FIELD ACCOUNT MANAGER Laptop) Cardio Equipment Recumbent Elliptical (iCrederity) Resistance L6 Seat Position 8 Other NuStep LEs only Therapeutic Exercises Sidelying Exercises ITB stretch Sidelying Exercise hanging off side of bed Name Side left Reps/Minutes 90s Comments support at post hip for safety Standing Exercises 3-way hip Standing Exercise marching, hip abd, hip ext Name Side bilateral Equipment Used // bars for safety, hovering hands Reps/Minutes x10 each side each exercise Comments SBA without LOB, noted B trendelenburg L>R Manual Therapy Treatment Consent Patient gave verbal Yes consent for manual treatment Soft Tissue Mobilization L LE Body Location L VL, distal ITB, lateral gastroc, ant tib/peroneals Mobilization Type Cross-Friction,Myofascial Release,Rolling Intensity/Depth Moderate Body Position Hooklying Comments distal to proximal direction away from knee, myofascial release to ant tib/peroneals Joint Mobilizations L knee Joint tibfib, tib femoral, patella glides Direction PA Comments hooklying Taping L Knee Body Location trial of a few days without tape, will tape at next session PT-OP-T Assessment and Plan Start: 09/04/24 14:16 Freq: Status: Active Protocol: Document 10/29/24 17:10 FIELD ACCOUNT MANAGER (Rec: 10/29/24 17:57 FIELD ACCOUNT MANAGER Laptop) Physical Therapy Assessment Goals 3 Short Term Goal (STG Pt will improve LEFS score at least 5 points from 49/80 ) to improve functional mobility STG Duration 4 weeks [employer] Worker Goal (LTG) Pt will improve LEFS score at least 10 points from 49/ 80 to improve functional mobility LEFS score 54/80 (67.5%) 10/17/2024 LEFS 51/80 LEFS 63.7 % LTG Duration 10 weeks MET 2 Short Term Goal (STG Pt will improve B hip strength by 1 MMT to improve ) functional mobility STG Duration 4 weeks [employer] Worker Goal (LTG) Pt will ascend/descend 4 stairs with reciprocal pattern without impairment 10/08/2024 Patient ascends/descends 4 six inc stairs with a reciprocal pattern using 2 rails, reports having no pain, noted R LE ER at hip (of note also while supine on mat R LE ER at hip) LTG Duration 10 weeks met 1 Short Term Goal (STG Pt will be able to amb 1 mile on even surface without ) pain 10/08/2024 Patient report she hasn't tried uneven surfaces in a while due to hills when on trip. Patient estimates 10 min lauren ( no pain ) to walking on level surface since she has returned home from vacation. STG Duration 4 weeks not met for one mile without pain [employer] Worker Goal (LTG) Pt will be able to amb >1 mile on uneven surface without pain 10/17/2024 Patient reports increased L knee pain ambulating form parking lot into session, 2/ pain. LTG Duration 10 weeks Assessment Summary Assessment Pt tolerated mobs and STM well, introduced off bed L ITB stretch with good response and no increased pain. Noted B trendelenburg during standing 3-way hip demonstrating continued B glute med weakness but improved pain at end of session from 04/26 to 0/10. Physical Therapy Plan Frequency and Duration Frequency of 3x/Week Treatment Duration of 10 treatment (weeks) Plan of Care Start 09/04/24 Date Plan of Care End 11/13/24 Date Therapeutic Interventions Therapeutic Balance Training,Coordination Training,Gait Training, Interventions Home Exercise Program,Joint Mobilizations,Lymphedema Management,Manual Therapy,Neuromuscular Re-education, Soft Tissue Mobilization,Taping,Therapeutic Activities, Therapeutic Exercises Modalities Cold Pack/Ice Massage,Electric Stimulation,Hot Packs, Infrared Therapy,Ultrasound Next Visit Focus/Plan Next Note Type Treatment Note Next Visit Plan B glute med strengthening in functional positions, treadmill training on low grade incline, taping at next session
--- NOTE | 2024-10-31 16:59 | PT.OTN ---
Current Diagnoses Other chronic pain (10/31/24) Pain in left knee (10/31/24) Physical Therapy Treatment Note PT-OP-A Visit Information Start: 09/04/24 14:16 Freq: Status: Active Protocol: Document 10/31/24 09:05 CALENDER TENDER (Rec: 10/31/24 09:49 CALENDER TENDER Laptop) Out-Patient Physical Therapy Visit Information Visit Information Visit Type Progress Note Visit Start Time 09:05 Visit Stop Time 09:48 Visit Number 16 Number of WALL INSULATION SPRAYER Visits 0 PT-OP-B Current Condition Start: 09/04/24 14:16 Freq: Status: Active Protocol: Document 09/04/24 14:20 CALENDER TENDER (Rec: 09/04/24 16:03 CALENDER TENDER Desktop) Current Condition History of Current Condition Onset Date ~1 week ago Current Complaints L knee pain, lat/infer patella with tightness into lower leg History of Current H/o R knee pain from OA improved with OP PT. Pt was amb Condition on uneven ground/incline when L knee began feeling achy which progressed. Treatment Goals Patient/Caregiver To be pain free for graduation trip to [place] Goals on September 28 including 5 hr flight Personal Factors Other Personal Chronic A fib with chronic BLE edema Factors That May Effect Therapy/ Recovery PT-OP-C Subjective Start: 09/04/24 14:16 Freq: Status: Active Protocol: Document 10/31/24 09:05 CALENDER TENDER (Rec: 10/31/24 09:49 CALENDER TENDER Laptop) OP-PT Subjective Patient Comments Patient Comments Pt reports a little bit sore in LLE this morning 2/10 to L knee, she thinks it's from the STM done at last session and not from the trial without tape. Pt also reports decreased activity yesterday d/t hot weather outside. PT-OP-D Balance Start: 09/04/24 14:16 Freq: Status: Active Protocol: Document 10/08/24 07:53 AB (Rec: 10/08/24 15:05 AB Laptop) Balance Tests Single Limb Standing Single Limb- Right 2,3,2 Single Limb- Left 1,1,1 PT-OP-F Manual Assessment Start: 09/04/24 14:16 Freq: Status: Active Protocol: Document 09/04/24 14:20 CALENDER TENDER (Rec: 09/04/24 16:03 CALENDER TENDER Desktop) Manual Assessments Soft Tissue Assessment Soft Tissue Mobility TTP and decreased soft tissue mobility to L ant tib, L Assessment lateral quad, and L glute med Joint Mobility Assessment Joint Mobility AROM and PROM normal without pain or crepitus Assessment PT-OP-G Mobility & Gait Start: 09/04/24 14:16 Freq: Status: Active Protocol: Document 09/04/24 14:20 CALENDER TENDER (Rec: 09/04/24 16:03 CALENDER TENDER Desktop) OP Gait Assessment Comments Gait Comments without AD, slight less stance time on LLE, increased lateral trunk lean to R, small LOB while turning PT-OP-K Range of Motion Start: 09/04/24 14:16 Freq: Status: Active Protocol: Document 09/04/24 14:20 CALENDER TENDER (Rec: 09/04/24 16:03 CALENDER TENDER Desktop) Knee Goniometric Range of Motion Knee R Patient Position Supine Flexion Active ( 125 degrees) Extension Active ( 4 degrees) L Knee ROM WFL Yes Patient Position Supine Flexion Active ( 125 degrees) Extension Active ( 0 degrees) Ankle and Foot Goniometric Range of Motion Ankle and Foot ROM Limitations Comments DF limited on L d/t h/o foot ORIF in 2003 PT-OP-M Strength Start: 09/04/24 14:16 Freq: Status: Active Protocol: Document 10/31/24 09:05 CALENDER TENDER (Rec: 10/31/24 09:49 CALENDER TENDER Laptop) Hip Strength Hip Manual Muscle Testing L Flexion (L2) 4+ Good+ Extension (S1) 4 Good Abduction 4+ Good+ Adduction 4 Good External Rotation 4+ Good+ Internal Rotation 5 Normal R Flexion (L2) 4+ Good+ Extension (S1) 4 Good Abduction 4 Good Adduction 4 Good External Rotation 4+ Good+ Internal Rotation 5 Normal Knee Strength Knee Manual Muscle Testing L Flexion (S2) 4+ Good+ Extension (L3) 5 Normal R Flexion (S2) 5 Normal Extension (L3) 4+ Good+ Ankle/Foot Strength Ankle and Foot Manual Muscle Testing B Dorsiflexion (L4) 5 Normal Comments PF function test: standing heel raises x10 WNL PT-OP-Q Treatments Start: 09/04/24 14:16 Freq: Status: Active Protocol: Document 10/31/24 09:05 CALENDER TENDER (Rec: 10/31/24 09:49 CALENDER TENDER Laptop) Cardio Equipment Recumbent Elliptical (Biodex) Duration (Minutes) 4 Resistance L4 Seat Position 8 Other NuStep LEs only for warm up PT-OP-T Assessment and Plan Start: 09/04/24 14:16 Freq: Status: Active Protocol: Document 10/31/24 09:05 CALENDER TENDER (Rec: 10/31/24 09:49 CALENDER TENDER Laptop) Physical Therapy Assessment Goals 3 Short Term Goal (STG Pt will improve LEFS score at least 5 points from 49/80 ) to improve functional mobility STG Duration 4 weeks MET Account Contact Associate Goal (LTG) Pt will improve LEFS score at least 10 points from 49/ 80 to improve functional mobility LEFS score 54/80 (67.5%) 10/17/2024 LEFS 51/80 LEFS 63.7 %- not met 10/30: MET-LEFS 60/80 25% LTG Duration 10 weeks MET 2 Short Term Goal (STG Pt will improve B hip strength by 1 MMT to improve ) functional mobility 10/31: MET STG Duration 4 weeks MET Account Contact Associate Goal (LTG) Pt will ascend/descend 4 stairs with reciprocal pattern without impairment 10/08/2024 Patient ascends/descends 4 six inc stairs with a reciprocal pattern using 2 rails, reports having no pain, noted R LE ER at hip (of note also while supine on mat R LE ER at hip) LTG Duration 10 weeks MET 1 Short Term Goal (STG Pt will be able to amb 1 mile on even surface without ) pain 10/08/2024 Patient report she hasn't tried uneven surfaces in a while due to hills when on trip. Patient estimates 10 min lauren ( no pain ) to walking on level surface since she has returned home from vacation. 10/31: Progressing-Pt reports she has walked 2 blocks short of 1 mile (has not attempted full mile loop d/t having a lot going on in life) without pain, limited more by Afib/fatigue. STG Duration 4 weeks not met for one mile without pain Snf Goal (LTG) Pt will be able to amb >1 mile on uneven surface without pain 10/17/2024 Patient reports increased L knee pain ambulating form parking lot into session, 2/10 pain. 10/30: Progressing: Walking in and out from parking lot has improved where most times she has no pain. LTG Duration 10 weeks Assessment Summary Assessment Pt demonstrates progress towards all goals, meeting LEFS impairment improvement goal this session, meeting goal for improved B hip strength this session, and is continuing to progress towards meeting goal of amb without pain. Pt will be ready to D/C at end of POC on 11/13 to take a break from PT d/t sustained but plateaued pain in L knee, has requested x-ray from doctor and informed that she can always take a break from PT and return in a few months if pain increases. Plan to work on creating HEP for BLE strengthening and stretching/condensing current HEP for after D/C. Physical Therapy Plan Frequency and Duration Frequency of 3x/Week Treatment Duration of 10 treatment (weeks) Plan of Care Start 09/04/24 Date Plan of Care End 11/13/24 Date Therapeutic Interventions Therapeutic Balance Training,Coordination Training,Gait Training, Interventions Home Exercise Program,Joint Mobilizations,Lymphedema Management,Manual Therapy,Neuromuscular Re-education, Soft Tissue Mobilization,Taping,Therapeutic Activities, Therapeutic Exercises Modalities Cold Pack/Ice Massage,Electric Stimulation,Hot Packs, Infrared Therapy,Ultrasound Next Visit Focus/Plan Next Visit Plan Condense HEP preparing for D/C
--- NOTE | 2024-11-05 09:36 | PT.OTN ---
Current Diagnoses Other chronic pain (11/05/24) Pain in left knee (11/05/24) Physical Therapy Treatment Note PT-OP-A Visit Information Start: 09/04/24 14:16 Freq: Status: Active Protocol: Document 11/05/24 08:56 MB (Rec: 11/05/24 09:33 MB Desktop) Out-Patient Physical Therapy Visit Information Visit Information Visit Type Treatment Note Visit Start Time 08:56 Visit Stop Time 09:36 Visit Number 17 Number of WAREHOUSE PICKER Visits 0 PT-OP-B Current Condition Start: 09/04/24 14:16 Freq: Status: Active Protocol: Document 09/04/24 14:20 REVIT DRAFTER (Rec: 09/04/24 16:03 REVIT DRAFTER Desktop) Current Condition History of Current Condition Onset Date ~1 week ago Current Complaints L knee pain, lat/infer patella with tightness into lower leg History of Current H/o R knee pain from OA improved with OP PT. Pt was amb Condition on uneven ground/incline when L knee began feeling achy which progressed. Treatment Goals Patient/Caregiver To be pain free for graduation trip to [place] Goals on September 28 including 5 hr flight Personal Factors Other Personal Chronic A fib with chronic BLE edema Factors That May Effect Therapy/ Recovery PT-OP-C Subjective Start: 09/04/24 14:16 Freq: Status: Active Protocol: Document 11/05/24 08:56 MB (Rec: 11/05/24 09:33 MB Desktop) OP-PT Subjective Patient Comments Patient Comments Pt brings in HEP handouts to review. PT-OP-D Balance Start: 09/04/24 14:16 Freq: Status: Active Protocol: Document 10/08/24 07:53 AB (Rec: 10/08/24 15:05 AB Laptop) Balance Tests Single Limb Standing Single Limb- Right 2,3,2 Single Limb- Left 1,1,1 PT-OP-F Manual Assessment Start: 09/04/24 14:16 Freq: Status: Active Protocol: Document 09/04/24 14:20 REVIT DRAFTER (Rec: 09/04/24 16:03 REVIT DRAFTER Desktop) Manual Assessments Soft Tissue Assessment Soft Tissue Mobility TTP and decreased soft tissue mobility to L ant tib, L Assessment lateral quad, and L glute med Joint Mobility Assessment Joint Mobility AROM and PROM normal without pain or crepitus Assessment PT-OP-G Mobility & Gait Start: 09/04/24 14:16 Freq: Status: Active Protocol: Document 09/04/24 14:20 REVIT DRAFTER (Rec: 09/04/24 16:03 REVIT DRAFTER Desktop) OP Gait Assessment Comments Gait Comments without AD, slight less stance time on LLE, increased lateral trunk lean to R, small LOB while turning PT-OP-K Range of Motion Start: 09/04/24 14:16 Freq: Status: Active Protocol: Document 09/04/24 14:20 REVIT DRAFTER (Rec: 09/04/24 16:03 REVIT DRAFTER Desktop) Knee Goniometric Range of Motion Knee R Patient Position Supine Flexion Active ( 125 degrees) Extension Active ( 4 degrees) L Knee ROM WFL Yes Patient Position Supine Flexion Active ( 125 degrees) Extension Active ( 0 degrees) Ankle and Foot Goniometric Range of Motion Ankle and Foot ROM Limitations Comments DF limited on L d/t h/o foot ORIF in 2003 PT-OP-M Strength Start: 09/04/24 14:16 Freq: Status: Active Protocol: Document 10/31/24 09:05 REVIT DRAFTER (Rec: 10/31/24 09:49 REVIT DRAFTER Laptop) Hip Strength Hip Manual Muscle Testing L Flexion (L2) 4+ Good+ Extension (S1) 4 Good Abduction 4+ Good+ Adduction 4 Good External Rotation 4+ Good+ Internal Rotation 5 Normal R Flexion (L2) 4+ Good+ Extension (S1) 4 Good Abduction 4 Good Adduction 4 Good External Rotation 4+ Good+ Internal Rotation 5 Normal Knee Strength Knee Manual Muscle Testing L Flexion (S2) 4+ Good+ Extension (L3) 5 Normal R Flexion (S2) 5 Normal Extension (L3) 4+ Good+ Ankle/Foot Strength Ankle and Foot Manual Muscle Testing B Dorsiflexion (L4) 5 Normal Comments PF function test: standing heel raises x10 WNL PT-OP-Q Treatments Start: 09/04/24 14:16 Freq: Status: Active Protocol: Document 11/05/24 08:56 MB (Rec: 11/05/24 09:33 MB Desktop) Cardio Equipment Recumbent Elliptical (Biodex) Duration (Minutes) 8 Resistance 5 Other LEs only Therapeutic Exercises Supine Exercises Mod Taiwo stretch Side bilateral Reps/Minutes 1' each leg Comments 6x/wk to everyday at home SLR Supine Exercise Name Cues to breathe Side bilateral Reps/Minutes 10 reps straight lift and 10 reps ER lift Comments 3-4x/wk at home and cues to move slowly, especially descend Clamshells Supine Exercise Name Feet together Side bilateral Resistance Green band Reps/Minutes 10 slow reps Comments Pelvic tilt and core engaged, 3-4x/wk to fatigue at home Bridge Supine Exercise Name Cues to breathe Side bilateral Reps/Minutes 10 easy reps with cues to hold as long as she can Comments 3-4x/wk at home Standing Exercises Heel Raises Standing Exercise Heel raises and toe raises Name Side bilateral Reps/Minutes 10 reps each Comments 6x/wk at home Doorway hip flex stretch Side bilateral Reps/Minutes 1' rep each leg Comments 6x/wk at home PT-OP-T Assessment and Plan Start: 09/04/24 14:16 Freq: Status: Active Protocol: Document 11/05/24 08:56 MB (Rec: 11/05/24 09:33 MB Desktop) Physical Therapy Assessment Goals 3 Short Term Goal (STG Pt will improve LEFS score at least 5 points from 49/80 ) to improve functional mobility STG Duration 4 weeks MET Relief Cook Goal (LTG) Pt will improve LEFS score at least 10 points from 49/ 80 to improve functional mobility LEFS score 54/80 (67.5%) 10/17/2024 LEFS 51/80 LEFS 63.7 %- not met 10/30: MET-LEFS 60/80 25% LTG Duration 10 weeks MET 2 Short Term Goal (STG Pt will improve B hip strength by 1 MMT to improve ) functional mobility 10/31: MET STG Duration 4 weeks MET Group Home Goal (LTG) Pt will ascend/descend 4 stairs with reciprocal pattern without impairment 10/08/2024 Patient ascends/descends 4 six inc stairs with a reciprocal pattern using 2 rails, reports having no pain, noted R LE ER at hip (of note also while supine on mat R LE ER at hip) LTG Duration 10 weeks MET 1 Short Term Goal (STG Pt will be able to amb 1 mile on even surface without ) pain 10/08/2024 Patient report she hasn't tried uneven surfaces in a while due to hills when on trip. Patient estimates 10 min lauren ( no pain ) to walking on level surface since she has returned home from vacation. 7/17: Progressing-Pt reports she has walked 2 blocks short of 1 mile (has not attempted full mile loop d/t having a lot going on in life) without pain, limited more by Afib/fatigue. STG Duration 4 weeks not met for one mile without pain Group Home Goal (LTG) Pt will be able to amb >1 mile on uneven surface without pain 10/17/2024 Patient reports increased L knee pain ambulating form parking lot into session, 05/27 pain. 10/30: Progressing: Walking in and out from parking lot has improved where most times she has no pain. LTG Duration 10 weeks Assessment Summary Assessment Reviewed and condensed HEP today. Discussed possible benefits of aquatic exercise today and pt is not currently interested in this. Pt tends to hold breath and get out of breath with exercises, cues for breathing and slowing form. Physical Therapy Plan Frequency and Duration Frequency of 3x/Week Treatment Duration of 10 treatment (weeks) Plan of Care Start 09/04/24 Date Plan of Care End 11/13/24 Date Therapeutic Interventions Therapeutic Balance Training,Coordination Training,Gait Training, Interventions Home Exercise Program,Joint Mobilizations,Lymphedema Management,Manual Therapy,Neuromuscular Re-education, Soft Tissue Mobilization,Taping,Therapeutic Activities, Therapeutic Exercises Modalities Cold Pack/Ice Massage,Electric Stimulation,Hot Packs, Infrared Therapy,Ultrasound Next Visit Focus/Plan Next Visit Plan D/c 11/13/24, could add a balance exercise like SLS and hip extension and hamstring strengthening in standing or quad strengthening in sitting
--- NOTE | 2024-11-07 10:41 | PT.OTN ---
Current Diagnoses Other chronic pain (11/07/24) Pain in left knee (11/07/24) Physical Therapy Treatment Note PT-OP-A Visit Information Start: 09/04/24 14:16 Freq: Status: Active Protocol: Document 11/07/24 08:44 AB (Rec: 11/07/24 10:40 AB [id number]) Out-Patient Physical Therapy Visit Information Visit Information Visit Type Treatment Note Visit Note Visit [email or web address] Code: [email or web address] Visit Start Time 09:03 Visit Stop Time 09:57 Visit Number 18 Number of GARAGE ATTENDANT Visits 1 PT-OP-B Current Condition Start: 09/04/24 14:16 Freq: Status: Active Protocol: Document 09/04/24 14:20 MACHINE BRUSH MAKER (Rec: 09/04/24 16:03 MACHINE BRUSH MAKER Desktop) Current Condition History of Current Condition Onset Date ~1 week ago Current Complaints L knee pain, lat/infer patella with tightness into lower leg History of Current H/o R knee pain from OA improved with OP PT. Pt was amb Condition on uneven ground/incline when L knee began feeling achy which progressed. Treatment Goals Patient/Caregiver To be pain free for graduation trip to [place] Goals on September 28 including 5 hr flight Personal Factors Other Personal Chronic A fib with chronic BLE edema Factors That May Effect Therapy/ Recovery PT-OP-C Subjective Start: 09/04/24 14:16 Freq: Status: Active Protocol: Document 11/07/24 08:44 AB (Rec: 11/07/24 10:40 AB [id number]) OP-PT Subjective Patient Comments Patient Comments Patient reports she has a lot going on. Sit to stand with R LE in ER > L, hands on knees inc hip add with stand to sit. Patient reports the knees are getting better, but not as quickly as she would like, reports she hasn't used tape in week. PT-OP-D Balance Start: 09/04/24 14:16 Freq: Status: Active Protocol: Document 10/08/24 07:53 AB (Rec: 10/08/24 15:05 AB Laptop) Balance Tests Single Limb Standing Single Limb- Right 2,3,2 Single Limb- Left 1,1,1 PT-OP-F Manual Assessment Start: 09/04/24 14:16 Freq: Status: Active Protocol: Document 09/04/24 14:20 MACHINE BRUSH MAKER (Rec: 09/04/24 16:03 MACHINE BRUSH MAKER Desktop) Manual Assessments Soft Tissue Assessment Soft Tissue Mobility TTP and decreased soft tissue mobility to L ant tib, L Assessment lateral quad, and L glute med Joint Mobility Assessment Joint Mobility AROM and PROM normal without pain or crepitus Assessment PT-OP-G Mobility & Gait Start: 09/04/24 14:16 Freq: Status: Active Protocol: Document 09/04/24 14:20 MACHINE BRUSH MAKER (Rec: 09/04/24 16:03 MACHINE BRUSH MAKER Desktop) OP Gait Assessment Comments Gait Comments without AD, slight less stance time on LLE, increased lateral trunk lean to R, small LOB while turning PT-OP-K Range of Motion Start: 09/04/24 14:16 Freq: Status: Active Protocol: Document 09/04/24 14:20 MACHINE BRUSH MAKER (Rec: 09/04/24 16:03 MACHINE BRUSH MAKER Desktop) Knee Goniometric Range of Motion Knee R Patient Position Supine Flexion Active ( 125 degrees) Extension Active ( 4 degrees) L Knee ROM WFL Yes Patient Position Supine Flexion Active ( 125 degrees) Extension Active ( 0 degrees) Ankle and Foot Goniometric Range of Motion Ankle and Foot ROM Limitations Comments DF limited on L d/t h/o foot ORIF in 2003 PT-OP-M Strength Start: 09/04/24 14:16 Freq: Status: Active Protocol: Document 10/31/24 09:05 MACHINE BRUSH MAKER (Rec: 10/31/24 09:49 MACHINE BRUSH MAKER Laptop) Hip Strength Hip Manual Muscle Testing L Flexion (L2) 4+ Good+ Extension (S1) 4 Good Abduction 4+ Good+ Adduction 4 Good External Rotation 4+ Good+ Internal Rotation 5 Normal R Flexion (L2) 4+ Good+ Extension (S1) 4 Good Abduction 4 Good Adduction 4 Good External Rotation 4+ Good+ Internal Rotation 5 Normal Knee Strength Knee Manual Muscle Testing L Flexion (S2) 4+ Good+ Extension (L3) 5 Normal R Flexion (S2) 5 Normal Extension (L3) 4+ Good+ Ankle/Foot Strength Ankle and Foot Manual Muscle Testing B Dorsiflexion (L4) 5 Normal Comments PF function test: standing heel raises x10 WNL PT-OP-Q Treatments Start: 09/04/24 14:16 Freq: Status: Active Protocol: Document 11/07/24 08:44 AB (Rec: 11/07/24 10:40 AB [id number]) Therapeutic Exercises Supine Exercises Clamshells Supine Exercise Name Feet together Side bilateral Resistance level 5 band Reps/Minutes one min X 1 Bridge Side bilateral Reps/Minutes 10 Comments reminder for breathing Standing Exercises Fwd T Standing Exercise 1. to mat at seat height 2. to bar counter height Name Side bilateral Reps/Minutes 1. X 2 R. 2 X 10 -12each LE Comments Verbal and visual cues sit to stand with band Resistance level 3 then level one band Reps/Minutes 2X 8 Comments final X 6 1/2 to chair, VC for alignment, hip hinge, review pain rules Doorway hip flex stretch Side bilateral Reps/Minutes one min each LE X 2 Comments VC to avoid toeing out PT-OP-R Modalities Start: 09/04/24 14:16 Freq: Status: Active Protocol: Document 11/07/24 08:44 AB (Rec: 11/07/24 10:40 AB [id number]) Hot Pack/Cold Pack Treatment Cold Pack Location L knee Patient Position Hooklying Patient Tolerance Good Comments 10 min PT-OP-T Assessment and Plan Start: 09/04/24 14:16 Freq: Status: Active Protocol: Document 11/07/24 08:44 AB (Rec: 11/07/24 10:40 AB [id number]) Physical Therapy Assessment Goals 3 Short Term Goal (STG Pt will improve LEFS score at least 5 points from 49/80 ) to improve functional mobility STG Duration 4 weeks MET Industrial Engineer Goal (LTG) Pt will improve LEFS score at least 10 points from 49/ 80 to improve functional mobility LEFS score 54/80 (67.5%) 10/17/2024 LEFS 51/80 LEFS 63.7 %- not met 10/30: MET-LEFS 60/80 25% LTG Duration 10 weeks MET 2 Short Term Goal (STG Pt will improve B hip strength by 1 MMT to improve ) functional mobility 10/31: MET STG Duration 4 weeks MET [facility] Goal (LTG) Pt will ascend/descend 4 stairs with reciprocal pattern without impairment 10/08/2024 Patient ascends/descends 4 six inc stairs with a reciprocal pattern using 2 rails, reports having no pain, noted R LE ER at hip (of note also while supine on mat R LE ER at hip) LTG Duration 10 weeks MET 1 Short Term Goal (STG Pt will be able to amb 1 mile on even surface without ) pain 10/08/2024 Patient report she hasn't tried uneven surfaces in a while due to hills when on trip. Patient estimates 10 min lauren ( no pain ) to walking on level surface since she has returned home from vacation. 10/31: Progressing-Pt reports she has walked 2 blocks short of 1 mile (has not attempted full mile loop d/t having a lot going on in life) without pain, limited more by Afib/fatigue. STG Duration 4 weeks not met for one mile without pain Fci Goal (LTG) Pt will be able to amb >1 mile on uneven surface without pain 10/17/2024 Patient reports increased L knee pain ambulating form parking lot into session, 2/10 pain. 10/30: Progressing: Walking in and out from parking lot has improved where most times she has no pain. LTG Duration 10 weeks Assessment Summary Assessment Patient with increased difficulty sit to stand, fatigues rapidly and reports increased pain L knee end of session. Improved lauren to squat 1/2 to chair seat. Physical Therapy Plan Frequency and Duration Frequency of 3x/Week Treatment Duration of 10 treatment (weeks) Plan of Care Start 09/04/24 Date Plan of Care End 11/13/24 Date Next Visit Focus/Plan Next Note Type Discharge Summary Next Visit Plan As per PT recommendation last session. possibly fwd to to bar/counter height if steady next session, handout in HEP file if needed.
--- NOTE | 2024-11-12 13:04 | PT.OTN ---
Current Diagnoses Other chronic pain (11/12/24) Pain in left knee (11/12/24) Physical Therapy Treatment Note PT-OP-A Visit Information Start: 09/04/24 14:16 Freq: Status: Active Protocol: Document 11/12/24 09:11 ASSOCIATION EXECUTIVE (Rec: 11/12/24 10:05 ASSOCIATION EXECUTIVE Laptop) Out-Patient Physical Therapy Visit Information Visit Information Visit Type Discharge Summary Visit Start Time 09:06 Visit Stop Time 08:55 Visit Number 19 Number of PLAYGROUND MONITOR Visits 0 PT-OP-B Current Condition Start: 09/04/24 14:16 Freq: Status: Active Protocol: Document 09/04/24 14:20 ASSOCIATION EXECUTIVE (Rec: 09/04/24 16:03 ASSOCIATION EXECUTIVE Desktop) Current Condition History of Current Condition Onset Date ~1 week ago Current Complaints L knee pain, lat/infer patella with tightness into lower leg History of Current H/o R knee pain from OA improved with OP PT. Pt was amb Condition on uneven ground/incline when L knee began feeling achy which progressed. Treatment Goals Patient/Caregiver To be pain free for graduation trip to [place] Goals on September 28 including 5 hr flight Personal Factors Other Personal Chronic A fib with chronic BLE edema Factors That May Effect Therapy/ Recovery PT-OP-C Subjective Start: 09/04/24 14:16 Freq: Status: Active Protocol: Document 11/12/24 09:11 ASSOCIATION EXECUTIVE (Rec: 11/12/24 10:05 ASSOCIATION EXECUTIVE Laptop) OP-PT Subjective Patient Comments Patient Comments Pt reports current pain 04/26. Feels extra tired d/t having company and being extra active, but L knee pain remains no greater than low ache. Still feels ready for D/C today. PT-OP-D Balance Start: 09/04/24 14:16 Freq: Status: Active Protocol: Document 10/08/24 07:53 AB (Rec: 10/08/24 15:05 AB Laptop) Balance Tests Single Limb Standing Single Limb- Right 2,3,2 Single Limb- Left 1,1,1 PT-OP-F Manual Assessment Start: 09/04/24 14:16 Freq: Status: Active Protocol: Document 09/04/24 14:20 ASSOCIATION EXECUTIVE (Rec: 09/04/24 16:03 ASSOCIATION EXECUTIVE Desktop) Manual Assessments Soft Tissue Assessment Soft Tissue Mobility TTP and decreased soft tissue mobility to L ant tib, L Assessment lateral quad, and L glute med Joint Mobility Assessment Joint Mobility AROM and PROM normal without pain or crepitus Assessment PT-OP-G Mobility & Gait Start: 09/04/24 14:16 Freq: Status: Active Protocol: Document 09/04/24 14:20 ASSOCIATION EXECUTIVE (Rec: 09/04/24 16:03 ASSOCIATION EXECUTIVE Desktop) OP Gait Assessment Comments Gait Comments without AD, slight less stance time on LLE, increased lateral trunk lean to R, small LOB while turning PT-OP-K Range of Motion Start: 09/04/24 14:16 Freq: Status: Active Protocol: Document 09/04/24 14:20 ASSOCIATION EXECUTIVE (Rec: 09/04/24 16:03 ASSOCIATION EXECUTIVE Desktop) Knee Goniometric Range of Motion Knee R Patient Position Supine Flexion Active ( 125 degrees) Extension Active ( 4 degrees) L Knee ROM WFL Yes Patient Position Supine Flexion Active ( 125 degrees) Extension Active ( 0 degrees) Ankle and Foot Goniometric Range of Motion Ankle and Foot ROM Limitations Comments DF limited on L d/t h/o foot ORIF in 2003 PT-OP-M Strength Start: 09/04/24 14:16 Freq: Status: Active Protocol: Document 10/31/24 09:05 ASSOCIATION EXECUTIVE (Rec: 10/31/24 09:49 ASSOCIATION EXECUTIVE Laptop) Hip Strength Hip Manual Muscle Testing L Flexion (L2) 4+ Good+ Extension (S1) 4 Good Abduction 4+ Good+ Adduction 4 Good External Rotation 4+ Good+ Internal Rotation 5 Normal R Flexion (L2) 4+ Good+ Extension (S1) 4 Good Abduction 4 Good Adduction 4 Good External Rotation 4+ Good+ Internal Rotation 5 Normal Knee Strength Knee Manual Muscle Testing L Flexion (S2) 4+ Good+ Extension (L3) 5 Normal R Flexion (S2) 5 Normal Extension (L3) 4+ Good+ Ankle/Foot Strength Ankle and Foot Manual Muscle Testing B Dorsiflexion (L4) 5 Normal Comments PF function test: standing heel raises x10 WNL PT-OP-Q Treatments Start: 09/04/24 14:16 Freq: Status: Active Protocol: Document 11/12/24 09:11 ASSOCIATION EXECUTIVE (Rec: 11/12/24 10:05 ASSOCIATION EXECUTIVE Laptop) Cardio Equipment Recumbent Elliptical (NuStep) Duration (Minutes) 5 Resistance 3 Other LEs only Therapeutic Exercises Other Exercises HEP Other Exercise Name review and condensing of papers, added SLS to HEP Neuro Re-Education Treatment Balance Activities SLS Details modified with toe stabilization Surface even Reps/Duration ~10s x3 each leg Comments without UE support, Added to HEP with handout and discussed how to progress PT-OP-R Modalities Start: 09/04/24 14:16 Freq: Status: Active Protocol: Document 11/07/24 08:44 AB (Rec: 11/07/24 10:40 AB [id number]) Hot Pack/Cold Pack Treatment Cold Pack Location L knee Patient Position Hooklying Patient Tolerance Good Comments 10 min PT-OP-T Assessment and Plan Start: 09/04/24 14:16 Freq: Status: Active Protocol: Document 11/12/24 09:11 ASSOCIATION EXECUTIVE (Rec: 11/12/24 10:05 ASSOCIATION EXECUTIVE Laptop) Physical Therapy Assessment Goals 3 Short Term Goal (STG Pt will improve LEFS score at least 5 points from 49/80 ) to improve functional mobility STG Duration 4 weeks MET Animal Ride Attendant Goal (LTG) Pt will improve LEFS score at least 10 points from 49/ 80 to improve functional mobility LEFS score 54/80 (67.5%) 10/17/2024 LEFS 51/80 LEFS 63.7 %- not met 10/30: MET-LEFS 60/80 25% 11/12: LEFS 64/80 LTG Duration 10 weeks MET 2 Short Term Goal (STG Pt will improve B hip strength by 1 MMT to improve ) functional mobility 10/31: MET STG Duration 4 weeks MET Animal Ride Attendant Goal (LTG) Pt will ascend/descend 4 stairs with reciprocal pattern without impairment 10/08/2024 Patient ascends/descends 4 six inc stairs with a reciprocal pattern using 2 rails, reports having no pain, noted R LE ER at hip (of note also while supine on mat R LE ER at hip) LTG Duration 10 weeks MET 1 Short Term Goal (STG Pt will be able to amb 1 mile on even surface without ) pain 10/08/2024 Patient report she hasn't tried uneven surfaces in a while due to hills when on trip. Patient estimates 10 min lauren ( no pain ) to walking on level surface since she has returned home from vacation. 10/31: Progressing-Pt reports she has walked 2 blocks short of 1 mile (has not attempted full mile loop d/t having a lot going on in life) without pain, limited more by Afib/fatigue. 11/12: MET, pt reports she has not attempted full 1 mile loop d/t time constraint but has walked equivalent of 1 mile while running errands without pain, feels more limited by Afib/fatigue. STG Duration 4 weeks MET Halfway Goal (LTG) Pt will be able to amb >1 mile on uneven surface without pain 10/17/2024 Patient reports increased L knee pain ambulating form parking lot into session, 05/27 pain. 10/30: Progressing: Walking in and out from parking lot has improved where most times she has no pain. 11/12: MET, pt reports all walking and running of errands is without pain. Feels more limited by Afib/ fatigue. LTG Duration 10 weeks MET Progress Towards Goals Progress Towards Goals Met Goals Assessment Summary Assessment Pt has progressed to meet all goals, HEP condensed and finalized, pt is ready for D/C today. Physical Therapy Plan Discharge Physical Therapy Discharge Reasons Goals Met Discharge Comments Pt progressed to meet all goals, ready for D/C today.
== END 2024-11-14 09:54 | disposition home or self-care (01) ==
LOC: PHYS 09:00
PROVIDERS: Family Provider Family Medicine; PCP Family Medicine; Referring Provider Family Medicine; Visit Provider Family Medicine
DX: G89.29 Other chronic pain (principal); M25.562 Pain in left knee
CPT/HCPCS: 97110; 97112; 97140; 97161

== ENCOUNTER → 2025-02-21 10:25 | Outpatient (CLI) | payer MEDICARE, OTHER, SELFPAY ==
--- NOTE | 2025-02-21 10:26 | DI.RAD.S_ITS ---
PROCEDURE: XR KNEE LT 1TO2V
== END ==
PROVIDERS: PCP Student in an Organized Health Care Education/Training Program; Referring Provider Student in an Organized Health Care Education/Training Program; Visit Provider Student in an Organized Health Care Education/Training Program
DX: M25.562 Pain in left knee (principal)
CPT/HCPCS: 73560

== ENCOUNTER → 2025-03-07 11:08 | Outpatient (CLI) | payer MEDICARE, OTHER, SELFPAY ==
--- NOTE | 2025-03-07 11:11 | DI.MRI.S_ITS ---
PROCEDURE: MR KNEE LT WO CON INDICATIONS: left knee pain that radiates down leg TECHNIQUE: Noncontrast sagittal PD fast spin echo and T2 fast spin echo with fat saturation, sagittal 3-D FLASH with fat saturation; coronal T1 spin echo and PD fast spin echo with fat saturation, and axial PD fast spin echo with fat saturation through the knee. COMPARISON: [facility], CR, XR KNEE LT 3V, 11/07/2023, 14:15. [facility], CR, XR KNEE RT 3V, 01/22/2024, 1:49. FINDINGS: Image quality: Diagnostic. Menisci: The medial meniscus is intact. Lateral meniscus anterior horn to posterior meniscal body horizontal cleavage tear with a multilobulated parameniscal cyst along the anterior lateral joint line which measures up to 12 by 30 by 10 mm(CC x AP x Trans) (coronal series 13, image 20; axial series 8, image 21). Surrounding synovitis along the anterior and lateral tibial femoral recess. Ligaments: The ACL is intact. The PCL is intact. The MCL is intact. The LCL is intact. Mild social tendinosis of popliteus. Mild chronic remodeling of the proximal fibular collateral ligament. Otherwise the posterolateral supporting structures are intact. Extensor Mechanism: Quadriceps tendon is intact. The patellar tendon is intact. The patellar retinacula are intact. Osseous Structures: There is no fracture or dislocation. No suspicious marrow replacing process. There is no joint effusion. Edema in the articular Hoffa's fat pad along the anterior lateral joint line adjacent to the parameniscal cyst is favored to be reactive. Articular Cartilage: Patellofemoral compartment: Intermediate articular cartilage thinning and fraying of the inferior median patellar ridge, grade 2 -3. Relatively preserved trochlear articular cartilage. Medial compartment: Superficial articular cartilage thinning and fraying without full-thickness, high-grade defect. Lateral compartment: Superficial articular cartilage thinning and fraying without full-thickness, high-grade defect. Other: The visualized muscles and tendons appear normal for age. No Freire's cyst. Normal neurovascular signal. Subcutaneous soft tissues appear normal. IMPRESSION: 1. Lateral meniscus anterior horn to posterior meniscal body horizontal cleavage tear with a large multilobulated parameniscal cyst extending along the anterior lateral joint line. 2. 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 Dictated by: Capo Dubois M.D. on 03/07/2025 at 15:21 Approved by: Capo Dubois M.D. on 03/07/2025 at 15:29
== END ==
LOC: MRI 11:09
PROVIDERS: PCP Student in an Organized Health Care Education/Training Program; Referring Provider Student in an Organized Health Care Education/Training Program; Visit Provider Student in an Organized Health Care Education/Training Program
DX: S83.282A Other tear of lateral meniscus, current injury, left knee, initial encounter (principal); M23.062 Cystic meniscus, other lateral meniscus, left knee; M22.42 Chondromalacia patellae, left knee; M65.862 Other synovitis and tenosynovitis, left lower leg; M25.562 Pain in left knee; G89.29 Other chronic pain
CPT/HCPCS: 73721

== ENCOUNTER 2025-04-03 15:34 | Emergency (ER) | payer MEDICARE, OTHER, SELFPAY ==
[2025-04-03 15:41] VITALS: BP 127/83; PULSE 76; RESP 18; TEMP 36.4; O2SAT 97; BMI 32.8
--- OUTSIDE RECORDS SUMMARY | 2025-04-03 16:24 | XMS_ITS | Encounter Summary ---
Author Organization [facility] Address [facility] [address] Care Team Providers Care Crusher And Binder Operator Name Role Phone Leo Keane MD Primary Care Provider Paul Willard MD Primary Care Provider Marisol Pena DO Primary Care Provider Ericka Kirkland MD Primary Care Provider Reason for Visit * Reason Comments Medication Refill Encounter Details Date Type Department Care Team (Late Contact Info) Description 09/28/2020 Refill ANTICOAGULATION - [place], [place] - [facility] [address] [place] [id number] Kobe Urbano MD [address] [address] Encounter for therapeutic drug monitoring Social History Tobacco Use Types Packs/Day Years Used Date Smoking Tobacco: Never Smokeless Tobacco: Never Alcohol Use Standard Drinks/Week Comments No 0 (1 standard drink = 0.6 oz pur e alcohol) Comments No Sex and Gender Information Value Date Recorded Sex Assigned at Not on file Legal Sex Female 11:35 PM PDT Gender Identity Not on file Sexual Orientation Not on file documented as of this encounter Plan of Treatment Upcoming Encounters Date Type Department Care Team (Late Contact Info) Description 04/30/2025 9:00 AM PST Anti-coag phone AMBULATORY PHARMACIST [facility]RON[facility] CONDITION MANAGEMENT - [place], [place] [address] [facility] [address] [place] [phone] 04/30/2025 9:50 AM PST Anti-coag visit [place] [address] [place] [address] 10/29/2025 9:15 AM PDT Follow-Up [place] [address] [place] [address] Galilea Bee, [employer] [address] [place] [phone] documented as of this encounter Visit Diagnoses Diagnosis Encounter for therapeutic drug monitoring documented in this encounter Care Teams Crusher And Binder Operator Relationship Specialty Start Date End Date Leo Keane MD [address] [address] PCP - General Internal Medicine 09/13/18 03/21/23 Paul Willard MD [address] [phone] PCP - General Internal Medicine 03/22/23 05/10/23 Marisol Pena DO [address] [place] [phone] PCP - General Family Medicine 05/11/23 01/28/25 Ericka Kirkland MD [address] [place], [place] [phone] PCP - General Family Medicine 01/29/25 documented as of this encounter
--- NOTE | 2025-04-03 18:21 | DI.CT.S_ITS ---
PROCEDURE: CT LUMBAR SPINE WO CON INDICATIONS: back pain hx of compression fracture TECHNIQUE: Noncontrast 3 mm thick sections acquired from the T12 level to the sacrum. Sagittal and coronal reformats were constructed. For radiation dose reduction, the following was used: automated exposure control. COMPARISON: [facility], CR, XR LUMBAR SPINE 2-3V, 11/20/2017, 12:35. FINDINGS: Image quality: Diagnostic Bones: Increased L1 height loss compared to prior, nonacute appearing. Moderate degenerative changes with disc space height loss worst at L4-L5. No traumatic subluxation. Disc herniations are suspected at L3-L4 and L4-L5 with thecal sac narrowing. Soft tissues: Aortic atherosclerotic calcifications. Suspected bilateral adnexal dermoid cysts partially seen. Increased colonic fecal loading IMPRESSION: Increased L1 height loss compared to 2018, though nonacute appearing on CT. Moderate background spondylosis. If there is high concern for further derangement, consider MRI evaluation. Partially seen bilateral adnexal dermoid cysts. Dictated by: Eric Mccullough M.D. on 04/03/2025 at 19:33 Approved by: Eric Mccullough M.D. on 04/03/2025 at 19:35
--- NOTE | 2025-04-03 18:21 | DI.RAD.S_ITS ---
PROCEDURE: XR CHEST 2V INDICATIONS: thoracic back pain TECHNIQUE: 2 views of the chest were acquired. COMPARISON: None. FINDINGS AND IMPRESSION: Focal mild opacity in left mid lung, which may represent scarring/atelectasis or airspace disease. Consider future imaging surveillance to assess for resolution. No pleural effusions. Cardiomegaly. Sternotomy wires. Degenerative osseous changes. Spine and mediastinal findings better assessed on CT, please see separate report. Dictated by: Eric Mccullough M.D. on 04/03/2025 at 19:51 Approved by: Eric Mccullough M.D. on 04/03/2025 at 19:53
--- NOTE | 2025-04-03 18:21 | DI.CT.S_ITS ---
PROCEDURE: CT THORACIC SPINE WO CON INDICATIONS: hx of compression fracture TECHNIQUE: Noncontrast 3 mm thick sections acquired through the region of interest in the thoracic spine. Sagittal and coronal reformats were then constructed. For radiation dose reduction, the following was used: automated exposure control. COMPARISON: [facility], CR, XR THORACIC SPINE 3V, 04/12/2018, 9:54. FINDINGS: Image quality: Diagnostic Bones: Height loss at T9 is similar to prior. There is increased height loss at T8 and T6, and T4. Sclerotic appearance is seen at T4. No traumatic subluxation. Mild diffuse background spondylosis. Partially seen sternotomy wires. Exaggerated thoracic kyphosis. Soft tissues: Partially visualized enlarged thoracic lymph nodes which appear partially calcified. Cardiomegaly. Cardiomegaly and coronary calcifications. Dilated ascending aorta at 4.3 cm. Lungs are not well assessed on this study, suspect atelectasis is present. IMPRESSION: Mild background thoracic degenerative changes. T4, 6 and 8 height loss is new from 2018, age-indeterminate. Sclerosis is seen at T4, which may be subacute. The others may be more chronic. If there is high concern for further derangement, consider MRI evaluation. Dilated ascending aorta of 4.3 cm. Cardiomegaly. Partially visualized enlarged mediastinal lymph nodes, possibly calcifications. These may be granulomatous. Consider dedicated chest CT follow-up with contrast. Other findings above. Dictated by: Eric Mccullough M.D. on 04/03/2025 at 19:29 Approved by: Eric Mccullough M.D. on 04/03/2025 at 19:33
--- NOTE | 2025-04-03 18:24 | ED.BACK ---
HPI - Back Pain/Injury General Chief Complaint: Back Pain/Injury Stated Complaint: Back Spasm Time Seen by Provider: 04/03/25 15:40 Source: patient History of Present Illness HPI Narrative: 79-year-old female history of atrial fibrillation, compression fracture, presents with thoracic back pain ongoing for the past few weeks unrelieved with Tylenol massage therapy and chiropractics. She is leaving for a trip to [place] and wanted to make sure she was safe to go. Patient denies any headache, dizziness, chest pain, shortness of breath, leg pain, leg swelling, cough, sore throat, fever, chills, body aches, nausea, vomiting, epigastric, or abdominal pain, numbness, tingling, down the legs. Other than what is stated 14 point review of system is negative. Related Data Home Medications ?Medication ?Instructions ?Recorded ?Confirmed warfarin 4 mg tablet (Coumadin) 4 mg PO DAILY ##0 01/07/13 02/20/25 aspirin 81 mg tablet,delayed 81 mg PO DAILY 10/02/18 02/20/25 release calcium 600 mg (as 1 cap PO BID 03/31/20 02/20/25 carbonate)-vitamin D3 12.5 mcg (500 unit) capsule (Calcium with Vit D3) magnesium oxide 400 mg PO DAILY 03/31/20 02/20/25 warfarin 2 mg tablet 2 mg PO 04/27/22 02/20/25 diltiazem HCl 120 mg 120 mg PO DAILY 05/11/23 02/20/25 capsule,extended release 24 hr (Cartia XT) cholecalciferol (vitamin D3) 25 25 mcg PO DAILY 06/17/24 02/20/25 mcg (1,000 unit) capsule multivitamin 1 tab PO DAILY 11/06/24 02/20/25 Previous Rx's ?Medication ?Instructions ?Recorded oral appliance #1 ea 05/11/20 simvastatin 20 mg tablet 20 mg PO BEDTIME #90 tabs 05/13/24 hydrocodone 5 mg-acetaminophen 325 1 tab PO Q4-6H PRN pain #20 tabs 04/03/25 mg tablet Allergies Allergy/AdvReac Type Severity Reaction Status Date / Time No Known Drug Allergies Allergy Verified 04/03/25 15:41 Review of Systems Review of Systems ROS Unobtainable: All systems reviewed & are unremarkable except as noted in HPI and below Patient History Medical History (Updated 04/03/25 @ 20:48 by Indra Ornelas DO) Chronic anticoagulation Traumatic ecchymosis of left lower leg Lumbar compression fracture Mitral valve disorder Cataracts, bilateral Hyperlipemia Paroxysmal atrial fibrillation (02/17/15) Mixed hyperlipidemia (02/17/15) Essential hypertension (02/17/15) Surgical History (System 10/01/20 @ 07:59 by Fatemhe Farley) Hx of foot surgery Hx of cataract surgery (~01/2016) History of mitral valve replacement (02/17/15) Family History (System 10/01/20 @ 07:59 by Fatemeh Farley) Mother Heart disease Stroke Gallstones Father Heart disease Brother Heart disease Social History occupational status: employed Smoking Status: Never smoker alcohol intake: never substance use type: does not use Smoking Status: Never smoker Exam Narrative Exam Narrative: GENERAL: [79] year old patient appears stated age. Well-developed patient, in mild distress. HEAD: Atraumatic. Normocephalic. EYES: Pupils equal round and reactive. Extraocular motions intact. No scleral icterus. No injection or drainage. ENT: Nose without bleeding, purulent drainage. Throat without erythema, tonsillar hypertrophy or exudate. Airway patent. NECK: Trachea midline. Non tender CARDIOVASCULAR: Regular rate and rhythm without murmurs, gallops, or rubs. RESPIRATORY: Clear to auscultation. Breath sounds equal bilaterally. No wheezes, rales, or rhonchi. GASTROINTESTINAL: Abdomen soft, non-tender, nondistended. EXTREMITIES: No edema or joint tenderness. BACK: Nontender without deformity or crepitance. No flank tenderness. NEURO: AOx3. SKIN: No rash or erythema of visible areas Initial Vital Signs Initial Vital Signs: Vital Signs Temperature 97.6 F 04/03/25 15:41 Pulse Rate 76 04/03/25 15:41 Respiratory Rate 18 04/03/25 15:41 Blood Pressure 127/83 04/03/25 15:41 Pulse Oximetry 97 04/03/25 15:41 Oxygen Delivery Method Room Air 04/03/25 15:41 Procedures [facility] [place] Procedure Name of Procedure: R sided Thoracic trigger point injection Side (if applicable): right Time out performed: Yes Technique/Description of procedure performed: Thoracic trigger point injection using 27 5/8 needle consisting of kenalog 40mg 1cc and lidocaine 2% without epi 4ml injected R sided T 6-8 Patient tolerated procedure: Well Complications: none Course Orders Ordered: ED Orders 04/03/25 18:21 CT lumbar spine wo con Stat CT thoracic spine wo con Stat CXR [XR chest 2V] Stat Discontinued Medications Lidocaine HCl (Lidocaine 2% Inj Mdv 20ml) 20 ml INJ INTRA-OP ONE Stop: 04/03/25 18:24 Last Admin: 04/03/25 19:18 Dose: 20 ml Documented By: ARMANI Morphine Sulfate (Morphine 2 Mg/Ml Inj) 2 mg IV NOW ONE Stop: 04/03/25 18:41 Last Admin: 04/03/25 19:17 Dose: 2 mg Documented By: ARMANI Triamcinolone (Triamcinolone 40 Mg/Ml Vial) 40 mg INJ NOW ONE Stop: 04/03/25 18:24 Last Admin: 04/03/25 19:18 Dose: 40 mg Documented By: ARMANI Vital Signs Vital signs: Vital Signs - 8 hr 04/03/25 15:41 04/03/25 19:52 Temperature 97.6 F Pulse Rate 76 56 L Respiratory Rate 18 20 Blood Pressure 127/83 132/68 Pulse Oximetry 97 95 Oxygen Delivery Method Room Air Room Air MDM - Back Pain/Injury Imaging Data Extremity x-ray #1: Radiologist's Impression: [place] [address] CT Scan Report Signed Patient: Marce Wang MR#: [id number] : 1945 Acct:[id number] Age/Sex: 79 / F Date of Service: 04/03/25 Loc: ED Accession Number: [id number] Procedure: CT lumbar spine wo con Ordering Provider: Indra Ornelas D.O. PROCEDURE: CT LUMBAR SPINE WO CON INDICATIONS: back pain hx of compression fracture TECHNIQUE: Noncontrast 3 mm thick sections acquired from the T12 level to the sacrum. Sagittal and coronal reformats were constructed. For radiation dose reduction, the following was used: automated exposure control. COMPARISON: [facility], CR, XR LUMBAR SPINE 2-3V, 11/20/2017, 12:35. FINDINGS: Image quality: Diagnostic Bones: Increased L1 height loss compared to prior, nonacute appearing. Moderate degenerative changes with disc space height loss worst at L4-L5. No traumatic subluxation. Disc herniations are suspected at L3-L4 and L4-L5 with thecal sac narrowing. Soft tissues: Aortic atherosclerotic calcifications. Suspected bilateral adnexal dermoid cysts partially seen. Increased colonic fecal loading IMPRESSION: Increased L1 height loss compared to 2018, though nonacute appearing on CT. Moderate background spondylosis. If there is high concern for further derangement, consider MRI evaluation. Partially seen bilateral adnexal dermoid cysts. Extremity x-ray #2: Radiologist's Impression: [address] [place] [id number] [address] Scan Report Signed Patient: Marce Wang MR#: [id number] : 1945 Acct:[id number] Age/Sex: 79 / F Date of Service: 04/03/25 Loc: ED Accession Number: [id number] Procedure: CT thoracic spine wo con Ordering Provider: Indra Ornelas D.O. PROCEDURE: CT THORACIC SPINE WO CON INDICATIONS: hx of compression fracture TECHNIQUE: Noncontrast 3 mm thick sections acquired through the region of interest in the thoracic spine. Sagittal and coronal reformats were then constructed. For radiation dose reduction, the following was used: automated exposure control. COMPARISON: [facility], CR, XR THORACIC SPINE 3V, 04/12/2018, 9:54. FINDINGS: Image quality: Diagnostic Bones: Height loss at T9 is similar to prior. There is increased height loss at T8 and T6, and T4. Sclerotic appearance is seen at T4. No traumatic subluxation. Mild diffuse background spondylosis. Partially seen sternotomy wires. Exaggerated thoracic kyphosis. Soft tissues: Partially visualized enlarged thoracic lymph nodes which appear partially calcified. Cardiomegaly. Cardiomegaly and coronary calcifications. Dilated ascending aorta at 4.3 cm. Lungs are not well assessed on this study, suspect atelectasis is present. IMPRESSION: Mild background thoracic degenerative changes. T4, 6 and 8 height loss is new from 2018, age-indeterminate. Sclerosis is seen at T4, which may be subacute. The others may be more chronic. If there is high concern for further derangement, consider MRI evaluation. Dilated ascending aorta of 4.3 cm. Cardiomegaly. Partially visualized enlarged mediastinal lymph nodes, possibly calcifications. These may be granulomatous. Consider dedicated chest CT follow-up with contrast. Other findings above. Chest x-ray: Radiologist's Impression: [address] [address] XRay Report Signed Patient: Marce Wang MR#: [id number] : 1945 Acct:[id number] Age/Sex: 79 / F Date of Service: 04/03/25 Loc: ED Accession Number: [id number] Procedure: XR chest 2V Ordering Provider: Indra Ornelas D.O. PROCEDURE: XR CHEST 2V INDICATIONS: thoracic back pain TECHNIQUE: 2 views of the chest were acquired. COMPARISON: None. FINDINGS AND IMPRESSION: Focal mild opacity in left mid lung, which may represent scarring/atelectasis or airspace disease. Consider future imaging surveillance to assess for resolution. No pleural effusions. Cardiomegaly. Sternotomy wires. Degenerative osseous changes. Spine and mediastinal findings better assessed on CT, please see separate report. 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 Cxr Focal mild opacity in left mid lung, which may represent scarring/atelectasis or airspace disease. Consider future imaging surveillance to assess for resolution. No pleural effusions.Cardiomegaly. Sternotomy wires. Degenerative osseous changes. Lumbar IMPRESSION: Increased L1 height loss compared to 2018, though nonacute appearing on CT. Moderate background spondylosis.If there is high concern for further derangement, consider MRI evaluation.Partially seen bilateral adnexal dermoid cysts. Ct thoracic Mild background thoracic degenerative changes.T4, 6 and 8 height loss is new from 2018, age-indeterminate. Sclerosis is seen at T4, which may be subacute. The others may be more chronic. Dilated ascending aorta of 4.3 cm. Cardiomegaly.Partially visualized enlarged mediastinal lymph nodes, possibly calcifications. These may be granulomatous. Differential dx OA, strain, fracture, spasm. D/c home on norco rx. Discharge Plan Departure Patient Disposition: Home Clinical Impression: Acute midline thoracic back pain Instructions: Thoracic Back Pain Activity Restrictions/Additional Instructions: Return with new or worsening symptoms. Take medicine as directed. Follow up PCP in 1-2 weeks if no improvement in symptoms. Prescriptions: New hydrocodone-acetaminophen 5-325 mg tablet 1 tab PO Q4-6H PRN (Reason: pain) Qty: 20 0RF No Action warfarin [Coumadin] 4 MG tablet 4 mg PO DAILY Qty: 0 aspirin 81 mg tablet,delayed release (DR/EC) 81 mg PO DAILY (DME) oral appliance See Rx Instructions .Route .MEDSUPPLY Qty: 1 0RF Rx Instructions: As directed simvastatin 20 mg tablet 20 mg PO BEDTIME Qty: 90 3RF warfarin 2 mg tablet 2 mg PO diltiazem HCl [Cartia XT] 120 mg capsule,extended release 24hr 120 mg PO DAILY multivitamin Tablet 1 tab PO DAILY magnesium oxide 400 mg magnesium capsule 400 mg PO DAILY cholecalciferol (vitamin D3) 25 mcg (1,000 unit) capsule 25 mcg PO DAILY calcium carbonate-vitamin D3 [Calcium 600 with Vitamin D3] 600 mg(1,500mg) -500 unit capsule 1 cap PO BID Referrals: Ericka Weaver MD [Primary Care Provider, Family Practice] Stand Alone Forms: Patient Portal/API
[2025-04-03] MEDS: MORPHINE 2 MG/ML INJ IV (19:17)
[2025-04-03] MEDS: LIDOCAINE 2% INJ MDV 20ML 20 ML INJ (19:18)
[2025-04-03] MEDS: TRIAMCINOLONE 40 MG/ML VIAL INJ (19:18)
[2025-04-03 19:52] VITALS: BP 132/68; PULSE 56; RESP 20; O2SAT 95
[2025-04-03 20:00] VITALS: PULSE 63; O2SAT 97
[2025-04-03 20:01] VITALS: BP 138/66; PULSE 62; O2SAT 95
[2025-04-03 20:30] VITALS: BP 156/70; PULSE 56; RESP 18; O2SAT 93
== END 2025-04-03 21:04 | disposition home or self-care (01) ==
PROVIDERS: Emergency Provider Family Medicine; PCP Student in an Organized Health Care Education/Training Program
DX: M54.6 Pain in thoracic spine (principal)
CPT/HCPCS: 71046; 72128; 72131; 96374; 99284; J2270